=== PATIENT | female | born 1965 | race Caucasian/White ===

== ENCOUNTER 2022-05-18 13:21 | Emergency (ER) | payer OTHER ==
[2022-05-18] MEDS ORDERED: MORPHINE 4 MG/ML SYR ONE (14:30)
[2022-05-18] MEDS ORDERED: PROMETHAZINE INJ 25 MG/ML AMP ONE (14:30)
[2022-05-18] MEDS ORDERED: NA CHLORIDE 0.9% 1,000 ML ONE (14:31)
[2022-05-18 14:50] LABS: Absolute Lymphocytes (CBC) 2.7 K/uL (0.7-4.9); Hematocrit 38.4 % (36.0-45.0); Lymphocytes % 26.1 % (15.3-44.8); MPV 9.7 fL (7.6-11.3); RBC Red Blood Cell Count 4.14 M/uL (3.86-4.86)
[2022-05-18 15:03] LABS: Protime INR 0.96
[2022-05-18 15:11] LABS: Albumin 4.1 g/dL (3.4-5.0); Bilirubin Total 0.3 mg/dL (0.2-1.0); Protein, Total 7.5 g/dL (6.4-8.2)
[2022-05-18 15:13] LABS: Potassium 4.2 mmol/L (3.5-5.1)
--- NOTE | 2022-05-18 15:17 | RAD REPORT ---
EXAM DESCRIPTION: RAD - Chest Single View - 05/18/2022 3:08 pm CLINICAL HISTORY: FEVER COMPARISON: CHEST SINGLE VIEW dated 06/02/2010 FINDINGS: Lines: None. Lungs: No evidence of edema or pneumonia. Pleural: No significant pleural effusions or pneumothorax. Cardiac: The heart size is within normal limits. Bones: No acute fractures. Other: IMPRESSION: No acute cardiopulmonary disease.
[2022-05-18 15:50] LABS: Urine Blood Trace-intact (Negative); Urine Glucose Negative (Negative); Urine Protein Negative (Negative); Urine Specific Gravity 1.015 (1.005-1.030)
[2022-05-18 16:01] LABS: Urine Bacteria <20 /HPF (<20); Urine RBC NONE SEEN /HPF (NONE SEEN)
--- NOTE | 2022-05-18 16:07 | RAD REPORT ---
EXAM DESCRIPTION: CT - Head Brain Wo Cont - 05/18/2022 4:01 pm CLINICAL HISTORY: Dizziness, non-specific COMPARISON: Facial Bones W/ Mpr dated 05/18/2022; HEAD BRAIN W O CONTRAST dated 06/02/2010 TECHNIQUE: All CT scans are performed using dose optimization technique as appropriate and may inclu de automated exposure control or mA/KV adjustment according to patient size. FINDINGS: No intracranial hemorrhage, hydrocephalus or extra-axial fluid collection.No areas of brai n edema or evidence of midline shift. The paranasal sinuses and mastoids are clear. The calvarium is intact. IMPRESSION: No acute intracranial abnormality.
--- NOTE | 2022-05-18 16:08 | RAD REPORT ---
EXAM DESCRIPTION: CT - CTFB CLINICAL HISTORY: Maxillofacial pain COMPARISON: No comparisons TECHNIQUE: Axial 2 mm thick images of the face were obtained with sagittal and coronal reconstructio n images. All CT scans are performed using dose optimization technique as appropriate and may include automated exposure control or mA/KV adjustment according to patient size. FINDINGS: No acute facial bone fracture is seen.The mandible is intact. The globes and orbital contents are grossly unremarkable.The paranasal sinuses and mastoids are clear . IMPRESSION: Negative for facial bone fracture.
--- NOTE | 2022-05-18 16:12 | RAD REPORT ---
EXAM DESCRIPTION: CTAbdomen Pelvis W Contrast - 05/18/2022 4:00 pm CLINICAL HISTORY: Right flank pain, dysuria COMPARISON: No comparisons TECHNIQUE: CT of the abdomen and pelvis was performed with contrast. All CT scans are performed using dose optimization technique as appropriate and may include automated exposure control or mA/KV adjustment according to patient size. FINDINGS: Lower chest: No acute abnormality. Liver: No acute abnormality or suspicious lesions. Biliary: No biliary ductal dilatation. Stomach: No significant focal abnormality. Duodenum: No significant focal abnormality. Pancreas: No significant abnormality. Spleen: Surgical changes along the ventral aspect of the spleen. Adrenal: No suspicious lesions. Kidney/ureter: No hydronephrosis. No renal calculi. Too small to characterize and/or benign appearing renal lesions are noted. Retroperitoneum: No retroperitoneal adenopathy. Vascular: No aneurysm. Bowel: Nonspecific fluid within several of the small bowel loops. No bowel obstruction identified. No appendicitis.. Peritoneum: No ascites or free air. Bladder: Grossly unremarkable. Reproductive: Hysterectomy Bones: No acute fracture. Moderate disc height loss L4-5. Multilevel degenerative changes are present in the spine. Other: n/a IMPRESSION: No acute intra-abdominal or pelvic finding. Incidental findings as noted above.
--- NOTE | 2022-05-18 16:46 | ER ---
Nurse's Notes [facility] Name: Terra Christianson Age: 56 yrs Sex: Female : 1965 Arrival Date: 05/18/2022 Time: 13:24 Bed 7 Private MD: Jamie Wilson Diagnosis: Low back pain;Dysuria Presentation: 05/18 13:41 Chief complaint: Patient states: right low back pain and burning with urination that aa5 began 5 days ago. Coronavirus screen: At this time, the client does not indicate any symptoms associated with coronavirus-19. Ebola Screen: No symptoms or risks identified at this time. Initial Sepsis Screen: Does the patient meet any 2 criteria? No. Patient's initial sepsis screen is negative. Does the patient have a suspected source of infection? No. Patient's initial sepsis screen is negative. Risk Assessment: Do you want to hurt yourself or someone else? Patient reports no desire to harm self or others. Onset of symptoms was April 2022. 13:41 Acuity: YOSELYN 3 aa5 13:41 Method Of Arrival: Wheelchair aa5 Triage Assessment: 15:00 General: Appears uncomfortable, Behavior is calm, cooperative. Musculoskeletal: jh6 15:00 Pain: Complains of pain in right lower back Pain currently is 7 out of 10 on a pain jh6 scale. Quality of pain is described as aching, crampy, stabbing, Pain began 2-3 days ago. Is continuous, Aggravated by increased activity, repositioning. Cardiovascular: No deficits noted. Respiratory: No deficits noted. GI: Abdomen is round obese, Bowel sounds present X 4 quads. Abd is soft and non tender. : Reports urinary frequency, since 3 days. Historical: - Allergies: 13:42 z-pack; aa5 13:42 Adhesives; aa5 13:42 Fentanyl; aa5 13:50 Azithromycin; aa5 13:50 Albuterol; aa5 13:50 Flu vaccine; aa5 13:50 Pneumonia Vaccine; aa5 13:50 NSAIDS; aa5 13:50 zoster vaccine live (PF); aa5 13:50 HYDRALAZINE (Headache and does not work to lower BP); aa5 13:50 Prednisolone; aa5 13:50 Prednisone; aa5 13:50 Wellbutrin; aa5 13:50 Trazodone; aa5 - PMHx: 13:42 Renal reflux; aa5 13:50 Renal Failure; Anxiety; Depressive disorder; Diabetes mellitus; Gout; Hypertensive aa5 disorder; Insomnia; Uterine Cancer; - PSHx: 13:50 Hysterectomy; aa5 - Immunization history:: Adult Immunizations unknown. - Social history:: Smoking status: Patient denies any tobacco usage or history of. Screenin:00 Abuse screen: Denies threats or abuse. Nutritional screening: No deficits noted. 6 15:00 Tuberculosis screening: No symptoms or risk factors identified. Fall Risk IV access (20 6 points). Assessment: 15:00 General: Appears in no apparent distress. uncomfortable, Behavior is calm, cooperative. 6 15:00 Neuro: No deficits noted. 6 Vital Signs: 13:41 BP 128 / 75; Pulse 65; Resp 16 S; Temp 98.5(O); Pulse Ox 100% on R/A; Weight 79.83 kg aa5 (R); Height 5 ft. 3 in. (160.02 cm) (R); 15:00 BP 127 / 79; Pulse 77; Resp 16; Pulse Ox 100% ; jh6 16:00 BP 110 / 65; Pulse 70; Resp 16; Pulse Ox 100% ; Pain 4/10; jh6 13:41 Body Mass Index 31.18 (79.83 kg, 160.02 cm) 5 ED Course: 13:24 Patient arrived in ED. mr 13:24 Jamie Wilson MD is Private Physician. mr 13:40 Kt Garber NP is PHCP. pm1 13:40 Ed Cedeño MD is Attending Physician. pm1 13:41 Arm band placed on. aa5 13:42 Triage completed. aa5 14:03 Nanda Mistry RN is Primary Nurse. jh6 14:55 EKG done, by ED staff, reviewed by Kt Garber NP. 3 15:00 Placed in gown. Call light in reach. Side rails up X 1. Adult w/ patient. jh6 15:02 Inserted saline lock: 22 gauge in left forearm, using aseptic technique. dh3 15:10 Chest Single View XRAY In Process Unspecified. EDMS 16:02 CT Abd/Pelvis - IV Contrast Only In Process Unspecified. EDMS 16:02 CT Head Brain wo Cont In Process Unspecified. EDMS 16:03 CT Facial Bones W/O Con In Process Unspecified. EDMS 16:45 Harvey Chawla DO is Referral Physician. pm1 16:45 Jamie Wilson MD is Referral Physician. pm1 17:22 No provider procedures requiring assistance completed. jh6 17:30 IV discontinued, intact, bleeding controlled, No redness/swelling at site. Pressure jh6 dressing applied. Administered Medications: 15:13 Drug: Phenergan (promethazine) 12.5 mg Route: IVP; Site: left forearm; jh6 15:14 Drug: NS 0.9% 1000 ml Route: IV; Rate: 1000 ml; Site: left forearm; jh6 15:14 Drug: morphine 4 mg Route: IVP; Infused Over: 4 mins; Site: left forearm; jh6 Outcome: 16:45 Discharge ordered by MD. pm1 17:47 Patient left the ED. 6 Signatures: Dispatcher [employer] EDCA RodriguezFangderMarti jones, RN RN aa5 Kt Garber, DENTAL OFFICE COORDINATOR DENTAL OFFICE COORDINATOR pm1 Danielle Elmore 3 Nanda Mistry RN RN jh6 Corrections: (The following items were deleted from the chart) 13:53 13:42 Allergies: Medrol (John); aa5 aa5 13:53 13:42 Allergies: Bentyl; aa5 aa5 13:53 13:42 Allergies: Inhalers; aa5 aa5 13:53 13:42 Allergies: "most vaccines"; aa5 aa5
--- NOTE | 2022-05-18 16:46 | EDPHYS ---
Physician Documentation [facility] Name: Terra Christianson Age: 56 yrs Sex: Female : 1965 Arrival Date: 05/18/2022 Time: 13:24 Bed 7 Private MD: Jamie Wilson ED Physician Ed Cedeño HPI: 05/18 13:44 This 56 yrs old Female presents to ER via Wheelchair with complaints of Urinary pm1 Problem, Back Pain. 13:44 The patient presents with flank pain, on the right, urinary symptoms, dysuria. Onset: pm1 The symptoms/episode began/occurred 5 day(s) ago. Modifying factors:. Associated signs and symptoms: Pertinent positives: Chills, Pertinent negatives: diarrhea, nausea, vomiting, abdominal pain. Severity of symptoms: in the emergency department the symptoms are actually worse. The patient has experienced similar episodes in the past, a few times, Patient is concerned that she has a UTI with sepsis because she reports similar symptoms for the past 5 days. The patient has not recently seen a physician, has an appointment scheduled, Dr. Chawla next week. Historical: - Allergies: 13:42 z-pack; aa5 13:42 Adhesives; aa5 13:42 Fentanyl; aa5 13:50 Azithromycin; aa5 13:50 Albuterol; aa5 13:50 Flu vaccine; aa5 13:50 Pneumonia Vaccine; aa5 13:50 NSAIDS; aa5 13:50 zoster vaccine live (PF); aa5 13:50 HYDRALAZINE (Headache and does not work to lower BP); aa5 13:50 Prednisolone; aa5 13:50 Prednisone; aa5 13:50 Wellbutrin; aa5 13:50 Trazodone; aa5 - PMHx: 13:42 Renal reflux; aa5 13:50 Renal Failure; Anxiety; Depressive disorder; Diabetes mellitus; Gout; Hypertensive aa5 disorder; Insomnia; Uterine Cancer; - PSHx: 13:50 Hysterectomy; aa5 - Immunization history:: Adult Immunizations unknown. - Social history:: Smoking status: Patient denies any tobacco usage or history of. ROS: 13:44 Positive for burning with urination, right sided flank pain. pm1 13:44 Cardiovascular: Negative for chest pain, palpitations, and edema, Respiratory: Negative for shortness of breath, cough, wheezing, and pleuritic chest pain, Abdomen/GI: Negative for abdominal pain, nausea, vomiting, diarrhea, and constipation. 13:44 MS/Extremity: Negative for injury and deformity, Skin: Negative for injury, rash, and discoloration, Neuro: Negative for headache, weakness, numbness, tingling, and seizure. 13:44 Constitutional: Positive for chills, Negative for poor PO intake. 13:44 Back: Positive for flank pain, on the right. 13:44 All other systems are negative. Exam: 13:44 Constitutional: This is a well developed, well nourished patient who is awake, alert, pm1 and in no acute distress. Head/Face: Normocephalic, atraumatic. 13:44 Skin: Warm, dry with normal turgor. Normal color with no rashes, no lesions, and no evidence of cellulitis. MS/ Extremity: Pulses equal, no cyanosis. Neurovascular intact. Full, normal range of motion. 13:44 Eyes: Exam is negative for acute changes, Pupils: no acute changes, Extraocular movements: no acute changes. 13:44 ENT: Exam is negative for acute changes, Mouth: no acute changes, Lips: normal, moist, Oral mucosa: normal, pink and intact, moist. 13:44 Cardiovascular: Exam negative for acute changes, Rate: normal, Rhythm: regular, Pulses: no pulse deficits are appreciated, Heart sounds: normal, normal S1and S2. 13:44 Respiratory: Exam negative for acute changes, respiratory distress, shortness of breath, Breath sounds: are clear throughout. 13:44 Abdomen/GI: Exam negative for acute changes, Inspection: abdomen appears normal, Palpation: abdomen is soft and non-tender, in all quadrants. 13:44 Back: pain, that is mild, of the right low back. 13:44 Neuro: Exam negative for acute changes, Orientation: is normal, Mentation: is normal, Motor: is normal, moves all fours. Vital Signs: 13:41 BP 128 / 75; Pulse 65; Resp 16 S; Temp 98.5(O); Pulse Ox 100% on R/A; Weight 79.83 kg aa5 (R); Height 5 ft. 3 in. (160.02 cm) (R); 15:00 BP 127 / 79; Pulse 77; Resp 16; Pulse Ox 100% ; jh6 16:00 BP 110 / 65; Pulse 70; Resp 16; Pulse Ox 100% ; Pain 4/10; jh6 13:41 Body Mass Index 31.18 (79.83 kg, 160.02 cm) aa5 MDM: 13:42 Patient medically screened. pm1 16:42 Data reviewed: vital signs. Data interpreted: Pulse oximetry: on room air is 100 %. pm1 Interpretation: normal. Counseling: I had a detailed discussion with the patient and/or guardian regarding: the historical points, exam findings, and any diagnostic results supporting the discharge/admit diagnosis, lab results, radiology results, the need for outpatient follow up, to return to the emergency department if symptoms worsen or persist or if there are any questions or concerns that arise at home. 05/18 13:43 Order name: Urine Microscopic Only; Complete Time: 16:02 pm05/18 14:07 Order name: Blood Culture Adult (2) pm1 05/18 14:07 Order name: CBC with Diff; Complete Time: 15:02 pm05/18 14:07 Order name: CMP; Complete Time: 15:20 pm05/18 14:07 Order name: Lactate; Complete Time: 15:20 pm05/18 14:07 Order name: Protime (+inr); Complete Time: 15:20 pm05/18 14:07 Order name: Ptt, Activated; Complete Time: 15:20 pm05/18 14:07 Order name: Urine Culture pm05/18 14:07 Order name: CT Abd/Pelvis - IV Contrast Only; Complete Time: 16:18 pm05/18 14:07 Order name: CT Head Brain wo Cont; Complete Time: 16:08 pm05/18 14:07 Order name: CT Facial Bones W/O Con; Complete Time: 16:11 pm1 05/18 14:07 Order name: Chest Single View XRAY; Complete Time: 15:20 pm05/18 15:50 Order name: Urine Dipstick-Ancillary; Complete Time: 16:02 EDMS 05/18 13:43 Order name: Urine Dipstick-Ancillary (obtain specimen); Complete Time: 16:27 pm1 05/18 14:07 Order name: Accucheck; Complete Time: 16:27 pm05/18 14:07 Order name: Cardiac monitoring; Complete Time: 14:48 pm1 05/18 14:07 Order name: EKG - Nurse/Tech; Complete Time: 14:48 pm1 05/18 14:07 Order name: IV Saline Lock - Large Bore; Complete Time: 15:14 pm1 05/18 14:07 Order name: Labs collected and sent; Complete Time: 14:48 pm1 05/18 14:07 Order name: O2 Per Protocol; Complete Time: 14:39 pm1 05/18 14:07 Order name: O2 Sat Monitoring; Complete Time: 14:39 pm1 Administered Medications: 15:13 Drug: Phenergan (promethazine) 12.5 mg Route: IVP; Site: left forearm; [facility] 15:14 Drug: NS 0.9% 1000 ml Route: IV; Rate: 1000 ml; Site: left forearm; 6 15:14 Drug: morphine 4 mg Route: IVP; Infused Over: 4 mins; Site: left forearm; 6 Disposition Summary: 05/18/22 16:45 Discharge Ordered Location: Home pm1 Problem: new pm1 Symptoms: have improved pm1 Condition: Stable pm1 Diagnosis - Low back pain pm1 - Dysuria pm1 Followup: pm1 - With: Emergency Department - When: As needed - Reason: Worsening of condition Followup: pm1 - With: Harvey Chawla DO - When: 2 - 3 days - Reason: Recheck today's complaints, Continuance of care, Re-evaluation by your physician Followup: pm1 - With: Jamie Wilson MD - When: 2 - 3 days - Reason: Recheck today's complaints, Continuance of care, Re-evaluation by your physician Discharge Instructions: - Discharge Summary Sheet pm1 - Acute Back Pain, Adult pm1 - Dysuria pm1 Forms: - Medication Reconciliation Form pm1 - Thank You Letter pm1 - Antibiotic Education pm1 - Prescription Opioid Use pm1 Signatures: Dispatcher [employer] EDMS Marti Morse RN RN aa5 Kt Garber NP FIELD CASHIER pm1 Nanda Mistry RN RN jh6 Corrections: (The following items were deleted from the chart) 13:53 13:42 Allergies: Medrol (John); aa5 aa5 13:53 13:42 Allergies: Bentyl; aa5 aa5 13:53 13:42 Allergies: Inhalers; aa5 aa5 1353 13:42 Allergies: "most vaccines"; aa5 aa5
[2022-05-18 18:03] VITALS: TEMP 98.5; O2SAT 100
[2022-05-18 18:07] VITALS: BP 110/65
--- NOTE | 2022-05-20 17:33 | EKG ---
Test Date: 2022-05-18 Test Time: 14:48:25 Type Caster: SATHYA MEASUREMENT RESULTS: Intervals: Rate: 60 TX: 190 QRSD: 84 QT: 458 QTc: 458 [place]: P: 38 TX: 190 QRS: 35 T: 58 INTERPRETIVE STATEMENTS: Normal sinus rhythm Nonspecific T wave abnormality Abnormal ECG Compared to ECG 02/28/2001 01:47:00 T-wave abnormality now present Ventricular premature complex(es) no longer present Electronically Signed On 05-20-22 17:29:45 CDT by Juan Diego Case
== END 2022-05-18 17:47 | disposition home or self-care (01) ==
LOC: ER 13:21
DX: M54.50 Low back pain, unspecified (principal); R30.0 Dysuria; E11.22 Type 2 diabetes mellitus with diabetic chronic kidney disease; N18.9 Chronic kidney disease, unspecified; Z88.1 Allergy status to other antibiotic agents; Z88.3 Allergy status to other anti-infective agents; Z88.5 Allergy status to narcotic agent; Z88.6 Allergy status to analgesic agent; Z88.7 Allergy status to serum and vaccine; Z88.8 Allergy status to other drugs, medicaments and biological substances; Z91.048 Other nonmedicinal substance allergy status
CPT/HCPCS: 93005; 87040 ×2; 87088; 85025; 87086; 36415; 85610; 83605; 85730; 80053; 70450; 70486; 76377; 74177; 71045; 96375; 96374; 99284; Q9967; J2550; J7030; 81003; 81015

== ENCOUNTER 2022-12-12 06:29 | Inpatient (IN) | payer OTHER ==
[2022-12-12 07:31] LABS: SARS-CoV-2 Antigen Rapid Res Negative (Negative)
--- NOTE | 2022-12-12 07:35 | EKG ---
Test Date: 2022-12-12 Test Time: 06:48:08 Material Handling Equipment [employer]: SIGRID MEASUREMENT RESULTS: Intervals: Rate: 54 NV: 200 QRSD: 80 QT: 446 QTc: 422 [place]: P: 50 NV: 200 QRS: 60 T: 62 INTERPRETIVE STATEMENTS: Sinus bradycardia Otherwise normal ECG Compared to ECG 05/18/2022 14:48:25 Sinus rhythm no longer present T-wave abnormality no longer present Electronically Signed On 12-12-22 07:34:44 SONOSCOPE OPERATOR by Eran Blas
[2022-12-12] MEDS ORDERED: ONDANSETRON 4 MG/2 ML VIAL ONE (07:57)
[2022-12-12] MEDS ORDERED: MORPHINE 4 MG/ML SYR ONE (07:57)
[2022-12-12] MEDS ORDERED: FUROSEMIDE 40 MG/4 ML VIAL ONE (07:57)
--- NOTE | 2022-12-12 08:13 | RAD REPORT ---
EXAM DESCRIPTION: Richard Single View12/12/2022 8:09 am CLINICAL HISTORY: Shortness of breath COMPARISON: April 2022 FINDINGS: The lungs appear clear of acute infiltrate. The heart is normal size IMPRESSION: No acute abnormalities displayed
[2022-12-12 08:16] LABS: Absolute Lymphocytes (CBC) 2.9 K/uL (0.7-4.9); Hematocrit 30.5 % (36.0-45.0); Lymphocytes % 34.6 % (15.3-44.8); MCV 92.2 fL (80-100); MPV 8.8 fL (7.6-11.3); RBC Red Blood Cell Count 3.31 M/uL (3.86-4.86)
[2022-12-12 08:21] LABS: Protime INR 0.95
[2022-12-12] MEDS ORDERED: METOCLOPRAMIDE 10 MG/2mL INJ ONE (08:34)
[2022-12-12 08:36] LABS: ALT/SGPT 91 U/L (13-56); AST/SGOT 64 U/L (15-37); Albumin 3.3 g/dL (3.4-5.0); Alkaline Phosphatase 98 U/L (45-117); BUN Blood Urea Nitrogen 21 mg/dL (7-18); Bicarbonate 26 mmol/L (21-32); Bilirubin Total 0.3 mg/dL (0.2-1.0); Glomerular Filtration Rate 54 ml/min (=/>90); Glucose Level 94 mg/dL (74-106); Magnesium 1.7 mg/dL (1.6-2.4); NT PRO-BNP 2732 pg/mL (<125); Protein, Total 6.2 g/dL (6.4-8.2); Sodium Level 141 mmol/L (136-145); Troponin High Sensitivity 7.5 pg/mL (<58.9)
[2022-12-12 08:37] LABS: Bilirubin Direct < 0.1 mg/dL (0-0.2)
[2022-12-12 08:38] LABS: Potassium 5.6 mmol/L (3.5-5.1)
[2022-12-12 09:55] LABS: Urine Blood Negative (Negative); Urine Glucose Negative (Negative); Urine Protein Negative (Negative); Urine Specific Gravity 1.015 (1.005-1.030)
[2022-12-12 10:18] LABS: Urine Bacteria None Seen /HPF (<20); Urine Mucus Slight /HPF (None Seen); Urine RBC <5 /HPF (None Seen)
--- NOTE | 2022-12-12 10:41 | EDPHYS ---
Physician Documentation [facility] Name: Terra Christianson Age: 57 yrs Sex: Female : 1965 Arrival Date: 12/12/2022 Time: 06:35 Bed 6 Private MD: ED Physician Tree Delgado HPI: 12/12 07:17 This 57 yrs old Female presents to ER via Ambulatory with complaints of Shortness Of rt Breath. 07:17 The patient has shortness of breath with light activity. Onset: The symptoms/episode rt began/occurred 1 week(s) ago. The patient's shortness of breath is aggravated by light activity. Associated signs and symptoms: Pertinent positives: Edema, right flank pain. Severity of symptoms: At their worst the symptoms were moderate. Patient presents to the ED with 1 week of reported weight gain, edema stating that her fingers, legs have been swollen. She was reports of right flank pain and burning with urination. She states that she was this is septic due to a UTI, she reports having multiple episodes of pyelonephritis in the right kidney previously. The patient denies chest pain. She does report some shortness of breath. She is on Lasix 20 mg daily. The patient denies other acute complaints at this time. Symptoms are moderate in severity, no other aggravating alleviating factors.. Historical: - Allergies: 06:45 Azithromycin; kd3 06:45 Fentanyl; kd3 06:45 HYDRALAZINE (Headache and does not work to lower BP); kd3 06:45 FLU VACCINE; kd3 06:45 NSAIDS; kd3 06:45 Prednisone; kd3 06:45 Trazodone; kd3 06:45 prednisolone; kd3 06:45 Wellbutrin; kd3 06:45 zoster vaccine live (PF); kd3 06:45 z-pack; kd3 06:45 pneumonia vaccine; kd3 06:45 Albuterol; kd3 06:45 Adhesives; kd3 - Home Meds: 06:45 Lasix 20 mg Oral tab once daily [Active]; allopurinol 100 mg Oral tab 1 tab once daily kd3 [Active]; Metoprolol Tartrate Oral [Active]; amlodipine oral [Active]; Lunesta oral [Active]; - PMHx: 06:45 Anxiety; depressive disorder; diabetes mellitus; Gout; Hypertensive disorder; insomnia; kd3 RENAL FAILURE; Renal reflux; uterine cancer; - PSHx: 06:45 hysterectomy; kd3 - Immunization history:: Adult Immunizations up to date, Client reports having NOT received the Covid vaccine. - Social history:: Smoking status: unknown. - Family history:: not pertinent. ROS: 07:17 Constitutional: Negative for fever, chills, and weight loss, Eyes: Negative for injury, rt pain, redness, and discharge, ENT: Negative for injury, pain, and discharge, Neck: Negative for injury, pain, and swelling, MS/Extremity: Negative for injury and deformity, Skin: Negative for injury, rash, and discoloration, Neuro: Negative for headache, weakness, numbness, tingling, and seizure, Psych: Negative for depression, anxiety, suicide ideation, homicidal ideation, and hallucinations. 07:17 Cardiovascular: Positive for edema, Negative for chest pain. 07:17 Respiratory: Positive for shortness of breath, Negative for cough. 07:17 Back: Positive for flank pain, Negative for radiated pain. 07:17 : Positive for flank pain, burning with urination. Exam: 07:17 Constitutional: This is a well developed, well nourished patient who is awake, alert, rt and in no acute distress. Head/Face: Normocephalic, atraumatic. ENT: Nares patent. No nasal discharge, no septal abnormalities noted. Tympanic membranes are normal and external auditory canals are clear. Oropharynx with no redness, swelling, or masses, exudates, or evidence of obstruction, uvula midline. Mucous membranes moist. Neck: Trachea midline, no thyromegaly or masses palpated, and no cervical lymphadenopathy. Supple, full range of motion without nuchal rigidity, or vertebral point tenderness. No Meningismus. Chest/axilla: Normal chest wall appearance and motion. Nontender with no deformity. No lesions are appreciated. Cardiovascular: Regular rate and rhythm with a normal S1 and S2. No gallops, murmurs, or rubs. Normal PMI, no JVD. No pulse deficits. Respiratory: Lungs have equal breath sounds bilaterally, clear to auscultation and percussion. No rales, rhonchi or wheezes noted. No increased work of breathing, no retractions or nasal flaring. Abdomen/GI: Soft, non-tender, with normal bowel sounds. No distension or tympany. No guarding or rebound. No evidence of tenderness throughout. Skin: Warm, dry with normal turgor. Normal color with no rashes, no lesions, and no evidence of cellulitis. Neuro: Awake and alert, GCS 15, oriented to person, place, time, and situation. Cranial nerves II-XII grossly intact. Motor strength 5/5 in all extremities. Sensory grossly intact. Cerebellar exam normal. Normal gait. Psych: Awake, alert, with orientation to person, place and time. Behavior, mood, and affect are within normal limits. 07:17 Back: Tenderness to the right mid lumbar region, no midline tenderness. 07:17 Musculoskeletal/extremity: 3+ edema to all 4 extremities, no deformities noted, no skin changes.. 10:34 ECG was reviewed by the Attending Physician. rt Vital Signs: 06:54 BP 146 / 84; Pulse 56; Resp 19; Temp 98.5(O); Pulse Ox 96% on R/A; kd3 06:54 Weight 83.91 kg; kd3 08:15 BP 143 / 76; Pulse 61; Resp 18; Pulse Ox 95% on R/A; ld1 08:16 Pain 8/10; ld1 14:06 BP 122 / 61; Pulse 56; Resp 18; Pulse Ox 96% on R/A; kr3 MDM: 06:49 Patient medically screened. rn 10:40 Differential diagnosis: Renal failure, sepsis, pyelonephritis, UTI, CHF, peripheral rt edema. Data reviewed: vital signs, nurses notes, lab test result(s), EKG, radiologic studies. Consideration of Admission/Observation Patient was admitted/placed on observation. Management of patient was discussed with the following: Hospitalist: Will admit. I considered the following discharge prescriptions or medication management in the emergency department Medications were administered in the Emergency Department. See MAR. Test considered but Not performed: Other Details Clear urinalysis, CT scan not indicated to rule out pyelonephritis, stone, hydronephrosis.. Care significantly affected by the following chronic conditions: Diabetes, Hypertension, Chronic Kidney Disease, No prior history of CHF. 12/12 06:49 Order name: BMP; Complete Time: 08:50 rn 12/12 06:49 Order name: Blood Culture Adult (2) rn 12/12 06:49 Order name: CBC with Diff; Complete Time: 08:50 rn 12/12 06:49 Order name: Hepatic Function; Complete Time: 08:50 rn 12/12 06:49 Order name: Magnesium; Complete Time: 08:50 rn 12/12 06:49 Order name: NT PRO-BNP; Complete Time: 08:50 rn 12/12 06:49 Order name: PT-INR; Complete Time: 08:50 rn 12/12 06:49 Order name: Ptt, Activated; Complete Time: 08:50 rn 12/12 06:49 Order name: Troponin HS; Complete Time: 08:50 rn 12/12 06:49 Order name: SARS RAPID; Complete Time: 08:15 rn 12/12 07:11 Order name: UA MICROSCOPIC; Complete Time: 10:24 rt 12/12 09:56 Order name: Urine Dipstick-Ancillary; Complete Time: 10:24 EDMS 12/12 12:42 Order name: Hemoglobin A1c EDMS 12/12 12:42 Order name: Lipid Profile EDMS 12/12 06:49 Order name: XRAY CXR (1 view); Complete Time: 08:15 rn 12/12 12:38 Order name: Echo with Doppler EDMS 12/12 12:42 Order name: Magnesium EDMS 12/12 12:42 Order name: Phosphorus EDMS 12/12 12:42 Order name: T4 Free EDMS 12/12 12:42 Order name: Thyroid Stimulating Hormone EDMS 12/12 12:42 Order name: Urinalysis EDMS 12/12 12:42 Order name: Basic Metabolic Panel EDMS 12/12 12:42 Order name: Basic Metabolic Panel EDMS 12/12 12:42 Order name: CBC with Automated Diff EDMS 12/12 12:42 Order name: CBC with Automated Diff EDMS 12/12 12:42 Order name: NT PRO-BNP EDMS 12/12 12:42 Order name: NT PRO-BNP EDMS 12/12 14:48 Order name: Potassium EDMS 12/12 06:49 Order name: EKG; Complete Time: 06:50 rn 12/12 06:49 Order name: Cardiac monitoring; Complete Time: 07:04 rn 12/12 06:49 Order name: EKG - Nurse/Tech; Complete Time: 06:50 rn 12/12 06:49 Order name: IV Saline Lock; Complete Time: 08:53 rn 12/12 06:49 Order name: Labs collected and sent; Complete Time: 08:53 rn 12/12 06:49 Order name: O2 Per Protocol; Complete Time: 07:04 rn 12/12 06:49 Order name: O2 Sat Monitoring; Complete Time: 07:04 rn 12/12 07:11 Order name: Urine Dipstick-Ancillary (obtain specimen); Complete Time: 09:55 rt 12/12 07:49 Order name: Labs - recollect needed: recollect c7, cbc; Complete Time: 08:07 bd 12/12 12:34 Order name: CONS Physician Consult EDMS 12/12 12:42 Order name: 60g Consistent Carbohydrate (ADA 1800/2000) EDMS EC:34 Rate is 54 beats/min. Rhythm is regular, Sinus bradycardia with No ectopy. QRS [place] is rt Normal. OR interval is normal. QRS interval is normal. QT interval is normal. No Q waves. T waves are Normal. No ST changes noted. Interpreted by me. Administered Medications: 07:59 Not Given (on back orderr): Phenergan (promethazine) 12.5 mg IVP once ld1 08:15 Drug: Lasix (furosemide) 40 mg Route: IVP; Site: left antecubital; ld1 08:36 Follow up: Response: No adverse reaction aa5 10:25 Follow up: Response: No adverse reaction kr3 08:15 Drug: morphine 4 mg Route: IVP; Infused Over: 4 mins; Site: left antecubital; ld1 08:36 Follow up: Response: No adverse reaction aa5 10:25 Follow up: Response: No adverse reaction; RASS: Alert and Calm (0) kr3 08:15 Drug: Zofran (Ondansetron) 4 mg Route: IVP; Site: left antecubital; ld1 08:36 Follow up: Response: No adverse reaction aa5 10:25 Follow up: Response: No adverse reaction; RASS: Alert and Calm (0) kr3 08:36 Drug: Reglan (metoCLOPramide) 5 mg Route: IVP; Site: left antecubital; aa5 10:25 Follow up: Response: No adverse reaction kr3 Disposition Summary: 12/12/22 10:40 Hospitalization Ordered Hospitalization Status: Observation rt Provider: Junaid Latham rt Location: Telemetry/MedSurg (observation) rt Condition: Stable rt Problem: new rt Symptoms: have improved rt Bed/Room Type: Standard rt Room Assignment: 219(12/12/22 13:06) dw Diagnosis - Edema, unspecified rt - Hyperkalemia rt Forms: - Medication Reconciliation Form rt - SBAR form rt Signatures: Dispatcher [employer] EDChana Robles Diana, RN RN dw Barrera Borja MD MD rn Calderon, Audri RN RN aa5 Emmy Yao RN RN ld1 Jamee Abarca RN RN kd3 Tree Delgado MD MD rt Cherelle Castrejon RN kr3 Corrections: (The following items were deleted from the chart) 13:06 10:40 rt dw
--- NOTE | 2022-12-12 10:41 | ER ---
Nurse's Notes [facility] Name: Terra Christianson Age: 57 yrs Sex: Female : 1965 Arrival Date: 12/12/2022 Time: 06:35 Bed 6 Private MD: Diagnosis: Edema, unspecified;Hyperkalemia Presentation: 12/12 06:43 Chief complaint: Patient states: I think I have gained 15 pounds in the past 12 hours. kd3 yesterday I weighed 185 and this morning I weigh 200. My right kidney hurts and i have not had much urine output like i usually do. I feel very short of breath and i am nauseous. Coronavirus screen: Vaccine status: Patient reports being unvaccinated. Ebola Screen: No symptoms or risks identified at this time. Risk Assessment: Do you want to hurt yourself or someone else? Patient reports no desire to harm self or others. Onset of symptoms was December 12, 2022. 06:43 Method Of Arrival: Ambulatory kd3 06:43 Acuity: YOSELYN 3 kd3 06:49 Initial Sepsis Screen: Does the patient meet any 2 criteria?. kd3 14:30 Initial Sepsis Screen: Does the patient have a suspected source of infection?. kr3 Triage Assessment: 06:45 General: Appears uncomfortable, Behavior is calm, cooperative. Pain: Complains of pain kd3 in right mid back. Neuro: Level of Consciousness is awake, alert, obeys commands, Oriented to person, place, time, situation. Cardiovascular: Patient's skin is warm and dry. Respiratory: Reports shortness of breath on exertion Onset: The symptoms/episode began/occurred this morning, the patient has moderate shortness of breath. GI: Reports nausea. : Reports less urine output than usual. Historical: - Allergies: 06:45 Azithromycin; kd3 06:45 Fentanyl; kd3 06:45 HYDRALAZINE (Headache and does not work to lower BP); kd3 06:45 FLU VACCINE; kd3 06:45 NSAIDS; kd3 06:45 Prednisone; kd3 06:45 Trazodone; kd3 06:45 prednisolone; kd3 06:45 Wellbutrin; kd3 06:45 zoster vaccine live (PF); kd3 06:45 z-pack; kd3 06:45 pneumonia vaccine; kd3 06:45 Albuterol; kd3 06:45 Adhesives; kd3 - Home Meds: 06:45 Lasix 20 mg Oral tab once daily [Active]; allopurinol 100 mg Oral tab 1 tab once daily kd3 [Active]; Metoprolol Tartrate Oral [Active]; amlodipine oral [Active]; Lunesta oral [Active]; - PMHx: 06:45 Anxiety; depressive disorder; diabetes mellitus; Gout; Hypertensive disorder; insomnia; kd3 RENAL FAILURE; Renal reflux; uterine cancer; - PSHx: 06:45 hysterectomy; kd3 - Immunization history:: Adult Immunizations up to date, Client reports having NOT received the Covid vaccine. - Social history:: Smoking status: unknown. - Family history:: not pertinent. Screenin:49 [facility] ED Fall Risk Assessment (Adult) History of falling in the last 3 months, kd3 including since admission No falls in past 3 months (0 pts) Confusion or Disorientation No (0 pts) Intoxicated or Sedated No (0 pts) Impaired Gait No (0 pts) Mobility Assist Device Used No (0 pt) Altered Elimination No (0 pt) Score/Fall Risk Level 0 - 2 = Low Risk Oriented to surroundings. Abuse screen: Denies threats or abuse. Denies injuries from another. Nutritional screening: No deficits noted. Tuberculosis screening: No symptoms or risk factors identified. Assessment: 06:48 Cardiovascular: Rhythm is regular. Respiratory: Airway is patent Respiratory effort is kd3 even, unlabored. 08:36 Reassessment: Patient is alert, oriented x 3, equal unlabored respirations, skin aa5 warm/dry/pink. Patient states feeling better. Pain: Pain currently is 4 out of 10 on a pain scale. 09:30 Reassessment: Patient appears in no apparent distress at this time. Patient and/or kr3 family updated on plan of care and expected duration. Pain level reassessed. Patient is alert, oriented x 3, equal unlabored respirations, skin warm/dry/pink. 10:30 Reassessment: Patient appears in no apparent distress at this time. Patient and/or kr3 family updated on plan of care and expected duration. Pain level reassessed. Patient is alert, oriented x 3, equal unlabored respirations, skin warm/dry/pink. 11:27 Reassessment: Patient appears in no apparent distress at this time. Patient and/or kr3 family updated on plan of care and expected duration. Pain level reassessed. Patient is alert, oriented x 3, equal unlabored respirations, skin warm/dry/pink. 14:26 Reassessment:. kr3 14:29 Respiratory: kr3 Vital Signs: 06:54 BP 146 / 84; Pulse 56; Resp 19; Temp 98.5(O); Pulse Ox 96% on R/A; kd3 06:54 Weight 83.91 kg; kd3 08:15 BP 143 / 76; Pulse 61; Resp 18; Pulse Ox 95% on R/A; ld1 08:16 Pain 8/10; ld1 14:06 BP 122 / 61; Pulse 56; Resp 18; Pulse Ox 96% on R/A; kr3 ED Course: 06:35 Patient arrived in ED. ag3 06:43 Jamee Abarca, RN is Primary Nurse. kd3 06:45 Triage completed. kd3 06:45 Arm band placed on right wrist. kd3 06:49 Barrera Borja MD is Attending Physician. rn 06:49 Placed in gown. Bed in low position. Call light in reach. kd3 07:01 Attending Physician role handed off by Barrera Borja MD rt 07:01 Tree Delgado MD is Attending Physician. rt 07:12 SARS RAPID Sent. ld1 07:25 Missed attempt(s): 22 gauge in right wrist. Bleeding controlled, band aid applied, aa5 catheter tip intact. 07:30 Missed attempt(s): 22 gauge in left forearm. Bleeding controlled, band aid applied, aa5 catheter tip intact. 07:30 Initial lab(s) drawn, by me, sent to lab. aa5 07:50 Missed attempt(s): 22 gauge in right forearm. Bleeding controlled, band aid applied, jl7 catheter tip intact. 07:55 Missed attempt(s): 24 gauge in left hand. Bleeding controlled, band aid applied, jl7 catheter tip intact. 08:02 Lab(s) recollected, by me, sent to lab. Inserted saline lock: 22 gauge in left jl7 antecubital area, using aseptic technique. Blood collected. 08:11 XRAY CXR (1 view) In Process Unspecified. EDMS 10:39 Junaid Latham MD is Hospitalizing Provider. rt 14:27 Report given to MESSI Sweeney after 3 attempts at patient report first attempt at 1340, kr3 finally giving report at 1427. 14:29 No provider procedures requiring assistance completed. Patient admitted, IV remains in kr3 place. Administered Medications: 07:59 Not Given (on back orderr): Phenergan (promethazine) 12.5 mg IVP once ld1 08:15 Drug: Lasix (furosemide) 40 mg Route: IVP; Site: left antecubital; ld1 08:36 Follow up: Response: No adverse reaction aa5 10:25 Follow up: Response: No adverse reaction kr3 08:15 Drug: morphine 4 mg Route: IVP; Infused Over: 4 mins; Site: left antecubital; ld1 08:36 Follow up: Response: No adverse reaction aa5 10:25 Follow up: Response: No adverse reaction; RASS: Alert and Calm (0) kr3 08:15 Drug: Zofran (Ondansetron) 4 mg Route: IVP; Site: left antecubital; ld1 08:36 Follow up: Response: No adverse reaction aa5 10:25 Follow up: Response: No adverse reaction; RASS: Alert and Calm (0) kr3 08:36 Drug: Reglan (metoCLOPramide) 5 mg Route: IVP; Site: left antecubital; aa5 10:25 Follow up: Response: No adverse reaction kr3 Medication: 06:49 VIS not applicable for this client. kd3 Outcome: 10:40 Decision to Hospitalize by Provider. rt 14:29 Admitted to Med/surg kr3 14:29 Condition: stable 14:29 Instructed on the need for admit. 14:55 Patient left the ED. ld1 Signatures: Dispatcher [employer] EDMS Barrera Borja MD MD rn Calderon, Audri, RN RN aa5 Juana Pratt RN RN jl7 Lizett Carpio 3 Emmy Yao RN RN ld1 Jamee Abarca RN RN kd3 Cherelle Castrejon RN RN kr3 Tree Delgado MD MD rt Corrections: (The following items were deleted from the chart) 08:09 08:02 Inserted saline lock: 22 gauge in left antecubital area, using aseptic technique. jl7 Blood collected. ld1 08:09 08:02 Lab(s) recollected, by me, sent to lab. ld1 jl7 : 07:50 Missed attempt(s): 22 gauge in right forearm. Bleeding controlled, band aid jl7 applied, catheter tip intact. ld1 08: 07:55 Missed attempt(s): 24 gauge in left hand. Bleeding controlled, band aid applied, jl7 catheter tip intact. ld1
[2022-12-12] MEDS ORDERED: ACETAMINOPHEN 325 MG TABLET PO PRN (12:33)
[2022-12-12] MEDS ORDERED: SOD POLYSTYREN SUL 15 GM/60 ML UCUP PO ONE (12:35)
[2022-12-12] MEDS ORDERED: ONDANSETRON 4 MG/2 ML VIAL IV PRN (12:39)
[2022-12-12] MEDS ORDERED: HYDRALAZINE HCL 20 MG/ML VIAL IV PRN (12:48)
--- NOTE | 2022-12-12 12:49 | P.HP ---
Certification for Inpatient Patient admitted to: Observation With expected LOS: <2 Midnights Patient will require the following post-hospital care: None Practitioner: I am a practitioner with admitting privileges, knowledge of patient current condition, hospital course, and medical plan of care. Services: Services provided to patient in accordance with Admission requirements found in Title 42 Section 412.3 of the Code of Federal Regulations <Silvano Shelton - Last Filed: 12/12/22 18:03> Patient History Date of Service: 12/12/22 Reason for admission: Generalized edema. History of Present Illness: Patient is a 57-year-old female with a past medical history significant for gout, depression, iron deficiency anemia, hypertension, obesity, DM 2 who presents with complaint of generalized swelling has been ongoing for the past 3 days. Patient reported that she initially started having generalized weakness, fatigue, generalized malaise and right flank pain. Patient rated pain as 9/10 in severity and described pain as sharp/burning in quality. Patient reported associated signs and symptoms of fever, chills, headache, dizziness and shortness of breath. Patient denies any other signs or symptoms. Symptoms are aggravated or relieved by nothing. Patient decided to present to the hospital due to worsening symptoms. Of note, patient reported that she has gained 15 pounds in weight in the last 3 days. - Past Medical/Surgical History -: Gout -: HTN -: Depression -: Obesity -: DM 2 -: Hysterectomy - Family History Family History: Reviewed- Non-Contributory - Social History Smoking Status: Never smoker Alcohol use: Yes CD- Drugs: No Caffeine use: Yes Place of Residence: Home <Jose EliasgeoSilvano childers Tony - Last Filed: 12/12/22 18:03> Date of Service: 12/12/22 <Junaid Latham - Last Filed: 12/12/22 19:27> Allergies adhesive Allergy (Verified 12/12/22 13:01) UNK albuterol Allergy (Verified 12/12/22 13:01) UNK azithromycin [From Zithromax] Allergy (Verified 12/12/22 13:01) UNK bupropion [From Wellbutrin] Allergy (Verified 12/12/22 13:01) UNK fentanyl Allergy (Verified 12/12/22 13:01) UNK hydralazine Allergy (Verified 12/12/22 13:01) UNK Influenza Virus Vaccines Allergy (Verified 12/12/22 13:01) UNK NSAIDS (Non-Steroidal Anti-Inflamma Allergy (Verified 12/12/22 13:01) UNK pneumococcal vaccine Allergy (Verified 12/12/22 13:01) UNK prednisolone Allergy (Verified 12/12/22 13:01) UNK prednisone Allergy (Verified 12/12/22 13:01) UNK trazodone Allergy (Verified 12/12/22 13:01) UNK zoster vaccine live Allergy (Verified 12/12/22 13:01) UNK Home Medications: Allopurinol 1 tab PO DAILY 12/12/22 Citalopram [Celexa] 40 mg PO BEDTIME 12/12/22 Eszopiclone [Lunesta] 1 tab PO BEDTIME 12/12/22 Ferrous Sulfate [Feosol] 1 tab PO DAILY 12/12/22 Furosemide [Lasix] 1 tab PO DAILY 12/12/22 Losartan Potassium 1 tab PO DAILY 12/12/22 Mecobalamin [B12 Active] 1,000 mcg IM CONT 12/12/22 Metoprolol Tartrate 1 tab PO BID 12/12/22 Review of Systems General: Fever, Weakness, Malaise Eyes: Unremarkable ENT: Unremarkable Respiratory: Shortness of Breath Cardiovascular: Unremarkable Gastrointestinal: Unremarkable Genitourinary: Unremarkable Musculoskeletal: Pedal edema, Other (Generalized edema.) Integumentary: Unremarkable Neurological: Other (headache, dizziness) Lymphatics: Unremarkable <Silvano Shelton - Last Filed: 12/12/22 18:03> Physical Examination - Physical Exam General: Alert, In no apparent distress, Oriented x3, Cooperative HEENT: Atraumatic, PERRLA, Mucous membr. moist/pink, EOMI, Sclerae nonicteric Neck: Supple, 2+ carotid pulse no bruit, No LAD, Without JVD or thyroid abnormality Respiratory: Diminished Cardiovascular: Regular rate/rhythm, Normal S1 S2, Edema Capillary refill: <2 Seconds Gastrointestinal: Normal bowel sounds, Soft and benign, No tenderness Musculoskeletal: No clubbing, No contractures, Tenderness ( ) Integumentary: No rashes, No breakdown, No significant lesion, No erythema, No warmth Neurological: Normal gait, Normal speech, Normal strength at 5/5 x4 extr, Normal tone, Normal affect Lymphatics: No axilla or inguinal lymphadenopathy - Studies Laboratory Data (last 24 hrs) 12/12/22 08:02: PT 10.5, INR 0.95, APTT 31.1 12/12/22 08:02: WBC 8.50, Hgb 10.4 L, Hct 30.5 L, Plt Count 220 12/12/22 08:02: Sodium 141, Potassium 5.6 H*, BUN 21 H, Creatinine 1.16 H, Glucose 94, Magnesium 1.7, Total Bilirubin 0.3, AST 64 H, ALT 91 H, Alkaline Phosphatase 98 <Silvano Shelton - Last Filed: 12/12/22 18:03> - Studies Laboratory Data (last 24 hrs) 12/12/22 08:02: PT 10.5, INR 0.95, APTT 31.1 12/12/22 08:02: WBC 8.50, Hgb 10.4 L, Hct 30.5 L, Plt Count 220 12/12/22 08:02: Sodium 141, Potassium 5.6 H*, BUN 21 H, Creatinine 1.16 H, Glucose 94, Magnesium 1.7, Total Bilirubin 0.3, AST 64 H, ALT 91 H, Alkaline Phosphatase 98 <Junaid Latham - Last Filed: 12/12/22 19:27> Assessment and Plan - Plan --Suspected acute systolic or diastolic CHF. Echocardiogram pending to assess cardiac structures and function. Patient placed on diuresis with Lasix. Daily weight and strict I/O. Cardiology consulted. We will await further recommendations. --Gout. Continue home medication. --DM2. Patient reported that her diabetes has been controlled and she has not been taking any diabetic medication. A1c is 5.0. Continue supportive care. --Depression. Continue home medication. --Iron deficiency anemia. Continue ferrous sulfate. --Hypertension. Stable. Continue home medications and labetalol as needed. --Hyperkalemia. Patient given Kayexalate x1 dose. Will reassess levels. -- CKD 3A. Stable. We will hold off on ARB. Avoid NSAIDs and nephrotoxins. We will continue to monitor renal functions. --Obesity. Likely secondary to excess calories intake. Patient counseled on weight reduction, diet and excise therapy. --DVT prophylaxis with heparin subQ. Discharge Plan: Home Plan to discharge in: 48 Hours - Advance Directives Does patient have a Living Will: No Does patient have a Durable POA for Healthcare: No - Code Status/Comfort Care Code Status Assessed: Yes Physician Review: Patient Assessed, Agree with Above Assessment and Plan Critical Care: No <Silvano Shelton - Last Filed: 12/12/22 18:03> Physician Review: Patient Assessed, Agree with Above Assessment and Plan <Junaid Latham - Last Filed: 12/12/22 19:27>
[2022-12-12] MEDS ORDERED: LABETALOL 20 MG/4ML SYRINGE IV PRN (13:15)
[2022-12-12 14:53] LABS: Magnesium 1.5 mg/dL (1.6-2.4); Phosphorus 4.3 mg/dL (2.5-4.9)
[2022-12-12] MEDS: HYDROCODONE/APAP 5/325 MG TAB PO PRN (15:49)
[2022-12-12 16:53] VITALS: BMI 36.7
[2022-12-12] MEDS ORDERED: FUROSEMIDE 40 MG/4 ML VIAL IV SCH (17:00)
[2022-12-12] MEDS ORDERED: HOME MED 1 EA UNK (Mecobalamin [B12 Active] 1,000 MCG Tab.Chew) IM SCH (18:00)
[2022-12-12] MEDS ORDERED: MAGNESIUM SULFATE 1 gm IVPB 1 GM/100 ML BAG IV ONE (18:05)
[2022-12-12] MEDS ORDERED: MORPHINE 2 MG/ML SYR IV ONE (18:06)
--- NOTE | 2022-12-12 19:17 | CON ---
Date of Consultation: 12/12/2022 Reason For Consultation: Shortness of breath and heart failure symptoms. History Of Present Illness: This is a 57-year-old female with only past medical history of hypertens ion, diabetes, and anxiety disorder who presented with shortness of breath that is progressive over t he past week with lower extremity edema and orthopnea to the point that she became short of breath at rest. She gained about 20 pounds with the fluids over the past week and denies having any chest maicol n. No history of cardiac disease. No nausea, vomiting, diarrhea, or diaphoresis. Past Medical History: Diabetes and hypertension. Medications: Refer to reconciliation sheet for detailed list. Allergies: SHE IS ALLERGIC TO AZITHROMYCIN, BUPROPION, AND FENTANYL. Family History: No premature coronary artery disease or cancer. Social History: She does not smoke or drink. Does not use any drugs. Review of Systems: All systems reviewed and they were negative except for mentioned in HPI. Physical Examination: Vital Signs: Temperature is 98.5, pulse 56, breathing at 19, blood pressure 146/84, and saturating 9 6%. General: A pleasant middle-aged female, in no apparent distress. Head And Neck: Pupils are equal and reactive to light. Intact eye movements. Positive JVD. No cer vical lymphadenopathy. Neck is supple. Thyroid is not enlarged. Lungs: Crackles in both lung [place] from the bases all the way up. No accessory muscle use or muscl e retraction. Heart: Regular rate and rhythm with S3 gallop. Abdomen: Soft, nontender. Bowel sounds positive. No organomegaly. No masses or hernia. No rigidi ty or rebound. Extremities: 2 to 3+ nonpitting edema. Neurologic: Alert, awake, and oriented x3. No acute focal deficits appreciated. Investigations: NT-proBNP is 2732. Troponin is negative. BUN is 21, creatinine 1.1, potassium 5.6 and hemoglobin is 10 and on the chest x-ray, she has no acute abnormalities. Assessment And Recommendation: 1.Acute congestive heart failure exacerbation, this is new onset. I agree with diuretics, Lasix 40 mg q.12 hours. Monitor BUN, creatinine, and electrolytes. 2.Hyperkalemia, should improve with diuresis. Reassess tomorrow and obtain an echocardiogram and se rial cardiac enzymes. Further recommendations to follow accordingly. 3.Hypertension. Blood pressure is elevated and should improve with diuresis. Obtain an echocardiog faye and further recommendations accordingly. SR/MODL Voice ID: [id number] Report ID: [id number]
[2022-12-12] MEDS: HEPARIN 5000 UNIT/ML 1 ML VIAL SQ SCH (20:36)
[2022-12-12] MEDS: CITALOPRAM 10 MG TABLET PO SCH (20:36)
[2022-12-12] MEDS: ESZOPICLONE 1 MG TAB PO SCH (20:38)
[2022-12-12] MEDS ORDERED: HOME MED 1 EA UNK (Eszopiclone [Lunesta] 3 MG Tablet) PO SCH (21:00)
[2022-12-13] MEDS: HYDROCODONE/APAP 5/325 MG TAB PO PRN ×3 (05:24→20:15)
[2022-12-13 06:26] LABS: Magnesium 1.7 mg/dL (1.6-2.4); Potassium 4.4 mmol/L (3.5-5.1); Troponin High Sensitivity 5.3 pg/mL (<58.9)
[2022-12-13] MEDS ORDERED: MAGNESIUM SULFATE 1 gm IVPB 1 GM/100 ML BAG IV ONE (07:00)
[2022-12-13 07:02] LABS: Absolute Lymphocytes (CBC) 3.5 K/uL (0.7-4.9); Hematocrit 38.8 % (36.0-45.0); MPV 9.5 fL (7.6-11.3); RBC Red Blood Cell Count 4.22 M/uL (3.86-4.86)
[2022-12-13] MEDS: HEPARIN 5000 UNIT/ML 1 ML VIAL SQ SCH ×2 (08:51→20:15)
[2022-12-13] MEDS: FUROSEMIDE 20 MG/ 2ML VIAL IV SCH ×2 (08:51→16:22)
[2022-12-13] MEDS: FERROUS SULFATE 325 MG TAB PO SCH (08:52)
[2022-12-13] MEDS: METOPROLOL TAR 50 MG TAB PO SCH ×2 (08:52→19:48)
[2022-12-13] MEDS: ASPIRIN 81 MG CHEWABLE TABLET PO SCH (08:52)
[2022-12-13] MEDS ORDERED: METOPROLOL TAR 50 MG TAB PO SCH (09:00)
[2022-12-13] MEDS ORDERED: HOME MED 1 EA UNK (Metoprolol Tartrate [Metoprolol Tartrate] 100 MG Tablet) PO SCH (09:00)
[2022-12-13] MEDS: allopurinoL 100 MG TAB PO SCH (09:01)
--- NOTE | 2022-12-13 09:02 | RAD REPORT ---
EXAM DESCRIPTION: US - Abdomen Exam Complete - 12/13/2022 6:21 am CLINICAL HISTORY: Abdominal pain. elevated LFTs, right flank pain COMPARISON: Abdomen Pelvis W Contrast dated 05/18/2022 FINDINGS: Mild diffuse fatty liver. No focal liver lesions or intrahepatic biliary dilatation is see n. Small hepatic cyst possible right lobe measuring about 10 mm. Cholecystectomy. Common bile duct is normal in caliber measuring 5-7 mm. Both kidneys are normal in size, shape and echotexture. No hydronephrosis, focal lesion of concern or perinephric fluid. The spleen is normal in size measuring 10 cm. The pancreas and aorta are obscured by bowel gas. The visualized aspects of the IVC are grossly normal. IMPRESSION: Mild fatty liver. Cholecystectomy.
[2022-12-13] MEDS ORDERED: methocarbamoL 500 MG TAB PO ONE (15:48)
--- NOTE | 2022-12-13 17:24 | P.PN ---
Subjective Date of Service: 12/13/22 Chief Complaint: Generalized edema. No acute events overnight. She reports that her breathing is improved compared to yesterday. She states that she continues to have right flank pain. She states that the pain is improved with methocarbamol. Review of Systems 10-point ROS is otherwise unremarkable Respiratory: SOB with Excertion Musculoskeletal: Back Pain (right flank) Physical Examination - Vital Signs Temperature: 97.1 F Blood Pressure: 147/70 Pulse: 52 Respirations: 16 Pulse Ox (%): 94 - Physical Exam General: Alert, In no apparent distress HEENT: Atraumatic, Mucous membr. moist/pink, EOMI, Sclerae nonicteric Neck: JVD not distended Respiratory: Clear to auscultation bilaterally, Normal air movement Cardiovascular: Regular rate/rhythm, Normal S1 S2, No gallops, No rubs, No murmurs, Edema (1+ BLE) Gastrointestinal: Normal bowel sounds, Soft and benign, Non-distended, No tenderness, No rebound, No guarding Musculoskeletal: No clubbing Integumentary: No rashes Neurological: Normal speech, Normal affect Assessment And Plan - Plan # Acute Decompensated Diastolic Congestive Heart Failure with Preserved Ejection Fraction # Hypertension # Obesity - BMI 35.2 kg/m2 - Consulted Cardiology and spoke with Dr. Case - recommendations appreciated - Ordered transthoracic echocardiogram - Preliminary read per Dr. Case = normal LVEF (60-65%), normal wall motion, diastolic dysfunction, mild (MR, AI, TR, PI) - Chest x-ray = "No acute abnormalities displayed" - NT-Pro BNP = 2732 (may be falsely low/normal in obesity) - Troponin trend: 7.5 -> 5.5 -> 5.3 - Diuresis with IV furosemide for today, plan to transition to PO tomorrow - Continue metoprolol - Daily weights - Strict I/O - Cardiac diet, 1.5 L fluid restriction, 2 g Na restriction # Hyperkalemia in Chronic Kidney Disease Stage III - Creatinine near baseline - Urinalysis = unremarkable - IV diuretics as mentioned above - Monitor creatinine and urine output - If worsening, obtain renal ultrasound - Renally dose medications # Non-Alcoholic Steatohepatitis - AST 64, ALT 91 - Acteminophen level < 2.5 - Alcohol level <10 - Abdominal ultrasound = "mild fatty liver. Cholecystectomy." # Depression - Continue home citalopram # Diet-Controlled Type II Diabetes Mellitus - Correction scale insulin # Gout - Continue home allopurinol # Iron Deficiency Anemia - Continue home ferrous sulfate Junaid Latham M.D.
--- NOTE | 2022-12-13 19:15 | PN ---
Date of Progress Note: 12/13/2022 Subjective: Seen by bedside. She is doing much better. She lost about 12 pounds since yesterday wi th IV diuresis. No shortness of breath this morning. No orthopnea. Review of Systems: No chest pain, shortness of breath, orthopnea, cough. No nausea, vomiting, diarrhea. No abdominal p ain. All other systems reviewed, they were negative. Physical Examination: Vital Signs: Temperature is 97.6, pulse 53, breathing at 16, blood pressure 113/68, saturating 94% o n room air. General: Pleasant, middle-aged female, in no apparent distress. Head and Neck: Pupils are equal, reactive to light. Intact eye movements. No JVD. No cervical lym phadenopathy. Neck is supple. Thyroid not enlarged. Lungs: Clear to auscultation bilaterally. No rhonchi, wheezing, or crackles. No accessory muscle u se. Heart: Regular rate and rhythm. No extra sounds. Abdomen: Soft, nontender. Bowel sounds positive. No organomegaly. No masses or hernia. No rigidi ty or rebound. Extremities: Trace edema bilaterally. No clubbing, cyanosis. Intact pulses. Skin: No rashes. NEUROLOGIC: Alert, awake, oriented x3. No acute focal deficits appreciated. Investigations: BUN 21, creatinine 1.25. Troponin has been negative 3 sets. Echocardiogram showed normal ejection fraction with diastolic dysfunction. Assessment And Recommendations: 1.Acute on chronic congestive heart failure exacerbation. She is doing much better. Creatinine and BUN started to go up gradually. The Lasix dose was appropriately decreased to 20 mg IV q.12 hours. I recommend later this afternoon to start her on oral Lasix in preparation for discharge tomorrow mo rning. 2.Hypertension. Blood pressure is well controlled. 3.Hyperkalemia. This has resolved. SR/MODL Voice ID: [id number] Report ID: [id number]
[2022-12-13] MEDS: CITALOPRAM 10 MG TABLET PO SCH (20:13)
[2022-12-13] MEDS: ESZOPICLONE 1 MG TAB PO SCH (20:15)
[2022-12-14] MEDS: methocarbamoL 500 MG TAB PO PRN ×3 (00:49→19:29)
[2022-12-14 03:32] LABS: Magnesium 1.8 mg/dL (1.6-2.4); Potassium 3.9 mmol/L (3.5-5.1)
[2022-12-14] MEDS ORDERED: MAGNESIUM SULFATE 1 gm IVPB 1 GM/100 ML BAG IV ONE (06:48)
[2022-12-14] MEDS ORDERED: Ringers Lactate 500 ML IV ONE (06:56)
--- NOTE | 2022-12-14 07:11 | ECHO ---
HEIGHT: 5 ft 2 in WEIGHT: 192 lb 9.6 oz DATE OF STUDY: 12/13/[address]: Silvano Shelton 2-DIMENSIONAL: YES M.MODE: YES DOPPLER: YES COLOR FLOW: YES TDS: NO PORTABLE: YES DEFINITY: NO BUBBLE STUDY: NO DIAGNOSIS: RULE OUT CONGESTIVE HEART FAILURE CARDIAC HISTORY: CATHERIZATION: SURGERY: PROSTHETIC VALVE: PACEMAKER: MEASUREMENTS (cm) DIASTOLIC (NORMALS) SYSTOLIC (NORMALS) IVSd 0.9 (0.6-1.2) LA Diam 3.6 (1.9-4.0) LVEF 71% LVIDd 4.8 (3.5-5.7) LVIDs 2.9 (2.0-3.5) %FS 40% LVPWd 1.1 (0.6-1.2) Ao Diam 2.8 (2.0-3.7) 2 DIMENSIONAL ASSESSMENT: RIGHT ATRIUM: NORMAL LEFT ATRIUM: NORMAL RIGHT VENTRICLE: NORMAL LEFT VENTRICLE: NORMAL TRICUSPID VALVE: MILD TRICUSPID REGURGITATION MITRAL VALVE: MILD MITRAL REGURGITATION PULMONIC VALVE: MILD PULMONIC INSUFFICIENCY AORTIC VALVE: MILD AORTIC INSUFFICIENCY PERICARDIAL EFFUSION: NONE AORTIC ROOT: NORMAL LEFT VENTRICULAR WALL MOTION: NORMAL. DOPPLER/COLOR FLOW: SEE BELOW. COMMENTS: 1. NORMAL LEFT VENTRICULAR EJECTION FRACTION 60-65% 2. NORMAL WALL MOTION 3. DIASTOLIC DYSFUNCTION 4. MILD (MITRAL REGURGITATION, AORTIC INSUFFIENCY, TRICUSPID REGURGITATION, PULMONIC INSUFFICIENCY TECHNOLOGIST: DAVID KHAN RCS
[2022-12-14] MEDS: FERROUS SULFATE 325 MG TAB PO SCH (08:24)
[2022-12-14] MEDS: allopurinoL 100 MG TAB PO SCH (08:25)
[2022-12-14] MEDS: HEPARIN 5000 UNIT/ML 1 ML VIAL SQ SCH ×2 (08:25→19:28)
[2022-12-14] MEDS: ASPIRIN 81 MG CHEWABLE TABLET PO SCH (08:25)
[2022-12-14] MEDS: METOPROLOL TAR 50 MG TAB PO SCH (08:25)
[2022-12-14 09:09] VITALS: O2SAT 98
--- NOTE | 2022-12-14 09:32 | P.CNS ---
Date of Consult: 12/14/22 Reason for Consult: REZA/ CKD III Requesting Physician: Junaid Latham Chief Complaint: Generalized edema History of Present Illness: Patient is a 57-year-old female with a past medical history significant for gout, depression, iron deficiency anemia, hypertension, obesity, DM 2 who presents with complaint of generalized swelling has been ongoing for the past 3 days. Patient reported that she initially started having generalized weakness, fatigue, generalized malaise and right flank pain. Patient rated pain as 9/10 in severity and described pain as sharp/burning in quality. Patient reported associated signs and symptoms of fever, chills, headache, dizziness and shortness of breath. Patient denies any other signs or symptoms. Symptoms are aggravated or relieved by nothing. Patient decided to present to the hospital due to worsening symptoms. Of note, patient reported that she has gained 15 pounds in weight in the last 3 days. 12/12 07:17 This 57 yrs old Female presents to ER via Ambulatory with complaints of Shortness Of rt Breath. 07:17 The patient has shortness of breath with light activity. Onset: The symptoms/episode rt began/occurred 1 week(s) ago. The patient's shortness of breath is aggravated by light activity. Associated signs and symptoms: Pertinent positives: Edema, right flank pain. Severity of symptoms: At their worst the symptoms were moderate. Patient presents to the ED with 1 week of reported weight gain, edema stating that her fingers, legs have been swollen. She was reports of right flank pain and burning with urination. She states that she was this is septic due to a UTI, she reports having multiple episodes of pyelonephritis in the right kidney previously. The patient denies chest pain. She does report some shortness of breath. She is on Lasix 20 mg daily. The patient denies other acute complaints at this time. Symptoms are moderate in severity, no other aggravating alleviating factors.. She reports a UTI every other month that she treats at home with prn abx. She reports feeling swollen all over including her feet and hands. She states that her rings feel tight. Allergies adhesive Allergy (Verified 12/12/22 13:01) UNK albuterol Allergy (Verified 12/12/22 13:01) UNK azithromycin [From Zithromax] Allergy (Verified 12/12/22 13:01) UNK bupropion [From Wellbutrin] Allergy (Verified 12/12/22 13:01) UNK fentanyl Allergy (Verified 12/12/22 13:01) UNK hydralazine Allergy (Verified 12/12/22 13:01) UNK Influenza Virus Vaccines Allergy (Verified 12/12/22 13:01) UNK NSAIDS (Non-Steroidal Anti-Inflamma Allergy (Verified 12/12/22 13:01) UNK pneumococcal vaccine Allergy (Verified 12/12/22 13:01) UNK prednisolone Allergy (Verified 12/12/22 13:01) UNK prednisone Allergy (Verified 12/12/22 13:01) UNK trazodone Allergy (Verified 12/12/22 13:01) UNK zoster vaccine live Allergy (Verified 12/12/22 13:01) UNK Home medications list reviewed: Yes Home Medications: Allopurinol 1 tab PO DAILY 12/12/22 Citalopram [Celexa*] 40 mg PO BEDTIME 12/12/22 Eszopiclone [Lunesta] 1 tab PO BEDTIME 12/12/22 Ferrous Sulfate [Feosol] 1 tab PO DAILY 12/12/22 Mecobalamin [B12 Active] 1,000 mcg IM CONT 12/12/22 Furosemide [Lasix] 1 tab PO DAILY PRN #30 12/14/22 methocarbamoL [Robaxin*] 500 mg PO Q8H PRN 7 Days #20 tab 12/14/22 - Past Medical/Surgical History Diabetic: No -: Gout -: HTN -: Depression -: Obesity -: DM 2 -: CKD III (Dr. Chawla) -: Right ureter stenosis -: Recurrent UTI -: Hysterectomy -: I&D Left leg(spider bite) - Social History Smoking Status: Unknown if ever smoked Alcohol use: Yes CD- Drugs: No Caffeine use: Yes Place of Residence: Home Review of Systems 10-point ROS is otherwise unremarkable General: Weakness, Malaise Cardiovascular: Edema Physical Examination Temp Pulse Resp BP Pulse Ox 97.0 F 51 16 119/61 95 12/14/22 08:00 12/14/22 08:00 12/14/22 08:38 12/14/22 08:00 12/14/22 08:38 General: In no apparent distress, Oriented x3, Cooperative HEENT: Atraumatic Neck: Supple Respiratory: Clear to auscultation bilaterally Cardiovascular: No edema, Regular rate/rhythm Gastrointestinal: Soft and benign, Non-distended Musculoskeletal: No clubbing, No contractures Integumentary: No rashes, No cyanosis Neurological: Normal speech Blood work reviewed in the chart. Imagings Data: EXAM DESCRIPTION: US - Abdomen Exam Complete - 12/13/2022 6:21 am CLINICAL HISTORY: Abdominal pain. elevated LFTs, right flank pain COMPARISON: Abdomen Pelvis W Contrast dated 05/18/2022 FINDINGS: Mild diffuse fatty liver. No focal liver lesions or intrahepatic biliary dilatation is seen. Small hepatic cyst possible right lobe measuring about 10 mm. Cholecystectomy. Common bile duct is normal in caliber measuring 5-7 mm. Both kidneys are normal in size, shape and echotexture. No hydronephrosis, focal lesion of concern or perinephric fluid. The spleen is normal in size measuring 10 cm. The pancreas and aorta are obscured by bowel gas. The visualized aspects of the IVC are grossly normal. IMPRESSION: Mild fatty liver. Cholecystectomy. EXAM DESCRIPTION: [facility] Single View12/12/2022 8:09 am CLINICAL HISTORY: Shortness of breath COMPARISON: April 2022 FINDINGS: The lungs appear clear of acute infiltrate. The heart is normal size IMPRESSION: No acute abnormalities displayed LEFT VENTRICULAR WALL MOTION: NORMAL. DOPPLER/COLOR FLOW: SEE BELOW. COMMENTS: 1. NORMAL LEFT VENTRICULAR EJECTION FRACTION 60-65% 2. NORMAL WALL MOTION 3. DIASTOLIC DYSFUNCTION 4. MILD (MITRAL REGURGITATION, AORTIC INSUFFIENCY, TRICUSPID REGURGITATION, PULMONIC INSUFFICIENCY [facility] EXAM DESCRIPTION: CT - Abdomen Pelvis Wo Contrast - 12/14/2022 11:14 am CLINICAL HISTORY: right flank pain COMPARISON: Abdomen Pelvis W Contrast dated 05/18/2022 TECHNIQUE: Axial [address] imaging of the abdomen and pelvis was performed without IV contrast. No IV contrast was given because of allergy, abnormal renal function, patient refusal or physician request. Oral contrast was not given. All CT scans are performed using dose optimization technique as appropriate and may include automated exposure control or mA/KV adjustment according to patient size. FINDINGS: No suspicious findings in the lung bases. The liver, spleen and pancreas show no suspicious findings on non-contrast imaging. Gallbladder is absent. No abnormal biliary tree dilatation. Surgical clips are present in the left upper quadrant in proximity to the spleen. No hydronephrosis or suspicious renal mass. 18 millimeter exophytic anterior upper pole right kidney cyst is present. There is nodularity to the renal capsules. These are all stable from prior imaging. No perinephric stranding. No significant adrenal finding. Isodense renal masses and pyelonephritis cannot be excluded in the absence of IV contrast. The urinary bladder is without significant finding. Very minimal hiatal hernia is present. No gastric wall thickening or mass. No small bowel acute finding seen. Appendix is not well defined. No appendicitis findings. No measurable diverticulosis. Right-side colon volume is moderate. No acute GI process identifiable. No free air, free fluid or inflammatory stranding. No hernia, mass or bulky lymphadenopathy. No suspicious bony findings. Air in stranding in the subcutaneous fat of the abdomen present related to injection sites from medication. Disc and bone degenerative changes are present. No acute or pathologic bone process identifiable. IMPRESSION: Non-contrast enhanced CT abdomen and pelvis imaging show no significant or suspicious finding. Conclusions/Impression: Stage I REZA may be due to over diuresis CKD III Hx right ureter stenosis -No NSAIDs -Hold diuretic therapy at this time -Follow up CT Abd/ Pelvis Hyponatremia -Encourage nutrition Hyperkalemia, resolved Hypomagnesemia -Replete as ordered HTN with CKD/ CHF -Continue Metoprolol Diastolic CHF, chronic -Monitor daily weight DM II A1C 5 -No sugar diet Fatty Liver Transaminitis -No sugar diet Anemia resolved Hx iron deficiency -Continue oral iron -Start Colace BID Gout -Continue Allopurinol Case reviewed with Dr. Latham Thank you kindly for the consultation
[2022-12-14] MEDS: HYDROCODONE/APAP 5/325 MG TAB PO PRN ×2 (11:02→18:33)
--- NOTE | 2022-12-14 11:32 | RAD REPORT ---
EXAM DESCRIPTION: CT - Abdomen Pelvis Wo Contrast - 12/14/2022 11:14 am CLINICAL HISTORY: right flank pain COMPARISON: Abdomen Pelvis W Contrast dated 05/18/2022 TECHNIQUE: Axial [address] imaging of the abdomen and pelvis was performed without IV contrast. No IV contrast was given because of allergy, abnormal renal function, patient refusal or physician re quest. Oral contrast was not given. All CT scans are performed using dose optimization technique as appropriate and may include automated exposure control or mA/KV adjustment according to patient size. FINDINGS: No suspicious findings in the lung bases. The liver, spleen and pancreas show no suspicious findings on non-contrast imaging. Gallbladder is ab sent. No abnormal biliary tree dilatation. Surgical clips are present in the left upper quadrant in p roximity to the spleen. No hydronephrosis or suspicious renal mass. 18 millimeter exophytic anterior upper pole right kidney cyst is present. There is nodularity to the renal capsules. These are all stable from prior imaging. No perinephric stranding. No significant adrenal finding. Isodense renal masses and pyelonephritis ca nnot be excluded in the absence of IV contrast. The urinary bladder is without significant finding. Very minimal hiatal hernia is present. No gastric wall thickening or mass. No small bowel acute findi ng seen. Appendix is not well defined. No appendicitis findings. No measurable diverticulosis. Right- side colon volume is moderate. No acute GI process identifiable. No free air, free fluid or inflammatory stranding. No hernia, mass or bulky lymphadenopathy. No suspicious bony findings. Air in stranding in the subcutaneous fat of the abdomen present related to injection sites from medication. Disc and bone degenerative changes are present. No acute or pathologic bone process identifiable. IMPRESSION: Non-contrast enhanced CT abdomen and pelvis imaging show no significant or suspicious fi nding. Full assessment is limited is the absence of IV contrast. Nonacute findings detailed in the body of t he report.
[2022-12-14 15:21] LABS: Potassium 4.2 mmol/L (3.5-5.1)
--- NOTE | 2022-12-14 16:34 | P.DS ---
Admission Date: 12/14/22 Discharge Date: 12/14/22 Disposition: ROUTINE DISCHARGE Discharge Condition: GOOD Reason for Admission: Generalized edema. Consultations: 1. Cardiology 2. Nephrology Hospital Course: DIAGNOSES: # Acute Decompensated Diastolic Congestive Heart Failure with Preserved Ejection Fraction # KDIGO Stage I Acute Kidney Injury on Chronic Kidney Disease Stage III due to Overdiuresis # Right Flank Pain (suspect Musculoskeletal) # Right Renal Cyst (1.8 cm) # Hyperkalemia # Hypertension # Obesity - BMI 35.2 kg/m2 # Non-Alcoholic Steatohepatitis # Depression # Diet-Controlled Type II Diabetes Mellitus # Gout # Iron Deficiency Anemia HOSPITAL COURSE: Ms. Terra Christianson is a pleasant 57 year old female with a past medical history significant for chronic diastolic congestive heart failure, chronic kidney disease stage III, non alcoholic hepatic steatosis, type 2 diabetes mellitus, hypertension, depression, gout, and iron deficiency anemia who was admitted to the [facility] on 12/12/2022 for generalized edema. She was admitted to the Medicine service. Upon further evaluation, her NT-Pro BNP was 2732. Her troponin trend was 7.5 -> 5.5 -> 5.3. Her chest x-ray revealed, "no acute abnormalities displayed." Her transthoracic echocardiogram revealed, "1. normal left ventricular ejection fraction 60-65% 2. normal wall motion 3. diastolic dysfunction 4. mild (mitral regurgitation, aortic insuffiency, tricuspid regurgitation, pulmonic insufficiency." Cardiology was consulted and she was evaluated by Dr. Case. She was treated with IV furosemide, with improvement of her symptoms. Her hospital course was complicated by a KDIGO stage I acute kidney injury, for which Nephrology was consulted. She was evaluated by Dr. Chawla and it was thought that her acute kidney injury was secondary to overdiuresis. She was given a 500 mL bolus of Lactated Ringer's, with improvement in her creatinine back to her baseline. She has been cleared for discharge with furosemide 20 mg to be taken whenever she gains more than 1.5-2 pounds within a 24-hour period. Given her hyperkalemia and borderline bradycardia during her hospitalization, she was advised to hold her metoprolol and losartan on discharge. She will monitor her blood pressure 23 times a day and follow-up with Dr. Chawla for any further recommendations regarding her antihypertensive regimen. Additionally, she reported persistent right flank pain. Her urinalysis was unremarkable. Her abdominal ultrasound revealed, "mild fatty liver. Cholecystectomy." Her CT abdomen/pelvis revealed, "non-contrast enhanced CT abdomen and pelvis imaging show no significant or suspicious finding." There was a finding of a 1.8 mm right renal cyst. This was discussed with her and she was advised to follow this up with her PCP for any further evaluation of malignancy. She verbalized understanding and agreed to make this appointment. On 12/14/2022, she was seen on rounds and deemed medically stable for discharge. She was discharged with instructions to schedule follow-up appointments with her PCP (Dr. Wilson), with Cardiology (Dr. Blas), and with Nephrology (Dr. Chawla). She was provided a prescription for methocarbamol. She was given the opportunity to ask questions and reported no further questions. Furthermore, all questions were answered to the best of my ability. A copy of this discharge summary will be sent to the above providers to facilitate continuity of care. Today, I personally spent 35 minutes on her case, of which greater than 50% of the time was spent in patient education, counseling, and coordination of care as described above. - Physical Exam General: Alert, In no apparent distress HEENT: Atraumatic, Mucous membr. moist/pink, EOMI, Sclerae nonicteric Neck: JVD not distended Respiratory: Clear to auscultation bilaterally, Normal air movement Cardiovascular: Regular rate/rhythm, Normal S1 S2, No gallops, No rubs, No murmurs, Edema (trace BLE) Gastrointestinal: Normal bowel sounds, Soft and benign, Non-distended, No tenderness, No rebound, No guarding Musculoskeletal: No clubbing Integumentary: No rashes Neurological: Normal speech, Normal affect Vital Signs/Physical Exam: Temp Pulse Resp BP Pulse Ox 97.4 F 69 16 119/55 L 98 12/14/22 12:00 12/14/22 12:00 12/14/22 12:02 12/14/22 12:00 12/14/22 12:02 Laboratory Data at Discharge: WBC 8.50 K/uL (4.3-10.9) 12/13/22 05:35 Hgb 12.7 g/dL (12.0-15.0) D 12/13/22 05:35 Hct 38.8 % (36.0-45.0) 12/13/22 05:35 Plt Count 161 K/uL (152-406) D 12/13/22 05:35 PT 10.5 SECONDS (9.5-12.5) 12/12/22 08:02 INR 0.95 12/12/22 08:02 APTT 31.1 SECONDS (24.3-36.9) 12/12/22 08:02 Sodium 137 mmol/L (136-145) 12/14/22 14:51 Potassium 4.2 mmol/L (3.5-5.1) 12/14/22 14:51 BUN 19 mg/dL (7-18) H 12/14/22 14:51 Creatinine 1.28 mg/dL (0.55-1.02) H 12/14/22 14:51 Glucose 103 mg/dL (74-106) 12/14/22 14:51 Phosphorus 4.3 mg/dL (2.5-4.9) 12/12/22 14:06 Magnesium 1.8 mg/dL (1.6-2.4) 12/14/22 02:35 Total Bilirubin 0.3 mg/dL (0.2-1.0) 12/12/22 08:02 AST 64 U/L (15-37) H 12/12/22 08:02 ALT 91 U/L (13-56) H 12/12/22 08:02 Alkaline Phosphatase 98 U/L (45-117) 12/12/22 08:02 Triglycerides 309 mg/dL (<150) H 12/12/22 14:06 Cholesterol 201 mg/dL (<200) H 12/12/22 14:06 HDL Cholesterol 55 mg/dL (40-60) 12/12/22 14:06 Cholesterol/HDL Ratio 3.65 12/12/22 14:06 Home Medications: RX: Allopurinol 1 tab PO DAILY 12/12/22 RX: Citalopram [Celexa*] 40 mg PO BEDTIME 12/12/22 RX: Eszopiclone [Lunesta] 1 tab PO BEDTIME 12/12/22 RX: Ferrous Sulfate [Feosol] 1 tab PO DAILY 12/12/22 RX: Mecobalamin [B12 Active] 1,000 mcg IM CONT 12/12/22 RX: Furosemide [Lasix] 1 tab PO DAILY PRN #30 12/14/22 RX: methocarbamoL [Robaxin*] 500 mg PO Q8H PRN 7 Days #20 tab 12/14/22 New Medications: RX: Furosemide [Lasix] 1 tab PO DAILY PRN #30 PRN Reason: Titrate To Sbp (Must Define) RX: methocarbamoL [Robaxin*] 500 mg PO Q8H PRN 7 Days #20 tab PRN Reason: Muscle Spasms Physician Discharge Instructions: 1. Please call and schedule a follow-up appointment with your PCP (Dr. Wilson) in 3-5 days 2. Please call and schedule a follow-up appointment with Nephrology (Dr. Chawla) and 3-5 days 3. Please call and schedule a follow-up appointment with Cardiology (Dr. Blas) in 5-7 days Diet: AHA Activity: Ad dov Followup: Harvey Chawla DO [ACTIVE - CAN ADMIT] - Eran Blas MD [ACTIVE - CAN ADMIT] - Jamie Wilson MD [ACTIVE - CAN ADMIT] - Time spent managing pt's care (in minutes): 35
[2022-12-14 16:40] VITALS: BP 145/64; TEMP 97.5
--- NOTE | 2022-12-14 17:33 | PN ---
Date of Progress Note: 12/14/2022 Subjective: Seen by bedside. She is doing better. Still has some swelling and shortness of breath on exertion. Review of Systems: Mild shortness of breath on exertion and lower extremity edema. No nausea, vomiting, diarrhea. No o rthopnea. No dysuria, polyuria, or urinary urgency. All the systems reviewed and they were negative . Physical Examination: Vital Signs: Temperature is 97.4, pulse 69, breathing at 16, blood pressure is 119/55, saturating 98 % on room air. General: Pleasant, middle-aged female, in no apparent distress. Head and Neck: Pupils are equal, reactive to light. Intact eye movements. No JVD. No cervical lym phadenopathy. Neck is supple. Thyroid is not enlarged. Lungs: Clear to auscultation bilaterally. No rhonchi, wheezing, or crackles. No accessory muscle u se. Heart: Regular rate and rhythm. No extra sounds. Abdomen: Soft, nontender. Bowel sounds positive. No organomegaly. No masses or hernia. No rigidi ty or rebound. Extremities: No clubbing or cyanosis. Intact pulses. Skin: No rash. Neurologic: Alert, awake, oriented x3. No acute focal deficits appreciated. Investigations: BUN 25, creatinine 1.5, and hemoglobin is 12.7. Assessment And Recommendations: 1.Acute diastolic congestive heart failure exacerbation. She responded very well to diuresis, but n ow her BUN and creatinine are slightly high. Hold Lasix and re-evaluate tomorrow. If creatinine goe s back to baseline, to start her on 40 mg of Lasix by mouth daily and low-salt diet and reassess labs in the morning. 2.Acute on chronic renal failure, likely due to over diuresis. Hold Lasix. Reassess labs in the morning and Nephrology is on board. 3.Hypertension. Blood pressure is controlled. SR/MODL Voice ID: [id number] Report ID: [id number]
[2022-12-14] MEDS: CITALOPRAM 10 MG TABLET PO SCH (19:29)
[2022-12-14] MEDS: ESZOPICLONE 1 MG TAB PO SCH (19:30)
[2022-12-14] MEDS ORDERED: DOCUSATE NA 100 MG CAP PO SCH (21:00)
== END 2022-12-14 19:37 | disposition home or self-care (01) | DRG 291 ==
LOC: ER 06:29 → ERHOLD 12:31 → 2ND 14:36 → OBSVTOIN 12-14 14:00
PROVIDERS: ADMIT Internal Medicine; ATTEND Internal Medicine
DX: I13.0 Hypertensive heart and chronic kidney disease with heart failure and stage 1 through stage 4 chronic kidney disease, or unspecified chronic kidney disease (principal); I50.31 Acute diastolic (congestive) heart failure; N17.9 Acute kidney failure, unspecified; E87.1 Hypo-osmolality and hyponatremia; N18.31 Chronic kidney disease, stage 3a; E11.22 Type 2 diabetes mellitus with diabetic chronic kidney disease; E87.5 Hyperkalemia; K75.81 Nonalcoholic steatohepatitis (NASH); D50.9 Iron deficiency anemia, unspecified; N28.1 Cyst of kidney, acquired; R10.9 Unspecified abdominal pain; R00.1 Bradycardia, unspecified; I34.0 Nonrheumatic mitral (valve) insufficiency; I07.1 Rheumatic tricuspid insufficiency; I35.1 Nonrheumatic aortic (valve) insufficiency; I37.1 Nonrheumatic pulmonary valve insufficiency; M10.9 Gout, unspecified; E83.42 Hypomagnesemia; F32.A Depression, unspecified; F41.9 Anxiety disorder, unspecified; G47.00 Insomnia, unspecified; E66.9 Obesity, unspecified; Z68.35 Body mass index [BMI] 35.0-35.9, adult; Z71.3 Dietary counseling and surveillance; Z71.82 Exercise counseling; Z28.310 Unvaccinated for COVID-19; Z20.822 Contact with and (suspected) exposure to COVID-19; Z79.899 Other long term (current) drug therapy; Z88.3 Allergy status to other anti-infective agents; Z88.5 Allergy status to narcotic agent; Z88.8 Allergy status to other drugs, medicaments and biological substances; Z88.7 Allergy status to serum and vaccine; Z91.09 Other allergy status, other than to drugs and biological substances; Z87.440 Personal history of urinary (tract) infections; Z90.49 Acquired absence of other specified parts of digestive tract; Z90.710 Acquired absence of both cervix and uterus
CPT/HCPCS: 36415; 71045; 74176; 76700; 80048; 80061; 80076; 81003; 81015; 83036; 83735; 83880; 84100; 84132; 84484; 85025; 85610; 85730; 87040; 87811; 93005; 93306; 96374; 96375; 99285; G0378; G0480; J1644; J1940; J2270; J2405; J2765; J2800; J3475; J7120

== ENCOUNTER 2023-07-25 02:10 | Observation (INO) | payer OTHER ==
--- OUTSIDE RECORDS SUMMARY | 2023-07-25 02:17 | XMS REPORT | Continuity of Care Document ---
:1965 Author Organization [facility] t Address [address] [place] [address] [address] [place] [address] Care Team Providers Name Role Phone Theresa Wong Primary Care Physician Arnel Toure MD Attending Clinician Leonardo Sears MD Attending Clinician Theresa Wong Attending Clinician THERESA SOTOMAYOR Attending Clinician Unavailable Yoon Drake MA L Attending Clinician Unavailable Doctor Unassigned, [place] Attending Clinician Unavailable Kole Monique DO Attending Clinician WILLIAM SIERRA Attending Clinician Unavailable Pob, [facility] Attending Clinician Unavailable Xiao Burt RN Attending Clinician DAVID HOFFMAN Attending Clinician Unavailable EMMANUELLE LAKE Attending Clinician Unavailable V[facility] Attending Clinician Unavailable AMY GOMEZ Attending Clinician Unavailable Isabella Wynne RN Attending Clinician Unavailable KEISHA FISH Attending Clinician Unavailable Tobi ANTOINE, Christine Vizcaino Attending Clinician Keisha Fish MD Attending Clinician Pili Rush Attending Clinician [facility] Attending Clinician Unavailable KAROLYN MERLOS Attending Clinician Unavailable DAVID HOFFMAN Admitting Clinician Unavailable KEISHA FISH Admitting Clinician Unavailable Edionwe MD, [facility] Admitting Clinician KAROLYN MERLOS Admitting Clinician Unavailable Payers Payer Name Policy Type Policy Number Effective Date Expiration Date Linda REYES POS [id number] 2017 00:00:00 II Problems Condition Condition Condition Status Onset Resolution Last Treating Co mments Source Name Details Category Date Date Treatment Clinician Date Type 2 Type 2 Disease Active Univers diabetes diabetes 05-27 ity of mellitus mellitus 00:00: [place] without without 00 Medical complicati complicati Br anch on on Stage 3a Stage 3a Disease Active Unive rs chronic chronic 05-27 ity of kidney kidney 00:00: [place] disease disease 00 Medical Branch Localized Localized Disease Active Uni vers edema due edema due 05-27 ity of to fluid to fluid 00:00: [place] overload overload 00 Medica l Branch Chronic Chronic Disease Active Univers idiopathic idiopathic 05-27 it y of gout gout 00:00: [place] without without 00 Medical [facility] Branch Benign Benign Disease Active Univers hypertensi hypertensi 05-27 it y of on with on with 00:00: [place] chronic chronic 00 Medical kidney kidney Branch disease disease Kidney Kidney Disease Active 2019-11 Univers failure failure 2-28 ity of 00:00: [place] 00 Medical Branch Morbid Morbid Disease Active Univers obesity obesity 5-23 it[facility] of with body with body 00:[place] mass index mass index 00 Me dical of of Branch 40.0-49.9 40.0-49.9 Sepsis Sepsis Disease Active 2019- Univers 5-20 ity of 00:00: [place] 00 Medical Branch Urinary Urinary Disease Active 2018-11 Univers tract tract 2-25 ity of infection, [place], 00:[place] site not site not 00 Medica l specified specified Bran ch Obesity Obesity Disease Active 2018-11 Univers with body with body 2-25 ity of mass index [place] 00:[place] 30 or 30 or 00 Medical [facility] Branch Allergies, Adverse Reactions, Alerts Allergy Allergy Status Severity Reaction(s) Onset Inactive Treating Comm ents Source Name Type Date Date Clinician HYDRALAZ DRUG Active Other-Cmnt Univ ers INE INGREDI 1-27 ity of 00:00: [place] 00 Medical Branch Hydralaz Propensi Active Other - See 0 Headache Univers ine ty to comments 1-27 and ity of adverse 00:00: doesn't [place] reaction 00 work on Medical s blood Branch pressure BUPROPIO DRUG Active Swelling 2019- Univer s N HCL INGREDI 2- ity of 00:00: [place] 00 Medical Branch BUPROPIO DRUG Active Swelling 2019- Univer s N INGREDI 2- ity of 00:00: [place] 00 Medical Branch Bupropio Propensi Active Swelling 2019- Univ ers n ty to 2-07 ity of adverse 00:00: [place] reaction 00 Medical s Branch Bupropio Propensi Active Swelling 2019- Univ ers n Hcl ty to 2- ity of adverse 00:00: [place] reaction 00 Medical s Branch AZITHROM DRUG Active Low Rash 2019-0 Univers YCIN INGREDI 1-14 ity of 00:00: [place] 00 Medical Branch PREDNISO DRUG Active Other-Cmnt 0 Univ ers LONE INGREDI 1-14 ity of 00:00: [place] 00 Medical Branch Azithrom Propensi Active Rash 2019-0 Univer s ycin ty to 1-14 ity of adverse 00:00: [place] reaction 00 Medical s Branch Predniso Propensi Active Other - See tachycar d Univers lone ty to comments 1-14 ia ity of adverse 00:00: [place] reaction 00 Medical s Branch INFLUENZ DRUG Active High Swelling 2018-11 Univer s A A INGREDI 2-04 ity of (H5N1) 00:00: [place] VIRUS 00 Medical VACCINE Branch MONOVAL (18 YR +) ZOSTER DRUG Active High Swelling 2018-11 Univers VACCINE INGREDI 2-04 ity of LIVE 00:00: [place] 00 Medical Branch Influenz Propensi Active Swelling 2018-11 Univ ers a A ty to 2-04 ity of (H5n1) adverse 00:00: [place] Virus reaction 00 Medical Vaccine s Branch Monoval (18 Yr +) Zoster Propensi Active Swelling 2018-11 Univer s Vaccine ty to 2-04 ity of Live adverse 00:00: [place] reaction 00 Medical s Branch Nsaids Propensi Active Other - See 2017-11 Uni vers (Non-Nigel ty to comments 2-03 ity of roidal adverse 00:00: [place] Anti-Inf reaction 00 Medica l lammator s Branch y Drug) ALBUTERO DRUG Active High Other-Cmnt 2017-11 Univ ers L INGREDI 2-03 ity of 00:00: [place] 00 Medical Branch FENTANYL DRUG Active High Other-Cmnt 2017-11 Univ ers INGREDI 2-03 ity of 00:00: [place] 00 Medical Branch NSAIDS Drug Active High Other-Cmnt 2017-11 Univer s (NON-NIGEL Class 2-03 ity of ROIDAL 00:00: [place] ANTI-INF 00 Medical LAMMATOR Branch Y DRUG) Albutero Propensi Active Other - See 2017-11 U nivers l ty to comments 2- ity of adverse 00:00: [place] reaction 00 Medical s Branch Nsaids Propensi Active Other - See 2017-11 Uni vers (Non-Nigel ty to comments 2- ity of roidal adverse 00:00: [place] Anti-Inf reaction 00 Medica l lammator s Branch y Drug) Fentanyl Propensi Active Other - See 2017-11 U nivers ty to comments 2- ity of adverse 00:00: [place] reaction 00 Medical s Branch Nsaids Propensi Active Other - See 2017-11 Uni vers (Non-Nigel ty to comments 2-03 ity of roidal adverse 00:00: [place] Anti-Inf reaction 00 Medica l lammator s Branch y Drug) Social History Social Habit Start Date Stop Date Quantity Comments Source Exposure to Not sure [facility] SARS-CoV-2 (event) [facility] Gender identity [facility] Alcohol intake 2022-07-19 2022-07-19 Current University of 00:00:00 00:00:00 non-drinker of [facility] alcohol [place] (finding) History of Social 2021-03-14 2021-03-14 Univers ity of function 00:00:00 00:00:[address] [facility] Tobacco use and 2018-10-28 2018-10-28 Smokeless Universit y of exposure 00:00:00 00:00:00 tobacco non-user [facility] Sex [birth year] At [birth year] [employer] 00:00:00 00:00:00 Hospital Smoking Status Start Date Stop Date Source Tobacco smoking consumption Meth [facility] unknown Never smoked tobacco [facility] Medications Ordered Filled Start Stop Current Ordering Indication Dosage Frequency Signature Comments Components Source Medication Medication Date Date Medication? Clinician (SIG) Name Name FERROUS Yes [id number] TAKE 1 Uni vers SULFATE 325 8-09 TABLET BY ity of mg (65 mg 00:00: MOUTH [place] iron) 00 TWICE A Medical tablet DAY Branch citalopram Yes [id number] TAKE 1 Univers 40 mg 4-27 TABLET BY ity of tablet 00:00: MOUTH [place] 00 EVERY DAY Medical Branch citalopram Yes [id number] TAKE 1 Univers 40 mg 4-27 TABLET BY ity of tablet 00:00: MOUTH [place] 00 EVERY DAY Medical Branch citalopram Yes [id number] TAKE 1 Univers 40 mg 4-27 TABLET BY ity of tablet 00:00: MOUTH [place] 00 EVERY DAY Medical Branch citalopram Yes [id number] TAKE 1 Univers 40 mg 4-27 TABLET BY ity of tablet 00:00: MOUTH [place] 00 EVERY DAY Medical Branch citalopram Yes [id number] TAKE 1 Univers 40 mg 4-27 TABLET BY ity of tablet 00:00: MOUTH [place] 00 EVERY DAY Medical Branch FERROUS Yes [id number] TAKE 1 Uni vers SULFATE 325 2-03 TABLET BY ity of mg (65 mg 00:00: MOUTH [place] iron) 00 TWICE A Medical tablet DAY Branch FERROUS Yes [id number] TAKE 1 Uni vers SULFATE 325 2-03 TABLET BY ity of mg (65 mg 00:00: MOUTH [place] iron) 00 TWICE A Medical tablet DAY Branch FERROUS Yes [id number] TAKE 1 Uni vers SULFATE 325 2-03 TABLET BY ity of mg (65 mg 00:00: MOUTH [place] iron) 00 TWICE A Medical tablet DAY Branch FERROUS Yes [id number] TAKE 1 Uni vers SULFATE 325 2-03 TABLET BY ity of mg (65 mg 00:00: MOUTH [place] iron) 00 TWICE A Medical tablet DAY Branch FERROUS Yes [id number] TAKE 1 Uni vers SULFATE 325 2-03 TABLET BY ity of mg (65 mg 00:00: MOUTH [place] iron) 00 TWICE A Medical tablet DAY Branch FERROUS Yes [id number] TAKE 1 Uni vers SULFATE 325 2-03 TABLET BY ity of mg (65 mg 00:00: MOUTH [place] iron) 00 TWICE A Medical tablet DAY Branch FERROUS 2022-0 Yes [id number] TAKE 1 Uni vers SULFATE 325 2-03 TABLET BY ity of mg (65 mg 00:00: [facility] iron) 00 TWICE A Medical tablet DAY Branch FERROUS 2022-0 3- No [id number] TAKE 1 Un jose juan SULFATE 325 2-03 08-09 TABLET BY it y of mg (65 mg 00:00: 00:00 MOUTH [place] iron) 00 :00 TWICE A Medical tablet DAY Branch LOSARTAN 2022-0 Yes [id number] TAKE 1 Uni vers 100 mg 1-04 TABLET BY ity of tablet 00:00: MOUTH [place] 00 EVERY DAY Medical Branch LOSARTAN 2022-0 Yes [id number] TAKE 1 Uni vers 100 mg 1-04 TABLET BY ity of tablet 00:00: MOUTH [place] 00 EVERY DAY Medical Branch LOSARTAN 2022-0 Yes [id number] TAKE 1 Uni vers 100 mg 1-04 TABLET BY ity of tablet 00:00: MOUTH [place] 00 EVERY DAY Medical Branch LOSARTAN 3-0 Yes [id number] TAKE 1 Uni vers 100 mg 1-04 TABLET BY ity of tablet 00:00: MOUTH [place] 00 EVERY DAY Medical Branch LOSARTAN 3-0 Yes [id number] TAKE 1 Uni vers 100 mg 1-04 TABLET BY ity of tablet 00:00: MOUTH [place] 00 EVERY DAY Medical Branch LOSARTAN 3-0 Yes [id number] TAKE 1 Uni vers 100 mg 1-04 TABLET BY ity of tablet 00:00: MOUTH [place] 00 EVERY DAY Medical Branch LOSARTAN 3-0 Yes [id number] TAKE 1 Uni vers 100 mg 1-04 TABLET BY ity of tablet 00:00: MOUTH [place] 00 EVERY DAY Medical Branch LOSARTAN 3-0 Yes [id number] TAKE 1 Uni vers 100 mg 1-04 TABLET BY ity of tablet 00:00: MOUTH [place] 00 EVERY DAY Medical Branch LOSARTAN 3-0 Yes [id number] TAKE 1 Uni vers 100 mg 1-04 TABLET BY ity of tablet 00:00: MOUTH [place] 00 EVERY DAY Medical Branch LOSARTAN 3-0 Yes [id number] TAKE 1 Uni vers 100 mg 1-04 TABLET BY ity of tablet 00:00: MOUTH [place] 00 EVERY DAY Medical Branch LOSARTAN 3-0 Yes [id number] TAKE 1 Uni vers 100 mg 1-04 TABLET BY ity of tablet 00:00: MOUTH [place] 00 EVERY DAY Medical Branch LOSARTAN 3-0 Yes [id number] TAKE 1 Uni vers 100 mg 1-04 TABLET BY ity of tablet 00:00: MOUTH [place] 00 EVERY DAY Medical Branch LOSARTAN 2021-11 Yes [id number] TAKE 1 Uni vers 100 mg 2-13 TABLET BY ity of tablet 00:00: MOUTH [place] 00 EVERY DAY Medical Branch LOSARTAN 2021-11- No [id number] TAKE 1 Un jose juan 100 mg 2-13 01-04 TABLET BY ity of tablet 00:00: 00:00 MOUTH [place] 00 :00 EVERY DAY Medical Branch CITALOPRAM 2021-11 Yes [id number] TAKE 1 Univers 40 mg 1-15 TABLET BY ity of tablet 00:00: MOUTH [place] 00 EVERY DAY Medical Branch CITALOPRAM 2021-11 Yes [id number] TAKE 1 Univers 40 mg 1-15 TABLET BY ity of tablet 00:00: MOUTH [place] 00 EVERY DAY Medical Branch CITALOPRAM 2021-11 Yes [id number] TAKE 1 Univers 40 mg 1-15 TABLET BY ity of tablet 00:00: MOUTH [place] 00 EVERY DAY Medical Branch CITALOPRAM 2021-11 Yes [id number] TAKE 1 Univers 40 mg 1-15 TABLET BY ity of tablet 00:00: MOUTH [place] 00 EVERY DAY Medical Branch CITALOPRAM 2021-11 Yes [id number] TAKE 1 Univers 40 mg 1-15 TABLET BY ity of tablet 00:00: MOUTH [place] 00 EVERY DAY Medical Branch CITALOPRAM 2021-11 Yes [id number] TAKE 1 Univers 40 mg 1-15 TABLET BY ity of tablet 00:00: MOUTH [place] 00 EVERY DAY Medical Branch CITALOPRAM 2021-11 Yes [id number] TAKE 1 Univers 40 mg 1-15 TABLET BY ity of tablet 00:00: MOUTH [place] 00 EVERY DAY Medical Branch CITALOPRAM 2021-11 Yes [id number] TAKE 1 Univers 40 mg 1-15 TABLET BY ity of tablet 00:00: MOUTH [place] 00 EVERY DAY Medical Branch CITALOPRAM 2021-11 Yes [id number] TAKE 1 Univers 40 mg 1-15 TABLET BY ity of tablet 00:00: MOUTH [place] 00 EVERY DAY Medical Branch CITALOPRAM 2021-11 Yes [id number] TAKE 1 Univers 40 mg 1-15 TABLET BY ity of tablet 00:00: MOUTH [place] 00 EVERY DAY Medical Branch CITALOPRAM 2021-11- No [id number] TAKE 1 Univers 40 mg 1-15 03-22 TABLET BY ity of tablet 00:00: 00:00 MOUTH [place] 00 :00 EVERY DAY Medical Branch CYANOCOBALA 2021-1 Yes [id number] 1000ug INJECT 1 Univers MIN 1,000 1-11 ML UNDER ity of mcg/mL 00:00: THE SKIN [place] injection 00 EVERY 2 Medical (TWO) Branch WEEKS. CYANOCOBALA 2021-11 Yes [id number] 1000ug INJECT 1 Univers MIN 1,000 1-11 ML UNDER ity of mcg/mL 00:00: THE SKIN [place] injection 00 EVERY 2 Medical (TWO) Branch WEEKS. CYANOCOBALA 2021-11 Yes [id number] 1000ug INJECT 1 Univers MIN 1,000 1-11 ML UNDER ity of mcg/mL 00:00: THE SKIN [place] injection 00 EVERY 2 Medical (TWO) Branch WEEKS. CYANOCOBALA 2021-11 Yes [id number] 1000ug INJECT 1 Univers MIN 1,000 1-11 ML UNDER ity of mcg/mL 00:00: THE SKIN [place] injection 00 EVERY 2 Medical (TWO) Branch WEEKS. CYANOCOBALA 2021-11 Yes [id number] 1000ug INJECT 1 Univers MIN 1,000 1-11 ML UNDER ity of mcg/mL 00:00: THE SKIN [place] injection 00 EVERY 2 Medical (TWO) Branch WEEKS. CYANOCOBALA 1 Yes [id number] 1000ug INJECT 1 Univers MIN 1,000 1-11 ML UNDER ity of mcg/mL 00:00: THE SKIN [place] injection 00 EVERY 2 Medical (TWO) Branch WEEKS. CYANOCOBALA 1 Yes [id number] 1000ug INJECT 1 Univers MIN 1,000 1-11 ML UNDER ity of mcg/mL 00:00: THE SKIN [place] injection 00 EVERY 2 Medical (TWO) Branch WEEKS. CYANOCOBALA 2021-1 Yes [id number] 1000ug INJECT 1 Univers MIN 1,000 1-11 ML UNDER ity of mcg/mL 00:00: THE SKIN [place] injection 00 EVERY 2 Medical (TWO) Branch WEEKS. CYANOCOBALA 2021-1 Yes [id number] 1000ug INJECT 1 Univers MIN 1,000 1-11 ML UNDER ity of mcg/mL 00:00: THE SKIN [place] injection 00 EVERY 2 Medical (TWO) Branch WEEKS. CYANOCOBALA 2022-1 Yes [id number] 1000ug INJECT 1 Univers MIN 1,000 1-11 ML UNDER ity of mcg/mL 00:00: THE SKIN [place] injection 00 EVERY 2 Medical (TWO) Branch WEEKS. CYANOCOBALA 2021-11 Yes [id number] 1000ug INJECT 1 Univers MIN 1,000 1-11 ML UNDER ity of mcg/mL 00:00: THE SKIN [place] injection 00 EVERY 2 Medical (TWO) Branch WEEKS. CYANOCOBALA 2021-11 Yes [id number] 1000ug INJECT 1 Univers MIN 1,000 1-11 ML UNDER ity of mcg/mL 00:00: THE SKIN [place] injection 00 EVERY 2 Medical (TWO) Branch WEEKS. CYANOCOBALA 2021-11 Yes [id number] 1000ug INJECT 1 Univers MIN 1,000 1-11 ML UNDER ity of mcg/mL 00:00: THE SKIN [place] injection 00 EVERY 2 Medical (TWO) Branch WEEKS. CYANOCOBALA 2021-11 Yes [id number] 1000ug INJECT 1 Univers MIN 1,000 1-11 ML UNDER ity of mcg/mL 00:00: THE SKIN [place] injection 00 EVERY 2 Medical (TWO) Branch WEEKS. CYANOCOBALA 2021-11 Yes [id number] 1000ug INJECT 1 Univers MIN 1,000 1-11 ML UNDER ity of mcg/mL 00:00: THE SKIN [place] injection 00 EVERY 2 Medical (TWO) Branch WEEKS. CYANOCOBALA 2021-11 Yes [id number] 1000ug INJECT 1 Univers MIN 1,000 1-11 ML UNDER ity of mcg/mL 00:00: THE SKIN [place] injection 00 EVERY 2 Medical (TWO) Branch WEEKS. ESZOPICLONE 2021-11 Yes [id number] TAKE 1 Univers 3 mg tablet 0-18 TABLET BY ity of 00:00: MOUTH [place] 00 EVERYDAY Medical AT BEDTIME Branch ESZOPICLONE 2021-11 Yes TAKE 1 Univers 3 mg tablet 0-18 TABLET BY ity of 00:00: MOUTH [place] 00 EVERYDAY Medical AT BEDTIME Branch ESZOPICLONE 2021-11 Yes TAKE 1 Univers 3 mg tablet 0-18 TABLET BY ity of 00:00: MOUTH [place] 00 EVERYDAY Medical AT BEDTIME Branch ESZOPICLONE 2021-11 Yes [id number] TAKE 1 Univers 3 mg tablet 0-18 TABLET BY ity of 00:00: MOUTH [place] EVERYDAY Medical AT BEDTIME [place] [facility]11 Yes [id number] TAKE 1 Univers 3 mg tablet 0-18 TABLET BY ity of 00:00: MOUTH [place] EVERYDAY Medical AT BEDTIME [place] ESZOPICLONE 2021-11 Yes [id number] TAKE 1 Univers 3 mg tablet 0-18 TABLET BY ity of 00:00: MOUTH [place] EVERYDAY Medical AT BEDTIME [place] [facility] 2021-11 Yes [id number] TAKE 1 Univers 3 mg tablet 0-18 TABLET BY ity of 00:00: MOUTH EVERYDAY Medical AT BEDTIME [place] [facility] 2021-11 Yes [id number] TAKE 1 Univers 3 mg tablet 0-18 TABLET BY ity of 00:00: MOUTH [place] EVERYDAY Medical AT BEDTIME [place] ESZOPICLOWA 2021-11 Yes [id number] TAKE 1 Univers 3 mg tablet 0-18 TABLET BY ity of 00:00: [facility] EVERYDAY Medical AT BEDTIME [place] [facility] 2021-11 Yes [id number] TAKE 1 Univers 3 mg tablet 0-18 TABLET BY ity of 00:00: MOUTH EVERYDAY Medical AT BEDTIME [place] [facility] 2021-11 Yes [id number] TAKE 1 Univers 3 mg tablet 0-18 TABLET BY ity of 00:00: MOUTH [place] EVERYDAY Medical AT BEDTIME [place] ESZOPICLONE 2021- Yes [id number] TAKE 1 Univers 3 mg tablet 0-18 TABLET BY ity of 00:00: [facility] EVERYDAY Medical AT BEDTIME [place] ESZOPICLOWA 2021-11 Yes [id number] TAKE 1 Univers 3 mg tablet 0-18 TABLET BY ity of 00:00: MOUTH EVERYDAY Medical AT BEDTIME [place] ESZOPICLONE 2021- Yes [id number] TAKE 1 Univers 3 mg tablet 0-18 TABLET BY ity of 00:00: MOUTH EVERYDAY Medical AT BEDTIME [place] ESZOPICLONE 2021- Yes [id number] TAKE 1 Univers 3 mg tablet 0-18 TABLET BY ity of 00:00: MOUTH [place] EVERYDAY Medical AT BEDTIME [place] ESZOPICLONE 2021- Yes [id number] TAKE 1 Univers 3 mg tablet 0-18 TABLET BY ity of 00:00: MOUTH [place] 00 EVERYDAY Medical AT BEDTIME Branch ESZOPICLONE 1 Yes [id number] TAKE 1 Univers 3 mg tablet 0-18 TABLET BY ity of 00:00: MOUTH [place] 00 EVERYDAY Medical AT BEDTIME Branch METOPROLOL 0 Yes [id number] TAKE 1 U nivers TARTRATE 9-06 TABLET BY ity of 100 mg 00:00: MOUTH [place] tablet 00 TWICE A Medical DAY Branch METOPROLOL 0 Yes [id number] TAKE 1 U nivers TARTRATE 9-06 TABLET BY ity of 100 mg 00:00: MOUTH [place] tablet 00 TWICE A Medical DAY Branch METOPROLOL 0 Yes [id number] TAKE 1 U nivers TARTRATE 9-06 TABLET BY ity of 100 mg 00:00: MOUTH [place] tablet 00 TWICE A Medical DAY Branch METOPROLOL 0 Yes [id number] TAKE 1 U nivers TARTRATE 9-06 TABLET BY ity of 100 mg 00:00: MOUTH [place] tablet 00 TWICE A Medical DAY Branch METOPROLOL 0 Yes [id number] TAKE 1 U nivers TARTRATE 9-06 TABLET BY ity of 100 mg 00:00: MOUTH [place] tablet 00 TWICE A Medical DAY Branch METOPROLOL 0 Yes [id number] TAKE 1 U nivers TARTRATE 9-06 TABLET BY ity of 100 mg 00:00: MOUTH [place] tablet 00 TWICE A Medical DAY Branch METOPROLOL 0 Yes [id number] TAKE 1 U nivers TARTRATE 9-06 TABLET BY ity of 100 mg 00:00: MOUTH [place] tablet 00 TWICE A Medical DAY Branch METOPROLOL 2021-0 Yes [id number] TAKE 1 U nivers TARTRATE 9-06 TABLET BY ity of 100 mg 00:00: MOUTH [place] tablet 00 TWICE A Medical DAY Branch METOPROLOL 2021-0 Yes [id number] TAKE 1 U nivers TARTRATE 9-06 TABLET BY ity of 100 mg 00:00: MOUTH [place] tablet 00 TWICE A Medical DAY Branch METOPROLOL 2021-0 Yes [id number] TAKE 1 U nivers TARTRATE 9-06 TABLET BY ity of 100 mg 00:00: MOUTH [place] tablet 00 TWICE A Medical DAY Branch METOPROLOL 2021-0 Yes [id number] TAKE 1 U nivers TARTRATE 9-06 TABLET BY ity of 100 mg 00:00: MOUTH [place] tablet 00 TWICE A Medical DAY Branch METOPROLOL Yes [id number] TAKE 1 U nivers TARTRATE 9-06 TABLET BY ity of 100 mg 00:00: MOUTH [place] tablet 00 TWICE A Medical DAY Branch METOPROLOL Yes [id number] TAKE 1 U nivers TARTRATE 9-06 TABLET BY ity of 100 mg 00:00: MOUTH [place] tablet 00 TWICE A Medical DAY Branch METOPROLOL Yes [id number] TAKE 1 U nivers TARTRATE 9-06 TABLET BY ity of 100 mg 00:00: MOUTH [place] tablet 00 TWICE A Medical DAY Branch METOPROLOL Yes [id number] TAKE 1 U nivers TARTRATE 9-06 TABLET BY ity of 100 mg 00:00: MOUTH [place] tablet 00 TWICE A Medical DAY Branch METOPROLOL Yes [id number] TAKE 1 U nivers TARTRATE 9-06 TABLET BY ity of 100 mg 00:00: MOUTH [place] tablet 00 TWICE A Medical DAY Branch METOPROLOL Yes [id number] TAKE 1 U nivers TARTRATE 9-06 TABLET BY ity of 100 mg 00:00: MOUTH [place] tablet 00 TWICE A Medical DAY Branch METOPROLOL Yes [id number] TAKE 1 U nivers TARTRATE 9-06 TABLET BY ity of 100 mg 00:00: MOUTH [place] tablet 00 TWICE A Medical DAY Branch FUROSEMIDE Yes [id number] 40mg TAKE 2 U nivers 20 mg 8-10 TABLETS BY ity of tablet 00:00: MOUTH [place] 00 DAILY Medical Branch FERROUS 0 Yes [id number] TAKE 1 Uni vers SULFATE 325 8-10 TABLET BY ity of mg (65 mg 00:00: MOUTH [place] iron) 00 TWICE A Medical tablet DAY Branch CYANOCOBALA Yes [id number] 1000ug INJECT 1 Univers MIN 1,000 8-10 ML UNDER ity of mcg/mL 00:00: THE SKIN [place] injection 00 EVERY 2 Medical (TWO) Branch WEEKS. FUROSEMIDE Yes [id number] 40mg TAKE 2 U nivers 20 mg 8-10 TABLETS BY ity of tablet 00:00: MOUTH [place] 00 DAILY Medical Branch FERROUS 0 Yes [id number] TAKE 1 Uni vers SULFATE 325 8-10 TABLET BY ity of mg (65 mg 00:00: MOUTH [place] iron) 00 TWICE A Medical tablet DAY Branch CYANOCOBALA Yes [id number] 1000ug INJECT 1 Univers MIN 1,000 8-10 ML UNDER ity of mcg/mL 00:00: THE SKIN [place] injection 00 EVERY 2 Medical (TWO) Branch WEEKS. FUROSEMIDE 2021- Yes [id number] 40mg TAKE 2 U nivers 20 mg 8-10 TABLETS BY ity of tablet 00:00: MOUTH [place] 00 DAILY Medical Branch FERROUS 2021-0 Yes [id number] TAKE 1 Uni vers SULFATE 325 8-10 TABLET BY ity of mg (65 mg 00:00: MOUTH [place] iron) 00 TWICE A Medical tablet DAY Branch CYANOCOBALA Yes [id number] 1000ug INJECT 1 Univers MIN 1,000 8-10 ML UNDER ity of mcg/mL 00:00: THE SKIN [place] injection 00 EVERY 2 Medical (TWO) Branch WEEKS. FUROSEMIDE Yes [id number] 40mg TAKE 2 U nivers 20 mg 8-10 TABLETS BY ity of tablet 00:00: MOUTH [place] 00 DAILY Medical Branch FERROUS 2021-0 Yes [id number] TAKE 1 Uni vers SULFATE 325 8-10 TABLET BY ity of mg (65 mg 00:00: MOUTH [place] iron) 00 TWICE A Medical tablet DAY Branch CYANOCOBALA Yes [id number] 1000ug INJECT 1 Univers MIN 1,000 8-10 ML UNDER ity of mcg/mL 00:00: THE SKIN [place] injection 00 EVERY 2 Medical (TWO) Branch WEEKS. FUROSEMIDE 0 Yes [id number] 40mg TAKE 2 U nivers 20 mg 8-10 TABLETS BY ity of tablet 00:00: MOUTH [place] 00 DAILY Medical Branch FERROUS 2021-0 Yes [id number] TAKE 1 Uni vers SULFATE 325 8-10 TABLET BY ity of mg (65 mg 00:00: MOUTH [place] iron) 00 TWICE A Medical tablet DAY Branch CYANOCOBALA Yes [id number] 1000ug INJECT 1 Univers MIN 1,000 8-10 ML UNDER ity of mcg/mL 00:00: THE SKIN [place] injection 00 EVERY 2 Medical (TWO) Branch WEEKS. FUROSEMIDE 2021-0 Yes [id number] 40mg TAKE 2 U nivers 20 mg 8-10 TABLETS BY ity of tablet 00:00: MOUTH [place] 00 DAILY Medical Branch FERROUS 2021-0 Yes [id number] TAKE 1 Uni vers SULFATE 325 8-10 TABLET BY ity of mg (65 mg 00:00: MOUTH [place] iron) 00 TWICE A Medical tablet DAY Branch FUROSEMIDE 2021-0 Yes [id number] 40mg TAKE 2 U nivers 20 mg 8-10 TABLETS BY ity of tablet 00:00: MOUTH [place] 00 DAILY Medical Branch FERROUS 2022-0 Yes [id number] TAKE 1 Uni vers SULFATE 325 8-10 TABLET BY ity of mg (65 mg 00:00: MOUTH [place] iron) 00 TWICE A Medical tablet DAY Branch FUROSEMIDE 2021-0 Yes [id number] 40mg TAKE 2 U nivers 20 mg 8-10 TABLETS BY ity of tablet 00:00: MOUTH [place] 00 DAILY Medical Branch FERROUS 2-0 Yes [id number] TAKE 1 Uni vers SULFATE 325 8-10 TABLET BY ity of mg (65 mg 00:00: MOUTH [place] iron) 00 TWICE A Medical tablet DAY Branch FUROSEMIDE 2021-0 Yes [id number] 40mg TAKE 2 U nivers 20 mg 8-10 TABLETS BY ity of tablet 00:00: MOUTH [place] 00 DAILY Medical Branch FERROUS 2-0 Yes [id number] TAKE 1 Uni vers SULFATE 325 8-10 TABLET BY ity of mg (65 mg 00:00: MOUTH [place] iron) 00 TWICE A Medical tablet DAY Branch FUROSEMIDE 2021-0 Yes [id number] 40mg TAKE 2 U nivers 20 mg 8-10 TABLETS BY ity of tablet 00:00: MOUTH [place] 00 DAILY Medical Branch FERROUS 2-0 Yes [id number] TAKE 1 Uni vers SULFATE 325 8-10 TABLET BY ity of mg (65 mg 00:00: MOUTH [place] iron) 00 TWICE A Medical tablet DAY Branch FUROSEMIDE 2021-0 Yes [id number] 40mg TAKE 2 U nivers 20 mg 8-10 TABLETS BY ity of tablet 00:00: MOUTH [place] 00 DAILY Medical Branch FERROUS 2022-0 Yes [id number] TAKE 1 Uni vers SULFATE 325 8-10 TABLET BY ity of mg (65 mg 00:00: MOUTH [place] iron) 00 TWICE A Medical tablet DAY Branch FUROSEMIDE 2021-0 Yes [id number] 40mg TAKE 2 U nivers 20 mg 8-10 TABLETS BY ity of tablet 00:00: MOUTH [place] 00 DAILY Medical Branch FERROUS 2022-0 Yes [id number] TAKE 1 [facility] SULFATE 325 8-10 TABLET BY ity of mg (65 mg 00:00: MOUTH [place] iron) 00 TWICE A Medical tablet DAY Branch FUROSEMIDE 2021-0 Yes [id number] 40mg TAKE 2 U nivers 20 mg 8-10 TABLETS BY [facility]y of tablet 00:00: [facility] 00 DAILY Medical Branch FERROUS 2022-0 Yes [id number] TAKE 1 [facility] vers SULFATE 325 8-10 TABLET BY ity of mg (65 mg 00:00: [facility] iron) 00 TWICE A Medical tablet DAY Branch FUROSEMIDE 2022-0 Yes [id number] 40mg TAKE 2 U nivers 20 mg 8-10 TABLETS BY ity of tablet 00:00: MOUTH [place] 00 DAILY Medical Branch FERROUS 2022-0 Yes [id number] TAKE 1 [facility] vers SULFATE 325 8-10 TABLET BY ity of mg (65 mg 00:00: [facility] iron) 00 TWICE A Medical tablet DAY Branch FUROSEMIDE 2022-0 Yes [id number] 40mg TAKE 2 U nivers 20 mg 8-10 TABLETS BY ity of tablet 00:00: [facility] DAILY Medical Branch FUROSEMIDE 2022-0 Yes [id number] 40mg TAKE 2 U nivers 20 mg 8-10 TABLETS BY ity of tablet 00:00: [facility] DAILY Medical Branch FUROSEMIDE 2022-0 Yes [id number] 40mg TAKE 2 U nivers 20 mg 8-10 TABLETS BY ity of tablet 00:00: [facility] 00 DAILY Medical Branch FUROSEMIDE 2022-0 Yes [id number] 40mg TAKE 2 U nivers 20 mg 8-10 TABLETS BY ity of tablet 00:00: [facility] DAILY Medical Branch FUROSEMIDE 2022-0 Yes [id number] 40mg TAKE 2 U nivers 20 mg 8-10 TABLETS BY ity of tablet 00:00: [facility] DAILY Medical Branch FUROSEMIDE 2022-0 Yes [id number] 40mg TAKE 2 U nivers 20 mg 8-10 TABLETS BY ity of tablet 00:00: [facility] DAILY Medical Branch FUROSEMIDE 2022-0 Yes [id number] 40mg TAKE 2 U nivers 20 mg 8-10 TABLETS BY ity of tablet 00:00: [facility] DAILY Medical Branch FUROSEMIDE 2022-0 Yes [id number] 40mg TAKE 2 U nivers 20 mg 8-10 TABLETS BY ity of tablet 00:00: [facility] DAILY Medical Branch FERROUS 2022-0 2023- No [id number] TAKE 1 [facility] SULFATE 325 8-10 - TABLET BY it y of mg (65 mg 00:00: 00:00 MOUTH [place] iron) 00 :00 TWICE A Medical tablet DAY Branch CYANOCOBALA 2021- No [id number] 1000ug INJECT 1 [facility] MIN 1,000 8-10 11-11 ML UNDER ity o f mcg/mL 00:00: 00:00 THE SKIN [place] injection 00 :00 EVERY 2 Medical (TWO) Branch WEEKS. FUROSEMIDE Yes [id number] 40mg TAKE 2 U nivers 20 mg 7-30 TABLETS BY ity of tablet 00:00: MOUTH [place] 00 DAILY Medical Branch FUROSEMIDE 2021-0 2021- No [id number] 40mg TAKE 2 [facility] 20 mg 7-30 08-10 TABLETS BY ity of tablet 00:00: 00:00 MOUTH [place] 00 :00 DAILY Medical Branch PROMETHAZIN 2021-0 Yes [id number] TAKE 1 [facility] E 25 mg 7-25 TABLET BY ity of tablet 00:00: MOUTH [place] 00 EVERY 8 Medical HOURS Branch NEEDED FOR NAUSEA AND VOMITING ACETAMINOPH 2021-0 Yes [id number] TAKE 1 [facility] EN-CODEINE 7-25 TABLET BY ity of 300-30 mg 00:00: MOUTH [place] tablet 00 EVERY 4 Medical HOURS Branch NEEDED FOR PAIN (SCALE 4-6). INDICATION S: CHRONIC PAIN PROMETHAZIN 2021-0 Yes [id number] TAKE 1 [facility] E 25 mg 7-25 TABLET BY ity of tablet 00:00: MOUTH [place] 00 EVERY 8 Medical HOURS Branch NEEDED FOR NAUSEA AND VOMITING ACETAMINOPH 2021-0 Yes [id number] TAKE 1 [facility] EN-CODEINE 7-25 TABLET BY ity of 300-30 mg 00:00: MOUTH [place] tablet 00 EVERY 4 Medical HOURS Branch NEEDED FOR PAIN (SCALE 4-6). INDICATION S: CHRONIC PAIN PROMETHAZIN 2021-0 Yes [id number] TAKE 1 [facility] E 25 mg 7-25 TABLET BY ity of tablet 00:00: MOUTH [place] 00 EVERY 8 Medical HOURS Branch NEEDED FOR NAUSEA AND VOMITING ACETAMINOPH 2021-0 Yes [id number] TAKE 1 [facility] EN-CODEINE 7-25 TABLET BY ity of 300-30 mg 00:00: MOUTH [place] tablet 00 EVERY 4 Medical HOURS Branch NEEDED FOR PAIN (SCALE 4-6). INDICATION S: CHRONIC PAIN PROMETHAZIN 2021-0 Yes [id number] TAKE 1 [facility] E 25 mg 7-25 TABLET BY ity of tablet 00:00: MOUTH [place] 00 EVERY 8 Medical HOURS Branch NEEDED FOR NAUSEA AND VOMITING ACETAMINOPH 2022-0 Yes [id number] TAKE 1 [facility] EN-CODEINE 7-25 TABLET BY ity of 300-30 mg 00:00: MOUTH [place] tablet 00 EVERY 4 Medical HOURS Branch NEEDED FOR PAIN (SCALE 4-6). INDICATION S: CHRONIC PAIN PROMETHAZIN 2022-0 Yes [id number] TAKE 1 [facility] E 25 mg 7-25 TABLET BY ity of tablet 00:00: MOUTH [place] 00 EVERY 8 Medical HOURS Branch NEEDED FOR NAUSEA AND VOMITING ACETAMINOPH 2022-0 Yes [id number] TAKE 1 [facility] EN-CODEINE 7-25 TABLET BY ity of 300-30 mg 00:00: MOUTH [place] tablet 00 EVERY 4 Medical HOURS Branch NEEDED FOR PAIN (SCALE 4-6). INDICATION S: CHRONIC PAIN PROMETHAZIN 2022-0 Yes [id number] TAKE 1 [facility] E 25 mg 7-25 TABLET BY ity of tablet 00:00: MOUTH [place] 00 EVERY 8 Medical HOURS Branch NEEDED FOR NAUSEA AND VOMITING ACETAMINOPH 2022-0 Yes [id number] TAKE 1 [facility] EN-CODEINE 7-25 TABLET BY ity of 300-30 mg 00:00: MOUTH [place] tablet 00 EVERY 4 Medical HOURS Branch NEEDED FOR PAIN (SCALE 4-6). INDICATION S: CHRONIC PAIN PROMETHAZIN 2022-0 Yes [id number] TAKE 1 [facility] E 25 mg 7-25 TABLET BY ity of tablet 00:00: MOUTH [place] 00 EVERY 8 Medical HOURS Branch NEEDED FOR NAUSEA AND VOMITING ACETAMINOPH 2022-0 Yes [id number] TAKE 1 [facility] EN-CODEINE 7-25 TABLET BY ity of 300-30 mg 00:00: MOUTH [place] tablet 00 EVERY 4 Medical HOURS Branch NEEDED FOR PAIN (SCALE 4-6). INDICATION S: CHRONIC PAIN PROMETHAZIN 2022-0 Yes [id number] TAKE 1 [facility] E 25 mg 7-25 TABLET BY ity of tablet 00:00: MOUTH [place] 00 EVERY 8 Medical HOURS Branch NEEDED FOR NAUSEA AND VOMITING ACETAMINOPH 2022-0 Yes [id number] TAKE 1 [facility] EN-CODEINE 7-25 TABLET BY ity of 300-30 mg 00:00: MOUTH [place] tablet 00 EVERY 4 Medical HOURS Branch NEEDED FOR PAIN (SCALE 4-6). INDICATION S: CHRONIC PAIN PROMETHAZIN 2022-0 Yes [id number] TAKE 1 [facility] E 25 mg 7-25 TABLET BY ity of tablet 00:00: MOUTH [place] 00 EVERY 8 Medical HOURS Branch NEEDED FOR NAUSEA AND VOMITING ACETAMINOPH 2022-0 Yes [id number] TAKE 1 [facility] EN-CODEINE 7-25 TABLET BY ity of 300-30 mg 00:00: MOUTH [place] tablet 00 EVERY 4 Medical HOURS Branch NEEDED FOR PAIN (SCALE 4-6). INDICATION S: CHRONIC PAIN PROMETHAZIN 2022-0 Yes [id number] TAKE 1 [facility] E 25 mg 7-25 TABLET BY ity of tablet 00:00: MOUTH [place] 00 EVERY 8 Medical HOURS Branch NEEDED FOR NAUSEA AND VOMITING ACETAMINOPH 2022-0 Yes [id number] TAKE 1 [facility] EN-CODEINE 7-25 TABLET BY ity of 300-30 mg 00:00: MOUTH [place] tablet 00 EVERY 4 Medical HOURS Branch NEEDED FOR PAIN (SCALE 4-6). INDICATION S: CHRONIC PAIN PROMETHAZIN 2022-0 Yes [id number] TAKE 1 [facility] E 25 mg 7-25 TABLET BY ity of tablet 00:00: MOUTH [place] 00 EVERY 8 Medical HOURS Branch NEEDED FOR NAUSEA AND VOMITING ACETAMINOPH 2022-0 Yes [id number] TAKE 1 [facility] EN-CODEINE 7-25 TABLET BY ity of 300-30 mg 00:00: MOUTH [place] tablet 00 EVERY 4 Medical HOURS Branch NEEDED FOR PAIN (SCALE 4-6). INDICATION S: CHRONIC PAIN PROMETHAZIN 2022-0 Yes [id number] TAKE 1 [facility] E 25 mg 7-25 TABLET BY ity of tablet 00:00: MOUTH [place] 00 EVERY 8 Medical HOURS Branch NEEDED FOR NAUSEA AND VOMITING ACETAMINOPH 2022-0 Yes [id number] TAKE 1 [facility] EN-CODEINE 7-25 TABLET BY ity of 300-30 mg 00:00: MOUTH [place] tablet 00 EVERY 4 Medical HOURS Branch NEEDED FOR PAIN (SCALE 4-6). INDICATION S: CHRONIC PAIN PROMETHAZIN 2022-0 Yes [id number] TAKE 1 [facility] E 25 mg 7-25 TABLET BY ity of tablet 00:00: MOUTH [place] 00 EVERY 8 Medical HOURS Branch NEEDED FOR NAUSEA AND VOMITING ACETAMINOPH 2022-0 Yes [id number] TAKE 1 [facility] EN-CODEINE 7-25 TABLET BY ity of 300-30 mg 00:00: MOUTH [place] tablet 00 EVERY 4 Medical HOURS Branch NEEDED FOR PAIN (SCALE 4-6). INDICATION S: CHRONIC PAIN PROMETHAZIN 2022-0 Yes [id number] TAKE 1 [facility] E 25 mg 7-25 TABLET BY ity of tablet 00:00: MOUTH [place] 00 EVERY 8 Medical HOURS Branch NEEDED FOR NAUSEA AND VOMITING ACETAMINOPH 2022-0 Yes [id number] TAKE 1 [facility] EN-CODEINE 7-25 TABLET BY ity of 300-30 mg 00:00: MOUTH [place] tablet 00 EVERY 4 Medical HOURS Branch NEEDED FOR PAIN (SCALE 4-6). INDICATION S: CHRONIC PAIN PROMETHAZIN 2022-0 Yes [id number] TAKE 1 [facility] E 25 mg 7-25 TABLET BY ity of tablet 00:00: MOUTH [place] 00 EVERY 8 Medical HOURS Branch NEEDED FOR NAUSEA AND VOMITING ACETAMINOPH 2022-0 Yes [id number] TAKE 1 [facility] EN-CODEINE 7-25 TABLET BY ity of 300-30 mg 00:00: MOUTH [place] tablet 00 EVERY 4 Medical HOURS Branch NEEDED FOR PAIN (SCALE 4-6). INDICATION S: CHRONIC PAIN PROMETHAZIN 2022-0 Yes [id number] TAKE 1 [facility] E 25 mg 7-25 TABLET BY ity of tablet 00:00: MOUTH [place] 00 EVERY 8 Medical HOURS Branch NEEDED FOR NAUSEA AND VOMITING ACETAMINOPH 2022-0 Yes [id number] TAKE 1 [facility] EN-CODEINE 7-25 TABLET BY ity of 300-30 mg 00:00: MOUTH [place] tablet 00 EVERY 4 Medical HOURS Branch NEEDED FOR PAIN (SCALE 4-6). INDICATION S: CHRONIC PAIN PROMETHAZIN 2022-0 Yes [id number] TAKE 1 [facility] E 25 mg 7-25 TABLET BY ity of tablet 00:00: MOUTH [place] 00 EVERY 8 Medical HOURS Branch NEEDED FOR NAUSEA AND VOMITING ACETAMINOPH 2022-0 Yes [id number] TAKE 1 [facility] EN-CODEINE 7-25 TABLET BY ity of 300-30 mg 00:00: MOUTH [place] tablet 00 EVERY 4 Medical HOURS Branch NEEDED FOR PAIN (SCALE 4-6). INDICATION S: CHRONIC PAIN PROMETHAZIN 2022-0 Yes [id number] TAKE 1 [facility] E 25 mg 7-25 TABLET BY ity of tablet 00:00: MOUTH [place] 00 EVERY 8 Medical HOURS Branch NEEDED FOR NAUSEA AND VOMITING ACETAMINOPH 2022-0 Yes [id number] TAKE 1 [facility] EN-CODEINE 7-25 TABLET BY ity of 300-30 mg 00:00: MOUTH [place] tablet 00 EVERY 4 Medical HOURS Branch NEEDED FOR PAIN (SCALE 4-6). INDICATION S: CHRONIC PAIN PROMETHAZIN 2022-0 Yes [id number] TAKE 1 [facility] E 25 mg 7-25 TABLET BY ity of tablet 00:00: MOUTH [place] 00 EVERY 8 Medical HOURS Branch NEEDED FOR NAUSEA AND VOMITING ACETAMINOPH 2022-0 Yes [id number] TAKE 1 [facility] EN-CODEINE 7-25 TABLET BY ity of 300-30 mg 00:00: MOUTH [place] tablet 00 EVERY 4 Medical HOURS Branch NEEDED FOR PAIN (SCALE 4-6). INDICATION S: CHRONIC PAIN PROMETHAZIN 2022-0 Yes [id number] TAKE 1 [facility] E 25 mg 7-25 TABLET BY ity of tablet 00:00: MOUTH [place] 00 EVERY 8 Medical HOURS Branch NEEDED FOR NAUSEA AND VOMITING ACETAMINOPH 2022-0 Yes [id number] TAKE 1 [facility] EN-CODEINE 7-25 TABLET BY ity of 300-30 mg 00:00: MOUTH [place] tablet 00 EVERY 4 Medical HOURS Branch NEEDED FOR PAIN (SCALE 4-6). INDICATION S: CHRONIC PAIN PROMETHAZIN 2022-0 Yes [id number] TAKE 1 [facility] E 25 mg 7-25 TABLET BY ity of tablet 00:00: MOUTH [place] 00 EVERY 8 Medical HOURS Branch NEEDED FOR NAUSEA AND VOMITING ACETAMINOPH 2022-0 Yes [id number] TAKE 1 [facility] EN-CODEINE 7-25 TABLET BY ity of 300-30 mg 00:00: MOUTH [place] tablet 00 EVERY 4 Medical HOURS Branch NEEDED FOR PAIN (SCALE 4-6). INDICATION S: CHRONIC PAIN PROMETHAZIN 2022-0 Yes [id number] TAKE 1 [facility] E 25 mg 7-25 TABLET BY ity of tablet 00:00: MOUTH [place] 00 EVERY 8 Medical HOURS Branch NEEDED FOR NAUSEA AND VOMITING ACETAMINOPH 2022-0 Yes [id number] TAKE 1 [facility] EN-CODEINE 7-25 TABLET BY ity of 300-30 mg 00:00: MOUTH [place] tablet 00 EVERY 4 Medical HOURS Branch NEEDED FOR PAIN (SCALE 4-6). INDICATION S: CHRONIC PAIN PROMETHAZIN 2022-0 Yes [id number] TAKE 1 [facility] E 25 mg 7-25 TABLET BY ity of tablet 00:00: MOUTH [place] 00 EVERY 8 Medical HOURS Branch NEEDED FOR NAUSEA AND VOMITING ACETAMINOPH 2022-0 Yes [id number] TAKE 1 [facility] EN-CODEINE 7-25 TABLET BY ity of 300-30 mg 00:00: MOUTH [place] tablet 00 EVERY 4 Medical HOURS Branch NEEDED FOR PAIN (SCALE 4-6). INDICATION S: CHRONIC PAIN PROMETHAZIN 2021-0 Yes [id number] TAKE 1 [facility] E 25 mg 7-25 TABLET BY ity of tablet 00:00: MOUTH [place] 00 EVERY 8 Medical HOURS Branch NEEDED FOR NAUSEA AND VOMITING ACETAMINOPH 2021-0 Yes [id number] TAKE 1 [facility] EN-CODEINE 7-25 TABLET BY ity of 300-30 mg 00:00: MOUTH [place] tablet 00 EVERY 4 Medical HOURS Branch NEEDED FOR PAIN (SCALE 4-6). INDICATION S: CHRONIC PAIN PROMETHAZIN 2021-0 Yes [id number] TAKE 1 [facility] E 25 mg 7-25 TABLET BY ity of tablet 00:00: MOUTH [place] 00 EVERY 8 Medical HOURS Branch NEEDED FOR NAUSEA AND VOMITING ESZOPICLONE 0 Yes [id number] TAKE 1 [facility] 3 mg tablet 7-14 TABLET BY ity of 00:00: MOUTH [place] 00 EVERYDAY Medical AT BEDTIME Branch ESZOPICLONE 0 Yes [id number] TAKE 1 [facility] 3 mg tablet 7-14 TABLET BY ity of 00:00: MOUTH [place] 00 EVERYDAY Medical AT BEDTIME Branch ESZOPICLONE 2021-0 Yes [id number] TAKE 1 [facility] 3 mg tablet 7-14 TABLET BY ity of 00:00: MOUTH [place] 00 EVERYDAY Medical AT BEDTIME Branch ESZOPICLONE 2021-0 Yes [id number] TAKE 1 [facility] 3 mg tablet 7-14 TABLET BY ity of 00:00: MOUTH [place] 00 EVERYDAY Medical AT BEDTIME Branch ESZOPICLONE 2021-0 Yes [id number] TAKE 1 [facility] 3 mg tablet 7-14 TABLET BY ity of 00:00: MOUTH [place] 00 EVERYDAY Medical AT BEDTIME Branch ESZOPICLONE 2021-0 Yes [id number] TAKE 1 [facility] 3 mg tablet 7-14 TABLET BY ity of 00:00: MOUTH [place] 00 EVERYDAY Medical AT BEDTIME Branch ESZOPICLONE 2021-0 Yes [id number] TAKE 1 [facility] 3 mg tablet 7-14 TABLET BY ity of 00:00: MOUTH [place] 00 EVERYDAY Medical AT BEDTIME Branch ESZOPICLONE 2021-0 Yes [id number] TAKE 1 [facility] 3 mg tablet 7-14 TABLET BY ity of 00:00: MOUTH 00 EVERYDAY Medical AT BEDTIME Branch ESZOPICLONE 2-0 Yes [id number] TAKE 1 [facility] 3 mg tablet 7-14 TABLET BY ity of 00:00: MOUTH 00 EVERYDAY Medical AT BEDTIME Branch ESZOPICLONE 2022-0 2022- No [id number] TAKE 1 [facility] 3 mg tablet 7-14 10-18 TABLET BY it y of 00:00: 00:00 MOUTH [place] 00 :00 EVERYDAY Medical AT BEDTIME Branch FUROSEMIDE 2022-0 Yes [id number] 40mg TAKE 2 U nivers 20 mg 7-06 TABLETS BY ity of tablet 00:00: MOUTH 00 DAILY Medical Branch METFORMIN 2022-0 Yes [id number] TAKE 1 [facility] nivers 500 mg 7-06 TABLET BY ity of tablet 00:00: MOUTH TWICE A Medical DAY WITH Branch MEALS FUROSEMIDE 2022-0 Yes [id number] 40mg TAKE 2 [facility] nivers 20 mg 7-06 TABLETS BY ity of tablet 00:00: MOUTH 00 DAILY Medical Branch METFORMIN 2022-0 Yes [id number] TAKE 1 [facility] nivers 500 mg 7-06 TABLET BY ity of tablet 00:00: MOUTH 00 TWICE A Medical DAY WITH Branch MEALS FUROSEMIDE 2022-0 Yes [id number] 40mg TAKE 2 [facility] nivers 20 mg 7-06 TABLETS BY ity of tablet 00:00: MOUTH 00 DAILY Medical Branch METFORMIN 2022-0 Yes [id number] TAKE 1 [facility] nivers 500 mg 7-06 TABLET BY ity of tablet 00:00: MOUTH TWICE A Medical DAY WITH Branch MEALS FUROSEMIDE 2022-0 Yes [id number] 40mg TAKE 2 [facility] nivers 20 mg 7-06 TABLETS BY ity of tablet 00:00: MOUTH 00 DAILY Medical Branch METFORMIN 2022-0 Yes [id number] TAKE 1 [facility] nivers 500 mg 7-06 TABLET BY ity of tablet 00:00: MOUTH 00 TWICE A Medical DAY WITH Branch MEALS METFORMIN 2022-0 Yes [id number] TAKE 1 [facility] nivers 500 mg 7-06 TABLET BY ity of tablet 00:00: MOUTH 00 TWICE A Medical DAY WITH Branch MEALS METFORMIN 2022-0 Yes [id number] TAKE 1 [facility] nivers 500 mg 7-06 TABLET BY ity of tablet 00:00: MOUTH 00 TWICE A Medical DAY WITH Branch MEALS METFORMIN 2022-0 Yes [id number] TAKE 1 [facility] nivers 500 mg 7-06 TABLET BY ity of tablet 00:00: MOUTH TWICE A Medical DAY WITH Branch MEALS METFORMIN 2022-0 Yes [id number] TAKE 1 [facility] nivers 500 mg 7-06 TABLET BY ity of tablet 00:00: MOUTH 00 TWICE A Medical DAY WITH Branch MEALS METFORMIN 2022-0 Yes [id number] TAKE 1 [facility] nivers 500 mg 7-06 TABLET BY ity of tablet 00:00: MOUTH TWICE A Medical DAY WITH Branch MEALS METFORMIN 2022-0 Yes [id number] TAKE 1 [facility] nivers 500 mg 7-06 TABLET BY ity of tablet 00:00: MOUTH TWICE A Medical DAY WITH Branch MEALS METFORMIN 2022-0 Yes [id number] TAKE 1 [facility] nivers 500 mg 7-06 TABLET BY ity of tablet 00:00: MOUTH TWICE A Medical DAY WITH Branch MEALS METFORMIN 2022-0 Yes [id number] TAKE 1 [facility] nivers 500 mg 7-06 TABLET BY ity of tablet 00:00: MOUTH TWICE A Medical DAY WITH Branch MEALS METFORMIN 2022-0 Yes [id number] TAKE 1 [facility] nivers 500 mg 7-06 TABLET BY ity of tablet 00:00: MOUTH TWICE A Medical DAY WITH Branch MEALS METFORMIN 2022-0 Yes [id number] TAKE 1 [facility] nivers 500 mg 7-06 TABLET BY ity of tablet 00:00: MOUTH TWICE A Medical DAY WITH Branch MEALS METFORMIN 2022-0 Yes [id number] TAKE 1 [facility] nivers 500 mg 7-06 TABLET BY ity of tablet 00:00: MOUTH TWICE A Medical DAY WITH Branch MEALS METFORMIN 2022-0 Yes [id number] TAKE 1 [facility] nivers 500 mg 7-06 TABLET BY ity of tablet 00:00: MOUTH 00 TWICE A Medical DAY WITH Branch MEALS METFORMIN 2022-0 Yes [id number] TAKE 1 [facility] 500 mg 7-06 TABLET BY ity of tablet 00:00: MOUTH 00 TWICE A Medical DAY WITH Branch MEALS METFORMIN 2022-0 Yes [id number] TAKE 1 [facility] 500 mg 7-06 TABLET BY ity of tablet 00:00: MOUTH TWICE A Medical DAY WITH Branch MEALS METFORMIN 2022-0 Yes [id number] TAKE 1 [facility] 500 mg 7-06 TABLET BY ity of tablet 00:00: MOUTH [place] 00 TWICE A Medical DAY WITH Branch MEALS METFORMIN 2022-0 Yes [id number] TAKE 1 [facility]ivers 500 mg 7-06 TABLET BY ity of tablet 00:00: MOUTH [place] 00 TWICE A Medical DAY WITH Branch MEALS METFORMIN 2022-0 Yes [id number] TAKE 1 [facility]ivers 500 mg 7-06 TABLET BY ity of tablet 00:00: MOUTH [place] 00 TWICE A Medical DAY WITH Branch MEALS METFORMIN 2022-0 Yes [id number] TAKE 1 [facility] 500 mg 7-06 TABLET BY ity of tablet 00:00: MOUTH [place] 00 TWICE A Medical DAY WITH Branch MEALS METFORMIN 2022-0 Yes [id number] TAKE 1 [facility] 500 mg 7-06 TABLET BY ity of tablet 00:00: MOUTH [place] 00 TWICE A Medical DAY WITH Branch MEALS METFORMIN 2022-0 Yes [id number] TAKE 1 [facility] 500 mg 7-06 TABLET BY ity of tablet 00:00: MOUTH [place] 00 TWICE A Medical DAY WITH Branch MEALS METFORMIN 2022-0 Yes [id number] TAKE 1 [facility] 500 mg 7-06 TABLET BY ity of tablet 00:00: MOUTH [place] 00 TWICE A Medical DAY WITH Branch MEALS METFORMIN 2022-0 Yes [id number] TAKE 1 [facility] 500 mg 7-06 TABLET BY ity of tablet 00:00: MOUTH [place] 00 TWICE A Medical DAY WITH Branch MEALS METFORMIN 2022-0 Yes [id number] TAKE 1 [facility] 500 mg 7-06 TABLET BY ity of tablet 00:00: MOUTH [place] 00 TWICE A Medical DAY WITH Branch MEALS FUROSEMIDE 2022-0 2022- No [id number] 40mg TAKE 2 [facility] 20 mg 7-06 07-30 TABLETS BY ity of tablet 00:00: 00:00 MOUTH [place] 00 :00 DAILY Medical Branch LOSARTAN 2022-0 Yes [id number] TAKE 1 [facility] vers 100 mg 6-27 TABLET BY it[facility] of tablet 00:00: MOUTH [place] 00 EVERY DAY Medical Branch LOSARTAN 2022-0 Yes [id number] TAKE 1 [facility] 100 mg 6-27 TABLET BY it[facility] of tablet 00:00: MOUTH [place] 00 EVERY DAY Medical Branch LOSARTAN 2022-0 Yes [id number] TAKE 1 [facility] 100 mg 6-27 TABLET BY ity of tablet 00:00: MOUTH [place] 00 EVERY DAY Medical Branch LOSARTAN 2022-0 Yes [id number] TAKE 1 [facility] 100 mg 6-27 TABLET BY it[facility] of tablet 00:00: MOUTH [place] 00 EVERY DAY Medical Branch LOSARTAN 2022-0 Yes [id number] TAKE 1 [facility] 100 mg 6-27 TABLET BY it[facility] of tablet 00:00: MOUTH [place] 00 EVERY DAY Medical Branch LOSARTAN 2022-0 Yes [id number] TAKE 1 [facility] 100 mg 6-27 TABLET BY ity of tablet 00:00: MOUTH [place] 00 EVERY DAY Medical Branch LOSARTAN 2022-0 Yes [id number] TAKE 1 [facility] vers 100 mg 6-27 TABLET BY ity of tablet 00:00: MOUTH [place] 00 EVERY DAY Medical Branch LOSARTAN 2-0 Yes [id number] TAKE 1 [facility] 100 mg 6-27 TABLET BY ity of tablet 00:00: MOUTH [place] 00 EVERY DAY Medical Branch LOSARTAN 2-0 Yes [id number] TAKE 1 [facility] 100 mg 6-27 TABLET BY ity of tablet 00:00: MOUTH [place] 00 EVERY DAY Medical Branch LOSARTAN 2022-0 Yes [id number] TAKE 1 [facility] 100 mg 6-27 TABLET BY ity of tablet 00:00: MOUTH [place] 00 EVERY DAY Medical Branch LOSARTAN 2-0 Yes [id number] TAKE 1 [facility] 100 mg 6-27 TABLET BY ity of tablet 00:00: MOUTH [place] 00 EVERY DAY Medical Branch LOSARTAN 2-0 Yes [id number] TAKE 1 [facility] 100 mg 6-27 TABLET BY ity of tablet 00:00: MOUTH [place] 00 EVERY DAY Medical Branch LOSARTAN 2022-0 Yes [id number] TAKE 1 [facility] 100 mg 6-27 TABLET BY ity of tablet 00:00: MOUTH [place] 00 EVERY DAY Medical Branch LOSARTAN 2022-0 Yes [id number] TAKE 1 [facility] 100 mg 6-27 TABLET BY ity of tablet 00:00: MOUTH [place] 00 EVERY DAY Medical Branch LOSARTAN 2-0 Yes [id number] TAKE 1 [facility] 100 mg 6-27 TABLET BY ity of tablet 00:00: MOUTH [place] 00 EVERY DAY Medical Branch LOSARTAN 2022-0 2- No [id number] TAKE 1 [facility] 100 mg 6-27 12-13 TABLET BY ity of tablet 00:00: 00:00 MOUTH [place] 00 :00 EVERY DAY Medical Branch PROMETHAZIN 2022-0 Yes [id number] TAKE 1 [facility] E 25 mg 6-22 TABLET BY ity of tablet 00:00: MOUTH [place] 00 EVERY 8 Medical HOURS Branch NEEDED FOR NAUSEA AND VOMITING ACETAMINOPH 2022-0 Yes [id number] TAKE 1 [facility] EN-CODEINE 6-22 TABLET BY ity of 300-30 mg 00:00: MOUTH [place] tablet 00 EVERY 4 Medical HOURS Branch NEEDED FOR PAIN (SCALE 4-6). INDICATION S: CHRONIC PAIN PROMETHAZIN 2022-0 Yes [id number] TAKE 1 [facility] E 25 mg 6-22 TABLET BY ity of tablet 00:00: MOUTH [place] 00 EVERY 8 Medical HOURS Branch NEEDED FOR NAUSEA AND VOMITING ACETAMINOPH 2022-0 Yes [id number] TAKE 1 [facility] EN-CODEINE 6-22 TABLET BY ity of 300-30 mg 00:00: MOUTH [place] tablet 00 EVERY 4 Medical HOURS Branch NEEDED FOR PAIN (SCALE 4-6). INDICATION S: CHRONIC PAIN PROMETHAZIN 2-0 Yes [id number] TAKE 1 [facility] E 25 mg 6-22 TABLET BY ity of tablet 00:00: MOUTH [place] 00 EVERY 8 Medical HOURS Branch NEEDED FOR NAUSEA AND VOMITING ACETAMINOPH 2022-0 Yes [id number] TAKE 1 [facility] EN-CODEINE 6-22 TABLET BY ity of 300-30 mg 00:00: MOUTH [place] tablet 00 EVERY 4 Medical HOURS Branch NEEDED FOR PAIN (SCALE 4-6). INDICATION S: CHRONIC PAIN PROMETHAZIN 2-0 Yes [id number] TAKE 1 [facility] E 25 mg 6-22 TABLET BY ity of tablet 00:00: MOUTH [place] 00 EVERY 8 Medical HOURS Branch NEEDED FOR NAUSEA AND VOMITING ACETAMINOPH 2022-0 Yes [id number] TAKE 1 [facility] EN-CODEINE 6-22 TABLET BY ity of 300-30 mg 00:00: MOUTH [place] tablet 00 EVERY 4 Medical HOURS Branch NEEDED FOR PAIN (SCALE 4-6). INDICATION S: CHRONIC PAIN PROMETHAZIN 2022-0 Yes [id number] TAKE 1 [facility] E 25 mg 6-22 TABLET BY ity of tablet 00:00: MOUTH [place] 00 EVERY 8 Medical HOURS Branch NEEDED FOR NAUSEA AND VOMITING ACETAMINOPH 2022-0 Yes [id number] TAKE 1 [facility] EN-CODEINE 6-22 TABLET BY ity of 300-30 mg 00:00: MOUTH [place] tablet 00 EVERY 4 Medical HOURS Branch NEEDED FOR PAIN (SCALE 4-6). INDICATION S: CHRONIC PAIN PROMETHAZIN 2022-0 2022- No [id number] TAKE 1 [facility] E 25 mg 6-16 06-25 TABLET BY ity of tablet 00:00: 00:00 MOUTH [place] 00 :00 EVERY 8 Medical HOURS Branch NEEDED FOR NAUSEA AND VOMITING ACETAMINOPH 0 2021- No [id number] TAKE 1 [facility] EN-CODEINE 6-16 06-25 TABLET BY ity of 300-30 mg 00:00: 00:00 MOUTH [place] tablet 00 :00 EVERY 4 Medical HOURS Branch NEEDED FOR PAIN (SCALE 4-6). INDICATION S: CHRONIC PAIN ALLOPURINOL 0 Yes [id number] TAKE 1 [facility] 300 mg 6-15 TABLET BY ity of tablet 00:00: MOUTH [place] 00 EVERY DAY Medical Branch ALLOPURINOL 2021-0 Yes [id number] TAKE 1 [facility] 300 mg 6-15 TABLET BY ity of tablet 00:00: MOUTH [place] EVERY DAY Medical Branch ALLOPURINOL 2021-0 Yes [id number] TAKE 1 [facility] 300 mg 6-15 TABLET BY ity of tablet 00:00: MOUTH [place] EVERY DAY Medical Branch ALLOPURINOL 2021-0 Yes [id number] TAKE 1 [facility] 300 mg 6-15 TABLET BY ity of tablet 00:00: MOUTH [place] 00 EVERY DAY Medical Branch ALLOPURINOL 2021-0 Yes [id number] TAKE 1 [facility] 300 mg 6-15 TABLET BY ity of tablet 00:00: MOUTH [place] 00 EVERY DAY Medical Branch ALLOPURINOL 2021-0 Yes [id number] TAKE 1 [facility] 300 mg 6-15 TABLET BY ity of tablet 00:00: MOUTH [place] 00 EVERY DAY Medical Branch ALLOPURINOL 2021-0 Yes [id number] TAKE 1 [facility] 300 mg 6-15 TABLET BY ity of tablet 00:00: MOUTH [place] EVERY DAY Medical Branch ALLOPURINOL 2021-0 Yes [id number] TAKE 1 [facility] 300 mg 6-15 TABLET BY ity of tablet 00:00: MOUTH [place] 00 EVERY DAY Medical Branch ALLOPURINOL 2021-0 Yes [id number] TAKE 1 [facility] 300 mg 6-15 TABLET BY ity of tablet 00:00: MOUTH [place] EVERY DAY Medical Branch ALLOPURINOL 2021-0 Yes [id number] TAKE 1 [facility] 300 mg 6-15 TABLET BY ity of tablet 00:00: MOUTH [place] EVERY DAY Medical Branch ALLOPURINOL 2021-0 Yes [id number] TAKE 1 [facility] 300 mg 6-15 TABLET BY ity of tablet 00:00: MOUTH [place] 00 EVERY DAY Medical Branch ALLOPURINOL 2022-0 Yes [id number] TAKE 1 [facility] 300 mg 6-15 TABLET BY ity of tablet 00:00: MOUTH EVERY DAY Medical Branch ALLOPURINOL 2022-0 Yes [id number] TAKE 1 [facility] 300 mg 6-15 TABLET BY ity of tablet 00:00: [facility] EVERY DAY Medical Branch ALLOPURINOL 2022-0 Yes [id number] TAKE 1 [facility] 300 mg 6-15 TABLET BY ity of tablet 00:00: MOUTH [place] EVERY DAY Medical Branch ALLOPURINOL 2022-0 Yes [id number] TAKE 1 [facility] 300 mg 6-15 TABLET BY ity of tablet 00:00: MOUTH EVERY DAY [facility] ALLOPURINOL 2022-0 Yes [id number] TAKE 1 [facility] 300 mg 6-15 TABLET BY [facility]y of tablet 00:00: [facility] EVERY DAY [facility] ALLOPURINOL 2022-0 Yes [id number] TAKE 1 [facility] 300 mg 6-15 TABLET BY [facility]y of tablet 00:00: [facility] EVERY DAY [facility] ALLOPURINOL 2022-0 Yes [id number] TAKE 1 [facility] 300 mg 6-15 TABLET BY ity of tablet 00:00: MOUTH EVERY DAY [facility] ALLOPURINOL 2022-0 Yes [id number] TAKE 1 [facility] 300 mg 6-15 TABLET BY ity of tablet 00:00: [facility] EVERY DAY Medical Branch ALLOPURINOL 2022-0 Yes [id number] TAKE 1 [facility] 300 mg 6-15 TABLET BY ity of tablet 00:00: [facility] EVERY DAY Medical Branch ALLOPURINOL 2022-0 Yes [id number] TAKE 1 [facility] 300 mg 6-15 TABLET BY ity of tablet 00:00: [facility] EVERY DAY Medical Branch ALLOPURINOL 2022-0 Yes [id number] TAKE 1 [facility] 300 mg 6-15 TABLET BY ity of tablet 00:00: [facility] EVERY DAY Medical Branch ALLOPURINOL 2022-0 Yes [id number] TAKE 1 [facility] 300 mg 6-15 TABLET BY ity of tablet 00:00: [facility] EVERY DAY Medical Branch ALLOPURINOL 2022-0 Yes [id number] TAKE 1 [facility] 300 mg 6-15 TABLET BY ity of tablet 00:00: [facility] EVERY DAY Medical Branch ALLOPURINOL 2022-0 Yes [id number] TAKE 1 [facility] 300 mg 6-15 TABLET BY ity of tablet 00:00: MOUTH EVERY DAY Medical Branch ALLOPURINOL 2022-0 Yes [id number] TAKE 1 [facility] 300 mg 6-15 TABLET BY ity of tablet 00:00: MOUTH EVERY DAY Medical Branch ALLOPURINOL 2022-0 Yes [id number] TAKE 1 [facility] 300 mg 6-15 TABLET BY ity of tablet 00:00: MOUTH EVERY DAY Medical Branch ALLOPURINOL 2022-0 Yes [id number] TAKE 1 [facility] 300 mg 6-15 TABLET BY ity of tablet 00:00: MOUTH EVERY DAY Medical Branch ALLOPURINOL 2022-0 Yes [id number] TAKE 1 [facility] 300 mg 6-15 TABLET BY ity of tablet 00:00: MOUTH EVERY DAY Medical Branch ALLOPURINOL 2022-0 Yes [id number] TAKE 1 [facility] 300 mg 6-15 TABLET BY ity of tablet 00:00: MOUTH EVERY DAY Medical Branch ALLOPURINOL 2022-0 Yes [id number] TAKE 1 [facility] 300 mg 6-15 TABLET BY ity of tablet 00:00: MOUTH EVERY DAY Medical Branch CYANOCOBALA 2021-0 Yes [id number] 1000ug INJECT 1 [facility] MIN 1,000 6-09 ML UNDER ity of mcg/mL 00:00: THE SKIN [place] injection 00 EVERY 2 Medical (TWO) Branch WEEKS. CYANOCOBALA 2021-0 Yes [id number] 1000ug INJECT 1 [facility] MIN 1,000 6-09 ML UNDER ity of mcg/mL 00:00: THE SKIN [place] injection 00 EVERY 2 Medical (TWO) Branch WEEKS. CYANOCOBALA 2021-0 Yes [id number] 1000ug INJECT 1 [facility] MIN 1,000 6-09 ML UNDER ity of mcg/mL 00:00: THE SKIN [place] injection 00 EVERY 2 Medical (TWO) Branch WEEKS. CYANOCOBALA 2021-0 Yes [id number] 1000ug INJECT 1 [facility] MIN 1,000 6-09 ML UNDER ity of mcg/mL 00:00: THE SKIN [place] injection 00 EVERY 2 Medical (TWO) Branch WEEKS. CYANOCOBALA 2-0 Yes [id number] 1000ug INJECT 1 [facility] MIN 1,000 6-09 ML UNDER ity of mcg/mL 00:00: THE SKIN [place] injection 00 EVERY 2 Medical (TWO) Branch WEEKS. CYANOCOBALA 2-0 Yes [id number] 1000ug INJECT 1 [facility] MIN 1,000 6-09 ML UNDER ity of mcg/mL 00:00: THE SKIN [place] injection 00 EVERY 2 Medical (TWO) Branch WEEKS. CYANOCOBALA 2-0 Yes [id number] 1000ug INJECT 1 [facility] MIN 1,000 6-09 ML UNDER ity of mcg/mL 00:00: THE SKIN [place] injection 00 EVERY 2 Medical (TWO) Branch WEEKS. CYANOCOBALA 2-0 Yes [id number] 1000ug INJECT 1 [facility] MIN 1,000 6-09 ML UNDER ity of mcg/mL 00:00: THE SKIN [place] injection 00 EVERY 2 Medical (TWO) Branch WEEKS. CYANOCOBALA 2-0 Yes [id number] 1000ug INJECT 1 [facility] MIN 1,000 6-09 ML UNDER ity of mcg/mL 00:00: THE SKIN [place] injection 00 EVERY 2 Medical (TWO) Branch WEEKS. CYANOCOBALA 2-0 Yes [id number] 1000ug INJECT 1 [facility] MIN 1,000 6-09 ML UNDER ity of mcg/mL 00:00: THE SKIN [place] injection 00 EVERY 2 Medical (TWO) Branch WEEKS. CYANOCOBALA 2-0 Yes [id number] 1000ug INJECT 1 [facility] MIN 1,000 6-09 ML UNDER ity of mcg/mL 00:00: THE SKIN [place] injection 00 EVERY 2 Medical (TWO) Branch WEEKS. CYANOCOBALA 2021-0 2- No [id number] 1000ug INJECT 1 [facility] MIN 1,000 6-09 08-10 ML UNDER ity o f mcg/mL 00:00: 00:00 THE SKIN [place] injection 00 :00 EVERY 2 Medical (TWO) Branch WEEKS. PROMETHAZIN 2021-0 Yes [id number] TAKE 1 [facility] E 25 mg 5-31 TABLET BY ity of tablet 00:00: MOUTH [place] 00 EVERY 8 Medical HOURS Branch NEEDED FOR NAUSEA AND VOMITING . PROMETHAZIN 2021-0 Yes [id number] TAKE 1 [facility] E 25 mg 5-31 TABLET BY ity of tablet 00:00: MOUTH [place] 00 EVERY 8 Medical HOURS Branch NEEDED FOR NAUSEA AND VOMITING . PROMETHAZIN 2021-0 Yes [id number] TAKE 1 [facility] E 25 mg 5-31 TABLET BY ity of tablet 00:00: MOUTH [place] 00 EVERY 8 Medical HOURS Branch NEEDED FOR NAUSEA AND VOMITING . PROMETHAZIN 2021-0 2- No [id number] TAKE 1 [facility] E 25 mg 5-31 06-22 TABLET BY ity of tablet 00:00: 00:00 MOUTH [place] 00 :00 EVERY 8 Medical HOURS Branch NEEDED FOR NAUSEA AND VOMITING . ACETAMINOPH 2021-0 Yes [id number] TAKE 1 [facility] EN-CODEINE 5-17 TABLET BY ity of 300-30 mg 00:00: MOUTH [place] tablet 00 EVERY 4 Medical HOURS Branch NEEDED FOR PAIN (SCALE 4-6). INDICATION S: CHRONIC PAIN ACETAMINOPH 2021-0 Yes [id number] TAKE 1 [facility] EN-CODEINE 5-17 TABLET BY ity of 300-30 mg 00:00: MOUTH [place] tablet 00 EVERY 4 Medical HOURS Branch NEEDED FOR PAIN (SCALE 4-6). INDICATION S: CHRONIC PAIN ACETAMINOPH 2021-0 Yes [id number] TAKE 1 [facility] EN-CODEINE 5-17 TABLET BY ity of 300-30 mg 00:00: MOUTH [place] tablet 00 EVERY 4 Medical HOURS Branch NEEDED FOR PAIN (SCALE 4-6). INDICATION S: CHRONIC PAIN ACETAMINOPH 0 Yes [id number] TAKE 1 [facility] EN-CODEINE 5-17 TABLET BY ity of 300-30 mg 00:00: MOUTH [place] tablet 00 EVERY 4 Medical HOURS Branch NEEDED FOR PAIN (SCALE 4-6). INDICATION S: CHRONIC PAIN ACETAMINOPH 2021-0 Yes [id number] TAKE 1 [facility] EN-CODEINE 5-17 TABLET BY ity of 300-30 mg 00:00: MOUTH [place] tablet 00 EVERY 4 Medical HOURS Branch NEEDED FOR PAIN (SCALE 4-6). INDICATION S: CHRONIC PAIN ACETAMINOPH 0 2021- No [id number] TAKE 1 [facility] EN-CODEINE 5-17 -22 TABLET BY ity of 300-30 mg 00:00: 00:00 MOUTH [place] tablet 00 :00 EVERY 4 Medical HOURS Branch NEEDED FOR PAIN (SCALE 4-6). INDICATION S: CHRONIC PAIN CITALOPRAM 2021-0 Yes [id number] TAKE 1 [facility] 40 mg 3-25 TABLET BY ity of tablet 00:00: MOUTH [place] 00 EVERY DAY Medical Branch CITALOPRAM 2021-0 Yes [id number] TAKE 1 [facility] 40 mg 3-25 TABLET BY ity of tablet 00:00: MOUTH [place] 00 EVERY DAY Medical Branch CITALOPRAM 2021-0 Yes [id number] TAKE 1 [facility] 40 mg 3-25 TABLET BY ity of tablet 00:00: MOUTH [place] 00 EVERY DAY Medical Branch CITALOPRAM 2021-0 Yes [id number] TAKE 1 [facility] 40 mg 3-25 TABLET BY ity of tablet 00:00: MOUTH [place] EVERY DAY Medical Branch CITALOPRAM 2021-0 Yes [id number] TAKE 1 [facility] 40 mg 3-25 TABLET BY ity of tablet 00:00: MOUTH [place] EVERY DAY Medical Branch CITALOPRAM 2021-0 Yes [id number] TAKE 1 [facility] 40 mg 3-25 TABLET BY ity of tablet 00:00: MOUTH [place] EVERY DAY Medical Branch CITALOPRAM 2021-0 Yes [id number] TAKE 1 [facility] 40 mg 3-25 TABLET BY ity of tablet 00:00: [facility] EVERY DAY Medical Branch CITALOPRAM 2021-0 Yes [id number] TAKE 1 [facility] 40 mg 3-25 TABLET BY ity of tablet 00:00: [facility] EVERY DAY Medical Branch CITALOPRAM 2021-0 Yes [id number] TAKE 1 [facility] 40 mg 3-25 TABLET BY ity of tablet 00:00: MOUTH [place] EVERY DAY Medical Branch CITALOPRAM 2021-0 Yes [id number] TAKE 1 [facility] 40 mg 3-25 TABLET BY ity of tablet 00:00: [facility] EVERY DAY Medical Branch CITALOPRAM 2021-0 Yes [id number] TAKE 1 [facility] 40 mg 3-25 TABLET BY ity of tablet 00:00: [facility] EVERY DAY Medical Branch CITALOPRAM 2021-0 Yes [id number] TAKE 1 [facility] 40 mg 3-25 TABLET BY ity of tablet 00:00: MOUTH [place] EVERY DAY Medical Branch CITALOPRAM 2021-0 Yes [id number] TAKE 1 [facility] 40 mg 3-25 TABLET BY ity of tablet 00:00: MOUTH [place] EVERY DAY Medical Branch CITALOPRAM 2021-0 Yes [id number] TAKE 1 [facility] 40 mg 3-25 TABLET BY ity of tablet 00:00: [facility] EVERY DAY Medical Branch CITALOPRAM 2021-0 Yes [id number] TAKE 1 [facility] 40 mg 3-25 TABLET BY ity of tablet 00:00: [facility] EVERY DAY Medical Branch CITALOPRAM 2021-0 Yes [id number] TAKE 1 [facility] 40 mg 3-25 TABLET BY ity of tablet 00:00: MOUTH [place] 00 EVERY DAY Medical Branch CITALOPRAM 0 Yes [id number] TAKE 1 [facility] 40 mg 3-25 TABLET BY ity of tablet 00:00: MOUTH [place] 00 EVERY DAY Medical Branch CITALOPRAM 0 Yes [id number] TAKE 1 [facility] 40 mg 3-25 TABLET BY ity of tablet 00:00: MOUTH [place] 00 EVERY DAY Medical Branch CITALOPRAM 0 Yes [id number] TAKE 1 [facility] 40 mg 3-25 TABLET BY ity of tablet 00:00: MOUTH [place] 00 EVERY DAY Medical Branch CITALOPRAM 0 Yes [id number] TAKE 1 [facility] 40 mg 3-25 TABLET BY ity of tablet 00:00: MOUTH [place] 00 EVERY DAY Medical Branch CITALOPRAM Yes [id number] TAKE 1 [facility] 40 mg 3-25 TABLET BY ity of tablet 00:00: MOUTH [place] 00 EVERY DAY Medical Branch CITALOPRAM 2021- No [id number] TAKE 1 [facility] 40 mg 3-25 11-15 TABLET BY ity of tablet 00:00: 00:00 MOUTH [place] 00 :00 EVERY DAY Medical Branch FERROUS Yes [id number] TAKE 1 [facility] vers SULFATE 325 3-23 TABLET BY ity of mg (65 mg 00:00: MOUTH [place] iron) 00 TWICE A Medical tablet DAY Branch FERROUS Yes [id number] TAKE 1 [facility] vers SULFATE 325 3-23 TABLET BY ity of mg (65 mg 00:00: MOUTH [place] iron) 00 TWICE A Medical tablet DAY Branch FERROUS 2021- Yes [id number] TAKE 1 [facility] vers SULFATE 325 3-23 TABLET BY ity of mg (65 mg 00:00: MOUTH [place] iron) 00 TWICE A Medical tablet DAY Branch FERROUS 2021-0 Yes [id number] TAKE 1 [facility] vers SULFATE 325 3-23 TABLET BY ity of mg (65 mg 00:00: MOUTH [place] iron) 00 TWICE A Medical tablet DAY Branch FERROUS 2021-0 Yes [id number] TAKE 1 [facility] SULFATE 325 3-23 TABLET BY ity of mg (65 mg 00:00: MOUTH [place] iron) 00 TWICE A Medical tablet DAY Branch FERROUS 2021- Yes [id number] TAKE 1 [facility] vers SULFATE 325 3-23 TABLET BY ity of mg (65 mg 00:00: MOUTH [place] iron) 00 TWICE A Medical tablet DAY Branch FERROUS 2021-0 Yes [id number] TAKE 1 [facility] SULFATE 325 3-23 TABLET BY ity of mg (65 mg 00:00: MOUTH [place] iron) 00 TWICE A Medical tablet DAY Branch FERROUS 2021-0 Yes [id number] TAKE 1 [facility] SULFATE 325 3-23 TABLET BY ity of mg (65 mg 00:00: MOUTH [place] iron) 00 TWICE A Medical tablet DAY Branch FERROUS 2021-0 Yes [id number] TAKE 1 [facility] SULFATE 325 3-23 TABLET BY ity of mg (65 mg 00:00: MOUTH [place] iron) 00 TWICE A Medical tablet DAY Branch FERROUS Yes [id number] TAKE 1 [facility] SULFATE 325 3-23 TABLET BY ity of mg (65 mg 00:00: MOUTH [place] iron) 00 TWICE A Medical tablet DAY Branch FERROUS 2021-0 Yes [id number] TAKE 1 [facility] SULFATE 325 3-23 TABLET BY ity of mg (65 mg 00:00: MOUTH [place] iron) 00 TWICE A Medical tablet DAY Branch FERROUS 2021-0 Yes [id number] TAKE 1 [facility] vers SULFATE 325 3-23 TABLET BY ity of mg (65 mg 00:00: MOUTH [place] iron) 00 TWICE A Medical tablet DAY Branch FERROUS Yes [id number] TAKE 1 [facility] vers SULFATE 325 3-23 TABLET BY ity of mg (65 mg 00:00: MOUTH [place] iron) 00 TWICE A Medical tablet DAY Branch FERROUS 2021-0 Yes [id number] TAKE 1 [facility] vers SULFATE 325 3-23 TABLET BY ity of mg (65 mg 00:00: MOUTH [place] iron) 00 TWICE A Medical tablet DAY Branch FERROUS 2021-0 Yes [id number] TAKE 1 [facility] vers SULFATE 325 3-23 TABLET BY ity of mg (65 mg 00:00: MOUTH [place] iron) 00 TWICE A Medical tablet DAY Branch FERROUS 2021-0 2021- No [id number] TAKE 1 [facility] SULFATE 325 3-23 08-10 TABLET BY it y of mg (65 mg 00:00: 00:00 MOUTH [place] iron) 00 :00 TWICE A Medical tablet DAY Branch ACETAMINOPH 2021-0 Yes [id number] TAKE 1 [facility] EN-CODEINE 3-21 TABLET BY ity of 300-30 mg 00:00: MOUTH [place] tablet 00 EVERY 4 Medical HOURS Branch NEEDED FOR PAIN (SCALE 4-6). INDICATION S: CHRONIC PAIN ACETAMINOPH 2022-0 Yes [id number] TAKE 1 [facility] EN-CODEINE 3-21 TABLET BY ity of 300-30 mg 00:00: MOUTH [place] tablet 00 EVERY 4 Medical HOURS Branch NEEDED FOR PAIN (SCALE 4-6). INDICATION S: CHRONIC PAIN ACETAMINOPH 2-0 Yes [id number] TAKE 1 [facility] EN-CODEINE 3-21 TABLET BY ity of 300-30 mg 00:00: MOUTH [place] tablet 00 EVERY 4 Medical HOURS Branch NEEDED FOR PAIN (SCALE 4-6). INDICATION S: CHRONIC PAIN ACETAMINOPH 2-0 Yes [id number] TAKE 1 [facility] EN-CODEINE 3-21 TABLET BY ity of 300-30 mg 00:00: MOUTH [place] tablet 00 EVERY 4 Medical HOURS Branch NEEDED FOR PAIN (SCALE 4-6). INDICATION S: CHRONIC PAIN ACETAMINOPH 2021-0 Yes [id number] TAKE 1 [facility] EN-CODEINE 3-21 TABLET BY ity of 300-30 mg 00:00: MOUTH [place] tablet 00 EVERY 4 Medical HOURS Branch NEEDED FOR PAIN (SCALE 4-6). INDICATION S: CHRONIC PAIN ACETAMINOPH 2021-0 2022- No [id number] TAKE 1 [facility] EN-CODEINE 3-21 05-17 TABLET BY ity of 300-30 mg 00:00: 00:00 MOUTH [place] tablet 00 :00 EVERY 4 Medical HOURS Branch NEEDED FOR PAIN (SCALE 4-6). INDICATION S: CHRONIC PAIN PROMETHAZIN 2021-0 Yes [id number] TAKE 1 [facility] E 25 mg 3-11 TABLET BY ity of tablet 00:00: MOUTH [place] 00 EVERY 8 Medical HOURS Branch NEEDED FOR NAUSEA AND VOMITING . PROMETHAZIN 2021-0 Yes [id number] TAKE 1 [facility] E 25 mg 3-11 TABLET BY ity of tablet 00:00: MOUTH [place] 00 EVERY 8 Medical HOURS Branch NEEDED FOR NAUSEA AND VOMITING . PROMETHAZIN 2021-0 Yes [id number] TAKE 1 [facility] E 25 mg 3-11 TABLET BY ity of tablet 00:00: MOUTH [place] 00 EVERY 8 Medical HOURS Branch NEEDED FOR NAUSEA AND VOMITING . PROMETHAZIN 2021-0 Yes [id number] TAKE 1 [facility] E 25 mg 3-11 TABLET BY ity of tablet 00:00: MOUTH [place] 00 EVERY 8 Medical HOURS Branch NEEDED FOR NAUSEA AND VOMITING . PROMETHAZIN 2021-0 Yes [id number] TAKE 1 [facility] E 25 mg 3-11 TABLET BY ity of tablet 00:00: MOUTH [place] 00 EVERY 8 Medical HOURS Branch NEEDED FOR NAUSEA AND VOMITING . PROMETHAZIN 2021-0 Yes [id number] TAKE 1 [facility] E 25 mg 3-11 TABLET BY ity of tablet 00:00: MOUTH [place] 00 EVERY 8 Medical HOURS Branch NEEDED FOR NAUSEA AND VOMITING . PROMETHAZIN 2021-0 Yes [id number] TAKE 1 [facility] E 25 mg 3-11 TABLET BY ity of tablet 00:00: MOUTH [place] 00 EVERY 8 Medical HOURS Branch NEEDED FOR NAUSEA AND VOMITING . PROMETHAZIN 2021-0 2- No [id number] TAKE 1 [facility] E 25 mg 3-11 05-31 TABLET BY ity of tablet 00:00: 00:00 MOUTH [place] 00 :00 EVERY 8 Medical HOURS Branch NEEDED FOR NAUSEA AND VOMITING . CYANOCOBALA 2021-0 Yes [id number] 1000ug INJECT 1 [facility] MIN 1,000 3-08 ML UNDER ity of mcg/mL 00:00: THE SKIN [place] injection 00 EVERY 2 Medical (TWO) Branch WEEKS. CYANOCOBALA 2021-0 Yes [id number] 1000ug INJECT 1 [facility] MIN 1,000 3-08 ML UNDER ity of mcg/mL 00:00: THE SKIN [place] injection 00 EVERY 2 Medical (TWO) Branch WEEKS. CYANOCOBALA 2021-0 Yes [id number] 1000ug INJECT 1 [facility] MIN 1,000 3-08 ML UNDER ity of mcg/mL 00:00: THE SKIN [place] injection 00 EVERY 2 Medical (TWO) Branch WEEKS. CYANOCOBALA 2-0 Yes [id number] 1000ug INJECT 1 [facility] MIN 1,000 3-08 ML UNDER ity of mcg/mL 00:00: THE SKIN [place] injection 00 EVERY 2 Medical (TWO) Branch WEEKS. CYANOCOBALA 2-0 Yes [id number] 1000ug INJECT 1 [facility] MIN 1,000 3-08 ML UNDER ity of mcg/mL 00:00: THE SKIN [place] injection 00 EVERY 2 Medical (TWO) Branch WEEKS. CYANOCOBALA 2-0 Yes [id number] 1000ug INJECT 1 [facility] MIN 1,000 3-08 ML UNDER ity of mcg/mL 00:00: THE SKIN [place] injection 00 EVERY 2 Medical (TWO) Branch WEEKS. CYANOCOBALA 2-0 Yes [id number] 1000ug INJECT 1 [facility] MIN 1,000 3-08 ML UNDER ity of mcg/mL 00:00: THE SKIN [place] injection 00 EVERY 2 Medical (TWO) Branch WEEKS. CYANOCOBALA 2021-0 Yes [id number] 1000ug INJECT 1 [facility] MIN 1,000 3-08 ML UNDER ity of mcg/mL 00:00: THE SKIN [place] injection 00 EVERY 2 Medical (TWO) Branch WEEKS. CYANOCOBALA 2-0 Yes [id number] 1000ug INJECT 1 [facility] MIN 1,000 3-08 ML UNDER ity of mcg/mL 00:00: THE SKIN [place] injection 00 EVERY 2 Medical (TWO) Branch WEEKS. CYANOCOBALA 2021-0 2021- No [id number] 1000ug INJECT 1 [facility] MIN 1,000 3-08 06-09 ML UNDER ity o f mcg/mL 00:00: 00:00 THE SKIN [place] injection 00 :00 EVERY 2 Medical (TWO) Branch WEEKS. ACETAMINOPH 2021-0 Yes [id number] TAKE 1 [facility] EN-CODEINE 2-22 TABLET BY ity of 300-30 mg 00:00: MOUTH [place] tablet 00 EVERY 4 Medical HOURS Branch NEEDED FOR PAIN (SCALE 4-6). INDICATION S: CHRONIC PAIN PROMETHAZIN 2021-0 Yes [id number] TAKE 1 [facility] E 25 mg 2-22 TABLET BY ity of tablet 00:00: MOUTH [place] 00 EVERY 8 Medical HOURS Branch NEEDED FOR NAUSEA AND VOMITING . PROMETHAZIN 2-0 Yes [id number] TAKE 1 [facility] E 25 mg 2-22 TABLET BY ity of tablet 00:00: MOUTH [place] 00 EVERY 8 Medical HOURS Branch NEEDED FOR NAUSEA AND VOMITING . ACETAMINOPH 2022-0 Yes [id number] TAKE 1 [facility] EN-CODEINE 2-22 TABLET BY ity of 300-30 mg 00:00: MOUTH [place] tablet 00 EVERY 4 Medical HOURS Branch NEEDED FOR PAIN (SCALE 4-6). INDICATION S: CHRONIC PAIN ACETAMINOPH 2022-0 Yes [id number] TAKE 1 [facility] EN-CODEINE 2-22 TABLET BY ity of 300-30 mg 00:00: MOUTH [place] tablet 00 EVERY 4 Medical HOURS Branch NEEDED FOR PAIN (SCALE 4-6). INDICATION S: CHRONIC PAIN ACETAMINOPH 2022-0 2022- No [id number] TAKE 1 [facility] EN-CODEINE 01-17 TABLET BY ity of 300-30 mg 00:00: 00:00 MOUTH [place] tablet 00 :00 EVERY 4 Medical HOURS Branch NEEDED FOR PAIN (SCALE 4-6). INDICATION S: CHRONIC PAIN ACETAMINOPH 2021- No [id number] TAKE 1 [facility] EN-CODEINE 01-17 TABLET BY ity of 300-30 mg 00:00: 00:00 MOUTH [place] tablet 00 :00 EVERY 4 Medical HOURS Branch NEEDED FOR PAIN (SCALE 4-6). INDICATION S: CHRONIC PAIN PROMETHAZIN 2021- No [id number] TAKE 1 [facility] E 25 mg 01-17 TABLET BY ity of tablet 00:00: 00:00 MOUTH [place] 00 :00 EVERY 8 Medical HOURS Branch NEEDED FOR NAUSEA AND VOMITING . CITALOPRAM Yes [id number] TAKE 1 [facility] 40 mg 1-31 TABLET BY ity of tablet 00:00: MOUTH [place] 00 EVERY DAY Medical Branch CITALOPRAM 0 Yes [id number] TAKE 1 [facility] 40 mg 1-31 TABLET BY ity of tablet 00:00: MOUTH [place] 00 EVERY DAY Medical Branch CITALOPRAM 0 Yes [id number] TAKE 1 [facility] 40 mg 1-31 TABLET BY ity of tablet 00:00: MOUTH [place] 00 EVERY DAY Medical Branch CITALOPRAM 0 Yes [id number] TAKE 1 [facility] 40 mg 1-31 TABLET BY ity of tablet 00:00: MOUTH [place] 00 EVERY DAY Medical Branch CITALOPRAM 2021-0 Yes [id number] TAKE 1 [facility] 40 mg 1-31 TABLET BY ity of tablet 00:00: MOUTH [place] 00 EVERY DAY Medical Branch CITALOPRAM 0 Yes [id number] TAKE 1 [facility] 40 mg 1-31 TABLET BY ity of tablet 00:00: MOUTH [place] 00 EVERY DAY Medical Branch CITALOPRAM 2021-0 Yes [id number] TAKE 1 [facility] 40 mg 1-31 TABLET BY ity of tablet 00:00: MOUTH [place] 00 EVERY DAY Medical Branch CITALOPRAM 0 Yes [id number] TAKE 1 [facility] 40 mg 1-31 TABLET BY ity of tablet 00:00: MOUTH [place] 00 EVERY DAY Medical Branch CITALOPRAM Yes [id number] TAKE 1 [facility] 40 mg 1-31 TABLET BY ity of tablet 00:00: MOUTH [place] 00 EVERY DAY Medical Branch CITALOPRAM 2021-2021- No [id number] TAKE 1 [facility] 40 mg 1-31 03-25 TABLET BY ity of tablet 00:00: 00:00 MOUTH [place] 00 :00 EVERY DAY Medical Branch sulfamethox 2021- No 1{tbl} Take 1 U nivers azole-trime 106 01-06 tablet by it y of thoprim 13:44: 00:00 mouth 2 [place] (BACTRIM 59 :00 (two) Medical DS) 800-160 times Branch mg per daily. tablet Nitrofurant 2021-0 Yes 100mg Take 100 U nivers oin&Nit. 1-06 mg by ity of Macrocryst 13:39: mouth once [place] (MACROBID) 53 now. Medical 100 mg Branch capsule Nitrofurant 2021-0 Yes 100mg Take 100 U nivers oin&Nit. 1-06 mg by ity of Macrocryst 13:39: mouth once [place] (MACROBID) 53 now. Medical 100 mg Branch capsule Nitrofurant 2021-0 Yes 100mg Take 100 U nivers oin&Nit. 1-06 mg by ity of Macrocryst 13:39: mouth once [place] (MACROBID) 53 now. Medical 100 mg Branch capsule Nitrofurant 2021-0 Yes 100mg Take 100 U nivers oin&Nit. 1-06 mg by ity of Macrocryst 13:39: mouth once [place] (MACROBID) 53 now. Medical 100 mg Branch capsule Nitrofurant 2021-0 Yes 100mg Take 100 U nivers oin&Nit. 1-06 mg by ity of Macrocryst 13:39: mouth once [place] (MACROBID) 53 now. Medical 100 mg Branch capsule Nitrofurant 2021-0 Yes 100mg Take 100 U nivers oin&Nit. 1-06 mg by ity of Macrocryst 13:39: mouth once [place] (MACROBID) 53 now. Medical 100 mg Branch capsule Nitrofurant 2021-0 Yes 100mg Take 100 U nivers oin&Nit. 1-06 mg by ity of Macrocryst 13:39: mouth once [place] (MACROBID) 53 now. Medical 100 mg Branch capsule Nitrofurant 2-0 Yes 100mg Take 100 U nivers oin&Nit. 1-06 mg by ity of Macrocryst 13:39: mouth once [place] (MACROBID) 53 now. Medical 100 mg Branch capsule Nitrofurant 2021-0 Yes 100mg Take 100 U nivers oin&Nit. 1-06 mg by ity of Macrocryst 13:39: mouth once [place] (MACROBID) 53 now. Medical 100 mg Branch capsule Nitrofurant 2021-0 Yes 100mg Take 100 U nivers oin&Nit. 1-06 mg by ity of Macrocryst 13:39: mouth once [place] (MACROBID) 53 now. Medical 100 mg Branch capsule Nitrofurant 2021-0 Yes 100mg Take 100 U nivers oin&Nit. 1-06 mg by ity of Macrocryst 13:39: mouth once [place] (MACROBID) 53 now. Medical 100 mg Branch capsule Nitrofurant 2021-0 Yes 100mg Take 100 U nivers oin&Nit. 1-06 mg by ity of Macrocryst 13:39: mouth once [place] (MACROBID) 53 now. Medical 100 mg Branch capsule Nitrofurant 2021-0 Yes 100mg Take 100 U nivers oin&Nit. 1-06 mg by ity of Macrocryst 13:39: mouth once [place] (MACROBID) 53 now. Medical 100 mg Branch capsule Nitrofurant 2-0 Yes 100mg Take 100 U nivers oin&Nit. 1-06 mg by ity of Macrocryst 13:39: mouth once [place] (MACROBID) 53 now. Medical 100 mg Branch capsule Nitrofurant 2-0 Yes 100mg Take 100 U nivers oin&Nit. 1-06 mg by ity of Macrocryst 13:39: mouth once [place] (MACROBID) 53 now. Medical 100 mg Branch capsule Nitrofurant 2-0 Yes 100mg Take 100 U nivers oin&Nit. 1-06 mg by ity of Macrocryst 13:39: mouth once [place] (MACROBID) 53 now. Medical 100 mg Branch capsule Nitrofurant 2021-0 Yes 100mg Take 100 U nivers oin&Nit. 1-06 mg by ity of Macrocryst 13:39: mouth once [place] (MACROBID) 53 now. Medical 100 mg Branch capsule Nitrofurant 2021-0 Yes 100mg Take 100 U nivers oin&Nit. 1-06 mg by ity of Macrocryst 13:39: mouth once [place] (MACROBID) 53 now. Medical 100 mg Branch capsule Nitrofurant 2021-0 Yes 100mg Take 100 U nivers oin&Nit. 1-06 mg by ity of Macrocryst 13:39: mouth once [place] (MACROBID) 53 now. Medical 100 mg Branch capsule Nitrofurant 2021-0 Yes 100mg Take 100 U nivers oin&Nit. 1-06 mg by ity of Macrocryst 13:39: mouth once [place] (MACROBID) 53 now. Medical 100 mg Branch capsule Nitrofurant 2021-0 Yes 100mg Take 100 U nivers oin&Nit. 1-06 mg by ity of Macrocryst 13:39: mouth once [place] (MACROBID) 53 now. Medical 100 mg Branch capsule Nitrofurant 2021-0 Yes 100mg Take 100 U nivers oin&Nit. 1-06 mg by ity of Macrocryst 13:39: mouth once [place] (MACROBID) 53 now. Medical 100 mg Branch capsule Nitrofurant 2021-0 Yes 100mg Take 100 U nivers oin&Nit. 1-06 mg by ity of Macrocryst 13:39: mouth once [place] (MACROBID) 53 now. Medical 100 mg Branch capsule Nitrofurant 2021-0 Yes 100mg Take 100 U nivers oin&Nit. 1-06 mg by ity of Macrocryst 13:39: mouth once [place] (MACROBID) 53 now. Medical 100 mg Branch capsule Nitrofurant 2-0 Yes 100mg Take 100 U nivers oin&Nit. 1-06 mg by ity of Macrocryst 13:39: mouth once [place] (MACROBID) 53 now. Medical 100 mg Branch capsule Nitrofurant 2-0 Yes 100mg Take 100 U nivers oin&Nit. 1-06 mg by ity of Macrocryst 13:39: mouth once [place] (MACROBID) 53 now. Medical 100 mg Branch capsule Nitrofurant 2-0 Yes 100mg Take 100 U nivers oin&Nit. 1-06 mg by ity of Macrocryst 13:39: mouth once [place] (MACROBID) 53 now. Medical 100 mg Branch capsule Nitrofurant 2-0 Yes 100mg Take 100 U nivers oin&Nit. 1-06 mg by ity of Macrocryst 13:39: mouth once [place] (MACROBID) 53 now. Medical 100 mg Branch capsule Nitrofurant 2-0 Yes 100mg Take 100 U nivers oin&Nit. 1-06 mg by ity of Macrocryst 13:39: mouth once [place] (MACROBID) 53 now. Medical 100 mg Branch capsule Nitrofurant 2-0 Yes 100mg Take 100 U nivers oin&Nit. 1-06 mg by ity of Macrocryst 13:39: mouth once [place] (MACROBID) 53 now. Medical 100 mg Branch capsule Nitrofurant 2-0 Yes 100mg Take 100 U nivers oin&Nit. 1-06 mg by ity of Macrocryst 13:39: mouth once [place] (MACROBID) 53 now. Medical 100 mg Branch capsule Nitrofurant 2-0 Yes 100mg Take 100 U nivers oin&Nit. 1-06 mg by ity of Macrocryst 13:39: mouth once [place] (MACROBID) 53 now. Medical 100 mg Branch capsule Nitrofurant 2-0 Yes 100mg Take 100 U nivers oin&Nit. 1-06 mg by ity of Macrocryst 13:39: mouth once [place] (MACROBID) 53 now. Medical 100 mg Branch capsule Nitrofurant 2-0 Yes 100mg Take 100 U nivers oin&Nit. 1-06 mg by ity of Macrocryst 13:39: mouth once [place] (MACROBID) 53 now. Medical 100 mg Branch capsule Nitrofurant 2022-0 Yes 100mg Take 100 U nivers oin&Nit. 1-06 mg by ity of Macrocryst 13:39: mouth once [place] (MACROBID) 53 now. Medical 100 mg Branch capsule Nitrofurant 2-0 Yes 100mg Take 100 U nivers oin&Nit. 1-06 mg by ity of [place] 13:39: mouth once [place] (MACROBID) 53 now. Medical 100 mg Branch capsule Nitrofurant 2-0 Yes 100mg Take 100 U nivers oin&Nit. 1-06 mg by ity of [place] 13:39: mouth once [place] (MACROBID) 53 now. Medical 100 mg Branch capsule Nitrofurant 2-0 Yes 100mg Take 100 U nivers oin&Nit. 1-06 mg by ity of [place] 13:39: mouth once [place] (MACROBID) 53 now. Medical 100 mg Branch capsule Nitrofurant 2-0 Yes 100mg Take 100 [facility] oin&Nit. 1-06 mg by [facility] [place] 13:39: mouth once [place] (MACROBID) 53 now. Medical 100 mg Branch capsule Nitrofurant 2-0 Yes 100mg Take 100 [facility] oin&Nit. 1-06 mg by [facility] of [place] 13:39: mouth once [place] (MACROBID) 53 now. Medical 100 mg Branch capsule Nitrofurant 2-0 Yes 100mg Take 100 [facility] oin&Nit. 1-06 mg by [facility] of [place] 13:39: mouth once [place] (MACROBID) 53 now. Medical 100 mg Branch capsule Nitrofurant 2-0 Yes 100mg Take 100 [facility] oin&Nit. 1-06 mg by [facility] of [place] 13:39: mouth once [place] (MACROBID) 53 now. Medical 100 mg Branch capsule Nitrofurant 2-0 Yes 100mg Take 100 [facility] oin&Nit. 1-06 mg by [facility] of [place] 13:39: mouth once [place] (MACROBID) 53 now. Medical 100 mg Branch capsule Nitrofurant 2022-0 Yes 100mg Take 100 [facility] oin&Nit. 1-06 mg by [facility] of [place] 13:39: mouth once [place] (MACROBID) 53 now. Medical 100 mg Branch capsule Nitrofurant 2022-0 Yes 100mg Take 100 [facility] oin&Nit. 1-06 mg by [facility] of [place] 13:39: mouth once [place] (MACROBID) 53 now. Medical 100 mg Branch capsule Nitrofurant Yes 100mg Take 100 [facility] oin&Nit. 1-06 mg by [facility] of [place] 13:39: mouth once [place] (MACROBID) 53 now. Medical 100 mg Branch capsule Nitrofurant Yes 100mg Take 100 [facility] oin&Nit. 1-06 mg by [facility] of [place] 13:39: mouth once [place] (MACROBID) 53 now. Medical 100 mg Branch capsule Nitrofurant Yes 100mg Take 100 [facility] oin&Nit. 1-06 mg by [facility] of [place] 13:39: mouth once [place] (MACROBID) 53 now. Medical 100 mg Branch capsule acetaminoph Yes 2745 1{tbl} Take 1 [facility] en-codeine 1-06 tablet by [facility] of 300-30 mg 00:00: mouth [place] tablet 00 every 4 Medical (four) Branch hours as needed for Pain (scale 4-6). Indication s: chronic pain allopurinoL Yes [id number] 300mg Take 1 [facility] 300 mg 1-06 tablet by [facility] of tablet 00:00: mouth [place] 00 daily. Medical Branch citalopram Yes [id number] 40mg Take 1 [facility] 40 mg 1-06 tablet by [facility] of tablet 00:00: mouth [place] 00 daily. Medical Branch cyanocobala Yes [id number] 1000ug inject 1 [facility] min 1,000 1-06 mL under [facility] of mcg/mL 00:00: the skin [place] injection 00 every 2 Medical (two) Branch weeks. eszopiclone Yes [id number] 3mg Take 1 [facility] 3 mg tablet 1-06 tablet by [facility] of 00:00: mouth at [place] 00 bedtime. Medical Branch furosemide Yes [id number] 40mg Take 2 [facility] (LASIX) 20 1-06 tablets by [facility] of mg tablet 00:00: mouth [place] 00 daily. Medical Branch losartan Yes [id number] 100mg Take 1 [facility] 100 mg 1-06 tablet by [facility] of tablet 00:00: mouth [place] 00 daily. Medical Branch metFORMIN Yes [id number] 500mg Take 1 [facility] 500 mg 1-06 tablet by [facility] of tablet 00:00: mouth 2 [place] 00 (two) Medical times Branch daily with meals. metoprolol Yes [id number] 100mg Take 1 [facility] tartrate 1-06 tablet by [facility] of 100 mg 00:00: mouth 2 [place] tablet 00 (two) Medical times Branch daily. proMETHazin Yes [id number] 25mg Take 1 [facility] e 25 mg 1-06 tablet by [facility] of tablet 00:00: mouth [place] 00 every 8 Medical (eight) Branch hours as needed for Nausea and Vomiting (N/V). acetaminoph Yes [id number] 1{tbl} Take 1 [facility] en-codeine 1-06 tablet by [facility] of 300-30 mg 00:00: mouth [place] tablet 00 every 4 Medical (four) Branch hours as needed for Pain (scale 4-6). Indication s: chronic pain allopurinoL Yes [id number] 300mg Take 1 [facility] 300 mg 1-06 tablet by [facility] of tablet 00:00: mouth [place] 00 daily. Medical Branch citalopram Yes [id number] 40mg Take 1 [facility] 40 mg 1-06 tablet by [facility] of tablet 00:00: mouth [place] 00 daily. Medical Branch cyanocobala Yes [id number] 1000ug inject 1 [facility] min 1,000 1-06 mL under [facility] of mcg/mL 00:00: the skin [place] injection 00 every 2 Medical (two) Branch weeks. eszopiclone Yes [id number] 3mg Take 1 [facility] 3 mg tablet 1-06 tablet by [facility] of 00:00: mouth at [place] 00 bedtime. Medical Branch furosemide 0 Yes [id number] 40mg Take 2 [facility] (LASIX) 20 1-06 tablets by [facility] of mg tablet 00:00: mouth [place] 00 daily. Medical Branch losartan 0 Yes [id number] 100mg Take 1 [facility] 100 mg 1-06 tablet by [facility] of tablet 00:00: mouth [place] 00 daily. Medical Branch metFORMIN Yes [id number] 500mg Take 1 [facility] 500 mg 1-06 tablet by [facility] of tablet 00:00: mouth 2 [place] 00 (two) Medical times Branch daily with meals. metoprolol Yes [id number] 100mg Take 1 [facility] tartrate 1-06 tablet by [facility] of 100 mg 00:00: mouth 2 [place] tablet 00 (two) Medical times Branch daily. proMETHazin 0 Yes [id number] 25mg Take 1 [facility] e 25 mg 1-06 tablet by [facility] of tablet 00:00: mouth [place] 00 every 8 Medical (eight) Branch hours as needed for Nausea and Vomiting (N/V). acetaminoph Yes [id number] 1{tbl} Take 1 [facility] en-codeine 1-06 tablet by [facility] of 300-30 mg 00:00: mouth [place] tablet 00 every 4 Medical (four) Branch hours as needed for Pain (scale 4-6). Indication s: chronic pain allopurinoL 0 Yes [id number] 300mg Take 1 [facility] 300 mg 1-06 tablet by [facility] of tablet 00:00: mouth [place] 00 daily. Medical Branch citalopram Yes [id number] 40mg Take 1 [facility] 40 mg 1-06 tablet by [facility] of tablet 00:00: mouth [place] 00 daily. Medical Branch cyanocobala Yes [id number] 1000ug inject 1 [facility] min 1,000 1-06 mL under [facility] of mcg/mL 00:00: the skin [place] injection 00 every 2 Medical (two) Branch weeks. eszopiclone 0 Yes [id number] 3mg Take 1 [facility] 3 mg tablet 1-06 tablet by [facility] of 00:00: mouth at [place] 00 bedtime. Medical Branch furosemide 0 Yes [id number] 40mg Take 2 [facility] (LASIX) 20 1-06 tablets by [facility] of mg tablet 00:00: mouth [place] 00 daily. Medical Branch losartan 0 Yes [id number] 100mg Take 1 [facility] 100 mg 1-06 tablet by [facility] of tablet 00:00: mouth [place] 00 daily. Medical Branch metFORMIN 0 Yes [id number] 500mg Take 1 [facility] 500 mg 1-06 tablet by [facility] of tablet 00:00: mouth 2 [place] 00 (two) Medical times Branch daily with meals. metoprolol 2022-0 Yes [id number] 100mg Take 1 [facility] tartrate 1-06 tablet by [facility] of 100 mg 00:00: mouth 2 [place] tablet 00 (two) Medical times Branch daily. proMETHazin 0 Yes [id number] 25mg Take 1 [facility] e 25 mg 1-06 tablet by [facility] of tablet 00:00: mouth [place] 00 every 8 Medical (eight) Branch hours as needed for Nausea and Vomiting (N/V). acetaminoph 0 Yes [id number] 1{tbl} Take 1 [facility] [place] en-codeine 1-06 tablet by [facility] of 300-30 mg 00:00: mouth [place] tablet 00 every 4 Medical (four) Branch hours as needed for Pain (scale 4-6). Indication s: chronic pain allopurinoL 0 Yes [id number] 300mg Take 1 [facility] 300 mg 1-06 tablet by [facility] of tablet 00:00: mouth [place] 00 daily. Medical Branch cyanocobala Yes [id number] 1000ug inject 1 [facility] min 1,000 1-06 mL under [facility] of mcg/mL 00:00: the skin [place] injection 00 every 2 Medical (two) Branch weeks. eszopiclone 0 Yes [id number] 3mg Take 1 [facility] 3 mg tablet 1-06 tablet by [facility] of 00:00: mouth at [place] 00 bedtime. Medical Branch furosemide Yes [id number] 40mg Take 2 [facility] (LASIX) 20 1-06 tablets by [facility] of mg tablet 00:00: mouth [place] 00 daily. Medical Branch losartan 0 Yes [id number] 100mg Take 1 [facility] 100 mg 1-06 tablet by [facility] of tablet 00:00: mouth [place] 00 daily. Medical Branch metFORMIN 0 Yes [id number] 500mg Take 1 [facility] 500 mg 1-06 tablet by [facility] of tablet 00:00: mouth 2 [place] 00 (two) Medical times Branch daily with meals. metoprolol 0 Yes [id number] 100mg Take 1 [facility] tartrate 1-06 tablet by [facility] of 100 mg 00:00: mouth 2 [place] tablet 00 (two) Medical times Branch daily. proMETHazin 0 Yes [id number] 25mg Take 1 [facility] e 25 mg 1-06 tablet by [facility] of tablet 00:00: mouth [place] 00 every 8 Medical (eight) Branch hours as needed for Nausea and Vomiting (N/V). acetaminoph 0 Yes [id number] 1{tbl} Take 1 [facility] [place] en-codeine 1-06 tablet by [facility] of 300-30 mg 00:00: mouth [place] tablet 00 every 4 Medical (four) Branch hours as needed for Pain (scale 4-6). Indication s: chronic pain allopurinoL 0 Yes [id number] 300mg Take 1 [facility] 300 mg 1-06 tablet by [facility] of tablet 00:00: mouth [place] 00 daily. Medical Branch cyanocobala Yes [id number] 1000ug inject 1 [facility] min 1,000 1-06 mL under [facility] of mcg/mL 00:00: the skin [place] injection 00 every 2 Medical (two) Branch weeks. eszopiclone 0 Yes [id number] 3mg Take 1 [facility] 3 mg tablet 1-06 tablet by [facility] of 00:00: mouth at [place] 00 bedtime. Medical Branch furosemide 0 Yes [id number] 40mg Take 2 [facility] (LASIX) 20 1-06 tablets by [facility] of mg tablet 00:00: mouth [place] 00 daily. Medical Branch losartan 0 Yes [id number] 100mg Take 1 [facility] 100 mg 1-06 tablet by [facility] of tablet 00:00: mouth [place] 00 daily. Medical Branch metFORMIN 0 Yes [id number] 500mg Take 1 [facility] 500 mg 1-06 tablet by [facility] of tablet 00:00: mouth 2 [place] 00 (two) Medical times Branch daily with meals. metoprolol 0 Yes [id number] 100mg Take 1 [facility] tartrate 1-06 tablet by [facility] of 100 mg 00:00: mouth 2 [place] tablet 00 (two) Medical times Branch daily. proMETHazin 2021-0 Yes [id number] 25mg Take 1 [facility] e 25 mg 1-06 tablet by [facility] of tablet 00:00: mouth [place] 00 every 8 Medical (eight) Branch hours as needed for Nausea and Vomiting (N/V). allopurinoL 0 Yes [id number] 300mg Take 1 [facility] 300 mg 1-06 tablet by [facility] of tablet 00:00: mouth [place] 00 daily. Medical Branch cyanocobala 0 Yes [id number] 1000ug inject 1 [facility] min 1,000 1-06 mL under [facility] of mcg/mL 00:00: the skin [place] injection 00 every 2 Medical (two) Branch weeks. eszopiclone 0 Yes [id number] 3mg Take 1 [facility] 3 mg tablet 1-06 tablet by [facility] of 00:00: mouth at [place] 00 bedtime. Medical Branch furosemide 0 Yes [id number] 40mg Take 2 [facility] (LASIX) 20 1-06 tablets by [facility] of mg tablet 00:00: mouth [place] 00 daily. Medical Branch losartan 0 Yes [id number] 100mg Take 1 [facility] 100 mg 1-06 tablet by [facility] of tablet 00:00: mouth [place] 00 daily. Medical Branch metFORMIN 0 Yes [id number] 500mg Take 1 [facility] 500 mg 1-06 tablet by [facility] of tablet 00:00: mouth 2 [place] 00 (two) Medical times Branch daily with meals. metoprolol 0 Yes [id number] 100mg Take 1 [facility] tartrate 1-06 tablet by [facility] of 100 mg 00:00: mouth 2 [place] tablet 00 (two) Medical times Branch daily. proMETHazin 0 Yes [id number] 25mg Take 1 [facility] e 25 mg 1-06 tablet by [facility] of tablet 00:00: mouth [place] 00 every 8 Medical (eight) Branch hours as needed for Nausea and Vomiting (N/V). allopurinoL 0 Yes [id number] 300mg Take 1 [facility] 300 mg 1-06 tablet by [facility] of tablet 00:00: mouth [place] 00 daily. Medical Branch cyanocobala 0 Yes [id number] 1000ug inject 1 [facility] min 1,000 1-06 mL under [facility] of mcg/mL 00:00: the skin [place] injection 00 every 2 Medical (two) Branch weeks. eszopiclone 0 Yes [id number] 3mg Take 1 [facility] 3 mg tablet 1-06 tablet by [facility] of 00:00: mouth at [place] 00 bedtime. Medical Branch furosemide 0 Yes [id number] 40mg Take 2 [facility] (LASIX) 20 1-06 tablets by [facility] of mg tablet 00:00: mouth [place] 00 daily. Medical Branch losartan 2021-0 Yes [id number] 100mg Take 1 [facility] 100 mg 1-06 tablet by [facility] of tablet 00:00: mouth [place] 00 daily. Medical Branch metFORMIN 2021-0 Yes [id number] 500mg Take 1 [facility] 500 mg 1-06 tablet by [facility] of tablet 00:00: mouth 2 [place] 00 (two) Medical times Branch daily with meals. metoprolol 2021-0 Yes [id number] 100mg Take 1 [facility] tartrate 1-06 tablet by [facility] of 100 mg 00:00: mouth 2 [place] tablet 00 (two) Medical times Branch daily. allopurinoL 2021-0 Yes [id number] 300mg Take 1 [facility] 300 mg 1-06 tablet by [facility] of tablet 00:00: mouth [place] 00 daily. Medical Branch eszopiclone 2021-0 Yes [id number] 3mg Take 1 [facility] 3 mg tablet 1-06 tablet by [facility] of 00:00: mouth at [place] 00 bedtime. Medical Branch furosemide 2021-0 Yes [id number] 40mg Take 2 [facility] (LASIX) 20 1-06 tablets by [facility] of mg tablet 00:00: mouth [place] 00 daily. Medical Branch losartan 2021-0 Yes [id number] 100mg Take 1 [facility] 100 mg 1-06 tablet by [facility] of tablet 00:00: mouth [place] 00 daily. Medical Branch metFORMIN 2021-0 Yes [id number] 500mg Take 1 [facility] 500 mg 1-06 tablet by [facility] of tablet 00:00: mouth 2 [place] 00 (two) Medical times Branch daily with meals. metoprolol 2021-0 Yes [id number] 100mg Take 1 [facility] tartrate 1-06 tablet by [facility] of 100 mg 00:00: mouth 2 [place] tablet 00 (two) Medical times Branch daily. allopurinoL 2021-0 Yes [id number] 300mg Take 1 [facility] 300 mg 1-06 tablet by [facility] of tablet 00:00: mouth [place] 00 daily. Medical Branch eszopiclone 2021-0 Yes [id number] 3mg Take 1 [facility] 3 mg tablet 1-06 tablet by [facility] of 00:00: mouth at [place] 00 bedtime. Medical Branch furosemide 2021-0 Yes [id number] 40mg Take 2 [facility] (LASIX) 20 1-06 tablets by [facility] of mg tablet 00:00: mouth [place] 00 daily. Medical Branch losartan 2021-0 Yes [id number] 100mg Take 1 [facility] 100 mg 1-06 tablet by [facility] of tablet 00:00: mouth [place] 00 daily. Medical Branch metFORMIN 2021-0 Yes [id number] 500mg Take 1 [facility] 500 mg 1-06 tablet by [facility] of tablet 00:00: mouth 2 [place] 00 (two) Medical times Branch daily with meals. metoprolol 2021-0 Yes [id number] 100mg Take 1 [facility] tartrate 1-06 tablet by [facility] of 100 mg 00:00: mouth 2 [place] tablet 00 (two) Medical times Branch daily. allopurinoL 2021-0 Yes [id number] 300mg Take 1 [facility] 300 mg 1-06 tablet by [facility] of tablet 00:00: mouth [place] 00 daily. Medical Branch eszopiclone 2021-0 Yes [id number] 3mg Take 1 [facility] 3 mg tablet 1-06 tablet by [facility] of 00:00: mouth at [place] 00 bedtime. Medical Branch furosemide 2021-0 Yes [id number] 40mg Take 2 [facility] (LASIX) 20 1-06 tablets by [facility] of mg tablet 00:00: mouth [place] 00 daily. Medical Branch losartan 2021-0 Yes [id number] 100mg Take 1 [facility] 100 mg 1-06 tablet by [facility] of tablet 00:00: mouth [place] 00 daily. Medical Branch metFORMIN 2021-0 Yes [id number] 500mg Take 1 [facility] 500 mg 1-06 tablet by [facility] of tablet 00:00: mouth 2 [place] 00 (two) Medical times Branch daily with meals. metoprolol 2021-0 Yes [id number] 100mg Take 1 [facility] tartrate 1-06 tablet by [facility] of 100 mg 00:00: mouth 2 [place] tablet 00 (two) Medical times Branch daily. allopurinoL 2021-0 Yes [id number] 300mg Take 1 [facility] 300 mg 1-06 tablet by [facility] of tablet 00:00: mouth [place] 00 daily. Medical Branch eszopiclone 2021-0 Yes [id number] 3mg Take 1 [facility] 3 mg tablet 1-06 tablet by [facility] of 00:00: mouth at [place] 00 bedtime. Medical Branch furosemide 2021-0 Yes [id number] 40mg Take 2 [facility] (LASIX) 20 1-06 tablets by [facility] of mg tablet 00:00: mouth [place] 00 daily. Medical Branch losartan 2021-0 Yes [id number] 100mg Take 1 [facility] 100 mg 1-06 tablet by [facility] of tablet 00:00: mouth [place] 00 daily. Medical Branch metFORMIN 2021-0 Yes [id number] 500mg Take 1 [facility] 500 mg 1-06 tablet by [facility] of tablet 00:00: mouth 2 [place] 00 (two) Medical times Branch daily with meals. metoprolol 2021-0 Yes [id number] 100mg Take 1 [facility] tartrate 1-06 tablet by [facility] of 100 mg 00:00: mouth 2 [place] tablet 00 (two) Medical times Branch daily. allopurinoL 2021-0 Yes [id number] 300mg Take 1 [facility] 300 mg 1-06 tablet by [facility] of tablet 00:00: mouth [place] 00 daily. Medical Branch eszopiclone 2021-0 Yes [id number] 3mg Take 1 [facility] 3 mg tablet 1-06 tablet by [facility] of 00:00: mouth at [place] 00 bedtime. Medical Branch furosemide 2021-0 Yes [id number] 40mg Take 2 [facility] (LASIX) 20 1-06 tablets by [facility] of mg tablet 00:00: mouth [place] 00 daily. Medical Branch losartan 2021-0 Yes [id number] 100mg Take 1 [facility] 100 mg 1-06 tablet by [facility] of tablet 00:00: mouth [place] 00 daily. Medical Branch metFORMIN 2021-0 Yes [id number] 500mg Take 1 [facility] 500 mg 1-06 tablet by [facility] of tablet 00:00: mouth 2 [place] 00 (two) Medical times Branch daily with meals. metoprolol 2021-0 Yes [id number] 100mg Take 1 [facility] tartrate 1-06 tablet by [facility] of 100 mg 00:00: mouth 2 [place] tablet 00 (two) Medical times Branch daily. allopurinoL 2021-0 Yes [id number] 300mg Take 1 [facility] 300 mg 1-06 tablet by [facility] of tablet 00:00: mouth [place] 00 daily. Medical Branch eszopiclone 2021-0 Yes [id number] 3mg Take 1 [facility] 3 mg tablet 1-06 tablet by [facility] of 00:00: mouth at [place] 00 bedtime. Medical Branch furosemide 2021-0 Yes [id number] 40mg Take 2 [facility] (LASIX) 20 1-06 tablets by [facility] of mg tablet 00:00: mouth [place] 00 daily. Medical Branch losartan 2021-0 Yes [id number] 100mg Take 1 [facility] 100 mg 1-06 tablet by [facility] of tablet 00:00: mouth [place] 00 daily. Medical Branch metFORMIN 2021-0 Yes [id number] 500mg Take 1 [facility] 500 mg 1-06 tablet by [facility] of tablet 00:00: mouth 2 [place] 00 (two) Medical times Branch daily with meals. metoprolol 2021-0 Yes [id number] 100mg Take 1 [facility] tartrate 1-06 tablet by [facility] of 100 mg 00:00: mouth 2 [place] tablet 00 (two) Medical times Branch daily. allopurinoL 2021-0 Yes [id number] 300mg Take 1 [facility] 300 mg 1-06 tablet by [facility] of tablet 00:00: mouth [place] 00 daily. Medical Branch eszopiclone 2021-0 Yes [id number] 3mg Take 1 [facility] 3 mg tablet 1-06 tablet by [facility] of 00:00: mouth at [place] 00 bedtime. Medical Branch furosemide 2021-0 Yes [id number] 40mg Take 2 [facility] (LASIX) 20 1-06 tablets by [facility] of mg tablet 00:00: mouth [place] 00 daily. Medical Branch losartan 2021-0 Yes [id number] 100mg Take 1 [facility] 100 mg 1-06 tablet by [facility] of tablet 00:00: mouth [place] 00 daily. Medical Branch metFORMIN 2021-0 Yes [id number] 500mg Take 1 [facility] 500 mg 1-06 tablet by [facility] of tablet 00:00: mouth 2 [place] 00 (two) Medical times Branch daily with meals. metoprolol 2021-0 Yes [id number] 100mg Take 1 [facility] tartrate 1-06 tablet by [facility] of 100 mg 00:00: mouth 2 [place] tablet 00 (two) Medical times Branch daily. allopurinoL 2021-0 Yes [id number] 300mg Take 1 [facility] 300 mg 1-06 tablet by [facility] of tablet 00:00: mouth [place] 00 daily. Medical Branch eszopiclone 2021-0 Yes [id number] 3mg Take 1 [facility] 3 mg tablet 1-06 tablet by [facility] of 00:00: mouth at [place] 00 bedtime. Medical Branch furosemide 2021-0 Yes [id number] 40mg Take 2 [facility] (LASIX) 20 1-06 tablets by [facility] of mg tablet 00:00: mouth [place] 00 daily. Medical Branch losartan 2021-0 Yes [id number] 100mg Take 1 [facility] 100 mg 1-06 tablet by [facility] of tablet 00:00: mouth [place] 00 daily. Medical Branch metFORMIN 2021-0 Yes [id number] 500mg Take 1 [facility] 500 mg 1-06 tablet by [facility] of tablet 00:00: mouth 2 [place] 00 (two) Medical times Branch daily with meals. metoprolol 2021-0 Yes [id number] 100mg Take 1 [facility] tartrate 1-06 tablet by [facility] of 100 mg 00:00: mouth 2 [place] tablet 00 (two) Medical times Branch daily. allopurinoL 2021-0 Yes [id number] 300mg Take 1 [facility] 300 mg 1-06 tablet by [facility] of tablet 00:00: mouth [place] 00 daily. Medical Branch eszopiclone 2021-0 Yes [id number] 3mg Take 1 [facility] 3 mg tablet 1-06 tablet by [facility] of 00:00: mouth at [place] 00 bedtime. Medical Branch furosemide 2021-0 Yes [id number] 40mg Take 2 [facility] (LASIX) 20 1-06 tablets by [facility] of mg tablet 00:00: mouth [place] 00 daily. Medical Branch losartan 2021-0 Yes [id number] 100mg Take 1 [facility] 100 mg 1-06 tablet by [facility] of tablet 00:00: mouth [place] 00 daily. Medical Branch metFORMIN 2021-0 Yes [id number] 500mg Take 1 [facility] 500 mg 1-06 tablet by [facility] of tablet 00:00: mouth 2 [place] 00 (two) Medical times Branch daily with meals. metoprolol 2021-0 Yes [id number] 100mg Take 1 [facility] tartrate 1-06 tablet by [facility] of 100 mg 00:00: mouth 2 [place] tablet 00 (two) Medical times Branch daily. allopurinoL 2021-0 Yes [id number] 300mg Take 1 [facility] 300 mg 1-06 tablet by [facility] of tablet 00:00: mouth [place] 00 daily. Medical Branch eszopiclone 2021-0 Yes [id number] 3mg Take 1 [facility] 3 mg tablet 1-06 tablet by [facility] of 00:00: mouth at [place] 00 bedtime. Medical Branch furosemide 2021-0 Yes [id number] 40mg Take 2 [facility] (LASIX) 20 1-06 tablets by [facility] of mg tablet 00:00: mouth [place] 00 daily. Medical [facility] losartan 2021-0 Yes [id number] 100mg Take 1 [facility] 100 mg 1-06 tablet by [facility] of tablet 00:00: mouth [place] 00 daily. Medical [facility] metFORMIN 2021-0 Yes [id number] 500mg Take 1 [facility] 500 mg 1-06 tablet by [facility] of tablet 00:00: mouth 2 [place] 00 (two) Medical times Branch daily with meals. metoprolol 2021-0 Yes [id number] 100mg Take 1 [facility] tartrate 1-06 tablet by [facility] of 100 mg 00:00: mouth 2 [place] tablet 00 (two) Medical times Branch daily. eszopiclone 2021-0 Yes [id number] 3mg Take 1 [facility] 3 mg tablet 1-06 tablet by [facility] of 00:00: mouth at [place] 00 bedtime. Medical Branch furosemide 2021-0 Yes [id number] 40mg Take 2 [facility] (LASIX) 20 1-06 tablets by [facility] of mg tablet 00:00: mouth [place] 00 daily. [facility] losartan 2021-0 Yes [id number] 100mg Take 1 [facility] 100 mg 1-06 tablet by [facility] of tablet 00:00: mouth [place] 00 daily. Medical [facility] metFORMIN 2021-0 Yes [id number] 500mg Take 1 [facility] 500 mg 1-06 tablet by [facility] of tablet 00:00: mouth 2 [place] 00 (two) Medical times Branch daily with meals. metoprolol 2021-0 Yes [id number] 100mg Take 1 [facility] tartrate 1-06 tablet by [facility] of 100 mg 00:00: mouth 2 [place] tablet 00 (two) Medical times Branch daily. eszopiclone 2021-0 Yes [id number] 3mg Take 1 [facility] 3 mg tablet 1-06 tablet by [facility] of 00:00: mouth at [place] 00 bedtime. Medical [facility] furosemide 2021-0 Yes [id number] 40mg Take 2 [facility] (LASIX) 20 1-06 tablets by [facility] of mg tablet 00:00: mouth [place] 00 daily. [facility] losartan 2021-0 Yes [id number] 100mg Take 1 [facility] 100 mg 1-06 tablet by [facility] of tablet 00:00: mouth [place] 00 daily. [facility] metFORMIN 2021-0 Yes [id number] 500mg Take 1 [facility] 500 mg 1-06 tablet by [facility] of tablet 00:00: mouth 2 [place] 00 (two) Medical times Branch daily with meals. metoprolol 2021-0 Yes [id number] 100mg Take 1 [facility] tartrate 1-06 tablet by [facility] of 100 mg 00:00: mouth 2 [place] tablet 00 (two) Medical times Branch daily. eszopiclone 2021-0 Yes [id number] 3mg Take 1 [facility] 3 mg tablet 1-06 tablet by [facility] of 00:00: mouth at [place] 00 bedtime. Medical [facility] furosemide 2021-0 Yes [id number] 40mg Take 2 [facility] (LASIX) 20 1-06 tablets by [facility] of mg tablet 00:00: mouth [place] 00 daily. [facility] losartan 2021-0 Yes [id number] 100mg Take 1 [facility] 100 mg 1-06 tablet by [facility] of tablet 00:00: mouth [place] 00 daily. [facility] metFORMIN 2021-0 Yes [id number] 500mg Take 1 [facility] 500 mg 1-06 tablet by [facility] of tablet 00:00: mouth 2 [place] 00 (two) Medical times Branch daily with meals. metoprolol 2021-0 Yes [id number] 100mg Take 1 [facility] tartrate 1-06 tablet by [facility] of 100 mg 00:00: mouth 2 [place] tablet 00 (two) Medical times Branch daily. eszopiclone 2021-0 Yes [id number] 3mg Take 1 [facility] 3 mg tablet 1-06 tablet by [facility] of 00:00: mouth at [place] 00 bedtime. Medical [facility] furosemide 2021-0 Yes [id number] 40mg Take 2 [facility] (LASIX) 20 1-06 tablets by [facility] of mg tablet 00:00: mouth [place] 00 daily. [facility] metFORMIN 2021-0 Yes [id number] 500mg Take 1 [facility] 500 mg 1-06 tablet by [facility] of tablet 00:00: mouth 2 [place] 00 (two) Medical times Branch daily with meals. metoprolol 2021-0 Yes [id number] 100mg Take 1 [facility] tartrate 1-06 tablet by [facility] of 100 mg 00:00: mouth 2 [place] tablet 00 (two) Medical times Branch daily. eszopiclone 2021-0 Yes [id number] 3mg Take 1 [facility] 3 mg tablet 1-06 tablet by [facility] of 00:00: mouth at [place] 00 bedtime. Medical Branch metoprolol 2021-0 Yes [id number] 100mg Take 1 [facility] tartrate 1-06 tablet by [facility] of 100 mg 00:00: mouth 2 [place] tablet 00 (two) Medical times Branch daily. metoprolol 2021-0 Yes [id number] 100mg Take 1 [facility] tartrate 1-06 tablet by [facility] of 100 mg 00:00: mouth 2 [place] tablet 00 (two) Medical times Branch daily. metoprolol 2021-0 Yes [id number] 100mg Take 1 [facility] tartrate 1-06 tablet by [facility] of 100 mg 00:00: mouth 2 [place] tablet 00 (two) Medical times Branch daily. metoprolol 2021-0 Yes [id number] 100mg Take 1 [facility] tartrate 1-06 tablet by [facility] of 100 mg 00:00: mouth 2 [place] tablet 00 (two) Medical times Branch daily. metoprolol 2021-0 Yes [id number] 100mg Take 1 [facility] tartrate 1-06 tablet by [facility] of 100 mg 00:00: mouth 2 [place] tablet 00 (two) Medical times Branch daily. metoprolol 2021-0 Yes [id number] 100mg Take 1 [facility] tartrate 1-06 tablet by [facility] of 100 mg 00:00: mouth 2 [place] tablet 00 (two) Medical times Branch daily. metoprolol 2021-0 Yes [id number] 100mg Take 1 [facility] tartrate 1-06 tablet by [facility] of 100 mg 00:00: mouth 2 [place] tablet 00 (two) Medical times Branch daily. metoprolol 2021-0 Yes [id number] 100mg Take 1 [facility] tartrate 1-06 tablet by [facility] of 100 mg 00:00: mouth 2 [place] tablet 00 (two) Medical times Branch daily. metoprolol 2021-0 Yes [id number] 100mg Take 1 [facility] tartrate 1-06 tablet by [facility] of 100 mg 00:00: mouth 2 [place] tablet 00 (two) Medical times Branch daily. metoprolol 2021- No [id number] 100mg Take 1 [facility] tartrate -05 04-06 tablet by [facility] o f 100 mg 00:00: 00:00 mouth 2 [place] tablet 00 :00 (two) Medical times Branch daily. eszopiclone 2021- No [id number] 3mg Take 1 [facility] 3 mg tablet 12-01-14 tablet by it y of 00:00: 00:00 mouth at [place] 00 :00 bedtime. Medical Branch furosemide 2021-2021- No [id number] 40mg Take 2 [facility] (LASIX) 20 12-01-06 tablets by it y of mg tablet 00:00: 00:00 mouth [place] 00 :00 daily. Medical Branch metFORMIN 2021- No [id number] 500mg Take 1 [facility] 500 mg 12-01 tablet by ity of tablet 00:00: 00:00 mouth 2 [place] 00 :00 (two) Medical times Branch daily with meals. losartan 2021- No [id number] 100mg Take 1 [facility] n[facility] 100 mg 12-01 tablet by ity of tablet 00:00: 00:00 mouth [place] 00 :00 daily. Medical Branch allopurinoL 2021- No [id number] 300mg Take 1 [facility] 300 mg 12-01 tablet by ity of tablet 00:00: 00:00 mouth [place] 00 :00 daily. Medical Branch cyanocobala 2021- No [id number] 1000ug inject 1 [facility] min 1,000 12-0108 mL under ity o f mcg/mL 00:00: 00:00 the skin [place] injection 00 :00 every 2 Medical (two) Branch weeks. acetaminoph 2021- No [id number] 1{tbl} Take 1 U nivers en-codeine 12-01 tablet by ity of 300-30 mg 00:00: 00:00 mouth [place] tablet 00 :00 every 4 Medical (four) Branch hours as needed for Pain (scale 4-6). Indication s: chronic pain proMETHazin 2021- No [id number] 25mg Take 1 [facility] e 25 mg 12-01 tablet by ity of tablet 00:00: 00:00 mouth [place] 00 :00 every 8 Medical (eight) Branch hours as needed for Nausea and Vomiting (N/V). citalopram 2021- No [id number] 40mg Take 1 [facility] 40 mg 12-01 tablet by ity of tablet 00:00: 00:00 mouth [place] 00 :00 daily. Medical Branch FERROUS 2020-11 Yes [id number] TAKE 1 [facility] vers SULFATE 325 2-29 TABLET BY ity of mg (65 mg 00:00: MOUTH [place] iron) 00 TWICE A Medical tablet DAY Branch FERROUS 2020-11 Yes [id number] TAKE 1 [facility] vers SULFATE 325 2-29 TABLET BY ity of mg (65 mg 00:00: MOUTH [place] iron) 00 TWICE A Medical tablet DAY Branch FERROUS 2020-11 Yes [id number] TAKE 1 [facility] vers SULFATE 325 2-29 TABLET BY ity of mg (65 mg 00:00: MOUTH [place] iron) 00 TWICE A Medical tablet DAY Branch FERROUS 2020-11 Yes [id number] TAKE 1 [facility] vers SULFATE 325 2-29 TABLET BY ity of mg (65 mg 00:00: MOUTH [place] iron) 00 TWICE A Medical tablet DAY Branch FERROUS 2020-11 Yes [id number] TAKE 1 [facility] vers SULFATE 325 2-29 TABLET BY ity of mg (65 mg 00:00: MOUTH [place] iron) 00 TWICE A Medical tablet DAY Branch FERROUS 2020-11 Yes [id number] TAKE 1 [facility] vers SULFATE 325 2-29 TABLET BY ity of mg (65 mg 00:00: MOUTH [place] iron) 00 TWICE A Medical tablet DAY Branch FERROUS 2020-11 Yes [id number] TAKE 1 [facility] vers SULFATE 325 2-29 TABLET BY ity of mg (65 mg 00:00: MOUTH [place] iron) 00 TWICE A Medical tablet DAY Branch FERROUS 2020-11 Yes [id number] TAKE 1 [facility] vers SULFATE 325 2-29 TABLET BY ity of mg (65 mg 00:00: MOUTH [place] iron) 00 TWICE A Medical tablet DAY Branch FERROUS 2020-11 Yes [id number] TAKE 1 [facility] vers SULFATE 325 2-29 TABLET BY ity of mg (65 mg 00:00: MOUTH [place] iron) 00 TWICE A Medical tablet DAY Branch FERROUS 2020-11 Yes [id number] TAKE 1 [facility] vers SULFATE 325 2-29 TABLET BY ity of mg (65 mg 00:00: MOUTH [place] iron) 00 TWICE A Medical tablet DAY Branch FERROUS 2020-11 Yes [id number] TAKE 1 [facility] vers SULFATE 325 2-29 TABLET BY ity of mg (65 mg 00:00: MOUTH [place] iron) 00 TWICE A Medical tablet DAY Branch FERROUS 2020-11- No [id number] TAKE 1 [facility] SULFATE 325 2-29 - TABLET BY it y of mg (65 mg 00:00: 00:00 MOUTH [place] iron) 00 :00 TWICE A Medical tablet DAY Branch CITALOPRAM 2020-11- No [id number] TAKE 1 [facility] 40 mg 2-27 - TABLET BY ity of tablet 00:00: 00:00 MOUTH [place] 00 :00 EVERY DAY Medical Branch METFORMIN 2020-11- No [id number] TAKE 1 [facility] 500 mg 01-08 TABLET BY ity of tablet 00:00: 00:00 MOUTH [place] 00 :00 TWICE A Medical DAY WITH Branch MEALS ESZOPICLONE 2020-11- No [id number] TAKE 1 [facility] 3 mg tablet 11-29 TABLET BY it y of 00:00: 00:00 MOUTH [place] 00 :00 EVERYDAY Medical AT BEDTIME Branch CYANOCOBALA 2020-11- No [id number] INJECTS Univers MIN 1,000 012-01 ONE ity of mcg/mL 00:00: 00:00 [place] injection 00 :00 INTRAMUSCU Medi genesis LARLY Branch EVERY MONTH proMETHazin 2021- No [id number] 25mg Take 1 [facility] e 25 mg 08-01 tablet by ity of tablet 00:00: 00:00 mouth [place] 00 :00 every 8 Medical (eight) Branch hours as needed for Nausea and Vomiting (N/V). losartan 2021- No [id number] 100mg Take 1 [facility] nivers 100 mg 06-06 tablet by ity of tablet 00:00: 00:00 mouth [place] 00 :00 daily. Medical Branch ALLOPURINOL 2021- No [id number] TAKE 1 [facility] 300 mg 06-02 TABLET BY ity of tablet 00:00: 00:00 MOUTH [place] 00 :00 EVERY DAY Medical Branch ACETAMINOPH 2021- No [id number] TAKE 1 [facility] EN-CODEINE 05-23 TABLET BY ity of 300-30 mg 00:00: 00:00 MOUTH [place] tablet 00 :00 EVERY 4 Medical HOURS Branch NEEDED FOR PAIN (SCALE 4-6) METOPROLOL 2021- No [id number] TAKE 1 [facility] TARTRATE 5-12-01 TABLET BY ity o f 100 mg 00:00: 00:00 MOUTH [place] tablet 00 :00 TWICE A Medical DAY Branch furosemide 2021- No [id number] 20mg Take 1 [facility] (LASIX) 20 4-19 12-01 tablet by ity of mg tablet 00:00: 00:00 mouth [place] 00 :00 daily. Medical Branch diphenhydrA 0 Yes 25mg Take 25 mg [facility] MINE 1-02 by mouth ity of (BENADRYL) 18:07: every 6 [place] 25 mg 58 (six) Medical capsule hours as Branch needed for Allergies. aspirin 81 0 Yes 81mg Take 81 mg U nivers mg EC 1-02 by mouth ity of tablet 18:07: daily. [address] Branch diphenhydrA 0 Yes 25mg Take 25 mg [facility] MINE 1-02 by mouth ity of (BENADRYL) 18:07: every 6 [place] 25 mg 58 (six) Medical capsule hours as Branch needed for Allergies. aspirin 81 0 Yes 81mg Take 81 mg U nivers mg EC 1-02 by mouth ity of tablet 18:07: daily. [address] Branch diphenhydrA Yes 25mg Take 25 mg [facility] MINE 1-02 by mouth ity of (BENADRYL) 18:07: every 6 [place] 25 mg 58 (six) Medical capsule hours as Branch needed for Allergies. aspirin 81 0 Yes 81mg Take 81 mg U nivers mg EC 1-02 by mouth ity of tablet 18:07: daily. [address] Branch diphenhydrA 0 Yes 25mg Take 25 mg [facility] MINE 1-02 by mouth ity of (BENADRYL) 18:07: every 6 [place] 25 mg 58 (six) Medical capsule hours as Branch needed for Allergies. aspirin 81 0 Yes 81mg Take 81 mg U nivers mg EC 1-02 by mouth ity of tablet 18:07: daily. [address] Branch diphenhydrA 0 Yes 25mg Take 25 mg [facility] MINE 1-02 by mouth ity of (BENADRYL) 18:07: every 6 [place] 25 mg 58 (six) Medical capsule hours as Branch needed for Allergies. aspirin 81 2020-0 Yes 81mg Take 81 mg U nivers mg EC 1-02 by mouth ity of tablet 18:07: daily. [address] Branch diphenhydrA 0 Yes 25mg Take 25 mg [facility] MINE 1-02 by mouth ity of (BENADRYL) 18:07: every 6 [place] 25 mg 58 (six) Medical capsule hours as Branch needed for Allergies. aspirin 81 0 Yes 81mg Take 81 mg U nivers mg EC 1-02 by mouth ity of tablet 18:07: daily. [address] diphenhydrA Yes 25mg Take 25 mg [facility] MINE 1-02 by mouth ity of (BENADRYL) 18:07: every 6 [place] 25 mg 58 (six) Medical capsule hours as Branch needed for Allergies. aspirin 81 0 Yes 81mg Take 81 mg U nivers mg EC 1-02 by mouth ity of tablet 18:07: daily. [address] Branch diphenhydrA Yes 25mg Take 25 mg [facility] MINE 1-02 by mouth ity of (BENADRYL) 18:07: every 6 [place] 25 mg 58 (six) Medical capsule hours as Branch needed for Allergies. aspirin 81 Yes 81mg Take 81 mg U nivers mg EC 1-02 by mouth ity of tablet 18:07: daily. [address] diphenhydrA Yes 25mg Take 25 mg [facility] MINE 1-02 by mouth ity of (BENADRYL) 18:07: every 6 [place] 25 mg 58 (six) Medical capsule hours as Branch needed for Allergies. aspirin 81 Yes 81mg Take 81 mg U nivers mg EC 1-02 by mouth ity of tablet 18:07: daily. [address] diphenhydrA Yes 25mg Take 25 mg [facility] MINE 1-02 by mouth ity of (BENADRYL) 18:07: every 6 [place] 25 mg 58 (six) Medical capsule hours as Branch needed for Allergies. aspirin 81 0 Yes 81mg Take 81 mg U nivers mg EC 1-02 by mouth ity of tablet 18:07: daily. [address] diphenhydrA Yes 25mg Take 25 mg [facility] MINE 1-02 by mouth ity of (BENADRYL) 18:07: every 6 [place] 25 mg 58 (six) Medical capsule hours as Branch needed for Allergies. aspirin 81 0 Yes 81mg Take 81 mg U nivers mg EC 1-02 by mouth ity of tablet 18:07: daily. [address] diphenhydrA 2021-0 Yes 25mg Take 25 mg [facility] MINE 1-02 by mouth ity of (BENADRYL) 18:07: every 6 [place] 25 mg 58 (six) Medical capsule hours as Branch needed for Allergies. aspirin 81 2020-0 Yes 81mg Take 81 mg U nivers mg EC 1-02 by mouth ity of tablet 18:07: daily. [address] Branch diphenhydrA 0 Yes 25mg Take 25 mg [facility] MINE 1-02 by mouth ity of (BENADRYL) 18:07: every 6 [place] 25 mg 58 (six) Medical capsule hours as Branch needed for Allergies. aspirin 81 2020-0 Yes 81mg Take 81 mg U nivers mg EC 1-02 by mouth ity of tablet 18:07: daily. [address] diphenhydrA 0 Yes 25mg Take 25 mg [facility] MINE 1-02 by mouth ity of (BENADRYL) 18:07: every 6 [place] 25 mg 58 (six) Medical capsule hours as Branch needed for Allergies. aspirin 81 0 Yes 81mg Take 81 mg U nivers mg EC 1-02 by mouth ity of tablet 18:07: daily. [address] diphenhydrA 0 Yes 25mg Take 25 mg [facility] MINE 1-02 by mouth ity of (BENADRYL) 18:07: every 6 [place] 25 mg 58 (six) Medical capsule hours as Branch needed for Allergies. aspirin 81 0 Yes 81mg Take 81 mg U nivers mg EC 1-02 by mouth ity of tablet 18:07: daily. [address] diphenhydrA 0 Yes 25mg Take 25 mg [facility] MINE 1-02 by mouth ity of (BENADRYL) 18:07: every 6 [place] 25 mg 58 (six) Medical capsule hours as Branch needed for Allergies. aspirin 81 2020-0 Yes 81mg Take 81 mg U nivers mg EC 1-02 by mouth ity of tablet 18:07: daily. [address] Branch diphenhydrA 0 Yes 25mg Take 25 mg [facility] MINE 1-02 by mouth ity of (BENADRYL) 18:07: every 6 [place] 25 mg 58 (six) Medical capsule hours as Branch needed for Allergies. aspirin 81 2020-0 Yes 81mg Take 81 mg U nivers mg EC 1-02 by mouth ity of tablet 18:07: daily. [address] Branch diphenhydrA Yes 25mg Take 25 mg [facility] MINE 1-02 by mouth ity of (BENADRYL) 18:07: every 6 [place] 25 mg 58 (six) Medical capsule hours as Branch needed for Allergies. aspirin 81 0 Yes 81mg Take 81 mg U nivers mg EC 1-02 by mouth ity of tablet 18:07: daily. [address] Branch diphenhydrA 0 Yes 25mg Take 25 mg [facility] MINE 1-02 by mouth ity of (BENADRYL) 18:07: every 6 [place] 25 mg 58 (six) Medical capsule hours as Branch needed for Allergies. aspirin 81 0 Yes 81mg Take 81 mg U nivers mg EC 1-02 by mouth ity of tablet 18:07: daily. [address] diphenhydrA Yes 25mg Take 25 mg [facility] MINE 1-02 by mouth ity of (BENADRYL) 18:07: every 6 [place] 25 mg 58 (six) Medical capsule hours as Branch needed for Allergies. aspirin 81 Yes 81mg Take 81 mg U nivers mg EC 1-02 by mouth ity of tablet 18:07: daily. [address] diphenhydrA Yes 25mg Take 25 mg [facility] MINE 1-02 by mouth ity of (BENADRYL) 18:07: every 6 [place] 25 mg 58 (six) Medical capsule hours as Branch needed for Allergies. aspirin 81 0 Yes 81mg Take 81 mg U nivers mg EC 1-02 by mouth ity of tablet 18:07: daily. [address] Branch diphenhydrA 0 Yes 25mg Take 25 mg [facility] MINE 1-02 by mouth ity of (BENADRYL) 18:07: every 6 [place] 25 mg 58 (six) Medical capsule hours as Branch needed for Allergies. aspirin 81 0 Yes 81mg Take 81 mg U nivers mg EC 1-02 by mouth ity of tablet 18:07: daily. [address] diphenhydrA 0 Yes 25mg Take 25 mg [facility] MINE 1-02 by mouth ity of (BENADRYL) 18:07: every 6 [place] 25 mg 58 (six) Medical capsule hours as Branch needed for Allergies. aspirin 81 0 Yes 81mg Take 81 mg U nivers mg EC 1-02 by mouth ity of tablet 18:07: daily. [address] diphenhydrA Yes 25mg Take 25 mg [facility] MINE 1-02 by mouth ity of (BENADRYL) 18:07: every 6 [place] 25 mg 58 (six) Medical capsule hours as Branch needed for Allergies. aspirin 81 0 Yes 81mg Take 81 mg U nivers mg EC 1-02 by mouth ity of tablet 18:07: daily. [address] diphenhydrA Yes 25mg Take 25 mg [facility] MINE 1-02 by mouth ity of (BENADRYL) 18:07: every 6 [place] 25 mg 58 (six) Medical capsule hours as Branch needed for Allergies. aspirin 81 Yes 81mg Take 81 mg U nivers mg EC 1-02 by mouth ity of tablet 18:07: daily. [address] diphenhydrA Yes 25mg Take 25 mg [facility] MINE 1-02 by mouth ity of (BENADRYL) 18:07: every 6 [place] 25 mg 58 (six) Medical capsule hours as Branch needed for Allergies. aspirin 81 0 Yes 81mg Take 81 mg U nivers mg EC 1-02 by mouth ity of tablet 18:07: daily. [address] diphenhydrA Yes 25mg Take 25 mg [facility] MINE 1-02 by mouth ity of (BENADRYL) 18:07: every 6 [place] 25 mg 58 (six) Medical capsule hours as Branch needed for Allergies. aspirin 81 0 Yes 81mg Take 81 mg U nivers mg EC 1-02 by mouth ity of tablet 18:07: daily. [address] diphenhydrA 0 Yes 25mg Take 25 mg [facility] MINE 1-02 by mouth ity of (BENADRYL) 18:07: every 6 [place] 25 mg 58 (six) Medical capsule hours as Branch needed for Allergies. aspirin 81 0 Yes 81mg Take 81 mg U nivers mg EC 1-02 by mouth ity of tablet 18:07: daily. [address] Branch diphenhydrA 0 Yes 25mg Take 25 mg [facility] MINE 1-02 by mouth ity of (BENADRYL) 18:07: every 6 [place] 25 mg 58 (six) Medical capsule hours as Branch needed for Allergies. aspirin 81 2020-0 Yes 81mg Take 81 mg U nivers mg EC 1-02 by mouth ity of tablet 18:07: daily. [address] Branch diphenhydrA 0 Yes 25mg Take 25 mg [facility] MINE 1-02 by mouth ity of (BENADRYL) 18:07: every 6 [place] 25 mg 58 (six) Medical capsule hours as Branch needed for Allergies. aspirin 81 0 Yes 81mg Take 81 mg U nivers mg EC 1-02 by mouth ity of tablet 18:07: daily. [address] diphenhydrA Yes 25mg Take 25 mg [facility] MINE 1-02 by mouth ity of (BENADRYL) 18:07: every 6 [place] 25 mg 58 (six) Medical capsule hours as Branch needed for Allergies. aspirin 81 0 Yes 81mg Take 81 mg U nivers mg EC 1-02 by mouth ity of tablet 18:07: daily. [address] diphenhydrA 0 Yes 25mg Take 25 mg [facility] MINE 1-02 by mouth ity of (BENADRYL) 18:07: every 6 [place] 25 mg 58 (six) Medical capsule hours as Branch needed for Allergies. aspirin 81 0 Yes 81mg Take 81 mg U nivers mg EC 1-02 by mouth ity of tablet 18:07: daily. [address] Branch diphenhydrA 0 Yes 25mg Take 25 mg [facility] MINE 1-02 by mouth ity of (BENADRYL) 18:07: every 6 [place] 25 mg 58 (six) Medical capsule hours as Branch needed for Allergies. aspirin 81 2020-0 Yes 81mg Take 81 mg U nivers mg EC 1-02 by mouth ity of tablet 18:07: daily. [address] diphenhydrA 0 Yes 25mg Take 25 mg [facility] MINE 1-02 by mouth ity of (BENADRYL) 18:07: every 6 [place] 25 mg 58 (six) Medical capsule hours as Branch needed for Allergies. aspirin 81 2020-0 Yes 81mg Take 81 mg U nivers mg EC 1-02 by mouth ity of tablet 18:07: daily. [address] Branch diphenhydrA 0 Yes 25mg Take 25 mg [facility] MINE 1-02 by mouth ity of (BENADRYL) 18:07: every 6 [place] 25 mg 58 (six) Medical capsule hours as Branch needed for Allergies. aspirin 81 2020-0 Yes 81mg Take 81 mg U nivers mg EC 1-02 by mouth ity of tablet 18:07: daily. [address] diphenhydrA 0 Yes 25mg Take 25 mg [facility] MINE 1-02 by mouth ity of (BENADRYL) 18:07: every 6 [place] 25 mg 58 (six) Medical capsule hours as Branch needed for Allergies. aspirin 81 0 Yes 81mg Take 81 mg U nivers mg EC 1-02 by mouth ity of tablet 18:07: daily. [address] diphenhydrA 0 Yes 25mg Take 25 mg [facility] MINE 1-02 by mouth ity of (BENADRYL) 18:07: every 6 [place] 25 mg 58 (six) Medical capsule hours as Branch needed for Allergies. aspirin 81 2020-0 Yes 81mg Take 81 mg U nivers mg EC 1-02 by mouth ity of tablet 18:07: daily. [address] diphenhydrA 0 Yes 25mg Take 25 mg [facility] MINE 1-02 by mouth ity of (BENADRYL) 18:07: every 6 [place] 25 mg 58 (six) Medical capsule hours as Branch needed for Allergies. aspirin 81 2020-0 Yes 81mg Take 81 mg U nivers mg EC 1-02 by mouth ity of tablet 18:07: daily. [address] diphenhydrA 0 Yes 25mg Take 25 mg [facility] MINE 1-02 by mouth ity of (BENADRYL) 18:07: every 6 [place] 25 mg 58 (six) Medical capsule hours as Branch needed for Allergies. aspirin 81 2020-0 Yes 81mg Take 81 mg U nivers mg EC 1-02 by mouth ity of tablet 18:07: daily. [address] Branch diphenhydrA 0 Yes 25mg Take 25 mg [facility] MINE 1-02 by mouth ity of (BENADRYL) 18:07: every 6 [place] 25 mg 58 (six) Medical capsule hours as Branch needed for Allergies. aspirin 81 2020-0 Yes 81mg Take 81 mg U nivers mg EC 1-02 by mouth ity of tablet 18:07: daily. [address] diphenhydrA 0 Yes 25mg Take 25 mg [facility] MINE 1-02 by mouth ity of (BENADRYL) 18:07: every 6 [place] 25 mg 58 (six) Medical capsule hours as Branch needed for Allergies. aspirin 81 0 Yes 81mg Take 81 mg U nivers mg EC 1-02 by mouth ity of tablet 18:07: daily. [address] diphenhydrA 0 Yes 25mg Take 25 mg [facility] MINE 1-02 by mouth ity of (BENADRYL) 18:07: every 6 [place] 25 mg 58 (six) Medical capsule hours as Branch needed for Allergies. aspirin 81 0 Yes 81mg Take 81 mg U nivers mg EC 1-02 by mouth ity of tablet 18:07: daily. [address] diphenhydrA 0 Yes 25mg Take 25 mg [facility] MINE 1-02 by mouth ity of (BENADRYL) 18:07: every 6 [place] 25 mg 58 (six) Medical capsule hours as Branch needed for Allergies. aspirin 81 0 Yes 81mg Take 81 mg U nivers mg EC 1-02 by mouth ity of tablet 18:07: daily. [address] Branch diphenhydrA 0 Yes 25mg Take 25 mg [facility] MINE 1-02 by mouth ity of (BENADRYL) 18:07: every 6 [place] 25 mg 58 (six) Medical capsule hours as Branch needed for Allergies. aspirin 81 2020-0 Yes 81mg Take 81 mg U nivers mg EC 1-02 by mouth ity of tablet 18:07: daily. [address] diphenhydrA 0 Yes 25mg Take 25 mg [facility] MINE 1-02 by mouth ity of (BENADRYL) 18:07: every 6 [place] 25 mg 58 (six) Medical capsule hours as Branch needed for Allergies. aspirin 81 Yes 81mg Take 81 mg U nivers mg EC 1-02 by mouth ity of tablet 18:07: daily. [address] diphenhydrA Yes 25mg Take 25 mg [facility] MINE 1-02 by mouth ity of (BENADRYL) 18:07: every 6 [place] 25 mg 58 (six) Medical capsule hours as Branch needed for Allergies. aspirin 81 Yes 81mg Take 81 mg U nivers mg EC 1-02 by mouth ity of tablet 18:07: daily. [address] diphenhydrA Yes 25mg Take 25 mg [facility] MINE 1-02 by mouth ity of (BENADRYL) 18:07: every 6 [place] 25 mg 58 (six) Medical capsule hours as Branch needed for Allergies. aspirin 81 Yes 81mg Take 81 mg U nivers mg EC 1-02 by mouth ity of tablet 18:07: daily. [address] diphenhydrA Yes 25mg Take 25 mg [facility] MINE 1-02 by mouth ity of (BENADRYL) 18:07: every 6 [place] 25 mg 58 (six) Medical capsule hours as Branch needed for Allergies. aspirin 81 Yes 81mg Take 81 mg U nivers mg EC 1-02 by mouth ity of tablet 18:07: daily. [address] Immunizations Ordered Filled Immunization Date Status Comments [facility] e Immunization Name Name TD 2016-05-27 Completed University of 00[facility]00:[address] [facility] TDAP 2016-05-27 Completed University of 00:00:[address] [facility] TDAP 2016-05-27 Completed University of 00:00:[address] [facility] TDAP 2016-05-27 Completed University of 00[facility]00:[address] [facility] TDAP 2016-05-27 Completed University of 00:00:[address] [facility] TDAP 2016-05-27 Completed University of 00[facility]00:[address] [facility] TDAP 2016-05-27 Completed University of 00:00:[address] [facility] TDAP 2016-05-27 Completed University of 00[facility]00:[address] [facility] TDAP 2016-05-27 Completed University of 00:00:[address] [facility] TDAP 2016-05-27 Completed [facility] of 00:00:00 [facility] TDAP 2016-05-27 Completed [facility] of 00:00:00 [place] [facility] TDAP 2016-05-27 Completed [facility] of 00:00:00 [place] [facility] TDAP 2016-05-27 Completed [facility] of 00:00:00 [place] [facility] TDAP 2016-05-27 Completed [facility] of 00:00:00 [place] [facility] TDAP 2016-05-27 Completed [facility] of 00:00:00 [place] [facility] TDAP 2016-05-27 Completed [facility] of 00:00:00 [place] [facility] TDAP 2016-05-27 Completed [facility] of 00:00:00 [place] [facility] TDAP 2016-05-27 Completed [facility] of 00:00:00 [place] [facility] TDAP 2016-05-27 Completed [facility] of 00:00:00 [place] [facility] TDAP 2016-05-27 Completed University of 00:00:00 [facility] TDAP 2016-05-27 Completed University of 00:00:00 [facility] TDAP 2016-05-27 Completed University of 00:00:00 [facility] TDAP 2016-05-27 Completed University of 00:00:00 [facility] TDAP 2016-05-27 Completed University of 00:00:00 [place] [facility] TDAP 2016-05-27 Completed University of 00:00:00 [place] [facility] TDAP 2016-05-27 Completed University of 00:00:00 [place] [facility] TDAP 2016-05-27 Completed University of 00:00:00 [facility] TDAP 2016-05-27 Completed University of 00:00:00 [facility] TDAP 2016-05-27 Completed University of 00:00:00 [facility] TDAP 2016-05-27 Completed University of 00:00:00 [place] [facility] TDAP 2016-05-27 Completed University of 00:00:00 [place] [facility] TDAP 2016-05-27 Completed University of 00:00:00 [place] [facility] TDAP 2016-05-27 Completed University of 00:00:00 [place] [facility] TDAP 2016-05-27 Completed University of 00:00:00 [place] [facility] TDAP 2016-05-27 Completed University of 00:00:00 [facility] TDAP 2016-05-27 Completed University of 00:00:00 [facility] TDAP 2016-05-27 Completed University of 00:00:[address] [facility] TDAP 2016-05-27 Completed University of 00:00:[address] [facility] TDAP 2016-05-27 Completed University of 00:00:[address] [facility] TDAP 2016-05-27 Completed University of 00:00:[address] [facility] TDAP 2016-05-27 Completed University of 00:00:[address] [facility] TDAP 2016-05-27 Completed University of 00:00:[address] [facility] TDAP 2016-05-27 Completed University of 00:00:[address] [facility] TDAP 2016-05-27 Completed University of 00:00:[address] [facility] TDAP 2016-05-27 Completed University of 00:00:[address] [facility] TDAP 2016-05-27 Completed University of 00:00:[address] [facility] TDAP 2016-05-27 Completed University of 00:00:[address] [facility] TDAP 2016-05-27 Completed University of 00:00:[address] [facility] Pneumococcal 2010-02-09 Completed University o f Polysaccharide, 00:00:00 [place] [facility] PPSV23 (PNEUMOVAX) Branch Pneumococcal 2010-02-09 Completed University o f Polysaccharide, 00:00:00 [place] [facility] ical PPSV23 (PNEUMOVAX) Branch Pneumococcal 2010-02-09 Completed University o f Polysaccharide, 00:00:00 [place] [facility] ical PPSV23 (PNEUMOVAX) Branch Pneumococcal 2010-02-09 Completed University o f Polysaccharide, 00:00:00 [place] [facility] ical PPSV23 (PNEUMOVAX) Branch Pneumococcal 2010-02-09 Completed University o f Polysaccharide, 00:00:00 [place] [facility] ical PPSV23 (PNEUMOVAX) Branch Pneumococcal 2010-02-09 Completed University o f Polysaccharide, 00:00:00 [place] [facility] ical PPSV23 (PNEUMOVAX) Branch Pneumococcal 2010-02-09 Completed University o f Polysaccharide, 00:00:00 [place] [facility] ical PPSV23 (PNEUMOVAX) Branch Pneumococcal 2010-02-09 Completed University o f Polysaccharide, 00:00:00 [place] [facility] ical PPSV23 (PNEUMOVAX) Branch Pneumococcal 2010-02-09 Completed University o f Polysaccharide, 00:00:00 [place] [facility] ical PPSV23 (PNEUMOVAX) Branch Pneumococcal 2010-02-09 Completed University o f Polysaccharide, 00:00:00 [place] [facility] ical PPSV23 (PNEUMOVAX) Branch Pneumococcal 2010-02-09 Completed University o f Polysaccharide, 00:00:00 [place] [facility] ical PPSV23 (PNEUMOVAX) Branch Pneumococcal 2010-02-09 Completed [facility] Pol[facility], [facility]00 [place] [facility] PPSV23 (PNEUMOVAX) Branch Pneumococcal 2010-02-09 Completed [facility] Pol[facility], 00:[facility]:00 [place] [facility] PPSV23 (PNEUMOVAX) Branch Pneumococcal 2010-02-09 Completed [facility] Polys[facility], 00:00:00 [place] [facility] PPSV23 (PNEUMOVAX) Branch Pneumococcal 2010-02-09 Completed [facility] Polysaccharide, 00:00:00 [place] [facility] PPSV23 (PNEUMOVAX) Branch Pneumococcal 2010-02-09 Completed [facility] Polys[facility], 00:00:00 [place] [facility] PPSV23 (PNEUMOVAX) Branch Pneumococcal 2010-02-09 Completed [facility] Polys[facility], 00:00:00 [place] [facility] PPSV23 (PNEUMOVAX) Branch Pneumococcal 2010-02-09 Completed [facility] Pol[facility], 00:00:00 [place] [facility] PPSV23 (PNEUMOVAX) Branch Pneumococcal 2010-02-09 Completed [facility] Polys[facility], 00:00:00 [place] [facility] PPSV23 (PNEUMOVAX) Branch Pneumococcal 2010-02-09 Completed [facility] Polysaccharide, 00:00:00 [place] [facility] PPSV23 (PNEUMOVAX) Branch Pneumococcal 2010-02-09 Completed [facility] Polysaccharide, 00:00:00 [place] [facility] PPSV23 (PNEUMOVAX) Branch Pneumococcal 2010-02-09 Completed [facility] Polysaccharide, 00:00:00 [place] [facility] PPSV23 (PNEUMOVAX) Branch Pneumococcal 2010-02-09 Completed [facility] Polysaccharide, 00:00:00 [place] [facility] PPSV23 (PNEUMOVAX) Branch Pneumococcal 2010-02-09 Completed [facility] Polysaccharide, 00:00:00 [place] [facility] PPSV23 (PNEUMOVAX) Branch Pneumococcal 2010-02-09 Completed [facility] Polysaccharide, 00:00:00 [place] [facility] PPSV23 (PNEUMOVAX) Branch Pneumococcal 2010-02-09 Completed [facility] Polysaccharide, 00:00:00 [place] [facility] PPSV23 (PNEUMOVAX) Branch Pneumococcal 2010-02-09 Completed [facility] Polysaccharide, 00:00:00 [place] [facility] PPSV23 (PNEUMOVAX) Branch Pneumococcal 2010-02-09 Completed [facility] Polysaccharide, 00:00:00 [place] [facility] PPSV23 (PNEUMOVAX) Branch Pneumococcal 2010-02-09 Completed [facility] Polysaccharide, 00:00:00 [place] [facility] PPSV23 (PNEUMOVAX) Branch Pneumococcal 2010-02-09 Completed [facility] Polysaccharide, 00:00:00 [place] [facility] PPSV23 (PNEUMOVAX) Branch Pneumococcal 2010-02-09 Completed [facility] Pol[facility]accharide, 00:00:00 [place] [facility] PPSV23 (PNEUMOVAX) Branch Pneumococcal 2010-02-09 Completed [facility] Pol[facility]accharide, 00:00:00 [place] [facility] PPSV23 (PNEUMOVAX) Branch Pneumococcal 2010-02-09 Completed [facility] Polysaccharide, 00:00:00 [place] [facility] PPSV23 (PNEUMOVAX) Branch Pneumococcal 2010-02-09 Completed [facility] Polysaccharide, 00:00:00 [place] [facility] PPSV23 (PNEUMOVAX) Branch Pneumococcal 2010-02-09 Completed [facility] Polysaccharide, 00:00:00 [place] [facility] PPSV23 (PNEUMOVAX) Branch Pneumococcal 2010-02-09 Completed [facility] Polysaccharide, 00:00:00 [place] [facility] PPSV23 (PNEUMOVAX) Branch Pneumococcal 2010-02-09 Completed [facility] Pol[facility]accharide, 00:00:00 [place] [facility] PPSV23 (PNEUMOVAX) Branch Pneumococcal 2010-02-09 Completed [facility] Polysaccharide, 00:00:00 [place] [facility] PPSV23 (PNEUMOVAX) Branch Pneumococcal 2010-02-09 Completed [facility] Polysaccharide, 00:00:00 [place] [facility] PPSV23 (PNEUMOVAX) Branch Pneumococcal 2010-02-09 Completed [facility] Polysaccharide, 00:00:00 [place] [facility] PPSV23 (PNEUMOVAX) Branch Pneumococcal 2010-02-09 Completed [facility] Polysaccharide, 00:00:00 [place] [facility] PPSV23 (PNEUMOVAX) Branch Pneumococcal 2010-02-09 Completed [facility] Polysaccharide, 00:00:00 [place] [facility] PPSV23 (PNEUMOVAX) Branch Pneumococcal 2010-02-09 Completed [facility] Polysaccharide, 00:00:00 [place] [facility] PPSV23 (PNEUMOVAX) Branch Pneumococcal 2010-02-09 Completed [facility] Polysaccharide, 00:00:00 [place] [facility] PPSV23 (PNEUMOVAX) Branch Pneumococcal 2010-02-09 Completed [place] [facility] Polysaccharide, 00:00:00 [place] [facility] PPSV23 (PNEUMOVAX) Branch Pneumococcal 2010-02-09 Completed [place] [facility] Polysaccharide, 00:00:00 [place] [facility] PPSV23 (PNEUMOVAX) Branch Pneumococcal 2010-02-09 Completed [place] [facility] Polysaccharide, 00:00:00 [place] [facility] PPSV23 (PNEUMOVAX) Branch Pneumococcal 2010-02-09 Completed [place] [facility] Polysaccharide, 00:00:00 [place] [facility] PPSV23 (PNEUMOVAX) [facility] Vital Signs Vital Name Observation Time Observation Value Comments Source Systolic blood 2021-12-01 19:40:00 130 mm[Hg] [facility] Diastolic blood 2021-12-01 19:40:00 86 [facility]Hg[facility] 2021-12-01 19:40:00 60 /min [facility] Body temperature 2021-12-01 19:40:00 [facility].44 [facility] height 2021-12-01 19:40:00 160 cm [facility] Body weight 2021-12-01 19:40:00 91.944 kg [facility] BMI 2021-12-01 19:40:00 35.91 kg/m2 [facility] Oxygen saturation in 2021-12-01 19:40:00 96 /min [facility] Arterial blood by [facility] Pulse oximetry Branch Procedures Procedure Date / Time Performing Clinician Source Performed URIC ACID-Q 2021-12-05 17:51:00 Sotomayor Theresa [facility] LIPID PANEL-Q 2021-12-05 17:51:00 Sotomayor [facility] COMPREHENSIVE 2021-12-05 17:51:00 [facility] METABOLIC$PANEL W/EGFR-Q [facility] Plan of Care Planned Activity Planned Date Details Comments Source Future Scheduled 2023-07-23 Screening for [facility] Test 23:52:34 malignant neoplasm of cervix (procedure) [code = 433545090] Future Scheduled 2023-07-23 BREAST CANCER [facility] Test 23:52:34 SCREENING [code = BREAST CANCER SCREENING] Future Scheduled 2023-07-23 Screening for [facility] Test 23:52:34 malignant neoplasm of colon (procedure) [code = 131487859] Future Scheduled 2023-07-23 Screening for [facility] Test 23:52:34 malignant neoplasm of colon (procedure) [code = 242419475] Future Scheduled 2023-07-23 [facility] 23:52:34 (1 of 2) [code = SHINGLES VACCINES (1 of 2)] Future Scheduled 2023-07-23 INFLUENZA VACCINE [facility] 23:52:34 (#1) [code = INFLUENZA VACCINE (#1)] Future Scheduled 2023-07-23 Screening for [facility] Test 23:52:34 malignant neoplasm of colon (procedure) [code = 267815269] Future Scheduled 2023-07-23 Screening for [facility] Test 23:52:34 malignant neoplasm of colon (procedure) [code = 684946588] Future Scheduled 2023-07-23 Screening for [facility] Test 23:52:34 malignant neoplasm of colon (procedure) [code = 557186176] Future Scheduled 2023-07-23 COVID-[facility]INE [facility] 23:52:34 (#1) [code = COVID-19 VACCINE (#1)] Encounters Start End Encounter Admission Attending Care Care Encounter Source Date/Time Date/Time Type Type Clinicians Facility Department ID 2021-09-24 Emergency [facility] [id number] Univers 13:14:[address] [facility] 2023-07-04 2023-07-04 Arnel Rebollar [facility] 1.2.840.114 [id number] Univers 00:00:00 00:00:00 Cody JEFF 350.1.13.10 ity of IALTY 4.2.7.2.686 [facility] [id number] [address] [facility] 2023-04-08 2023-04-08 [facility] 1.2.840.114 [id number] [facility] 00:00:00 00:00:00 Cdoy JEFF 350.1.13.10 [place] [id number] [address] [facility] 2023-03-26 2023-03-26 Yelena Sears [facility] 1.2.840.114 [id number] Univers 00:00:00 00:00:00 Leonardo JOHNSON 350.1.13.10 i [place] [id number] [address] 2023-03-23 2023-03-23 RefArnel Alexis [facility] 1.2.840.114 [id number] Univers 00:00:00 00:00:00 Cody MULTISPEC 350.1.13.10 [place] [id number] [address] [facility] 2023-03-22 2023-03-22 Yelena Sotomayor [facility] 1.2.840.114 [id number] Univers 00:00:00 00:00:00 Theresa GUZMANPEC 350.1.13.10 [place] [id number] [address] [facility] 2023-03-20 2023-03-20 Arnel Rebollar [facility] 1.2.840.114 [id number] Univers 00:00:00 00:00:00 Vincnoemi MULTISPEC 350.1.13.10 [place] [id number] [address] [facility] 2023-02-14 2023-02-14 Arnel Rebollar [facility] 1.2.840.114 [id number] Univers 00:00:00 00:00:00 Cody MULTISPEC 350.1.13.10 [place] [id number] [facility] [address] [facility] 2022-12-29 2022-12-29 Arnel Rebollar [facility] 1.2.840.114 10 [id number] Univers 00:00:00 00:00:00 Vincent MULTISPEC 350.1.13.10 [place] [id number] [address] [facility] 2022-12-28 2022-12-28 Refzabrina ToureArnel [facility] 1.2.840.114 10 [id number] Univers 00:00:00 00:00:00 Vincent MULTISPEC 350.1.13.10 [place] [id number] [address] [facility] 2022-12-03 2022-12-03 Yelena Sotomayor [facility] 1.2.840.114 [id number] Univers 00:00:00 00:00:00 Theresa MULTISPEC 350.1.13.10 [place] [id number] [address] [facility] 2022-11-29 2022-11-29 [facility] 1.2.840.114 [id number] Univers 00:00:00 00:00:00 Vincent MULTISPEC 350.1.13.10 [place] [id number] [address] [facility] 2022-11-29 2022-11-29 Yelena Sotomayor [facility] 1.2.840.114 [id number] Univers 00:00:00 00:00:00 Theresa MULTISPEC 350.1.13.10 [place] [id number] [facility] [address] [facility] 2022-11-07 2022-11-07 Yelena Toure [facility] 1.2.840.114 [id number] Univers 00:00:00 00:00:00 Vincent MULTISPEC 350.1.13.10 [place] [id number] [facility] [address] [facility] 2022-11-02 2022-11-02 Yelena Sotomayor [facility] 1.2.840.114 [id number] Univers 00:00:00 00:00:00 Theresa JEFF 350.1.13.10 [place] [id number] [address] [facility] 2022-10-08 2022-10-08 [facility] 1.2.840.114 [id number] Univers 00:00:00 00:00:00 Cody MULTISPEC 350.1.13.10 [place] [id number] [address] [facility] 2022-10-06 2022-10-06 [facility] 1.2.840.114 [id number] Univers 00:00:00 00:00:00 Cody MULTISPEC 350.1.13.10 [place] [id number] [address] [facility] 2022-09-12 2022-09-12 Yelena Toure [facility] 1.2.840.114 [id number] Univers 00:00:00 00:00:00 Cody MULTISPEC 350.1.13.10 [place] [id number] [address] [facility] 2022-08-08 2022-08-08 Outpatient Iram SOTOMAYOR [facility] [id number] Univers 14:30:00 14:30:00 THERESA ity of [facility] 2022-07-31 2022-07-31 Yelena Sotomayor [facility] 1.2.840.114 [id number] Univers 00:00:00 00:00:00 Theresa JEFF 350.1.13.10 [place] [id number] [address] [facility] 2022-07-19 2022-07-19 Pre Visit DEMARCUS Drake 1.2.356.256 [id number] Univers 00:00:00 00:00:00 Outreach Yoon Rivera LACKEY 350.1.13.10 i [place] [id number] [address] 2022-07-11 2022-07-11 [facility] 1.2.840.114 [id number] Univers 00:00:00 00:00:00 Theresa JEFF 350.1.13.10 ity of [place] 4.2.7.2.686 [facility] [place] [place] [id number] [address] [facility] 2022-07-05 2022-07-05 [facility] 1.2.840.114 [id number] Univers 00:00:00 00:00:00 Theresa JEFF 350.1.13.10 ity of [place] 4.2.7.2.686 [facility] [place] [place] [id number] [address] [facility] 2022-07-05 2022-07-05 Arnel Rebollar [facility] 1.2.840.114 [id number] Univers 00:00:00 00:00:00 Cody GUZMANPEC 350.1.13.10 ity of [place] 4.2.7.2.686 [facility] [place] [id number] [address] [facility] 2022-06-23 2022-06-23 [facility] 1.2.840.114 [id number] Univers 00:00:00 00:00:00 Theresa GUZMANPEC 350.1.13.10 [place] [id number] [address] [facility] 2022-06-20 2022-06-20 Paul SOTOMAYOR [facility] [id number] Univers 16:00:00 16:00:00 THERESA ity of [facility] 2022-06-17 2022-06-17 Arnel Rebollar [facility] 1.2.840.114 [id number] Univers 00:00:00 00:00:00 Cody MULTISPEC 350.1.13.10 [place] [id number] [address] [facility] 2022-06-17 2022-06-17 Yelena Sotomayor [facility] 1.2.840.114 [id number] Univers 00:00:00 00:00:00 Theresa MULTISPEC 350.1.13.10 [place] [id number] [address] [facility] 2022-06-07 2022-06-07 [facility] 1.2.840.114 [id number] Univers 00:00:00 00:00:00 Theresa MULTISPEC 350.1.13.10 ity of [place] 4.2.7.2.686 [facility] [id number] [address] [facility] 2022-05-31 2022-05-31 Yelena Sotomayor [facility] 1.2.840.114 [id number] Univers 00:00:00 00:00:00 Theresa MULTISPEC 350.1.13.10 [place] [id number] [address] [facility] 2022-05-22 2022-05-22 Yelena Sotomayor [facility] 1.2.840.114 [id number] Univers 00:00:00 00:00:00 Theresa MULTISPEC 350.1.13.10 [place] [id number] [address] [facility] 2022-05-17 2022-05-17 Arnel Rebollar [facility] 1.2.840.114 [id number] Univers 00:00:00 00:00:00 Cody MULTISPEC 350.1.13.10 [place] [id number] [address] [facility] 2022-05-17 2022-05-17 Yelena Sotomayor [facility] 1.2.840.114 [id number] Univers 00:00:00 00:00:00 Theresa MULTISPEC 350.1.13.10 [place] [id number] [address] [facility] 2022-05-10 2022-05-10 [facility] 1.2.840.114 [id number] Univers 00:00:00 00:00:00 Theresa MULTISPEC 350.1.13.10 [place] [id number] [address] [facility] 2022-05-04 2022-05-04 Arnel Rebollar [facility] 1.2.840.114 [id number] Univers 00:00:00 00:00:00 Leilanoemi MEGANPEC 350.1.13.10 [place] [id number] [address] [facility] 2022-04-25 2022-04-25 [facility] 1.2.840.114 [id number] Univers 00:00:00 00:00:00 Theresa MULTISPEC 350.1.13.10 [place] [id number] [address] [facility] 2022-04-11 2022-04-11 [facility] 1.2.840.114 [id number] Univers 00:00:00 00:00:00 Theresa MULTISPEC 350.1.13.10 [place] [id number] [address] [facility] 2022-02-22 2022-02-22 [facility] 1.2.840.114 [id number] Univers 00:00:00 00:00:00 Theresa MULTISPEC 350.1.13.10 [place] [id number] [address] [facility] 2022-02-17 2022-02-17 Arnel Rebollar [facility] 1.2.840.114 [id number] Univers 00:00:00 00:00:00 Vincent MULTISPEC 350.1.13.10 [place] [id number] [address] [facility] 2022-02-15 2022-02-15 Yelena MilesArnel roberts [facility] 1.2.840.114 [id number] Univers 00:00:00 00:00:00 Vincent MULTISPEC 350.1.13.10 [place] [id number] [address] [facility] 2022-02-12 2022-02-12 Yelena Sotomayor [facility] 1.2.840.114 [id number] Univers 00:00:00 00:00:00 Theresa MULTISPEC 350.1.13.10 [place] [id number] [address] [facility] 2022-02-03 2022-02-03 [facility] 1.2.840.114 [id number] Univers 00:00:00 00:00:00 Theresa MULTISPEC 350.1.13.10 [place] [id number] [address] [facility] 2022-01-31 2022-01-31 [facility] 1.2.840.114 [id number] Univers 00:00:00 00:00:00 Theresa MULTISPEC 350.1.13.10 [place] [id number] [address] [facility] 2022-01-17 2022-01-17 Yelena Sotomayor [facility] 1.2.840.114 [id number] Univers 00:00:00 00:00:00 Theresa MULTISPEC 350.1.13.10 [place] [id number] [address] [facility] 2022-01-16 2022-01-16 Refill [facility] 1.2.840.114 [id number] Univers 00:00:00 00:00:00 Theresa MULTISPEC 350.1.13.10 [place] [id number] [address] [facility] 2022-01-10 2022-01-10 Patient [facility] 1.2.840.114 [id number] Univers 00:00:00 00:00:00 Secure Msg Theresa MULTISPEC 350.1.13.10 ity of I[place] 4.2.7.2.686 [facility] [id number] [address] [facility] 2021-12-24 2021-12-24 Refill [facility] 1.2.840.114 [id number] Univers 00:00:00 00:00:00 Theresa MULTISPEC 350.1.13.10 [place] [id number] [address] [facility] 2021-12-07 2021-12-07 Telephone [facility] 1.2.116.768 [id number] Univers 00:00:00 00:00:00 Theresa MULTISPEC 350.1.13.10 [place] [id number] [address] [facility] 2021-12-05 2021-12-05 Orders EMMANUELLE Sotomayor 1.2.840.114 [id number] Univers 00:00:00 00:00:00 Only Theresa COLE 350.1.13.10 it y of HOSPITAL 4.2.7.2.686 Dave as [id number] [place] [address] [place] 2021-12-01 2021-12-01 Office [facility] 1.2.840.114 [id number] Univers 13:30:00 14:00:00 Visit Theresa MULTISPEC 350.1.13.10 [place] [id number] [address] [facility] 2021-12-01 2021-12-01 Outpatient Iram SOTOMAYOR W[facility] [id number] Univers 13:30:00 13:30:00 THERESA ity of [facility] 2021-11-23 2021-11-23 Yelena ToureArnel [facility] 1.2.840.114 [id number] Univers 00:00:00 00:00:00 Vincent MULTISPEC 350.1.13.10 [place] [id number] [address] [facility] 2021-11-21 2021-11-21 [facility] 1.2.840.114 [id number] Univers 00:00:00 00:00:00 Cody MULTISPEC 350.1.13.10 [place] [id number] [address] [facility] 2021-11-06 2021-11-06 [facility] 1.2.840.114 [id number] Univers 00:00:00 00:00:00 Cody MULTISPEC 350.1.13.10 ity of I[place] 4.2.7.2.686 [facility] [id number] [address] [facility] 2021-09-29 2021-09-29 Yelena Sotomayor [facility] 1.2.840.114 [id number] Univers 00:00:00 00:00:00 Theresa GUZMANPEC 350.1.13.10 [place] [id number] [address] [facility] 2021-09-02 2021-09-02 Yelena Sotomayor [facility] 1.2.840.114 [id number] Univers 00:00:00 00:00:00 Theresa MULTISPEC 350.1.13.10 [place] [id number] [address] [facility] 2021-08-01 2021-08-01 Patient Bran [facility] 1.2.840.114 [id number] Univers 00:00:00 00:00:00 Secure Msraegan MayesTheresaheidi KEARNEY 350.1.13.10 [place] [facility] [id number] [address] 2021-07-26 2021-07-26 Refill Arnel Toure [facility] 1.2.840.114 [id number] Univers 00:00:00 00:00:00 Cody MULTISPEC 350.1.13.10 ity of IALTY 4.2.7.2.686 [facility] [place] [id number] [address] [facility] 2021-06-16 2021-06-16 Refill Arnel Toure [facility] 1.2.840.114 [id number] Univers 00:00:00 00:00:00 Cody JEFF 350.1.13.10 ity of IAL[place] 4.2.7.2.686 [facility] [place] [id number] [address] [facility] 2021-06-13 2021-06-13 Outpatient R BRAN [facility] [id number] Univers 14:30:00 14:30:00 THERESA itmitra of [facility] 2021-06-12 2021-06-12 Refill Bran [facility] 1.2.840.114 [id number] Univers 00:00:00 00:00:00 Theresa JEFF 350.1.13.10 ity of I[place] 4.2.7.2.686 [facility] [place] [id number] [address] [facility] 2021-06-03 2021-06-03 Refill [facility] 1.2.840.114 [id number] Univers 00:00:00 00:00:00 Unassigned, MULTISPEC 350.1.13.10 ity of [place] IALTY 4.2.7.2.686 [facility] [place] [id number] [address] [facility] 2021-06-02 2021-06-02 Refill Bran [facility] 1.2.840.114 [id number] Univers 00:00:00 00:00:00 Theresa MULTISPEC 350.1.13.10 [place] [id number] [address] [facility] 2021-05-23 2021-05-23 [facility] 1.2.840.114 [id number] Univers 00:00:00 00:00:00 Theresa MULTISPEC 350.1.13.10 [place] [id number] [address] [facility] 2021-05-21 2021-05-21 [facility] 1.2.840.114 [id number] Univers 00:00:00 00:00:00 Theresa MULTISPEC 350.1.13.10 ity of I[place] 4.2.7.2.686 [facility] [id number] [address] [facility] 2021-05-16 2021-05-16 [facility] 1.2.840.114 [id number] [facility] 00:00:00 00:00:00 Theresa MULTISPEC 350.1.13.10 [place]y of [place] 4.2.7.2.686 [facility] [place] [id number] [address] [facility] 2021-04-20 2021-04-20 [facility] 1.2.840.114 [id number] [facility] 00:00:00 00:00:00 Theresa MULTISPEC 350.1.13.10 [place] [id number] [address] [facility] 2021-04-20 2021-04-20 [facility] 1.2.840.114 [id number] [facility] 00:00:00 00:00:00 Theresa MULTISPEC 350.1.13.10 [place] [id number] [address] [facility] 2021-03-28 2021-03-28 Mariealena Sotomayor, [facility] 1.2.840.114 [id number] [facility] 00:00:00 00:00:00 Secure Msg Theresa GUZMANPEC 350.1.13.10 [place] [id number] [address] [facility] 2021-03-24 2021-03-24 Refill Bran [facility] 1.2.840.114 [id number] [facility] 00:00:00 00:00:00 Theresa GUZMANPEC 350.1.13.10 [place] [id number] [address] [facility] 2021-03-23 2021-03-23 Refill Bran [facility] 1.2.840.114 [id number] [facility] 00:00:00 00:00:00 Theresa GUZMANPEC 350.1.13.10 [place] of [place] 4.2.7.2.686 [facility] [place] [id number] [address] [facility] 2021-03-22 2021-03-22 Patient Bran [facility] 1.2.840.114 [id number] [facility] 00:00:00 00:00:00 Secure Msg Theresa GUZMANPEC 350.1.13.10 [place] [id number] [address] [facility] 2021-03-14 2021-03-14 Office Bran [facility] 1.2.840.114 [id number] [facility] 14:24:38 14:48:26 Visit Theresa GUZMANPEC 350.1.13.10 [place] [phone] [address] [facility] 2021-03-14 2021-03-14 Outpatient R [facility] [id number] [facility] 14:30:00 14:30:00 THERESA ity of [facility] 2021-02-25 2021-02-25 Refill Doctor [facility] 1.2.840.114 [id number] [facility] 00:00:00 00:00:00 Unassigned, MULTISPEC 350.1.13.10 it[place] [id number] [address] [facility] 2021-02-25 2021-02-25 Patient Bran [facility] 1.2.840.114 [id number] [facility] 00:00:00 00:00:00 Secure Msg Theresa MULTISPEC 350.1.13.10 [place] [id number] [address] [facility] 2021-02-24 2021-02-24 Refill Doctor [facility] 1.2.840.114 [id number] [facility] 00:00:00 00:00:00 Unassigned, MULTISPEC 350.1.13.10 ity of [place] IALTY 4.2.7.2.686 [facility] [place] [id number] [address] [facility] 2021-02-24 2021-02-24 Refill [facility] 1.2.840.114 [id number] [facility] 00:00:00 00:00:00 Theresa MULTISPEC 350.1.13.10 ity of [place] 4.2.7.2.686 [facility] [place] [id number] [address] [facility] 2021-02-05 2021-02-05 Patient aKyden [facility] 1.2.840.114 [id number] Univers 00:00:00 00:00:00 Outreach Kole PRIMARY 350.1.13.10 i ty of [place] [facility] 4.2.7.2.[place] [phone] [place] dical [address] 2021-02-03 2021-02-03 Telephone [facility] 1.2.074.590 [id number] Univers 00:00:00 00:00:00 Theresa MULTISPEC 350.1.13.10 ity of [place] 4.2.7.2.686 [facility] [id number] [address] [facility] 2021-02-01 2021-02-01 Office Bran [facility] 1.2.840.114 [id number] Univers 14:13:44 14:43:44 Visit Theresa JEFF 350.1.13.10 ity of [place].2.686 [place] [id number] [facility] [address] [place] [facility] 2021-02-01 2021-02-01 [facility] [id number] Univers 14:30:00 14:30:00 THERESA ity [facility] 2021-01-31 2021-01-31 [facility] [id number] Univers 14:00:00 14:00:00 WILLIAM mary ann [facility] 2021-01-31 2021-01-31 [facility] 1.2.840.114 [id number] Univers 00:00:00 00:00:00 Secure Msg Theresa JEFF 350.1.13.10 [place].2.686 [place] [id number] [facility] [address] [place] [facility] 2021-01-24 2021-01-24 Telephone [facility] 1.2.157.975 [id number] Univers 00:00:00 00:00:00 Theresa JEFF 350.1.13.10 it[place] [id number] [facility] [address] [place] [facility] 2021-01-18 2021-01-18 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 [id number] Univers 15:15:00 15:15:00 THERESA ity [facility] 2021-01-14 2021-01-14 [facility] 1.2.840.114 [id number] Univers 00:00:00 00:00:00 Secure Msg Theresa MULTISPEC 350.1.13.10 ity of [place] 4.2.7.2.686 [facility] [place] [id number] [address] [facility]ES CLINIC 2020-12-28 2020-12-[address] [facility] 1.2.956.046 [id number] Univers 00:00:00 00:00:00 Secure Msg William MULTISPEC 350.1.13.10 ity of [place] 4.2.7.2.686 [facility] [id number] [address] [facility]ETES [facility]INIC 2020-12-27 2020-12-27 Telephone [facility] 1.2.840.114 [id number] Univers 00:00:00 00:00:00 William MULTISPEC 350.1.13.10 ity of [place] 4.2.7.2.686 [facility] [place] [id number] [address] [facility]ES [facility]IC 2020-12-22 2020-12-[address] [facility] 1.2.860.068 [id number] Univers 07:52:22 08:12:22 Visit William MULTISPEC 350.1.13.10 ity of [place] 4.2.7.2.686 [facility] [place] [id number] [address] [facility]ETES [facility]IC 2020-12-22 2020-12-22 [facility] [id number] Univers 08:00:00 08:00:00 WILLIAM ity of [facility] 2020-12-20 2020-12-20 Telephone [facility] 1.2.708.885 [id number] Univers 00:00:00 00:00:00 Theresa MULTISPEC 350.1.13.10 ity of [place] 4.2.7.2.686 [facility] [place] [id number] [address] [facility]ES [facility]IC 2020-12-17 2020-12-17 Orders Doctor HANDLEY 1.2.840.114 [id number] Univers 00:00:00 00:00:00 Only Unassigned, COLE 350.1.13.10 ity of [place] [facility] 4.2.7.2.686 Dave as [id number] [facility] [address] 2020-12-06 2020-12-06 Office Bran [facility] 1.2.840.114 [id number] Univers 11:01:30 11:31:30 Visit Theresa GUZMANRAVI 350.1.13.10 it[place]2.[place].2.686 [place] [phone] [address] [facility]ETES [facility]INIC 2020-12-06 2020-12-06 Outpatient [facility] [id number] Univers 11:00:00 11:00:00 THERESA mary ann [facility] 2020-11-30 2020-11-30 Transition Demarcus Burt 1.2.840.114 [id number] Univers 00:00:00 00:00:00 of Care Xiao Lackey 350.1.13.10 i ty of [place]2.7.2.[place] [id number] [facility] [address] 2020-11-22 2020-11-27 Inpatient X YASMIN [facility] KAR[place] [id number] Univers 17:47:00 17:45:00 [facility] 2020-11-24 2020-11-24 [facility] [id number] Univers 16:20:00 16:20:00 WILLIAM mary ann [facility] 2020-11-22 2020-11-22 Office [facility] 1.2.852.155 [id number] Univers 16:34:55 16:54:55 Visit William RANDEE 350.1.13.10 it[place]2.[place].2.[place] [id number] [address] [facility] 2020-11-22 2020-11-22 [facility] [id number] Univers 16:40:00 16:40:00 WILLIAM mary ann [facility] 2020-11-21 2020-11-21 Emergency [facility] 1.2.189.972 [id number] Univers 17:53:00 18:00:00 [place] 350.1.13.10 i ty of [place] 4.2.7.2.686 [facility] [phone] [facility] [address] 2020-11-21 2020-11-21 Orders Doctor EMMANUELLE 1.2.840.114 [id number] Univers 00:00:00 00:00:00 Only Unassigned, COLE 350.1.13.10 ity of [place] [facility] 4.2.7.2.686 [facility] [id number] [facility] [address] 2020-11-17 2020-11-17 Patient [facility] 1.2.840.114 [id number] Univers 00:00:00 00:00:00 Secure Msg Theresa MULTISPEC 350.1.13.10 ity of [place] 4.2.7.2.686 [facility] [id number] [address] [facility]ETES [facility]INIC 2020-11-16 2020-11-16 Patient [facility] 1.2.840.114 [id number] Univers 00:00:00 00:00:00 Secure Msg Theresa MULTISPEC 350.1.13.10 ity of [place] 4.2.7.2.686 [facility] [id number] [address] [facility]ETES [facility]IC 2020-11-01 2020-11-01 Office [facility] 1.2.840.114 [id number] Univers 13:35:54 14:05:54 Visit Theresa GUZMANPEC 350.1.13.10 ity of [place] 4.2.7.2.686 [facility] [place] [id number] [address] [facility]ETES CLINIC 2020-11-01 2020-11-01 Outpatient [facility] [id number] Univers 13:30:00 13:30:00 THERESA ity of [facility] 2020-10-25 2020-10-25 Patient [facility] 1.2.840.114 [id number] Univers 00:00:00 00:00:00 Secure Msg Theresa MULTISPEC 350.1.13.10 ity of [place] 4.2.7.2.686 [facility] [place] [id number] [address] [facility] 2020-08-23 2020-08-23 Refill Doctor [facility] 1.2.840.114 [id number] Univers 00:00:00 00:00:00 Unassigned, MULTISPEC 350.1.13.10 ity of [place]2.7.2.686 [place] [id number] [address] [facility] 2020-08-23 2020-08-23 Refill Doctor [facility] 1.2.840.114 [id number] Univers 00:00:00 00:00:00 Unassigned, MULTISPEC 350.1.13.10 ity of [place]2.[place].2.[place] [id number] [address] [facility]ES [facility]IN[facility] 2020-08-23 2020-08-23 Refill Bran [facility] 1.2.840.114 [id number] Univers 00:00:00 00:00:00 Theresa MULTISPEC 350.1.13.10 it[place]2.[place].2.[place] [id number] [address] [facility]ES [facility]INIC 2020-07-27 2020-07-27 Refill Doctor [facility] 1.2.840.114 [id number] Univers 00:00:00 00:00:00 Unassigned, MULTISPEC 350.1.13.10 ity of [place] 4[place]2.[place].2.[place] [id number] [address] [facility]ETES [facility]INIC 2020-07-18 2020-07-18 Refill Doctor [facility] 1.2.840.114 [id number] Univers 00:00:00 00:00:00 Unassigned, MULTISPEC 350.1.13.10 ity of [place]2.[place].2.686 [place] [id number] [address] DI[facility]ETES CLINIC 2020-05-21 2020-05-21 Outpatient [facility] [id number] [place] 00:00:00 00:00:00 EMMANUELLE [facility] 2020-05-20 2020-05-20 Outpatient Iram SOTOMAYOR WIDESIRAE [facility] [id number] [facility] 14:30:00 14:30:00 THERESA ity of [facility] 2020-05-14 2020-05-14 Telephone [facility] 1.2.916.231 [id number] Univers 00:00:00 00:00:00 Theresa GUZMANPEC 350.1.13.10 ity of [place] 4.2.7.2.686 [facility] [place] [id number] [address] [facility] 2020-05-14 2020-05-14 Patient Doctor [facility] 1.2.840.114 [id number] Univers 00:00:00 00:00:00 Secure Msg Unassigned, MULTISPEC 350.1.13.10 ity of [place] IALTY 4.2.7.2.686 [facility] [place] [id number] [address] [facility] 2020-05-03 2020-05-10 Office [facility] 1.2.840.114 [id number] Univers 13:13:15 14:03:18 Visit Theresa JEFF 350.1.13.10 ity of [place] 4.2.7.2.686 [facility] [place] [id number] [address] [facility] 2020-05-06 2020-05-06 Telephone [facility] 1.2.772.512 [id number] Univers 00:00:00 00:00:00 Theresa GUZMANPEC 350.1.13.10 ity of [place] 4.2.7.2.686 [facility] [place] [id number] [address] [facility] 2020-05-04 2020-05-04 Out[facility] [id number] Univers 16:45:00 16:45:00 THERESA ity of [facility] 2020-05-04 2020-05-04 Telephone [facility] 1.2.325.723 [id number] Univers 00:00:00 00:00:00 Theresa GUZMANPEC 350.1.13.10 ity of [place] 4.2.7.2.686 [facility] [place] [id number] [address] [facility] 2020-05-03 2020-05-03 Asphalt Heater Tender Vtc-Lab [facility] 1.2.840.114 [id number] Univers 13:41:45 13:51:45 Visit Arnel Toure MULTISPEC 350.1.13 .10 it[place] of [place].2.7.2.686 [place] [id number] [facility] [address] [facility]ES [facility]IN[facility] 2020-05-03 2020-05-03 [facility] [id number] Univers 13:00:00 13:00:00 THERESA ity [facility] 2020-05-03 2020-05-03 Telephone [facility] 1.2.077.855 [id number] Univers 00:00:00 00:00:00 Theresa MULTISPEC 350.1.13.10 it[place] 4[place]2.7.2.686 [place] [id number] [facility] [address] DI[facility]ES [facility] 2020-05-03 2020-05-03 Orders Doctor EMMANUELLE 1.2.840.114 [id number] Univers 00:00:00 00:00:00 Only Unassigned, COLE 350.1.13.[address] [facility] 4.2.7.2.686 Dave as [id number] [facility] [address] 2020-04-23 2020-04-23 Outpatient R JASON [facility] [id number] Univers 10:20:00 10:20:00 AMY ity [facility] 2020-04-20 2020-04-20 Transition Santos Wynnejose angel 1.2.840.114 [id number] Univers 00:00:00 00:00:00 of Care Isabella Lackey 350.1.13.10 i ty [place].2.[place] [id number] [facility] [address] 2020-04-14 2020-04-17 Inpatient X POLINA [facility] [id number] Univers 14:42:03 12:05:00 KEISHA reese [facility] 2020-04-14 2020-04-17 [facility] Christine Britton [facility] 1.2.840. 114 [id number] Univers 14:42:03 12:05:00 Encounter Keisha Fish 350.1.13.10 ity of [place].2.686 [place] [id number] [facility] [address] 2020-04-16 2020-04-16 Telephone Monik [facility] 1.2.551.249 [id number] Univers 00:00:00 00:00:00 Pili [facility] 350.1.13.10 i ty of [place] 4.2.7.2.686 Dave as Professio [id number] [address] Office Building [facility] 2020-04-14 2020-04-14 Urgent Pob1, Acute Care Clinic [facility] 1. 2.840.114 [id number] Univers 13:52:28 14:54:37 Care Pili [facility] 350.1.13.10 ity of [place] 4.2.7.2.686 Dave as Professio [id number] [address] Office Building [facility] 2020-04-14 2020-04-14 Outpatient R [facility] [id number] Univers 13:40:00 13:40:[address] [facility] 2020-04-14 2020-04-14 Patient Bran [facility] 1.2.840.114 [id number] Univers 00:00:00 00:00:00 Secure Msg Theresa MULTISPEC 350.1.13.10 ity of [place] 4.2.7.2.686 [place] [id number] [address] DIABETES CLINIC 2020-04-14 2020-04-14 Telephone Bran [facility] 1.2.560.969 [id number] Univers 00:00:00 00:00:00 Theresa MULTISPEC 350.1.13.10 it[place] of [place]2.7.2.[place] [id number] [address] DIABETES CLINIC 2020-04-08 2020-04-08 Refill Doctor [facility] 1.2.840.114 [id number] Univers 00:00:00 00:00:00 Unassigned, MULTISPEC 350.1.13.10 ity of [place] 4.2.7.2.686 [place] [id number] [address] DIABETES CLINIC 2020-02-07 2020-02-07 [facility]abrina [facility] 1.2.840.114 [id number] Univers 00:00:00 00:00:00 Theresa MULTISPEC 350.1.13.10 ity of [place] 4.2.7.2.[place] [id number] [address] DIABETES CLINIC 2019-12-25 2019-12-25 Patient Bran [facility] 1.2.840.114 [id number] Univers 00:00:00 00:00:00 Secure Msg Theresa MULTISPEC 350.1.13.10 ity of [place] 4[place]2.7.2.686 [place] [id number] [address] DIABETES CLINIC 2019-12-23 2019-12-23 [facility]zabrina [facility] 1.2.840.114 [id number] Univers 00:00:00 00:00:00 Theresa MULTISPEC 350.1.13.10 ity of [place] 4[place]2.7.2.686 [place] [id number] [address] DIABETES CLINIC 2019-12-19 2019-12-19 Patient [facility] 1.2.840.114 [id number] Univers 00:00:00 00:00:00 Secure Msg Theresa MULTISPEC 350.1.13.10 ity of [place] 4[place]2.7.2.686 [place] [id number] [address] DIABETES CLINIC 2019-12-11 2019-12-11 Patient Doctor [facility] 1.2.840.114 [id number] Univers 00:00:00 00:00:00 Secure Msg Unassigned, MULTISPEC 350.1.13.10 ity of [place] 4.2.7.2.686 [place] [id number] [address] DIABETES CLINIC 2019-12-11 2019-12-11 Telephone Sotomayor [facility] 1.2.845.504 [id number] Univers 00:00:00 00:00:00 Theresa MULTISPEC 350.1.13.10 ity of [place] 4.2.7.2.686 [place] [id number] [address] DIABETES CLINIC 2019-12-09 2019-12-09 Asphalt Heater Tender Vtc-Lab [facility] 1.2.840.114 [id number] Univers 14:41:12 14:51:12 Visit Theresa SotomayorPEC 350.1.13.10 ity of [place] 4.2.7.2.686 [facility] [id number] [facility] [address] [place] DI[facility]IC 2019-12-09 2019-12-09 Office Bran [facility] 1.2.840.114 [id number] Univers 14:10:09 14:30:09 Visit Theresa JEFF 350.1.13.10 ity of [place] 4.2.7.2.686 [facility] [id number] [address] DIABETES CLINIC 2019-11-19 2019-11-22 Inpatient X KAROLYN MERLOS [facility] [id number] Univers 15:28:29 12:50:00 ity [facility] Results Test Description Test Time Test Comments Results Result Comments Source LIPID PANEL-Q 2021-12-06 07:00:00 Test Item Value Reference Range Interpretation Comme nts CHOLESTEROL, TOTAL-Q 227 mg/dL <200 H (test code = 2093-3) HDL CHOLESTEROL-Q (test 53 mg/dL See_Comment [Au tomated message] The code = 2085-9) system which generated this result tra nsmitted reference range : > OR = 50. The referen ce range was not used to interpret this result as normal/abnormal . TRIGLYCERIDES-Q (test 255 mg/dL <150 H If a non-fasting code = 2571-8) specimen was collected, considerrepeat triglyceride te sting on a fasting speci menif clinically sugey cated. Maria Elena et al. J. of Clin. Lipidol. 2015;9:129-169. WRU-KTOVBFGIZES-A (test mg/dL (calc) H Refe rence range: <100 code = 61982-6) Desirable ra nge <100 mg/dL for prima ry prevention; ?<7 0 mg/dL for patients wi th CHD or diabetic patien ts with > or = 2 CHD risk factors. LDL-C is now ca lculated using the Susana Boateng calculation, wh ich is a validated novel method providing narcisa r accuracy than t he Miguel equa tion in the estimation of LDL-C. Frankie SS et al . HI. 2013;310(30): 9 295-7469 (http://educati on.[employer]/ faq/FAQ16 4) CHOL/HDLC RATIO-Q (test See_Comment [Au tomated message] The code = 9830-1) system which generated this result tra nsmitted reference range : <5.0 (calc). The ref erence range was not u sed to interpret this result as normal/abnormal . NON-HDL CHOLESTEROL-Q See_Comment H For anuel langstonmony with (test code = 84219-9) diabet es plus 1 major ASCVD risk fact or, treating to a n on-HDL-C goal of <100 mg /dL (LDL-C of <70 m g/dL) is considered a th erapeutic option. [Automa rhina message] The sy stem which generated this result transmit rhina reference range : <130 mg/dL (calc). T he reference range was not used to interpr et this result as normal/abnormal . LINDA (test code = LINDA) PERFORMED BY [employer] [facility]; [address] [place] [address]; HANSA REYES MD Lab Interpretation (test Abnormal code = 31141-7) [id number] 07:00:00 Test Item Value Reference Range Interpretation Comments URIC ACID-Q 6.2 mg/dL 2.5-7.0 Therapeutic tar get (test code = for gout patien ts: 3084-1) <6.0 mg/dL ? LINDA (test code PERFORMED BY [employer] = LINDA) [employer] [facility]; [address] [place] [address]; HANSA REYES MD [facility]ervilleCOMPREHENSIVE METABOLIC$PANEL W/EGFR-Q 2021-12-06 07:00:00 Test Item Value Reference Range Interpretation Comments GLUCOSE-Q (test 138 mg/dL 65-139 ? ? ? Non-f asting code = 2345-7) reference int erval UREA NITROGEN 23 mg/dL 7-25 (BUN)-Q (test code = 3094-0) CREATININE-Q 0.96 mg/dL 0.50-1.05 For patients >4 9 years (test code = of age, the ref erence 2160-0) limitfor Creati nine is approximately 1 3% higher for peopleidentifie d as -Beth n. eGFR NON-AFR. See_Comment [Automated Nephera ssage] GIBRALTARIAN-Q The system FAD ? IO (test code = generated this result 58283-1) transmitted ref erence range: > OR = 6 0 mL/min/1.73m2. The reference range was not used to int erpret this result as normal/abnormal . eGFR See_Comment [Automated mes isma] GIBRALTARIAN-Q The system [employer] (test code = generated this result 75614-8) transmitted ref erence range: > OR = 6 0 mL/min/1.73m2. The reference range was not used to int erpret this result as normal/abnormal . BUN/CREATININE NOT APPLICABLE See_Comment [Automated message] RATIO-Q (test The system [facility] ch code = 3097-3) generated thi s result transmitted ref erence range: 6 - 22 ( calc). The reference r maricruz was not used to interpret this result as normal/abnor mal. SODIUM-Q (test 139 mmol/L 135-146 code = 2951-2) POTASSIUM-Q 5.2 mmol/L 3.5-5.3 (test code = 2823-3) CHLORIDE-Q 102 mmol/L 98-110 (test code = 2075-0) CARBON 28 mmol/L 20-32 DIOXIDE-Q (test code = 2027-9) CALCIUM-Q (test 9.9 mg/dL 8.6-10.4 code = 34875-5) PROTEIN, 6.8 g/dL 6.1-8.1 TOTAL-Q (test code = 2885-2) ALBUMIN-Q (test 4.1 g/dL 3.6-5.1 code = 1751-7) GLOBULIN-Q See_Comment [Automated mes isma] (test code = The system [facility] 05214-0) generated this result transmitted ref erence range: 1.9 - 3. 7 g/dL (calc). The ref erence range was not u sed to interpret this result as normal/abnor mal. ALBUMIN/GLOBULI See_Comment [Automated message] N RATIO-Q (test The system w [facility] code = 1759-0) generated thi s result transmitted ref erence range: 1.0 - 2. 5 (calc). The ref erence range was not u sed to interpret this result as normal/abnor mal. BILIRUBIN, 0.5 mg/dL 0.2-1.2 TOTAL-Q (test code = 1975-2) ALKALINE 68 U/L 37-153 PHOSPHATASE-Q (test code = 6768-6) AST-Q (test 20 U/L 10-35 code = 1920-8) ALT-Q (test 17 U/L 6-29 code = 1742-6) LINDA (test code PERFORMED BY [employer] = LINDA) [facility]; [address] [place] [address]; HANSA REYES MD [facility] Notes Date/Time Note Provider Source 2023-07-04 10:29:33-00:00 Formatting of this note migh t be different from the original. PN-PSYCHIATRY [facility] 12/01/21 Bran NOV none LRD 12/29/22 Routing to provider for approval per lab protocol, and PSS to schedule an appt
[2023-07-25] MEDS ORDERED: NA CHLORIDE 0.9% 1,000 ML ONE (02:51)
[2023-07-25 03:37] LABS: Absolute Lymphocytes (CBC) 4.1 K/uL (0.7-4.9); Hematocrit 34.3 % (36.0-45.0); Lymphocytes % 41.9 % (15.3-44.8); MCV 92.4 fL (80-100); MPV 9.5 fL (7.6-11.3); Platelets 218 thou/uL (152-406); RBC Red Blood Cell Count 3.72 M/uL (3.86-4.86)
[2023-07-25 03:50] LABS: ALT/SGPT 18 U/L (13-56); AST/SGOT 12 U/L (15-37); Albumin 3.4 g/dL (3.4-5.0); Alkaline Phosphatase 81 U/L (45-117); BUN Blood Urea Nitrogen 21 mg/dL (7-18); Bicarbonate 25 mEq/L (21-32); Bilirubin Total 0.3 mg/dL (0.2-1.0); Glomerular Filtration Rate 61 ml/min (=/>90); Glucose Level 95 mg/dL (74-106); Magnesium 1.6 mg/dL (1.6-2.4); NT PRO-BNP 1204 pg/mL (<125); Potassium 4.3 mEq/L (3.5-5.1); Protein, Total 6.7 g/dL (6.4-8.2); Sodium Level 135 mEq/L (136-145); Troponin High Sensitivity 6.6 pg/mL (<58.9)
[2023-07-25 03:55] LABS: Bilirubin Direct < 0.1 mg/dL (0-0.2); Bilirubin Indirect, Calculated ND mg/dL (0.2-0.8)
[2023-07-25] MEDS ORDERED: ONDANSETRON 4 MG (ODT) TAB ONE (04:13)
[2023-07-25] MEDS ORDERED: CODEINE 30MG/APAP 300MG TAB ONE (04:13)
--- NOTE | 2023-07-25 04:18 | EDPHYS ---
Physician Documentation [facility] Name: Terra Christianson Age: 57 yrs Sex: Female : 1965 Arrival Date: 07/25/2023 Time: 02:10 Bed 20 Private MD: Jamie Wilson ED Physician Silvano Beck HPI: 07/25 02:13 This 57 yrs old Female presents to ER via Unassigned with complaints of sp4 Shortness Of Breath, Dizziness. 02:26 57-year-old female with past medical history of anxiety, depressive disorder, insomnia, sp4 diabetes, gout, with multiple allergies as well, presents with acute onset of shortness of breath starting 2 weeks ago. Patient states that 2 weeks ago she developed flulike symptoms associated with fevers, cough, vomiting as well. Since then patient developed worsening shortness of breath with dyspnea on minimal exertion. Associated with epigastric pain with radiation into the back. Patient reported dry cough as well and low-grade temperatures 100.1. Patient is here because she is alarmed by shortness of breath and epigastric pain with radiation into the back.. 04:17 Echocardiogram 12/13/2022 - 1. NORMAL LEFT VENTRICULAR EJECTION FRACTION 60-65% 2. sp4 NORMAL WALL MOTION 3. DIASTOLIC DYSFUNCTION 4. MILD (MITRAL REGURGITATION, AORTIC INSUFFIENCY, TRICUSPID REGURGITATION, PULMONIC INSUFFICIENCY . Historical: - Allergies: 02:17 Adhesives; bp 02:17 Albuterol; bp 02:17 Azithromycin; bp 02:17 Fentanyl; bp 02:17 FLU VACCINE; bp 02:17 HYDRALAZINE (Headache and does not work to lower BP); bp 02:17 NSAIDS; bp 02:17 pneumonia vaccine; bp 02:17 prednisolone; bp 02:17 Prednisone; bp 02:17 Trazodone; bp 02:17 Wellbutrin; bp 02:17 zoster vaccine live (PF); bp 02:17 z-pack; bp - Home Meds: 02:17 metoprolol tartrate 50 mg oral tablet [Active]; Lunesta 2 mg oral tablet every day at bp bedtime [Active]; amlodipine 10 mg oral tablet 2 times per day [Active]; Lasix 20 mg Oral tab once daily [Active]; allopurinol 100 mg Oral tab 1 tab once daily [Active]; - PMHx: 02:17 Anxiety; depressive disorder; insomnia; diabetes mellitus; Gout; Renal reflux; uterine bp cancer; RENAL FAILURE; Hypertensive disorder; - PSHx: 02:17 hysterectomy; bp - Immunization history:: Adult Immunizations up to date. - Social history:: Smoking status: Patient denies any tobacco usage or history of. - Family history:: not pertinent. ROS: 02:28 Constitutional: Negative for fever, chills, and weight loss, positive for low-grade sp4 temperature, cough, generalized weakness, dyspnea on minimal exertion, shortness of breath, epigastric pain 02:28 Respiratory: Positive for Dry cough. Dyspnea on exertion. Feeling unwell.. 02:28 All other systems are negative. Exam: 02:28 Constitutional: This is a well developed, well nourished patient who is awake, alert, sp4 and in no acute distress. Head/Face: Normocephalic, atraumatic. Eyes: Pupils equal round and reactive to light, extra-ocular motions intact. Lids and lashes normal. Conjunctiva and sclera are not injected. Cornea within normal limits. Periorbital areas with no swelling, redness, or edema. ENT: Nares patent. No nasal discharge, no septal abnormalities noted. Tympanic membranes are normal and external auditory canals are clear. Oropharynx with no redness, swelling, or masses, exudates, or evidence of obstruction, uvula midline. Mucous membranes moist. Neck: Trachea midline, no thyromegaly or masses palpated, and no cervical lymphadenopathy. Supple, full range of motion without nuchal rigidity, or vertebral point tenderness. Chest/axilla: Normal chest wall appearance and motion. Nontender with no deformity. No lesions are appreciated. Cardiovascular: Regular rate and rhythm with a normal S1 and S2. No gallops, murmurs, or rubs. Normal PMI, no JVD. No pulse deficits. Respiratory: Lungs have equal breath sounds bilaterally, clear to auscultation and percussion. No rales, rhonchi or wheezes noted. No increased work of breathing, no retractions or nasal flaring. Abdomen/GI: Soft, non-tender, with normal bowel sounds. No distension or tympany. No guarding or rebound. No evidence of tenderness throughout. Back: No spinal tenderness. No costovertebral tenderness. Skin: Warm, dry with normal turgor. Normal color with no rashes, no lesions, and no evidence of cellulitis. MS/ Extremity: Pulses equal, no cyanosis. Neurovascular intact. Full, normal range of motion. Neuro: Awake and alert, GCS 15, oriented to person, place, time, and situation. Cranial nerves II-XII grossly intact. Motor strength 5/5 in all extremities. Sensory grossly intact. Psych: Awake, alert, with orientation to person, place and time. Behavior, mood, and affect are within normal limits 02:28 ECG was reviewed by the Attending Physician. Vital Signs: 02:15 BP 163 / 86; Pulse 68; Resp 14; Temp 98.5; Pulse Ox 98% ; bp 03:47 BP 131 / 80; Pulse 62; Resp 12; Pulse Ox 99% ; Weight 83.9 kg; kl 04:55 BP 147 / 78; Pulse 65; Resp 16; Pulse Ox 96% ; bp MDM: 02:25 Patient medically screened. sp4 03:30 ED course: CT chest - COMPARISON: No prior exams provided for comparison. FINDINGS: sp4 Lungs: No focal consolidation. Airways are patent. Pleura: No effusion. No pneumothorax. Heart and pericardium: The heart is normal in size. No pericardial effusion. Mediastinum and janneth: No pathologically enlarged lymph nodes. Lower neck and chest wall: Unremarkable Vessels: Unremarkable Upper abdomen: Status post cholecystectomy. Perisplenic surgical changes. Bones: Degenerative changes of the thoracic spine with large anterior osteophytes. IMPRESSION: No acute thoracic pathology. . 04:17 Differential diagnosis: Anemia Anxiety Reaction asthma, Bronchitis CHF exacerbation, sp4 Chronic Obstructive Pulmonary Disease pneumonia, Pneumothorax Psychogenic. Antibiotic administration: Not indicated. Data reviewed: vital signs, nurses notes, diagnostic data from outside facility, old medical records, lab test result(s), EKG, radiologic studies, CT scan. ED course: Patient has elevated BNP as she reports persistent dyspnea on exertion dyspnea on minimal exertion, and persistent chest pains. We will request internal medicine to admit patient for repeat echocardiogram and Cardiologic assessment CT chest is clear. . 07/25 02:15 Order name: Basic Metabolic Panel; Complete Time: 03:58 sp4 07/25 02:15 Order name: CBC with Diff; Complete Time: 03:58 sp4 07/25 02:15 Order name: LFT's; Complete Time: 03:58 sp4 07/25 02:15 Order name: Magnesium; Complete Time: 03:58 sp4 07/25 02:15 Order name: NT PRO-BNP; Complete Time: 03:58 sp4 07/25 02:15 Order name: Troponin HS; Complete Time: 03:58 sp4 07/25 02:24 Order name: Blood Culture Adult (2) sp4 07/25 04:09 Order name: Urinalysis W/Microscopic sp4 07/25 04:15 Order name: DD; Complete Time: 05:45 la1 07/25 04:15 Order name: COVID-19/FLU A+B la1 07/25 05:15 Order name: COVID-19 SARS RT PCR rv1 07/25 05:15 Order name: Flu rv1 07/25 02:23 Order name: CT Chest Wo Con sp4 07/25 02:15 Order name: EKG; Complete Time: 02:15 sp4 07/25 02:15 Order name: Cardiac monitoring; Complete Time: 02:23 sp4 07/25 02:15 Order name: EKG - Nurse/Tech; Complete Time: 02:23 sp4 07/25 02:15 Order name: IV Saline Lock; Complete Time: 02:46 sp4 07/25 02:15 Order name: Labs collected and sent; Complete Time: 02:46 sp4 07/25 02:15 Order name: O2 Per Protocol; Complete Time: 02:22 sp4 07/25 02:15 Order name: O2 Sat Monitoring; Complete Time: 02:22 sp4 EC:28 Rate is 65 beats/min. Rhythm is regular, Normal Sinus Rhythm with Occasional PVCs. QRS sp4 Earth is Normal. NV interval is normal. QRS interval is normal. QT interval is normal. No Q waves. T waves are Normal. Clinical impression: No evidence of ischemia. Interpreted by me. Administered Medications: 02:46 Drug: NS 0.9% IV 1000 ml Route: IV; Rate: 125 ml/hr; Site: left forearm; bp 04:57 Follow up: IV Status: Infusion continued upon admission bp 04:05 Drug: Acetaminophen-Codeine PO (300 mg-30 mg) 2 tabs Route: PO; kl 04:57 Follow up: Response: No adverse reaction bp 04:05 Drug: Ondansetron PO 4 mg Route: PO; [place] 04:57 Follow up: Response: No adverse reaction bp Disposition Summary: 07/25/23 04:17 Hospitalization Ordered Hospitalization Status: Observation sp4 Location: Telemetry/MedSurg (observation) sp4 Condition: Stable sp4 Problem: new sp4 Symptoms: have improved sp4 Bed/Room Type: Standard sp4 Room Assignment: [place](07/25/23 04:43) mw Provider: Zhen Borja(07/25/23 04:55) alicia Diagnosis - Dyspnea sp4 - Angina pectoris, unspecified sp4 - Dyspnea on exertion, Near syncope sp4 Forms: - Medication Reconciliation Form sp4 - SBAR form sp4 - Leadership Thank You Letter sp4 Signatures: Dispatcher [employer] EDMS Talita Anderson RN RN kl Webb, Martha RN RN Bola Chino, FACILITIES MAINTENANCE SUPERVISOR-C FACILITIES MAINTENANCE SUPERVISOR-Cla1 Alex Rice RN RN Silvano Beck MD MD sp4 Corrections: (The following items were deleted from the chart) 02:33 02:15 Chest Single View+RAD.RAD.BRZ ordered. EDMS EDMS 03:42 02:15 PROTIME (+INR)+COAG.LAB.BRZ ordered. EDMS EDMS 04:43 04:17 sp4 04:55 04:17 Junaid Latham sp4 la1
--- NOTE | 2023-07-25 04:18 | ER ---
Nurse's Notes [facility] Name: Terra Christianson Age: 57 yrs Sex: Female : 1965 Arrival Date: 07/25/2023 Time: 02:10 Bed 20 Private MD: Jamie Wilson Diagnosis: Dyspnea;Angina pectoris, unspecified;Dyspnea on exertion, Near syncope Presentation: 07/25 02:15 Chief complaint: Patient states: "I WAS NEWLY DIAGNOSED WITH HEART FAILURE, AND FOR A bp WEEK I'VE BEEN SHORT OF BREATH AND MY HANDS HAVE BEEN SWOLLEN. MY HEART'S ALSO BEEN OUT OF WHACK.". Coronavirus screen: At this time, the client does not indicate any symptoms associated with coronavirus-19. Ebola Screen: No symptoms or risks identified at this time. Initial Sepsis Screen: Does the patient meet any 2 criteria? No. Patient's initial sepsis screen is negative. Does the patient have a suspected source of infection? No. Patient's initial sepsis screen is negative. Risk Assessment: Do you want to hurt yourself or someone else? Patient reports no desire to harm self or others. Onset of symptoms is unknown. 02:15 Method Of Arrival: Ambulatory bp 02:15 Acuity: YOSELYN 3 bp Triage Assessment: 02:17 General: Appears distressed, Behavior is cooperative, appropriate for age, anxious. bp Pain: Complains of pain in chest. EENT: No deficits noted. Neuro: No deficits noted. Cardiovascular: Reports palpitations, shortness of breath. Respiratory: Reports shortness of breath Onset: The symptoms/episode began/occurred at an unknown time. the patient has mild shortness of breath. GI: No signs and/or symptoms were reported involving the gastrointestinal system. : No signs and/or symptoms were reported regarding the genitourinary system. Derm: No deficits noted. Musculoskeletal: No deficits noted. Historical: - Allergies: 02:17 Adhesives; bp 02:17 Albuterol; bp 02:17 Azithromycin; bp 02:17 Fentanyl; bp 02:17 FLU VACCINE; bp 02:17 HYDRALAZINE (Headache and does not work to lower BP); bp 02:17 NSAIDS; bp 02:17 pneumonia vaccine; bp 02:17 prednisolone; bp 02:17 Prednisone; bp 02:17 Trazodone; bp 02:17 Wellbutrin; bp 02:17 zoster vaccine live (PF); bp 02:17 z-pack; bp - Home Meds: 02:17 metoprolol tartrate 50 mg oral tablet [Active]; Lunesta 2 mg oral tablet every day at bp bedtime [Active]; amlodipine 10 mg oral tablet 2 times per day [Active]; Lasix 20 mg Oral tab once daily [Active]; allopurinol 100 mg Oral tab 1 tab once daily [Active]; - PMHx: 02:17 Anxiety; depressive disorder; insomnia; diabetes mellitus; Gout; Renal reflux; uterine bp cancer; RENAL FAILURE; Hypertensive disorder; - PSHx: 02:17 hysterectomy; bp - Immunization history:: Adult Immunizations up to date. - Social history:: Smoking status: Patient denies any tobacco usage or history of. - Family history:: not pertinent. Screenin:21 [facility] ED Fall Risk Assessment (Adult) History of falling in the last 3 months, bp including since admission No falls in past 3 months (0 pts). Abuse screen: Denies threats or abuse. Denies injuries from another. Nutritional screening: No deficits noted. Tuberculosis screening: No symptoms or risk factors identified. Assessment: 02:21 General: SEE TRIAGE NOTE. Cardiovascular: Rhythm is sinus rhythm. Respiratory: Airway bp is patent Respiratory effort is even, unlabored, Breath sounds with crackles bilaterally. 03:49 Reassessment: Patient appears in no apparent distress at this time. Patient is alert, bp oriented x 3, equal unlabored respirations, skin warm/dry/pink. 04:56 Reassessment: ADMIT COMPLETED. bp Vital Signs: 02:15 BP 163 / 86; Pulse 68; Resp 14; Temp 98.5; Pulse Ox 98% ; bp 03:47 BP 131 / 80; Pulse 62; Resp 12; Pulse Ox 99% ; Weight 83.9 kg; kl 04:55 BP 147 / 78; Pulse 65; Resp 16; Pulse Ox 96% ; bp ED Course: 02:12 Patient arrived in ED. mr 02:12 Jamie Wilson MD is Private Physician. mr 02:13 Silvano Beck MD is Attending Physician. sp4 02:15 Alex Rice, MESSI is Primary Nurse. bp 02:17 Triage completed. bp 02:17 Arm band placed on. bp 02:21 Patient has correct armband on for positive identification. Bed in low position. Call bp light in reach. Side rails up X2. 02:46 Inserted saline lock: 20 gauge in left forearm, using aseptic technique. Blood bp collected. 03:03 CT Chest Wo Con In Process Unspecified. EDMS 04:15 Junaid Latham MD is Hospitalizing Provider. sp4 04:55 Zhen Borja MD is Hospitalizing Provider. la1 04:55 No provider procedures requiring assistance completed. Patient admitted, IV remains in bp place. Administered Medications: 02:46 Drug: NS 0.9% IV 1000 ml Route: IV; Rate: 125 ml/hr; Site: left forearm; bp 04:57 Follow up: IV Status: Infusion continued upon admission bp 04:05 Drug: Acetaminophen-Codeine PO (300 mg-30 mg) 2 tabs Route: PO; kl 04:57 Follow up: Response: No adverse reaction bp 04:05 Drug: Ondansetron PO 4 mg Route: PO; kl 04:57 Follow up: Response: No adverse reaction bp Medication: 04:57 VIS not applicable for this client. bp Outcome: 04:17 Decision to Hospitalize by Provider. sp4 04:56 Admitted to Med/surg accompanied by tech, via wheelchair, room 201, with chart, Report bp called to KATIE SWENSON 04:56 Condition: stable 04:56 Instructed on the need for admit. 05:32 Patient left the ED. kl Signatures: Dispatcher [employer] EDMS Talita Anderson, RN MESSI avila RodriguezFang estrada mr Bola Chino, GLUE PLANT OPERATOR-C GLUE PLANT OPERATOR-Cla1 Alex Rice RN RN Silvano Watson MD MD sp4 Corrections: (The following items were deleted from the chart) 04:00 03:47 BP 131 / 80; Pulse 62bpm; Resp 12bpm; Pulse Ox 99%; bp kl
--- NOTE | 2023-07-25 04:48 | P.HP ---
Certification for Inpatient Patient admitted to: Observation With expected LOS: <2 Midnights Patient will require the following post-hospital care: None Practitioner: I am a practitioner with admitting privileges, knowledge of patient current condition, hospital course, and medical plan of care. Services: Services provided to patient in accordance with Admission requirements found in Title 42 Section 412.3 of the Code of Federal Regulations <Bola Chino - Last Filed: 07/25/23 04:43> Patient History Date of Service: 07/25/23 Reason for admission: Chest pain History of Present Illness: 57-year-old female with history of chronic, diastolic congestive heart failure, diet-controlled diabetes status, anxiety, gout, HTN presented to the emergency department with chief complaint of dyspnea, chest pain. She reports feeling generally unwell for the last 1 week or so with increasing dyspnea on exertion, general edema as well as some intermittent chest pain described as pressure, nonradiating. She was admitted in November of this year and diagnosed with chronic diastolic congestive heart failure her echocardiogram at that time showed a normal ejection fraction, diastolic dysfunction. At home she takes Lasix 20 mg daily. She was evaluated in the emergency department her labs were significant for initial high-sensitivity troponin 6.6, BNP 1204 CT chest noncontrast negative for acute findings. D-dimer pending. ED provider wishes to admit in observation for ACS rule out. - Past Medical/Surgical History Diabetic: No -: Gout -: HTN -: Depression -: Obesity -: DM 2- diet controlled -: CKD III (Dr. Chawla) -: Right ureter stenosis -: Recurrent UTI -: CHF-D -: Hysterectomy -: I&D Left leg(spider bite) Psychosocial/ Personal History: lives at home - Family History Family History: Reviewed- Non-Contributory - Social History Smoking Status: Never smoker Alcohol use: Yes CD- Drugs: No Caffeine use: Yes Place of Residence: Home <Bola Chino - Last Filed: 07/25/23 04:43> Date of Service: 07/25/23 <Zhen Borja - Last Filed: 07/25/23 16:53> Allergies adhesive Allergy (Verified 07/25/23 06:04) UNK albuterol Allergy (Verified 07/25/23 06:04) UNK azithromycin [From Zithromax] Allergy (Verified 07/25/23 06:04) UNK bupropion [From Wellbutrin] Allergy (Verified 07/25/23 06:04) UNK citalopram [From Celexa] Allergy (Verified 07/25/23 06:15) Itching/Hives/Rash fentanyl Allergy (Verified 07/25/23 06:04) UNK hydralazine Allergy (Verified 07/25/23 06:04) UNK Influenza Virus Vaccines Allergy (Verified 07/25/23 06:04) UNK NSAIDS (Non-Steroidal Anti-Inflamma Allergy (Verified 07/25/23 06:04) UNK pneumococcal vaccine Allergy (Verified 07/25/23 06:04) UNK prednisolone Allergy (Verified 07/25/23 06:04) UNK prednisone Allergy (Verified 07/25/23 06:04) UNK trazodone Allergy (Verified 07/25/23 06:04) UNK zoster vaccine live Allergy (Verified 07/25/23 06:04) UNK Home Medications: Allopurinol 1 tab PO DAILY 12/12/22 Eszopiclone [Lunesta] 1 tab PO BEDTIME 12/12/22 Ferrous Sulfate [Feosol] 1 tab PO DAILY 12/12/22 Mecobalamin [B12 Active] 1,000 mcg IM CONT 12/12/22 Furosemide [Lasix] 1 tab PO DAILY PRN #30 12/14/22 Clotrim/Betameth Cream [Lotrisone Cream*] 1 dose TOP PRN PRN 07/25/23 Losartan Potassium 50 mg PO DAILY 07/25/23 Metoprolol Tartrate [Lopressor] 100 mg PO DAILY 07/25/23 methocarbamoL [Methocarbamol] 750 mg PO DAILY 07/25/23 Review of Systems 10-point ROS is otherwise unremarkable Respiratory: SOB with Excertion Cardiovascular: Chest Pain, Palpitations <Bola Chino - Last Filed: 07/25/23 04:43> Physical Examination - Physical Exam General: Alert, In no apparent distress, Oriented x3 HEENT: Atraumatic, PERRLA, Mucous membr. moist/pink, EOMI, Sclerae nonicteric Neck: Supple, 2+ carotid pulse no bruit, No LAD, Without JVD or thyroid abnormality Respiratory: Diminished Cardiovascular: Regular rate/rhythm, Normal S1 S2, Edema Capillary refill: <2 Seconds Gastrointestinal: Normal bowel sounds, No tenderness Musculoskeletal: No tenderness Integumentary: No rashes Neurological: Normal speech, Normal strength at 5/5 x4 extr, Normal tone, Normal affect - Studies Laboratory Data (last 24 hrs) 07/25/23 07/25/23 07/25/23 02:35 02:35 02:15 WBC 9.80 Hgb 11.7 L Hct 34.3 L Plt Count 218 PT Cancelled INR Cancelled Sodium 135 L Potassium 4.3 BUN 21 H Creatinine 1.05 H Glucose 95 Magnesium 1.6 Total Bilirubin 0.3 AST 12 L ALT 18 Alkaline Phosphatase 81 <Bola Chino - Last Filed: 07/25/23 04:43> - Studies Laboratory Data (last 24 hrs) 07/25/23 07/25/23 07/25/23 02:35 02:35 02:15 WBC 9.80 Hgb 11.7 L Hct 34.3 L Plt Count 218 PT Cancelled INR Cancelled Sodium 135 L Potassium 4.3 BUN 21 H Creatinine 1.05 H Glucose 95 Magnesium 1.6 Total Bilirubin 0.3 AST 12 L ALT 18 Alkaline Phosphatase 81 <Zhen Borja - Last Filed: 07/25/23 16:53> Assessment and Plan - Plan Assessment: Chest pain rule out ACS Acute on chronic diastolic congestive heart failure Hypertension Gout Anxiety/Depression DMII-Diet controlled Plan: Chest pain rule out ACS Trend troponins, monitor on telemetry, cardiology consult. D-dimer pending. Given aspirin. Acute on chronic diastolic congestive heart failure Reports 6 pound weight gain in the past 3 days, generalized edema present, no pulmonary edema/pleural effusions. Will diurese gently. Hypertension Gout Anxiety/Depression DMII-Diet controlled Continue home medications. DVT PPX:Lovenox Code status:Full Discharge Plan: Home Plan to discharge in: 24 Hours - Advance Directives Does patient have a Living Will: No Does patient have a Durable POA for Healthcare: No - Code Status/Comfort Care Code Status Assessed: Yes (Full code) Critical Care: No Time Spent Managing Pts Care (In Minutes): 55 <Bola Chino - Last Filed: 07/25/23 04:43> - Plan Patient seen and examined on rounds today. reports "pain all over" swelling seems to be improving continues with chest pain. Trop negative x2 Cardiology consulted, recommends stress and echo <Zhen Borja - Last Filed: 07/25/23 16:53>
[2023-07-25 06:29] VITALS: BMI 37.0
[2023-07-25] MEDS: FUROSEMIDE 20 MG/ 2ML VIAL IV SCH ×3 (06:38→16:28)
--- NOTE | 2023-07-25 07:12 | P.PN ---
Date of Service: 07/25/23 Subjective: ROS: 10 point ROS as noted above, otherwise negative Physical Exam: GEN: Alert, oriented, NAD HEENT: Normal conjunctiva, sclera anicteric CV: Regular rate and rhythm, no edema Pulm: Nonlabored respirations on room air ABD: Soft, nontender, nondistended MSK: No joint tenderness Integumentary: No rashes Neuro: Normal speech, normal affect vitals reviewed Problem List: Chest pain Acute on chronic diastolic CHF Hypertension Gout Anxiety/Depression NIDDM2 Chest pain troponins negative x3 monitor on telemetry cardiology consult echo ordered Stress test today D-dimer: 1058 continue aspirin, statin. Acute on chronic diastolic CHF Reports 6 pound weight gain in the past 3 days, generalized edema present, no pulmonary edema/pleural effusions. Will diurese gently. lasix DCd Hyperlipidemia continue statin Hypertension Gout Anxiety/Depression NIDDM2 Continue home medications. VTE: Lovenox Code: Full Dispo: Home ~1 day
--- NOTE | 2023-07-25 07:40 | RAD REPORT ---
EXAM DESCRIPTION: CT - Chest For Pe Angio - 07/25/2023 7:27 am CLINICAL HISTORY: Dyspnea, chest pain, elevated DD COMPARISON: Thorax Wo Con dated 07/25/2023 TECHNIQUE: Thin axial CT images of the chest were obtained following administration of 100 mL Isovue 370 IV contrast. Multiplanar reconstructions, and maximum intensity projection reconstructions were generated and reviewed. Exam utilizes a protocol for optimal evaluation of pulmonary arterial tree. All CT scans are performed using dose optimization technique as appropriate and may include automated exposure control or mA/KV adjustment according to patient size. FINDINGS: Pulmonary arteries are normal. No emboli or other suspicious finding. No acute or signific ant aorta findings. No mass or infiltrate in the lung parenchyma. No pleural thickening or pleural effusion. No pneumotho rax. No abnormal mediastinal or hilar masses or lymphadenopathy seen. No chest wall mass or abnormal axill iary lymphadenopathy. Surgical clips seen throughout the included upper abdomen. IMPRESSION: No evidence of acute central pulmonary emboli. No other acute pulmonary process. .
[2023-07-25] MEDS: ASPIRIN EC 81 MG TAB PO SCH (08:19)
[2023-07-25] MEDS: ENOXAPARIN 40 MG/0.4 ML SQ SCH (08:20)
[2023-07-25 09:04] LABS: HDL Cholesterol 53 mg/dL (40-60); Troponin High Sensitivity 6.6 pg/mL (<58.9)
[2023-07-25 09:25] LABS: LDL, Direct 142 mg/dL (100-129)
[2023-07-25] MEDS ORDERED: ONDANSETRON 4 MG/2 ML VIAL IV PRN (10:13)
[2023-07-25] MEDS ORDERED: ACETAMINOPHEN 500 MG TAB PO PRN (11:53)
--- NOTE | 2023-07-25 12:15 | RAD REPORT ---
EXAM DESCRIPTION: CT - Thorax Wo Cain - 07/25/2023 6:33 am CLINICAL HISTORY: Assess for pneumonia TECHNIQUE: Contiguous axial images obtained through the chest without IV contrast. Coronal and sagit elizabeth reformatted images provided. This exam was performed according to our departmental dose-optimization program, which includes autom ated exposure control, adjustment of the mA and/or kV according to patient size and/or use of iterati ve reconstruction technique. COMPARISON: No prior exams provided for comparison. FINDINGS: Lungs: No focal consolidation. Airways are patent. Pleura: No effusion. No pneumothorax. Heart and pericardium: The heart is normal in size. No pericardial effusion. Mediastinum and janneth: No pathologically enlarged lymph nodes. Lower neck and chest wall: Unremarkable Vessels: Unremarkable Upper abdomen: Status post cholecystectomy. Perisplenic surgical changes. Bones: Degenerative changes of the thoracic spine with large anterior osteophytes. IMPRESSION: No acute thoracic pathology. Electronically signed by: Mega Cheng MD 07/25/2023 3:26 AM CDT Due to temporary technical issues with the PACS/Fluency reporting system, reports are being signed by the in house radiologist without review as a courtesy to ensure prompt reporting. The interpreting r adiologist is fully responsible for the content of the report.
--- NOTE | 2023-07-25 13:03 | EKG ---
Test Date: 2023-07-25 Test Time: 02:25:43 Supervisor [employer]: SIGRID MEASUREMENT RESULTS: Intervals: Rate: 65 CO: 188 QRSD: 84 QT: 448 QTc: 465 [place]: P: 48 CO: 188 QRS: 45 T: 51 INTERPRETIVE STATEMENTS: Sinus rhythm with occasional premature ventricular complexes Otherwise normal ECG Compared to ECG 12/12/2022 06:48:08 Ventricular premature complex(es) now present Sinus bradycardia no longer present Electronically Signed On 07-25-23 13:02:58 CDT by Juan Diego Case
[2023-07-25] MEDS ORDERED: CODEINE 30MG/APAP 300MG TAB PO ONE (15:33)
[2023-07-25 17:03] VITALS: O2SAT 95
--- NOTE | 2023-07-25 19:57 | CON ---
Date of Consultation: 07/25/2023 Reason For Consultation: Chest pain. History Of Present Illness: This is a 57-year-old female with the past medical history of diastolic heart failure, hypertension, diabetes, chronic kidney disease, presented to the emergency room with c hest pain for the past week and retrosternal, intermittent, does not radiate and not specifically rel ated to exertion. She is on diuretics at home and takes Lasix 20 mg daily. Past Medical History: As outlined above in the HPI. Medications: Refer consultation sheet for detailed list. Allergies: SHE IS ALLERGIC TO ALBUTEROL, AZITHROMYCIN, BUPROPION, AND CITALOPRAM. Family History: No premature coronary artery disease or cancer. Social History: Does not smoke or drink. Does not use any drugs. Review of Systems: All systems reviewed are negative except as mentioned in HPI. Physical Examination: Vital Signs: Reviewed. Head and Neck: Pupils are equal, reactive to light. Intact eye movements. No JVD. No cervical. Neck: Supple. Thyroid is not enlarged. Lungs to auscultation bilaterally. No rhonchi, wheezing, o r crackles. No accessory muscle use. Heart: Regular rate and rhythm. No extra sounds. Abdomen: Soft, nontender. Bowel sounds positive. No organomegaly. No masses or hernia. No rigidi ty or rebound. Extremities: No edema, clubbing, or cyanosis. Intact pulses. Skin: No rash. Neurologic: Alert, awake, oriented x3. No acute focal deficits appreciated. Investigations: Cardiac enzymes x3 are negative. BUN 21, creatinine 1.0 and hemoglobin 11.7. Assessment/recommendations: 1.Chest pain. Cardiac enzymes are negative, but the pain is persistent over the past week. CTA of the lungs, there is no pulmonary embolism. Recommend excise nuclear stress test and an echo. 2.Dyslipidemia. Start her on Lipitor 40 mg at bedtime. 3.Hypertension. Blood pressure is controlled. Continue home medications. SR/MODL Voice ID: [id number] Report ID: [id number]
[2023-07-25 20:28] LABS: Urine Bacteria <20 /HPF (<20); Urine Mucus Slight /HPF (None Seen); Urine RBC <5 /HPF (None Seen)
[2023-07-25 20:40] LABS: Specific Gravity 1.015 (1.005-1.030); Urine Bilirubin NEGATIVE (Negative); Urine Blood Negative (Negative); Urine Clarity Clear (Clear); Urine Color Colorless (Yellow); Urine Glucose NEGATIVE (Negative); Urine Protein NEGATIVE (Negative); Urine Urobilinogen Normal (Normal)
[2023-07-25] MEDS ORDERED: ATORVASTATIN 40 MG TAB PO SCH (21:00)
[2023-07-25] MEDS ORDERED: MELATONIN 5 MG TABLET PO PRN (21:50)
[2023-07-26 04:17] LABS: Absolute Lymphocytes (CBC) 3.5 K/uL (0.7-4.9); Lymphocytes % 41.7 % (15.3-44.8); MCV 91.5 fL (80-100); MPV 8.8 fL (7.6-11.3); Platelets 229 thou/uL (152-406); RBC Red Blood Cell Count 3.93 M/uL (3.86-4.86)
[2023-07-26] MEDS ORDERED: REGADENOSON 0.4 MG/5 ML SYR IV ONE (07:32)
[2023-07-26] MEDS: ASPIRIN EC 81 MG TAB PO SCH (08:13)
[2023-07-26] MEDS: ENOXAPARIN 40 MG/0.4 ML SQ SCH (08:13)
[2023-07-26] MEDS ORDERED: NA CHLORIDE 0.9% 1,000 ML IV SCH (10:00)
--- NOTE | 2023-07-26 10:46 | P.CNS ---
Date of Consult: 07/26/23 Reason for Consult: REZA/ CKD Requesting Physician: Zhen Borja Chief Complaint: Chest pain History of Present Illness: 57-year-old female with history of chronic, diastolic congestive heart failure, diet-controlled diabetes status, anxiety, gout, HTN presented to the emergency department with chief complaint of dyspnea, chest pain. She reports feeling generally unwell for the last 1 week or so with increasing dyspnea on exertion, general edema as well as some intermittent chest pain described as pressure, nonradiating. She was admitted in November of this year and diagnosed with chronic diastolic congestive heart failure her echocardiogram at that time showed a normal ejection fraction, diastolic dysfunction. At home she takes Lasix 20 mg daily. She was evaluated in the emergency department her labs were significant for initial high-sensitivity troponin 6.6, BNP 1204 CT chest noncontrast negative for acute findings. D-dimer pending. ED provider wishes to admit in observation for ACS rule out. 02:13 This 57 yrs old Female presents to ER via Unassigned with complaints of sp4 Shortness Of Breath, Dizziness. 02:26 57-year-old female with past medical history of anxiety, depressive disorder, insomnia, sp4 diabetes, gout, with multiple allergies as well, presents with acute onset of shortness of breath starting 2 weeks ago. Patient states that 2 weeks ago she developed flulike symptoms associated with fevers, cough, vomiting as well. Since then patient developed worsening shortness of breath with dyspnea on minimal exertion. Associated with epigastric pain with radiation into the back. Patient reported dry cough as well and low-grade temperatures 100.1. Patient is here because she is alarmed by shortness of breath and epigastric pain with radiation into the back. Allergies adhesive Allergy (Verified 07/25/23 06:04) UNK albuterol Allergy (Verified 07/25/23 06:04) UNK azithromycin [From Zithromax] Allergy (Verified 07/25/23 06:04) UNK bupropion [From Wellbutrin] Allergy (Verified 07/25/23 06:04) UNK citalopram [From Celexa] Allergy (Verified 07/25/23 06:15) Itching/Hives/Rash fentanyl Allergy (Verified 07/25/23 06:04) UNK hydralazine Allergy (Verified 07/25/23 06:04) UNK Influenza Virus Vaccines Allergy (Verified 07/25/23 06:04) UNK NSAIDS (Non-Steroidal Anti-Inflamma Allergy (Verified 07/25/23 06:04) UNK pneumococcal vaccine Allergy (Verified 07/25/23 06:04) UNK prednisolone Allergy (Verified 07/25/23 06:04) UNK prednisone Allergy (Verified 07/25/23 06:04) UNK trazodone Allergy (Verified 07/25/23 06:04) UNK zoster vaccine live Allergy (Verified 07/25/23 06:04) UNK Home medications list reviewed: Yes Home Medications: Allopurinol 1 tab PO DAILY 12/12/22 Eszopiclone [Lunesta] 1 tab PO BEDTIME 12/12/22 Ferrous Sulfate [Feosol] 1 tab PO DAILY 12/12/22 Mecobalamin [B12 Active] 1,000 mcg IM CONT 12/12/22 Furosemide [Lasix] 1 tab PO DAILY PRN #30 12/14/22 Clotrim/Betameth Cream [Lotrisone Cream*] 1 dose TOP PRN PRN 07/25/23 Losartan Potassium 50 mg PO DAILY 07/25/23 Metoprolol Tartrate [Lopressor] 100 mg PO DAILY 07/25/23 methocarbamoL [Methocarbamol] 750 mg PO DAILY 07/25/23 - Past Medical/Surgical History Diabetic: Yes -: Gout -: HTN -: Depression -: Obesity -: DM 2- diet controlled -: CKD III (Dr. Chawla) -: Right ureter stenosis -: Recurrent UTI -: CHF-D -: Hysterectomy -: I&D Left leg(spider bite) Psychosocial/ Personal History: lives at home - Social History Smoking Status: Unknown if ever smoked Alcohol use: Yes CD- Drugs: No Caffeine use: Yes Place of Residence: Home Review of Systems 10-point ROS is otherwise unremarkable Respiratory: Shortness of Breath Cardiovascular: Chest Pain Physical Examination Temp Pulse Resp BP Pulse Ox 97.6 F 68 16 113/59 L 94 07/26/23 08:00 07/26/23 08:00 07/26/23 08:00 07/26/23 08:00 07/26/23 08:00 Blood work reviewed in the chart. Imagings Data: EXAM DESCRIPTION: CT - Chest For Pe Angio - 07/25/2023 7:27 am CLINICAL HISTORY: Dyspnea, chest pain, elevated DD COMPARISON: Thorax Wo Con dated 07/25/2023 TECHNIQUE: Thin axial CT images of the chest were obtained following administration of 100 mL Isovue 370 IV contrast. Multiplanar reconstructions, and maximum intensity projection reconstructions were generated and reviewed. Exam utilizes a protocol for optimal evaluation of pulmonary arterial tree. All CT scans are performed using dose optimization technique as appropriate and may include automated exposure control or mA/KV adjustment according to patient size. FINDINGS: Pulmonary arteries are normal. No emboli or other suspicious finding. No acute or significant aorta findings. No mass or infiltrate in the lung parenchyma. No pleural thickening or pleural effusion. No pneumothorax. No abnormal mediastinal or hilar masses or lymphadenopathy seen. No chest wall mass or abnormal axilliary lymphadenopathy. Surgical clips seen throughout the included upper abdomen. IMPRESSION: No evidence of acute central pulmonary emboli. No other acute pulmonary process. Conclusions/Impression: Stage I REZA in the setting of hypotension & IVC exposure CKD III -No NSAIDs -Continue gentle IVF with NS Hyponatremia -Continue IVF with NS HTN with CKD/ CHF -Hold Losartan Diastolic CHF, chronic -Daily weight ER and Hospitalist notes reviewed Thank you kindly for the consultation
--- NOTE | 2023-07-26 12:05 | RAD REPORT ---
EXAM DESCRIPTION: NM - Rest Stress Cardiac Imaging - 07/26/2023 11:55 am CLINICAL HISTORY: Chest pain. COMPARISON: None. TECHNIQUE: The patient was administered 10. 4mCi of Tc 99m Sestamibi prior to resting SPECT imaging of the heart. The patient was then administered 31/3 mCi of Tc 99m Sestamibi following exercise or ph armacologic stress. Multiplanar SPECT images were reviewed. FINDINGS: There is uniformity of radiotracer uptake involving the entire left ventricular myocardiu m on rest and stress images. The left ventricular ejection fraction equals 66% IMPRESSION: Negative for a myocardial perfusion defect
--- NOTE | 2023-07-26 12:16 | ECHO ---
HEIGHT: 5 ft 3 in WEIGHT: 208 lb 12.8 oz DATE OF STUDY: 07/26/[address]: Juan Diego Case 2-DIMENSIONAL: YES M.MODE: YES DOPPLER: YES COLOR FLOW: YES TDS: PORTABLE: YES DEFINITY: BUBBLE STUDY: DIAGNOSIS: CHEST PAIN CARDIAC HISTORY: CATHERIZATION: NO SURGERY: NO PROSTHETIC VALVE: NO PACEMAKER: NO MEASUREMENTS (cm) DIASTOLIC (NORMALS) SYSTOLIC (NORMALS) IVSd 0.8 (0.6-1.2) LA Diam 2.1 (1.9-4.0) LVEF 68% LVIDd 4.7 (3.5-5.7) LVIDs 2.9 (2.0-3.5) %FS 38% LVPWd 1.0 (0.6-1.2) Ao Diam 3.2 (2.0-3.7) 2 DIMENSIONAL ASSESSMENT: RIGHT ATRIUM: NORMAL LEFT ATRIUM: NORMAL RIGHT VENTRICLE: NORMAL LEFT VENTRICLE: NORMAL TRICUSPID VALVE: NORMAL MITRAL VALVE: TRACE MITRAL REGURGITATION PULMONIC VALVE: MILD PULMONIC INSUFFICIENCY AORTIC VALVE: NORMAL PERICARDIAL EFFUSION: NONE AORTIC ROOT: NORMAL LEFT VENTRICULAR WALL MOTION: NORMAL DOPPLER/COLOR FLOW: SEE BELOW COMMENTS: 1. NORMAL LEFT VENTRICULAR EJECTION FRACTION 60-65% 2. NORMAL WALL MOTION 3. GRADE I DIASTOLIC DYSFUNCTION 4. MILD PULMONIC INSUFFICIENCY 5. TRACE MITRAL REGURGITATION TECHNOLOGIST: MARLINE ALEGRIA
--- NOTE | 2023-07-26 12:32 | TREADPHA ---
DX: CHEST PAIN Date of Study: 07/26/2023 Ht: 5' 3 " Wt: 208 lb 12.8 oz Consulting Physician: TEREZA MEDICATIONS: TYLENOL, ASPIRIN, LIPITOR, LOVENOX, MELATONIN, ZOFRAN HISTORY: HYPERTENSION, CONGESTIVE HEART FAILURE, DIABETES MELLITUS TYPE II PHYSICIAL EXAMINATION: RESTING B.P.: 122/55 RESTING H.R.: 76 RESTING EKG: NORMAL SINUS RHYTHM WITH EDILSON LATERAL T WAVE DEPRESSION PROTOCOL: PHARMACOLGIC EXERCISE TIME: 3:30 B.P. AT [place] STRESS: 114/75 IMPRESSION: LEXISCAN STRESS TEST PERFORMED. CARDIOLITE INJECTED PER PROTOCOL. SEE NUCLEAR MEDICINE REPORT. PATIENT COMPLAINED OF CHEST TIGHTNESS OF FOUR ON NUMERICAL SCALE DURING PROCEDURE AND SHORTNESS OF BREATH. SYMPTOMS SUBSIDED POST PROCEDURE. NO VENTRICULAR TACHYCARDIA OR SUPRAVENTRICULAR TACHYCARDIA NOTED. NO ELECTROCARDIOGRAM CHANGES OF ISCHEMIA WITH LEXISCAN.
[2023-07-26 13:26] VITALS: BP 113/59; TEMP 97.6
--- NOTE | 2023-07-26 13:31 | P.DS ---
Admission Date: 07/25/23 Discharge Date: 07/26/23 Reason for Admission: Chest pain Consultations: Cardiology - Dr. Case Nephrology - Dr. Chawla Brief History of Present Illness: 57yo F, PMH: chronic, diastolic congestive heart failure, diet-controlled di abetes status, anxiety, gout, HTN Patient presented to the emergency department with chief complaint of dyspnea, chest pain. She reports feeling generally unwell for the last 1 week or so with increasing dyspnea on exertion, general edema as well as some intermittent chest pain described as pressure, nonradiating. She was admitted in November of this year and diagnosed with chronic diastolic congestive heart failure her echocardiogram at that time showed a normal ejection fraction, diastolic dysfunction. At home she takes Lasix 20 mg daily. She was evaluated in the emergency department her labs were significant for initial high-sensitivity troponin 6.6, BNP 1204 CT chest noncontrast negative for acute findings. D-dimer pending. Hospital Course: Problem List: Chest pain Acute on chronic diastolic CHF Hypertension Gout Anxiety/Depression NIDDM2 Patient presented with chest pain, dyspnea. Troponins were negative x3. D-dimer was elevated. No PE seen on CTA. Echo noted 68% EF, Grade I diastolic dysfunction, mild pulmonic insufficiency, trace MR. Cardiology was consulted. Dr. Case recommended stress test d/t persistent pain with negative troponins. Nuclear stress test was negative. No further inpatient cardiac work up warranted. Dr. Case recommends to follow up in office and was deemed stable for discharge. During hospitalization, patient was noted to have an REZA in the setting of hypotension & IVC exposure. Nephrology was consulted and patient was near baseline function. Recommend to follow up with PCP / Nephrology in a few weeks for repeat blood work for further monitoring. Creatinine: 1.42 hold losartan. Patient was started on statin due to high cholesterol and should continue on discharge to lower overall cardiac risk give this episode. Total cholesterol: 310 (normal range: <200) LDL cholesterol: 142 (normal range: <130) Tryglycerides: 589 (normal range: <150) Medications: New: restart atorvastatin as previously prescribed at bedtime Stop: Stop Losartan - Check blood pressure daily. If systolic blood pressure is consistently > 150, can restart. Follow up with PCP / cardiology for further management / adjustments of medications. continue other home medications as previously prescribed Follow up: PCP 3-5 days Cardiology in 1-2 weeks Physical Exam: GEN: Alert, oriented, NAD HEENT: Normal conjunctiva, sclera anicteric CV: Regular rate and rhythm, no edema Pulm: Nonlabored respirations on room air ABD: Soft, nontender, nondistended MSK: No joint tenderness Integumentary: No rashes Neuro: Normal speech, normal affect Vital Signs/Physical Exam: Temp Pulse Resp BP Pulse Ox 97.6 F 68 16 113/59 L 94 07/26/23 08:00 07/26/23 08:00 07/26/23 08:00 07/26/23 08:00 07/26/23 08:00 Laboratory Data at Discharge: WBC 8.40 thou/uL (4.3-10.9) 07/26/23 03:40 Hgb 12.4 g/dL (12.0-15.0) 07/26/23 03:40 Hct 36.0 % (36.0-45.0) 07/26/23 03:40 Plt Count 229 thou/uL (152-406) 07/26/23 03:40 PT Cancelled 07/25/23 02:15 INR Cancelled 07/25/23 02:15 Sodium 135 mEq/L (136-145) L 07/26/23 03:40 Potassium 4.0 mEq/L (3.5-5.1) 07/26/23 03:40 BUN 31 mg/dL (7-18) H 07/26/23 03:40 Creatinine 1.43 mg/dL (0.55-1.02) H 07/26/23 03:40 Glucose 107 mg/dL (74-106) H 07/26/23 03:40 Magnesium 1.6 mg/dL (1.6-2.4) 07/25/23 02:35 Total Bilirubin 0.3 mg/dL (0.2-1.0) 07/25/23 02:35 AST 12 U/L (15-37) L 07/25/23 02:35 ALT 18 U/L (13-56) 07/25/23 02:35 Alkaline Phosphatase 81 U/L (45-117) 07/25/23 02:35 Triglycerides 589 mg/dL (<150) H 07/25/23 08:37 Cholesterol 310 mg/dL (<200) H 07/25/23 08:37 LDL Cholesterol Direct 142 mg/dL (100-129) H 07/25/23 08:37 HDL Cholesterol 53 mg/dL (40-60) 07/25/23 08:37 Cholesterol/HDL Ratio 5.85 07/25/23 08:37 Home Medications: Allopurinol 1 tab PO DAILY 12/12/22 Eszopiclone [Lunesta] 1 tab PO BEDTIME 12/12/22 Ferrous Sulfate [Feosol] 1 tab PO DAILY 12/12/22 Mecobalamin [B12 Active] 1,000 mcg IM CONT 12/12/22 Furosemide [Lasix] 1 tab PO DAILY PRN #30 12/14/22 Clotrim/Betameth Cream [Lotrisone Cream*] 1 dose TOP PRN PRN 07/25/23 Losartan Potassium 50 mg PO DAILY 07/25/23 Metoprolol Tartrate [Lopressor] 100 mg PO DAILY 07/25/23 methocarbamoL [Methocarbamol] 750 mg PO DAILY 07/25/23 Physician Discharge Instructions: Patient presented with chest pain, dyspnea. Troponins were negative x3. D-dimer was elevated. No PE seen on CTA. Echo noted 68% EF, Grade I diastolic dysfunction, mild pulmonic insufficiency, trace MR. Cardiology was consulted. Dr. Case recommended stress test d/t persistent pain with negative troponins. Nuclear stress test was negative. No further inpatient cardiac work up warranted. Dr. Case recommends to follow up in office and was deemed stable for discharge. During hospitalization, patient was noted to have an REZA in the setting of hypotension & IVC exposure. Nephrology was consulted and patient was near baseline function. Recommend to follow up with PCP / Nephrology in a few weeks for repeat blood work for further monitoring. Creatinine: 1.42 hold losartan. Patient was started on statin due to high cholesterol and should continue on discharge to lower overall cardiac risk give this episode. Total cholesterol: 310 (normal range: <200) LDL cholesterol: 142 (normal range: <130) Tryglycerides: 589 (normal range: <150) Medications: New: restart atorvastatin as previously prescribed at bedtime Stop: Stop Losartan - Check blood pressure daily. If systolic blood pressure is consistently > 150, can restart. Follow up with PCP / cardiology for further management / adjustments of medications. continue other home medications as previously prescribed Follow up: PCP 3-5 days Cardiology in 1-2 weeks Followup: Jamie Wilson MD [Primary Care Provider] - Time spent managing pt's care (in minutes): 45
--- NOTE | 2023-07-26 19:16 | PN ---
Date of Progress Note: 07/26/2023 Subjective: Seen by bedside. No chest pain. No shortness of breath, orthopnea, or cough. No nause a, vomiting, or diarrhea. All other systems were reviewed, they were negative. Objective: Vital Signs: Reviewed. Head and Neck: Pupils are equal, reactive to light. Intact eye movements. No JVD. No cervical lym phadenopathy. Neck is supple. Thyroid is not enlarged. Lungs: Clear to auscultation bilaterally. No rhonchi, wheezing, or crackles. No accessory muscle u se. Heart: Regular rate and rhythm. No extra sounds. Abdomen: Soft, nontender. Bowel sounds positive. No organomegaly. No masses or hernia. No rigidi ty or rebound. Extremities: No edema, clubbing, or cyanosis. Intact pulses. Skin: No rash. No nodule. Neurologic: Alert, awake, oriented x3. No acute focal deficits appreciated. Investigations: Labs were reviewed. Assessment And Recommendations: 1.Chest pain with negative cardiac enzymes, negative stress test, and normal ejection fraction. Thi s is likely noncardiac. Patient can be released to follow up as an outpatient. 2.Dyslipidemia. Agree with atorvastatin 40 mg q.h.s. From Cardiology standpoint, patient can be re leased to follow up as an outpatient. SR/MODL Voice ID: [id number] Report ID: [id number]
== END 2023-07-26 15:25 | disposition home or self-care (01) ==
LOC: ER 02:10 → ERHOLD 04:31 → 2ND 04:57
PROVIDERS: ADMIT Hospitalist; ATTEND Hospitalist
DX: R07.9 Chest pain, unspecified (principal); I50.32 Chronic diastolic (congestive) heart failure; E11.9 Type 2 diabetes mellitus without complications; F41.9 Anxiety disorder, unspecified; I10 Essential (primary) hypertension; M10.9 Gout, unspecified; R06.00 Dyspnea, unspecified; N18.30 Chronic kidney disease, stage 3 unspecified; E87.1 Hypo-osmolality and hyponatremia; E78.5 Hyperlipidemia, unspecified; R60.9 Edema, unspecified; Z88.8 Allergy status to other drugs, medicaments and biological substances; Z88.7 Allergy status to serum and vaccine; Z88.3 Allergy status to other anti-infective agents; Z20.822 Contact with and (suspected) exposure to COVID-19
CPT/HCPCS: 36415; 71250; 71275; 78452; 80048; 80061; 80076; 81001; 83735; 83880; 84484; 85025; 85379; 87040; 87635; 87804; 93005; 93017; 93306; 96360; 96361; 99285; A9500; G0378; J1650; J1940; J2785; J7030; Q0162

== ENCOUNTER 2023-10-12 17:14 | Inpatient (IN) | payer OTHER ==
--- OUTSIDE RECORDS SUMMARY | 2023-10-12 17:25 | XMS REPORT | Continuity of Care Document ---
:1965 Author Organization [facility] t Address [address] [place] [address] [place] [id number] Care Team Providers Name Role Phone Asked, No Pcp Primary Care Physician Unavailable Arnel Toure MD Attending Clinician Leonardo Sears MD Attending Clinician Theresa Wong Attending Clinician THERESA SOTOMAYOR Attending Clinician Unavailable Yoon Drake MA Attending Clinician Unavailable Doctor Unassigned, Wyatt Attending Clinician Unavailable Kole Monique DO Attending Clinician WILLIAM SIERRA Attending Clinician Unavailable Pob, [facility] Attending Clinician Unavailable Xiao Burt RN Attending Clinician DAVID HOFFMAN Attending Clinician Unavailable EMMANUELLE LAKE Attending Clinician Unavailable Vtc-Lab Attending Clinician Unavailable AMY GOMEZ Attending Clinician Unavailable Isabella Wynne RN Attending Clinician Unavailable KEISHA IFSH Attending Clinician Unavailable Christine Britton NP Attending Clinician Keisha Fish MD Attending Clinician Pili Rush Attending Clinician [facility] Attending Clinician Unavailable KAROLYN MERLOS Attending Clinician Unavailable DAVID HOFFMAN Admitting Clinician Unavailable KEISHA FISH Admitting Clinician Unavailable Keisha Fish MD Admitting Clinician KAROLYN MERLOS Admitting Clinician Unavailable Payers Payer Name Policy Type Policy Number Effective Date Expiration Date Linda REYES POS [id number] 2017 00:00:00 II Problems Condition Condition Condition [...] gout 00:00: [place] without without 00 Medical tops tops Branch Benign Benign Disease Active Univers hypertensi [...] [place] 30 or 30 or 00 Medical greater greater Branch Allergies, Adverse Reactions, Alerts Allergy Allergy Status Severity Reaction(s) Onset Inactive Treating Comm ents Source Name Type Date Date Clinician HYDRALAZ DRUG Active Other-Cmnt Univ ers INE INGREDI 1-27 ity of 00:00: [place] 00 Medical Branch Hydralaz Propensi Active Other - See Headache Univers ine ty to comments 12-22 and ity of adverse 00:00: doesn't [place] reaction 00 work on Medical s blood Branch pressure BUPROPIO DRUG Active Swelling 2019- Univer s N HCL INGREDI 2- ity of 00:00: [place] 00 Medical Branch BUPROPIO DRUG Active Swelling 2019- Univer s N INGREDI 2- ity of 00:00: [place] 00 Medical Branch Bupropio Propensi Active Swelling 2019- Univ ers n ty to 2- ity of adverse 00:00: [place] reaction 00 Medical s Branch Bupropio Propensi Active Swelling 2019- Univ ers n Hcl ty to 01-02 ity of adverse 00:00: [place] reaction 00 Medical s Branch AZITHROM DRUG Active Low Rash 2019-0 Univers YCIN INGREDI 1-14 ity of 00:00: [place] 00 Medical Branch PREDNISO DRUG Active Other-Cmnt 2019-0 Univ ers LONE INGREDI 1-14 ity of [...] Start Date Stop Date Quantity Comments Source [facility] Exposure to 2021-10-31 2021-11-30 Not sure [facility] of SARS-CoV-2 (event) 00:00:00 16:02:00 [facility] History of Social 2021-03-14 2021-03-14 Univers ity of function 00:00:00 00:00:00 [facility] Alcohol intake 2020-05-14 2020-05-14 Current University of 00:00:00 00:00:00 non-drinker of [facility] alcohol Branch (finding) Tobacco use and 2018-10-28 2018-10-28 Smokeless Universit y of exposure 00:00:00 00:00:00 tobacco non-user [facility] Sex Assigned At [birth year] [facility] 00:00:00 [facility]:00:00 Hospital Smoking Status Start Date Stop Date Source Tobacco smoking consumption [facility] unknown Never smoked tobacco [facility] Medications Ordered Filled Start Stop Current Ordering Indication Dosage Frequency Signature Comments Components Source Medication Medication Date Date Medication? Clinician (SIG) Name Name FERROUS Yes [id number] TAKE 1 Uni vers SULFATE 325 8-09 TABLET BY ity of mg (65 mg 00:00: MOUTH [place] iron) 00 TWICE A Medical tablet DAY Branch citalopram Yes [id number] TAKE 1 Univers 40 mg 4-27 TABLET BY ity of tablet 00:00: MOUTH [place] 00 EVERY DAY Medical Branch citalopram Yes [id number] TAKE 1 Univers 40 mg 4-27 TABLET BY ity of tablet 00:00: MOUTH [place] 00 EVERY DAY Medical Branch citalopram Yes [id number] TAKE 1 Univers 40 mg 4-27 TABLET BY ity of tablet 00:00: MOUTH [place] 00 EVERY DAY Medical Branch citalopram Yes [id number] TAKE 1 Univers 40 mg 4-27 TABLET BY ity of tablet 00:00: MOUTH [place] 00 EVERY DAY Medical Branch citalopram Yes [id number] TAKE 1 Univers 40 mg 4-27 TABLET BY ity of tablet 00:00: MOUTH [place] 00 EVERY DAY Medical Branch FERROUS Yes [id number] TAKE 1 Uni vers SULFATE 325 2-03 TABLET BY ity of mg (65 mg 00:00: MOUTH [place] iron) 00 TWICE A Medical tablet DAY Branch FERROUS Yes [id number] TAKE 1 Uni vers SULFATE 325 2-03 TABLET BY ity of mg (65 mg 00:00: MOUTH [place] iron) 00 TWICE A Medical tablet DAY Branch FERROUS Yes [id number] TAKE 1 Uni vers SULFATE 325 2-03 TABLET BY ity of mg (65 mg 00:00: MOUTH [place] iron) 00 TWICE A Medical tablet DAY Branch FERROUS Yes [id number] TAKE 1 Uni vers SULFATE 325 2-03 TABLET BY ity of mg (65 mg 00:00: MOUTH [place] iron) 00 TWICE A Medical tablet DAY Branch FERROUS Yes [id number] TAKE 1 Uni vers SULFATE 325 2-03 TABLET BY ity of mg (65 mg 00:00: MOUTH [place] iron) 00 TWICE A Medical tablet DAY Branch FERROUS Yes [id number] TAKE 1 Uni vers SULFATE 325 2-03 TABLET BY ity of mg (65 mg 00:00: MOUTH [place] iron) 00 TWICE A Medical tablet DAY Branch FERROUS 3-0 Yes [id number] TAKE 1 Uni vers SULFATE 325 2-03 TABLET BY ity of mg (65 mg 00:00: MOUTH [place] iron) 00 TWICE A Medical tablet DAY Branch FERROUS 2023-0 2023- No [id number] TAKE 1 Un jose juan SULFATE 325 2-03 08-09 TABLET BY it y of mg (65 mg 00:00: 00:00 MOUTH [place] iron) 00 :00 TWICE A Medical tablet DAY Branch LOSARTAN 2022-0 Yes [id number] TAKE 1 Uni vers 100 mg 1-04 TABLET BY ity of tablet 00:00: MOUTH [place] 00 EVERY DAY Medical Branch LOSARTAN 3-0 Yes [id number] TAKE 1 Uni vers 100 mg 1-04 TABLET BY ity of tablet 00:00: MOUTH [place] 00 EVERY DAY Medical Branch LOSARTAN 2023-0 Yes [id number] TAKE 1 Uni vers 100 mg 1-04 TABLET BY ity of tablet 00:00: MOUTH [place] 00 EVERY DAY Medical Branch LOSARTAN 3-0 Yes [id number] TAKE 1 Uni vers 100 mg 1-04 TABLET BY ity of tablet 00:00: MOUTH [place] 00 EVERY DAY Medical Branch LOSARTAN 2023-0 Yes [id number] TAKE 1 Uni vers 100 mg 1-04 TABLET BY ity of tablet 00:00: MOUTH [place] 00 EVERY DAY Medical Branch LOSARTAN 2023-0 Yes [id number] TAKE 1 Uni vers 100 mg 1-04 TABLET BY ity of tablet 00:00: MOUTH [place] 00 EVERY DAY Medical Branch LOSARTAN 2023-0 Yes [id number] TAKE 1 Uni vers 100 mg 1-04 TABLET BY ity of tablet 00:00: MOUTH [place] 00 EVERY DAY Medical Branch LOSARTAN 2023-0 Yes [id number] TAKE 1 Uni vers 100 mg 1-04 TABLET BY ity of tablet 00:00: MOUTH [place] 00 EVERY DAY Medical Branch LOSARTAN 2023-0 Yes [id number] TAKE 1 Uni vers 100 mg 1-04 TABLET BY ity of tablet 00:00: MOUTH [place] 00 EVERY DAY Medical Branch LOSARTAN 2023-0 Yes [id number] TAKE 1 Uni vers 100 mg 1-04 TABLET BY ity of tablet 00:00: MOUTH [place] 00 EVERY DAY Medical Branch LOSARTAN 2023-0 Yes [id number] TAKE 1 Uni vers 100 mg 1-04 TABLET BY ity of tablet 00:00: MOUTH [place] 00 EVERY DAY Medical Branch LOSARTAN 3-0 Yes [id number] TAKE 1 Uni vers 100 mg 1-04 TABLET BY ity of tablet 00:00: MOUTH [place] 00 EVERY DAY Medical Branch LOSARTAN 2021-11 Yes [id number] TAKE 1 Uni vers 100 mg 2-13 TABLET BY ity of tablet 00:00: MOUTH [place] 00 EVERY DAY Medical Branch LOSARTAN 2021-113- No [id number] TAKE 1 Un jose juan 100 mg 2-13 01-04 TABLET BY ity of tablet 00:00: 00:00 MOUTH [place] 00 :00 EVERY DAY Medical Branch CITALOPRAM 2021-11 Yes [id number] TAKE 1 Univers 40 mg 1-15 TABLET BY ity of tablet 00:00: MOUTH [place] 00 EVERY DAY Medical Branch CITALOPRAM 2021-11 Yes [id number] TAKE 1 Univers 40 mg 1-15 TABLET BY ity of tablet 00:00: MOUTH [place] 00 EVERY DAY Medical Branch CITALOPRAM 2021-11 Yes [id number] TAKE 1 Univers 40 mg 1-15 TABLET BY ity of tablet 00:00: MOUTH [place] 00 EVERY DAY Medical Branch CITALOPRAM 2021-11 Yes [id number] TAKE 1 Univers 40 mg 1-15 TABLET BY ity of tablet 00:00: MOUTH [place] 00 EVERY DAY Medical Branch CITALOPRAM 2021-11 Yes [id number] TAKE 1 Univers 40 mg 1-15 TABLET BY ity of tablet 00:00: MOUTH [place] 00 EVERY DAY Medical Branch CITALOPRAM 2021-11 Yes [id number] TAKE 1 Univers 40 mg 1-15 TABLET BY ity of tablet 00:00: MOUTH [place] 00 EVERY DAY Medical Branch CITALOPRAM 2021-11 Yes [id number] TAKE 1 Univers 40 mg 1-15 TABLET BY ity of tablet 00:00: MOUTH [place] 00 EVERY DAY Medical Branch CITALOPRAM 2021-11 Yes [id number] TAKE 1 Univers 40 mg 1-15 TABLET BY ity of tablet 00:00: MOUTH [place] 00 EVERY DAY Medical Branch CITALOPRAM 2021-11 Yes [id number] TAKE 1 Univers 40 mg 1-15 TABLET BY ity of tablet 00:00: MOUTH [place] 00 EVERY DAY Medical Branch CITALOPRAM 2021-11 Yes [id number] TAKE 1 Univers 40 mg 1-15 TABLET BY ity of tablet 00:00: MOUTH [place] 00 EVERY DAY Medical Branch CITALOPRAM 2021-11 2023- No [id number] TAKE 1 Univers 40 mg 1-15 -27 TABLET BY ity of tablet 00:00: 00:00 MOUTH [place] 00 :00 EVERY DAY Medical Branch CYANOCOBALA 2021-11 Yes [id number] 1000ug INJECT 1 Univers MIN 1,000 1-11 ML UNDER ity of mcg/mL 00:00: THE SKIN [place] injection 00 EVERY 2 Medical (TWO) Branch WEEKS. CYANOCOBALA 2021-11 Yes [id number] 1000ug INJECT 1 Univers MIN 1,000 1-11 ML UNDER ity of mcg/mL 00:00: THE SKIN [place] injection 00 EVERY 2 Medical (TWO) Branch WEEKS. CYANOCOBALA 2021-11 Yes [id number] 1000ug INJECT 1 Univers MIN 1,000 1-11 ML UNDER ity of mcg/mL 00:00: THE SKIN [place] injection 00 EVERY 2 Medical (TWO) Branch WEEKS. CYANOCOBALA 2021-11 Yes [id number] 1000ug INJECT 1 Univers MIN 1,000 1-11 ML UNDER ity of mcg/mL 00:00: THE SKIN [place] injection 00 EVERY 2 Medical (TWO) Branch WEEKS. CYANOCOBALA 2021-11 Yes [id number] 1000ug INJECT 1 Univers MIN 1,000 1-11 ML UNDER ity of mcg/mL 00:00: THE SKIN [place] injection 00 EVERY 2 Medical (TWO) Branch WEEKS. CYANOCOBALA 2021-11 Yes [id number] 1000ug INJECT 1 Univers MIN 1,000 1-11 ML UNDER ity of mcg/mL 00:00: THE SKIN [place] injection 00 EVERY 2 Medical (TWO) Branch WEEKS. CYANOCOBALA 2021-11 Yes [id number] 1000ug INJECT 1 Univers MIN 1,000 1-11 ML UNDER ity of mcg/mL 00:00: THE SKIN [place] injection 00 EVERY 2 Medical (TWO) Branch WEEKS. CYANOCOBALA 2021-11 Yes [id number] 1000ug INJECT 1 Univers MIN 1,000 1-11 ML UNDER ity of mcg/mL 00:00: THE SKIN [place] injection 00 EVERY 2 Medical (TWO) Branch WEEKS. CYANOCOBALA 2021-11 Yes [id number] 1000ug INJECT 1 Univers MIN 1,000 1-11 ML UNDER ity of mcg/mL 00:00: THE SKIN [place] injection 00 EVERY 2 Medical (TWO) Branch WEEKS. CYANOCOBALA 2021-11 Yes [id number] 1000ug INJECT 1 Univers MIN 1,000 1-11 ML UNDER ity of mcg/mL 00:00: THE SKIN [place] injection 00 EVERY 2 Medical (TWO) Branch WEEKS. CYANOCOBALA 1 Yes [id number] 1000ug INJECT 1 Univers MIN 1,000 1-11 ML UNDER ity of mcg/mL 00:00: THE SKIN [place] injection 00 EVERY 2 Medical (TWO) Branch WEEKS. CYANOCOBALA 2021-11 Yes [id number] 1000ug INJECT 1 Univers MIN 1,000 1-11 ML UNDER ity of mcg/mL 00:00: THE SKIN [place] injection 00 EVERY 2 Medical (TWO) Branch WEEKS. CYANOCOBALA 2021-11 Yes [id number] 1000ug INJECT 1 Univers MIN 1,000 1-11 ML UNDER ity of mcg/mL 00:00: THE SKIN [place] injection 00 EVERY 2 Medical (TWO) Branch WEEKS. CYANOCOBALA 2021-11 Yes [id number] 1000ug INJECT 1 Univers MIN 1,000 1-11 ML UNDER ity of mcg/mL 00:00: THE SKIN [place] injection 00 EVERY 2 Medical (TWO) Branch WEEKS. CYANOCOBALA 1 Yes [id number] 1000ug INJECT 1 Univers MIN 1,000 1-11 ML UNDER ity of mcg/mL 00:00: THE SKIN [place] injection 00 EVERY 2 Medical (TWO) Branch WEEKS. CYANOCOBALA 1 Yes [id number] 1000ug INJECT 1 Univers MIN 1,000 1-11 ML UNDER ity of mcg/mL 00:00: THE SKIN [place] injection 00 EVERY 2 Medical (TWO) Branch WEEKS. ESZOPICLONE 2021- Yes [id number] TAKE 1 Univers 3 mg tablet 0-18 TABLET BY ity of 00:00: MOUTH [place] 00 EVERYDAY Medical AT BEDTIME Branch ESZOPICLONE 2021- Yes [id number] TAKE 1 Univers 3 mg tablet 0-18 TABLET BY ity of 00:00: MOUTH [place] 00 EVERYDAY Medical AT BEDTIME Branch ESZOPICLONE 2021- Yes [id number] TAKE 1 Univers 3 mg tablet 0-18 TABLET BY ity of 00:00: MOUTH [place] 00 EVERYDAY Medical AT BEDTIME Branch ESZOPICLONE 2021-11 Yes [id number] TAKE 1 Univers 3 mg tablet 0-18 TABLET BY ity of 00:00: MOUTH [place] 00 EVERYDAY Medical AT BEDTIME [facility] Yes [id number] TAKE 1 Univers 3 mg tablet 0-18 TABLET BY ity of 00:00: MOUTH [place] 00 [facility] [id number] [facility] Univers 3 mg tablet 0-18 TABLET BY ity of 00:00: MOUTH [place] 00 EVERYDAY [facility] [id number] TAKE 1 Univers 3 mg tablet 0-18 TABLET BY ity of 00:00: MOUTH [place] 00 EVERYDAY Medical AT BEDTIME [facility] 2021-11 Yes [id number] TAKE 1 Univers 3 mg tablet 0-18 TABLET BY ity of 00:00: MOUTH 00 EVERYDAY Medical AT [facility] 2021-11 Yes [id number] TAKE 1 Univers 3 mg tablet 0-18 TABLET BY ity of 00:00: MOUTH 00 EVERYDAY Medical AT BEDTIME [facility] 2021- Yes [id number] TAKE 1 Univers 3 mg tablet 0-18 TABLET BY ity of 00:00: MOUTH 00 EVERYDAY Medical AT BEDTIME [facility] 2021-11 Yes [id number] TAKE 1 Univers 3 mg tablet 0-18 TABLET BY ity of 00:00: [facility]OUTH 00 [facility] [id number] 1 Univers 3 mg tablet 0-18 TABLET BY ity of 00:00: MOUTH 00 EVERYDAY Medical [facility]- Yes [id number] TAKE 1 Univers 3 mg tablet 0-18 TABLET BY ity of 00:00: MOUTH 00 EVERYDAY Medical AT BEDTIME [facility] Yes [id number] TAKE 1 Univers 3 mg tablet 0-18 TABLET BY ity of 00:00: MOUTH [place] 00 EVERYDAY Medical AT BEDTIME [facility]-11 Yes [id number] TAKE 1 Univers 3 mg tablet 0-18 TABLET BY ity of 00:00: MOUTH [place] 00 EVERYDAY [facility] [id number] TAKE 1 Univers 3 mg tablet 0-18 TABLET BY ity of 00:00: MOUTH [place] 00 EVERYDAY Medical AT BEDTIME Branch ESZOPICLONE 2021-11 Yes [id number] TAKE 1 Univers 3 mg tablet 0-18 TABLET BY ity of 00:00: MOUTH [place] 00 EVERYDAY Medical AT BEDTIME Branch METOPROLOL 0 Yes [id number] TAKE 1 U nivers TARTRATE 9-06 TABLET BY ity of 100 mg 00:00: MOUTH [place] tablet 00 TWICE A Medical DAY Branch METOPROLOL 2021-0 Yes [id number] TAKE 1 U nivers TARTRATE 9-06 TABLET BY ity of 100 mg 00:00: MOUTH [place] tablet 00 TWICE A Medical DAY Branch METOPROLOL 0 Yes [id number] TAKE 1 U nivers TARTRATE 9-06 TABLET BY ity of 100 mg 00:00: MOUTH [place] tablet 00 TWICE A Medical DAY Branch METOPROLOL 0 Yes [id number] TAKE 1 U nivers TARTRATE 9-06 TABLET BY ity of 100 mg 00:00: MOUTH [place] tablet 00 TWICE A Medical DAY Branch METOPROLOL 0 Yes [id number] TAKE 1 U nivers TARTRATE 9-06 TABLET BY ity of 100 mg 00:00: MOUTH [place] tablet 00 TWICE A Medical DAY Branch METOPROLOL 0 Yes [id number] TAKE 1 U nivers TARTRATE 9-06 TABLET BY ity of 100 mg 00:00: MOUTH [place] tablet 00 TWICE A Medical DAY Branch METOPROLOL 2021-0 Yes [id number] TAKE 1 U nivers TARTRATE 9-06 TABLET BY ity of 100 mg 00:00: MOUTH [place] tablet 00 TWICE A Medical DAY Branch METOPROLOL 2021-0 Yes [id number] TAKE 1 U nivers TARTRATE 9-06 TABLET BY ity of 100 mg 00:00: MOUTH [place] tablet 00 TWICE A Medical DAY Branch METOPROLOL 2021-0 Yes [id number] TAKE 1 U nivers TARTRATE 9-06 TABLET BY ity of 100 mg 00:00: MOUTH [place] tablet 00 TWICE A Medical DAY Branch METOPROLOL 2021-0 Yes [id number] TAKE 1 U nivers TARTRATE 9-06 TABLET BY ity of 100 mg 00:00: MOUTH [place] tablet 00 TWICE A Medical DAY Branch METOPROLOL 2021-0 Yes [id number] TAKE 1 U nivers TARTRATE 9-06 TABLET BY ity of 100 mg 00:00: MOUTH [place] tablet 00 TWICE A Medical DAY Branch METOPROLOL Yes [id number] TAKE 1 U nivers TARTRATE 9-06 TABLET BY ity of 100 mg 00:00: MOUTH [place] tablet 00 TWICE A Medical DAY Branch METOPROLOL Yes [id number] TAKE 1 U nivers TARTRATE 9-06 TABLET BY ity of 100 mg 00:00: MOUTH [place] tablet 00 TWICE A Medical DAY Branch METOPROLOL Yes [id number] TAKE 1 U nivers TARTRATE 9-06 TABLET BY ity of 100 mg 00:00: MOUTH [place] tablet 00 TWICE A Medical DAY Branch METOPROLOL Yes [id number] TAKE 1 U nivers TARTRATE 9-06 TABLET BY ity of 100 mg 00:00: MOUTH [place] tablet 00 TWICE A Medical DAY Branch METOPROLOL Yes [id number] TAKE 1 U nivers TARTRATE 9-06 TABLET BY ity of 100 mg 00:00: MOUTH [place] tablet 00 TWICE A Medical DAY Branch METOPROLOL Yes [id number] TAKE 1 U nivers TARTRATE 9-06 TABLET BY ity of 100 mg 00:00: MOUTH [place] tablet 00 TWICE A Medical DAY Branch METOPROLOL Yes [id number] TAKE 1 U nivers TARTRATE 9-06 TABLET BY ity of 100 mg 00:00: MOUTH [place] tablet 00 TWICE A Medical DAY Branch FUROSEMIDE Yes [id number] 40mg TAKE 2 U nivers 20 mg 8-10 TABLETS BY ity of tablet 00:00: MOUTH [place] 00 DAILY Medical Branch FERROUS 2021-0 Yes [id number] TAKE 1 Uni vers SULFATE 325 8-10 TABLET BY ity of mg (65 mg 00:00: MOUTH [place] iron) 00 TWICE A Medical tablet DAY Branch CYANOCOBALA Yes [id number] 1000ug INJECT 1 Univers MIN 1,000 8-10 ML UNDER ity of mcg/mL 00:00: THE SKIN [place] injection 00 EVERY 2 Medical (TWO) Branch WEEKS. FUROSEMIDE Yes [id number] 40mg TAKE 2 U nivers 20 mg 8-10 TABLETS BY ity of tablet 00:00: MOUTH [place] 00 DAILY Medical Branch FERROUS 2021-0 Yes [id number] TAKE 1 Uni vers SULFATE 325 8-10 TABLET BY ity of mg (65 mg 00:00: MOUTH [place] iron) 00 TWICE A Medical tablet DAY Branch CYANOCOBALA Yes [id number] 1000ug INJECT 1 Univers MIN 1,000 8-10 ML UNDER ity of mcg/mL 00:00: THE SKIN [place] injection 00 EVERY 2 Medical (TWO) Branch WEEKS. FUROSEMIDE 2021-0 Yes [id number] 40mg TAKE 2 U nivers 20 mg 8-10 TABLETS BY ity of tablet 00:00: MOUTH [place] 00 DAILY Medical Branch FERROUS 2021-0 Yes [id number] TAKE 1 Uni vers SULFATE 325 8-10 TABLET BY ity of mg (65 mg 00:00: MOUTH [place] iron) 00 TWICE A Medical tablet DAY Branch CYANOCOBALA Yes [id number] 1000ug INJECT 1 Univers MIN 1,000 8-10 ML UNDER ity of mcg/mL 00:00: THE SKIN [place] injection 00 EVERY 2 Medical (TWO) Branch WEEKS. FUROSEMIDE 2021-0 Yes [id number] 40mg TAKE 2 U nivers 20 mg 8-10 TABLETS BY ity of tablet 00:00: MOUTH [place] 00 DAILY Medical Branch FERROUS 2021-0 Yes [id number] TAKE 1 Uni vers SULFATE 325 8-10 TABLET BY ity of mg (65 mg 00:00: MOUTH [place] iron) 00 TWICE A Medical tablet DAY Branch CYANOCOBALA Yes [id number] 1000ug INJECT 1 Univers MIN 1,000 8-10 ML UNDER ity of mcg/mL 00:00: THE SKIN [place] injection 00 EVERY 2 Medical (TWO) Branch WEEKS. FUROSEMIDE 2021-0 Yes [id number] 40mg TAKE 2 U nivers 20 mg 8-10 TABLETS BY ity of tablet 00:00: MOUTH [place] 00 DAILY Medical Branch FERROUS 2021-0 Yes [id number] TAKE 1 Uni vers SULFATE 325 8-10 TABLET BY ity of mg (65 mg 00:00: MOUTH [place] iron) 00 TWICE A Medical tablet DAY Branch CYANOCOBALA Yes [id number] 1000ug INJECT 1 Univers MIN 1,000 8-10 ML UNDER ity of mcg/mL 00:00: THE SKIN [place] injection 00 EVERY 2 Medical (TWO) Branch WEEKS. FUROSEMIDE 2021-0 Yes [id number] 40mg TAKE 2 U nivers 20 mg 8-10 TABLETS BY ity of tablet 00:00: MOUTH [place] 00 DAILY Medical Branch FERROUS 2022-0 Yes [id number] TAKE 1 Uni vers SULFATE 325 8-10 TABLET BY ity of mg (65 mg 00:00: MOUTH [place] iron) 00 TWICE A Medical tablet DAY Branch FUROSEMIDE 2-0 Yes [id number] 40mg TAKE 2 U nivers 20 mg 8-10 TABLETS BY ity of tablet 00:00: MOUTH [place] 00 DAILY Medical Branch FERROUS 2022-0 Yes [id number] TAKE 1 Uni vers SULFATE 325 8-10 TABLET BY ity of mg (65 mg 00:00: MOUTH [place] iron) 00 TWICE A Medical tablet DAY Branch FUROSEMIDE 2021-0 Yes [id number] 40mg TAKE 2 U nivers 20 mg 8-10 TABLETS BY ity of tablet 00:00: MOUTH [place] 00 DAILY Medical Branch FERROUS 2-0 Yes [id number] TAKE 1 Uni vers SULFATE 325 8-10 TABLET BY ity of mg (65 mg 00:00: MOUTH [place] iron) 00 TWICE A Medical tablet DAY Branch FUROSEMIDE 2021-0 Yes [id number] 40mg TAKE 2 U nivers 20 mg 8-10 TABLETS BY ity of tablet 00:00: MOUTH [place] 00 DAILY Medical Branch FERROUS 2022-0 Yes [id number] TAKE 1 Uni vers SULFATE 325 8-10 TABLET BY ity of mg (65 mg 00:00: MOUTH [place] iron) 00 TWICE A Medical tablet DAY Branch FUROSEMIDE 2021-0 Yes [id number] 40mg TAKE 2 U nivers 20 mg 8-10 TABLETS BY ity of tablet 00:00: MOUTH [place] 00 DAILY Medical Branch FERROUS 2022-0 Yes [id number] TAKE 1 Uni vers SULFATE 325 8-10 TABLET BY ity of mg (65 mg 00:00: MOUTH [place] iron) 00 TWICE A Medical tablet DAY Branch FUROSEMIDE 2-0 Yes [id number] 40mg TAKE 2 U nivers 20 mg 8-10 TABLETS BY ity of tablet 00:00: MOUTH [place] 00 DAILY Medical Branch FERROUS 2022-0 Yes [id number] TAKE 1 Uni vers SULFATE 325 8-10 TABLET BY ity of mg (65 mg 00:00: MOUTH [place] iron) 00 TWICE A Medical tablet DAY Branch FUROSEMIDE 2-0 Yes [id number] 40mg TAKE 2 U nivers 20 mg 8-10 TABLETS BY ity of tablet 00:00: MOUTH [place] 00 DAILY Medical Branch FERROUS 2022-0 Yes [id number] TAKE 1 Uni vers SULFATE 325 8-10 TABLET BY ity of mg (65 mg 00:00: MOUTH [place] iron) 00 TWICE A Medical tablet DAY Branch FUROSEMIDE 2022-0 Yes [id number] 40mg TAKE 2 U nivers 20 mg 8-10 TABLETS BY ity of tablet 00:00: MOUTH [place] 00 DAILY Medical Branch FERROUS 2022-0 Yes [id number] TAKE 1 Uni vers SULFATE 325 8-10 TABLET BY ity of mg (65 mg 00:00: MOUTH [place] iron) 00 TWICE A Medical tablet DAY Branch FUROSEMIDE 2022-0 Yes [id number] 40mg TAKE 2 U nivers 20 mg 8-10 TABLETS BY ity of tablet 00:00: MOUTH 00 DAILY Medical Branch FERROUS 2022-0 Yes [id number] TAKE 1 Uni vers SULFATE 325 8-10 TABLET BY ity of mg (65 mg 00:00: [facility] iron) 00 TWICE A Medical tablet DAY Branch FUROSEMIDE 2022-0 Yes [id number] 40mg TAKE 2 U nivers 20 mg 8-10 TABLETS BY ity of tablet 00:00: MOUTH DAILY Medical Branch FUROSEMIDE 2022-0 Yes [id number] 40mg TAKE 2 U nivers 20 mg 8-10 TABLETS BY ity of tablet 00:00: MOUTH DAILY Medical Branch FUROSEMIDE 2022-0 Yes [id number] 40mg TAKE 2 U nivers 20 mg 8-10 TABLETS BY ity of tablet 00:00: MOUTH DAILY Medical Branch FUROSEMIDE 2022-0 Yes [id number] 40mg TAKE 2 U nivers 20 mg 8-10 TABLETS BY ity of tablet 00:00: MOUTH DAILY Medical Branch FUROSEMIDE 2022-0 Yes [id number] 40mg TAKE 2 U nivers 20 mg 8-10 TABLETS BY ity of tablet 00:00: MOUTH DAILY Medical Branch FUROSEMIDE 2022-0 Yes [id number] 40mg TAKE 2 U nivers 20 mg 8-10 TABLETS BY ity of tablet 00:00: MOUTH DAILY Medical Branch FUROSEMIDE 2022-0 Yes [id number] 40mg TAKE 2 U nivers 20 mg 8-10 TABLETS BY ity of tablet 00:00: MOUTH DAILY Medical Branch FUROSEMIDE 2022-0 Yes [id number] 40mg TAKE 2 U nivers 20 mg 8-10 TABLETS BY ity of tablet 00:00: MOUTH DAILY Medical Branch FERROUS 2022-0 2023- No [id number] TAKE 1 Un jose juan SULFATE 325 8-10 02-03 TABLET BY it y of mg (65 mg 00:00: 00:00 MOUTH [place] iron) 00 :00 TWICE A Medical tablet DAY Branch CYANOCOBALA 2021- No [id number] 1000ug INJECT 1 Univers MIN 1,000 8-10 11-11 ML UNDER ity o f mcg/mL 00:00: 00:00 THE SKIN [place] injection 00 :00 EVERY 2 Medical (TWO) Branch WEEKS. FUROSEMIDE Yes [id number] 40mg TAKE 2 U nivers 20 mg 7-30 TABLETS BY ity of tablet 00:00: MOUTH [place] 00 DAILY Medical Branch FUROSEMIDE 2021- No [id number] 40mg TAKE 2 Univers 20 mg 7-30 08-10 TABLETS BY ity of tablet 00:00: 00:00 MOUTH [place] 00 :00 DAILY Medical Branch PROMETHAZIN 0 Yes [id number] TAKE 1 Univers E 25 mg 7-25 TABLET BY ity of tablet 00:00: MOUTH [place] 00 EVERY 8 Medical HOURS Branch NEEDED FOR NAUSEA AND VOMITING ACETAMINOPH 0 Yes [id number] TAKE 1 Univers EN-CODEINE 7-25 TABLET BY ity of 300-30 mg 00:00: MOUTH [place] tablet 00 EVERY 4 Medical HOURS Branch NEEDED FOR PAIN (SCALE 4-6). INDICATION S: CHRONIC PAIN PROMETHAZIN Yes [id number] TAKE 1 Univers E 25 mg 7-25 TABLET BY ity of tablet 00:00: MOUTH [place] 00 EVERY 8 Medical HOURS Branch NEEDED FOR NAUSEA AND VOMITING ACETAMINOPH 2021-0 Yes [id number] TAKE 1 Univers EN-CODEINE 7-25 TABLET BY ity of 300-30 mg 00:00: MOUTH [place] tablet 00 EVERY 4 Medical HOURS Branch NEEDED FOR PAIN (SCALE 4-6). INDICATION S: CHRONIC PAIN PROMETHAZIN 2021-0 Yes [id number] TAKE 1 Univers E 25 mg 7-25 TABLET BY ity of tablet 00:00: MOUTH [place] 00 EVERY 8 Medical HOURS Branch NEEDED FOR NAUSEA AND VOMITING ACETAMINOPH 2021-0 Yes [id number] TAKE 1 Univers EN-CODEINE 7-25 TABLET BY ity of 300-30 mg 00:00: MOUTH [place] tablet 00 EVERY 4 [facility] HOURS [facility] NEEDED FOR PAIN (SCALE 4-6). INDICATION S: CHRONIC PAIN PROMETHAZIN 2021-0 Yes [id number] TAKE 1 [facility] 25 mg 7-25 TABLET BY [facility] tablet 00:00: MOUTH [place] 00 EVERY 8 Medical HOURS Branch NEEDED FOR NAUSEA AND VOMITING ACETAMINOPH 2022-0 Yes [id number] TAKE 1 [facility] EN-CODEINE 7-25 TABLET BY [facility] 300-30 mg 00:00: MOUTH [place] tablet 00 EVERY 4 Medical HOURS [facility] NEEDED FOR PAIN (SCALE 4-6). INDICATION S: CHRONIC PAIN PROMETHAZIN 2022-0 Yes [id number] TAKE 1 [facility] E 25 mg 7-25 TABLET BY [facility] tablet 00:00: MOUTH [place] 00 EVERY 8 Medical HOURS Branch NEEDED FOR NAUSEA AND VOMITING ACETAMINOPH 2022-0 Yes [id number] TAKE 1 [facility] EN-CODEINE 7-25 TABLET BY [facility] 300-30 mg 00:00: MOUTH [place] tablet 00 EVERY 4 Medical HOURS Branch NEEDED FOR PAIN (SCALE 4-6). INDICATION S: CHRONIC PAIN PROMETHAZIN 2-0 Yes [id number] TAKE 1 [facility] E 25 mg 7-25 TABLET BY [facility] tablet 00:00: MOUTH [place] 00 EVERY 8 Medical HOURS Branch NEEDED FOR NAUSEA AND VOMITING ACETAMINOPH 2022-0 Yes [id number] TAKE 1 [facility] EN-CODEINE 7-25 TABLET BY [facility] 300-30 mg 00:00: MOUTH [place] tablet 00 EVERY 4 Medical HOURS Branch NEEDED FOR PAIN (SCALE 4-6). INDICATION S: CHRONIC PAIN PROMETHAZIN 2-0 Yes [id number] TAKE 1 [facility] E 25 mg 7-25 TABLET BY [facility] tablet 00:00: MOUTH [place] 00 EVERY 8 Medical HOURS Branch NEEDED FOR NAUSEA AND VOMITING ACETAMINOPH 2022-0 Yes [id number] TAKE 1 [facility] EN-CODEINE 7-25 TABLET BY [facility] of 300-30 mg 00:00: MOUTH [place] tablet 00 EVERY 4 Medical HOURS Branch NEEDED FOR PAIN (SCALE 4-6). INDICATION S: CHRONIC PAIN PROMETHAZIN 2022-0 Yes [id number] TAKE 1 [facility] 25 mg 7-25 TABLET BY [facility] tablet 00:00: MOUTH [place] 00 EVERY 8 Medical HOURS Branch NEEDED FOR NAUSEA AND VOMITING ACETAMINOPH 2022-0 Yes [id number] TAKE 1 [facility] EN-CODEINE 7-25 TABLET BY [facility] 300-30 mg 00:00: MOUTH [place] tablet 00 EVERY 4 Medical HOURS [facility] NEEDED FOR PAIN (SCALE 4-6). INDICATION S: CHRONIC PAIN PROMETHAZIN 2022-0 Yes [id number] TAKE 1 [facility] 25 mg 7-25 TABLET BY [facility] tablet 00:00: MOUTH [place] 00 EVERY 8 Medical HOURS Branch NEEDED FOR NAUSEA AND VOMITING ACETAMINOPH 2022-0 Yes [id number] TAKE 1 [facility] EN-CODEINE 7-25 TABLET BY [facility] 300-30 mg 00:00: MOUTH [place] tablet 00 EVERY 4 Medical HOURS [facility] NEEDED FOR PAIN (SCALE 4-6). INDICATION S: CHRONIC PAIN PROMETHAZIN 2022-0 Yes [id number] TAKE 1 [facility] 25 mg 7-25 TABLET BY [facility] tablet 00:00: MOUTH [place] 00 EVERY 8 Medical HOURS Branch NEEDED FOR NAUSEA AND VOMITING ACETAMINOPH 2022-0 Yes [id number] TAKE 1 [facility] EN-CODEINE 7-25 TABLET BY [facility] 300-30 mg 00:00: MOUTH [place] tablet 00 EVERY 4 Medical HOURS [facility] NEEDED FOR PAIN (SCALE 4-6). INDICATION S: CHRONIC PAIN PROMETHAZIN 2022-0 Yes [id number] TAKE 1 [facility] 25 mg 7-25 TABLET BY [facility] tablet 00:00: MOUTH [place] 00 EVERY 8 Medical HOURS [facility] NEEDED FOR NAUSEA AND VOMITING ACETAMINOPH 2022-0 Yes [id number] TAKE 1 [facility] EN-CODEINE 7-25 TABLET BY [facility] 300-30 mg 00:00: MOUTH [place] tablet 00 EVERY 4 Medical HOURS [facility] NEEDED FOR PAIN (SCALE 4-6). INDICATION S: CHRONIC PAIN PROMETHAZIN 2022-0 Yes [id number] TAKE 1 [facility] 25 mg 7-25 TABLET BY [facility] tablet 00:00: MOUTH [place] 00 EVERY 8 Medical HOURS [facility] NEEDED FOR NAUSEA AND VOMITING ACETAMINOPH 2022-0 Yes [id number] TAKE 1 [facility] EN-CODEINE 7-25 TABLET BY [facility] 300-30 mg 00:00: MOUTH [place] tablet 00 EVERY 4 Medical HOURS [facility] NEEDED FOR PAIN (SCALE 4-6). INDICATION S: CHRONIC PAIN PROMETHAZIN 2022-0 Yes [id number] TAKE 1 [facility] 25 mg 7-25 TABLET BY [facility] tablet 00:00: MOUTH [place] 00 EVERY 8 Medical HOURS Branch NEEDED FOR NAUSEA AND VOMITING ACETAMINOPH 2022-0 Yes [id number] TAKE 1 [facility] EN-CODEINE 7-25 TABLET BY [facility] of 300-30 mg 00:00: MOUTH [place] tablet 00 EVERY 4 Medical HOURS [facility] NEEDED FOR PAIN (SCALE 4-6). INDICATION S: CHRONIC PAIN PROMETHAZIN 2022-0 Yes [id number] TAKE 1 [facility] 25 mg 7-25 TABLET BY [facility] tablet 00:00: MOUTH [place] 00 EVERY 8 Medical HOURS Branch NEEDED FOR NAUSEA AND VOMITING ACETAMINOPH 2022-0 Yes [id number] TAKE 1 [facility] EN-CODEINE 7-25 TABLET BY [facility] of 300-30 mg 00:00: MOUTH [place] tablet 00 EVERY 4 Medical HOURS [facility] NEEDED FOR PAIN (SCALE 4-6). INDICATION S: CHRONIC PAIN PROMETHAZIN 2022-0 Yes [id number] TAKE 1 [facility] 25 mg 7-25 TABLET BY [facility] tablet 00:00: MOUTH [place] 00 EVERY 8 Medical HOURS [facility] NEEDED FOR NAUSEA AND VOMITING ACETAMINOPH 2022-0 Yes [id number] TAKE 1 [facility] EN-CODEINE 7-25 TABLET BY [facility] 300-30 mg 00:00: MOUTH [place] tablet 00 EVERY 4 Medical HOURS [facility] NEEDED FOR PAIN (SCALE 4-6). INDICATION S: CHRONIC PAIN PROMETHAZIN 2022-0 Yes [id number] TAKE 1 [facility] 25 mg 7-25 TABLET BY [facility] tablet 00:00: MOUTH [place] 00 EVERY 8 Medical HOURS [facility] NEEDED FOR NAUSEA AND VOMITING ACETAMINOPH 2022-0 Yes [id number] TAKE 1 [facility] EN-CODEINE 7-25 TABLET BY [facility] 300-30 mg 00:00: MOUTH [place] tablet 00 EVERY 4 Medical HOURS [facility] NEEDED FOR PAIN (SCALE 4-6). INDICATION S: CHRONIC PAIN PROMETHAZIN 2022-0 Yes [id number] TAKE 1 [facility] 25 mg 7-25 TABLET BY [facility] tablet 00:00: MOUTH [place] 00 EVERY 8 Medical HOURS [facility] NEEDED FOR NAUSEA AND VOMITING ACETAMINOPH 2022-0 Yes [id number] TAKE 1 [facility] EN-CODEINE 7-25 TABLET BY [facility] of 300-30 mg 00:00: MOUTH [place] tablet 00 EVERY 4 Medical HOURS [facility] NEEDED FOR PAIN (SCALE 4-6). INDICATION S: CHRONIC PAIN PROMETHAZIN 2022-0 Yes [id number] TAKE 1 [facility] 25 mg 7-25 TABLET BY [facility] tablet 00:00: MOUTH [place] 00 EVERY 8 Medical HOURS [facility] NEEDED FOR NAUSEA AND VOMITING ACETAMINOPH 2022-0 Yes [id number] TAKE 1 [facility] EN-CODEINE 7-25 TABLET BY [facility] 300-30 mg 00:00: MOUTH [place] tablet 00 EVERY 4 Medical HOURS [facility] NEEDED FOR PAIN (SCALE 4-6). INDICATION S: CHRONIC PAIN PROMETHAZIN 2022-0 Yes [id number] TAKE 1 [facility] 25 mg 7-25 TABLET BY [facility] tablet 00:00: MOUTH [place] 00 EVERY 8 Medical HOURS [facility] NEEDED FOR NAUSEA AND VOMITING ACETAMINOPH 2022-0 Yes [id number] TAKE 1 [facility] EN-CODEINE 7-25 TABLET BY [facility] of 300-30 mg 00:00: MOUTH [place] tablet 00 EVERY 4 Medical HOURS [facility] NEEDED FOR PAIN (SCALE 4-6). INDICATION S: CHRONIC PAIN PROMETHAZIN 2022-0 Yes [id number] TAKE 1 [facility] 25 mg 7-25 TABLET BY [facility] tablet 00:00: MOUTH [place] 00 EVERY 8 Medical HOURS [facility] NEEDED FOR NAUSEA AND VOMITING ACETAMINOPH 2022-0 Yes [id number] TAKE 1 [facility] EN-CODEINE 7-25 TABLET BY [facility] of 300-30 mg 00:00: MOUTH [place] tablet 00 EVERY 4 Medical HOURS [facility] NEEDED FOR PAIN (SCALE 4-6). INDICATION S: CHRONIC PAIN PROMETHAZIN 2022-0 Yes [id number] TAKE 1 [facility] 25 mg 7-25 TABLET BY [facility] tablet 00:00: MOUTH [place] 00 EVERY 8 Medical HOURS [facility] NEEDED FOR NAUSEA AND VOMITING ACETAMINOPH 2022-0 Yes [id number] TAKE 1 [facility] EN-CODEINE 7-25 TABLET BY [facility] of 300-30 mg 00:00: MOUTH [place] tablet 00 EVERY 4 Medical HOURS [facility] NEEDED FOR PAIN (SCALE 4-6). INDICATION S: CHRONIC PAIN PROMETHAZIN 2022-0 Yes [id number] TAKE 1 [facility] 25 mg 7-25 TABLET BY [facility] tablet 00:00: MOUTH [place] 00 EVERY 8 Medical HOURS [facility] NEEDED FOR NAUSEA AND VOMITING ACETAMINOPH 2022-0 Yes [id number] TAKE 1 [facility] EN-CODEINE 7-25 TABLET BY [facility] 300-30 mg 00:00: MOUTH [place] tablet 00 EVERY 4 Medical HOURS [facility] NEEDED FOR PAIN (SCALE 4-6). INDICATION S: CHRONIC PAIN PROMETHAZIN 2022-0 Yes [id number] TAKE 1 [facility] 25 mg 7-25 TABLET BY [facility] tablet 00:00: MOUTH [place] 00 EVERY 8 Medical HOURS [facility] NEEDED FOR NAUSEA AND VOMITING ACETAMINOPH 2021-0 Yes [id number] TAKE 1 [facility] EN-CODEINE 7-25 TABLET BY [facility] of 300-30 mg 00:00: MOUTH [place] tablet 00 EVERY 4 Medical HOURS [facility] NEEDED FOR PAIN (SCALE 4-6). INDICATION S: CHRONIC PAIN PROMETHAZIN 2021-0 Yes [id number] TAKE 1 [facility] 25 mg 7-25 TABLET BY [facility] tablet 00:00: MOUTH [place] 00 EVERY 8 Medical HOURS Branch NEEDED FOR NAUSEA AND VOMITING ACETAMINOPH 2021-0 Yes [id number] TAKE 1 [facility] EN-CODEINE 7-25 TABLET BY [facility] of 300-30 mg 00:00: MOUTH [place] tablet 00 EVERY 4 Medical HOURS [facility] NEEDED FOR PAIN (SCALE 4-6). INDICATION S: CHRONIC PAIN PROMETHAZIN 2021-0 Yes [id number] TAKE 1 [facility] 25 mg 7-25 TABLET BY [facility] tablet 00:00: MOUTH [place] 00 EVERY 8 Medical HOURS Branch NEEDED FOR NAUSEA AND VOMITING ESZOPICLONE 2021-0 Yes [id number] TAKE 1 [facility] 3 mg tablet 7-14 TABLET BY [facility] of 00:00: MOUTH [place] 00 EVERYDAY Medical AT BEDTIME Branch ESZOPICLONE 2021-0 Yes [id number] TAKE 1 [facility] 3 mg tablet 7-14 TABLET BY [facility] of 00:00: MOUTH [place] 00 EVERYDAY Medical AT BEDTIME Branch ESZOPICLONE 2021-0 Yes [id number] TAKE 1 [facility] 3 mg tablet 7-14 TABLET BY [facility] of 00:00: MOUTH [place] 00 EVERYDAY Medical AT BEDTIME Branch ESZOPICLONE 2021-0 Yes [id number] TAKE 1 [facility] 3 mg tablet 7-14 TABLET BY [facility] of 00:00: MOUTH [place] 00 EVERYDAY Medical AT BEDTIME Branch ESZOPICLONE 2021-0 Yes [id number] TAKE 1 [facility] 3 mg tablet 7-14 TABLET BY [facility] of 00:00: MOUTH [place] 00 EVERYDAY Medical AT BEDTIME Branch ESZOPICLONE 2021-0 Yes [id number] TAKE 1 [facility] 3 mg tablet 7-14 TABLET BY [facility] of 00:00: MOUTH [place] 00 EVERYDAY Medical AT BEDTIME Branch ESZOPICLONE 2021-0 Yes [id number] TAKE 1 [facility] 3 mg tablet 7-14 TABLET BY [facility] of 00:00: MOUTH [place] 00 EVERYDAY Medical AT BEDTIME Branch ESZOPICLONE 2-0 Yes [id number] TAKE 1 [facility] 3 mg tablet 7-14 TABLET BY [facility] of 00:00: MOUTH 00 EVERYDAY Medical AT BEDTIME Branch ESZOPICLONE 2021-0 Yes [id number] TAKE 1 [facility] 3 mg tablet 7-14 TABLET BY [facility] of 00:00: MOUTH 00 EVERYDAY Medical AT BEDTIME Branch ESZOPICLONE 2021-0 2022- No [id number] TAKE 1 [facility] 3 mg tablet 7-14 10-18 TABLET BY it y of 00:00: 00:00 MOUTH [place] 00 :00 EVERYDAY Medical AT BEDTIME Branch FUROSEMIDE 2-0 Yes [id number] 40mg TAKE 2 [facility] 20 mg 7-06 TABLETS BY [facility] tablet 00:00: MOUTH 00 DAILY Medical Branch METFORMIN 2022-0 Yes [id number] TAKE 1 [facility] 500 mg 7-06 TABLET BY [facility] tablet 00:00: MOUTH TWICE A Medical DAY WITH Branch MEALS FUROSEMIDE 2022-0 Yes [id number] 40mg TAKE 2 [facility] 20 mg 7-06 TABLETS BY [facility] tablet 00:00: MOUTH 00 DAILY Medical Branch METFORMIN 2022-0 Yes [id number] TAKE 1 [facility] 500 mg 7-06 TABLET BY [facility] tablet 00:00: MOUTH 00 TWICE A Medical DAY WITH Branch MEALS FUROSEMIDE 2022-0 Yes [id number] 40mg TAKE 2 [facility] 20 mg 7-06 TABLETS BY [facility] tablet 00:00: MOUTH 00 DAILY Medical Branch METFORMIN 2022-0 Yes [id number] TAKE 1 [facility] 500 mg 7-06 TABLET BY [facility] tablet 00:00: MOUTH 00 TWICE A Medical DAY WITH Branch MEALS FUROSEMIDE 2022-0 Yes [id number] 40mg TAKE 2 [facility] 20 mg 7-06 TABLETS BY [facility] tablet 00:00: MOUTH 00 DAILY Medical Branch METFORMIN 2022-0 Yes [id number] TAKE 1 [facility] 500 mg 7-06 TABLET BY [facility] tablet 00:00: MOUTH 00 TWICE A Medical DAY WITH Branch MEALS METFORMIN 2022-0 Yes [id number] TAKE 1 [facility] 500 mg 7-06 TABLET BY [facility] of tablet 00:00: MOUTH TWICE A Medical DAY WITH Branch MEALS METFORMIN 2022-0 Yes [id number] TAKE 1 [facility] 500 mg 7-06 TABLET BY [facility] tablet 00:00: MOUTH 00 TWICE A Medical DAY WITH Branch MEALS METFORMIN 2022-0 Yes [id number] TAKE 1 [facility] 500 mg 7-06 TABLET BY [facility] tablet 00:00: MOUTH 00 TWICE A Medical DAY WITH Branch MEALS METFORMIN 2022-0 Yes [id number] TAKE 1 [facility] 500 mg 7-06 TABLET BY [facility] tablet 00:00: MOUTH 00 TWICE A Medical DAY WITH Branch MEALS METFORMIN 2022-0 Yes [id number] TAKE 1 [facility] 500 mg 7-06 TABLET BY [facility] tablet 00:00: MOUTH 00 TWICE A Medical DAY WITH Branch MEALS METFORMIN 2022-0 Yes [id number] TAKE 1 [facility] 500 mg 7-06 TABLET BY [facility] tablet 00:00: MOUTH 00 TWICE A Medical DAY WITH Branch MEALS METFORMIN 2022-0 Yes [id number] TAKE 1 [facility] 500 mg 7-06 TABLET BY [facility] tablet 00:00: MOUTH 00 TWICE A Medical DAY WITH Branch MEALS METFORMIN 2022-0 Yes [id number] TAKE 1 [facility] 500 mg 7-06 TABLET BY [facility] tablet 00:00: MOUTH 00 TWICE A Medical DAY WITH Branch MEALS METFORMIN 2022-0 Yes [id number] TAKE 1 [facility] 500 mg 7-06 TABLET BY [facility] tablet 00:00: MOUTH 00 TWICE A Medical DAY WITH Branch MEALS METFORMIN 2022-0 Yes [id number] TAKE 1 [facility] 500 mg 7-06 TABLET BY [facility] tablet 00:00: MOUTH 00 TWICE A Medical DAY WITH Branch MEALS METFORMIN 2022-0 Yes [id number] TAKE 1 [facility] 500 mg 7-06 TABLET BY [facility] tablet 00:00: MOUTH 00 TWICE A Medical DAY WITH Branch MEALS METFORMIN 2022-0 Yes [id number] TAKE 1 [facility] 500 mg 7-06 TABLET BY [facility] tablet 00:00: MOUTH 00 TWICE A Medical DAY WITH Branch MEALS METFORMIN 2022-0 Yes [id number] TAKE 1 [facility] 500 mg 7-06 TABLET BY [facility] tablet 00:00: MOUTH 00 TWICE A Medical DAY WITH Branch MEALS METFORMIN 2022-0 Yes [id number] TAKE 1 [facility] 500 mg 7-06 TABLET BY [facility] tablet 00:00: MOUTH [place] 00 TWICE A Medical DAY WITH Branch MEALS METFORMIN 2022-0 Yes [id number] TAKE 1 [facility] 500 mg 7-06 TABLET BY [facility] tablet 00:00: MOUTH 00 TWICE A Medical DAY WITH Branch MEALS METFORMIN 2022-0 Yes [id number] TAKE 1 [facility] 500 mg 7-06 TABLET BY [facility] tablet 00:00: MOUTH 00 TWICE A Medical DAY WITH Branch MEALS METFORMIN 2022-0 Yes [id number] TAKE 1 [facility] 500 mg 7-06 TABLET BY [facility] tablet 00:00: MOUTH 00 TWICE A Medical DAY WITH Branch MEALS METFORMIN 2022-0 Yes [id number] TAKE 1 [facility] 500 mg 7-06 TABLET BY [facility] tablet 00:00: MOUTH 00 TWICE A Medical DAY WITH Branch MEALS METFORMIN 2022-0 Yes [id number] TAKE 1 [facility] 500 mg 7-06 TABLET BY [facility] tablet 00:00: MOUTH 00 TWICE A Medical DAY WITH Branch MEALS METFORMIN 2022-0 Yes [id number] TAKE 1 [facility] 500 mg 7-06 TABLET BY [facility] tablet 00:00: MOUTH 00 TWICE A Medical DAY WITH Branch MEALS METFORMIN 2022-0 Yes [id number] TAKE 1 [facility] 500 mg 7-06 TABLET BY [facility] tablet 00:00: MOUTH 00 TWICE A Medical DAY WITH Branch MEALS METFORMIN 2022-0 Yes [id number] TAKE 1 [facility] 500 mg 7-06 TABLET BY [facility] tablet 00:00: MOUTH 00 TWICE A Medical DAY WITH Branch MEALS METFORMIN 2022-0 Yes [id number] TAKE 1 [facility] 500 mg 7-06 TABLET BY [facility] tablet 00:00: MOUTH 00 TWICE A Medical DAY WITH Branch MEALS FUROSEMIDE 2022-0 2022- No [id number] 40mg TAKE 2 [facility] 20 mg 7-06 07-30 TABLETS BY [facility] tablet 00:00: 00:00 MOUTH [place] 00 :00 DAILY Medical Branch LOSARTAN 2022-0 Yes [id number] TAKE 1 [facility] 100 mg 6-27 TABLET BY [facility] tablet 00:00: MOUTH [place] 00 EVERY DAY Medical Branch LOSARTAN 2022-0 Yes [id number] TAKE 1 [facility] 100 mg 6-27 TABLET BY [facility] tablet 00:00: MOUTH [place] 00 EVERY DAY Medical Branch LOSARTAN 2022-0 Yes [id number] TAKE 1 [facility] 100 mg 6-27 TABLET BY [facility] tablet 00:00: MOUTH [place] 00 EVERY DAY Medical Branch LOSARTAN 2022-0 Yes [id number] TAKE 1 [facility] 100 mg 6-27 TABLET BY [facility] tablet 00:00: MOUTH [place] 00 EVERY DAY Medical Branch LOSARTAN 2022-0 Yes [id number] TAKE 1 [facility] 100 mg 6-27 TABLET BY [facility] tablet 00:00: MOUTH [place] 00 EVERY DAY Medical Branch LOSARTAN 2022-0 Yes [id number] TAKE 1 [facility] 100 mg 6-27 TABLET BY [facility] tablet 00:00: MOUTH [place] 00 EVERY DAY Medical Branch LOSARTAN 2022-0 Yes [id number] TAKE 1 [facility] 100 mg 6-27 TABLET BY [facility] tablet 00:00: MOUTH [place] 00 EVERY DAY Medical Branch LOSARTAN 2022-0 Yes [id number] TAKE 1 [facility] 100 mg 6-27 TABLET BY [facility] tablet 00:00: MOUTH [place] 00 EVERY DAY Medical Branch LOSARTAN 2022-0 Yes [id number] TAKE 1 [facility] 100 mg 6-27 TABLET BY [facility] tablet 00:00: MOUTH [place] 00 EVERY DAY Medical Branch LOSARTAN 2022-0 Yes [id number] TAKE 1 [facility] 100 mg 6-27 TABLET BY [facility] of tablet 00:00: MOUTH [place] 00 EVERY DAY Medical Branch LOSARTAN 2022-0 Yes [id number] TAKE 1 [facility] 100 mg 6-27 TABLET BY [facility] tablet 00:00: MOUTH [place] 00 EVERY DAY Medical Branch LOSARTAN 2022-0 Yes [id number] TAKE 1 [facility] 100 mg 6-27 TABLET BY [facility] tablet 00:00: MOUTH [place] 00 EVERY DAY Medical Branch LOSARTAN 2022-0 Yes [id number] TAKE 1 [facility] 100 mg 6-27 TABLET BY [facility] tablet 00:00: MOUTH [place] 00 EVERY DAY Medical Branch LOSARTAN 2022-0 Yes [id number] TAKE 1 [facility] 100 mg 6-27 TABLET BY [facility] tablet 00:00: MOUTH [place] 00 EVERY DAY Medical Branch LOSARTAN 2022-0 Yes [id number] TAKE 1 [facility] 100 mg 6-27 TABLET BY [facility] tablet 00:00: MOUTH [place] 00 EVERY DAY Medical Branch LOSARTAN 2022-0 2022- No [id number] TAKE 1 [facility] 100 mg 6-27 12-13 TABLET BY [facility] tablet 00:00: 00:00 MOUTH [place] 00 :00 EVERY DAY Medical Branch PROMETHAZIN 2022-0 Yes [id number] TAKE 1 [facility] E 25 mg 6-22 TABLET BY [facility] tablet 00:00: MOUTH [place] 00 EVERY 8 Medical HOURS Branch NEEDED FOR NAUSEA AND VOMITING ACETAMINOPH 2022-0 Yes [id number] TAKE 1 [facility] EN-CODEINE 6-22 TABLET BY [facility] of 300-30 mg 00:00: MOUTH [place] tablet 00 EVERY 4 Medical HOURS Branch NEEDED FOR PAIN (SCALE 4-6). INDICATION S: CHRONIC PAIN PROMETHAZIN 2022-0 Yes [id number] TAKE 1 [facility] 25 mg 6-22 TABLET BY [facility] tablet 00:00: MOUTH [place] 00 EVERY 8 Medical HOURS Branch NEEDED FOR NAUSEA AND VOMITING ACETAMINOPH 2022-0 Yes [id number] TAKE 1 [facility] EN-CODEINE 6-22 TABLET BY [facility] of 300-30 mg 00:00: MOUTH [place] tablet 00 EVERY 4 Medical HOURS Branch NEEDED FOR PAIN (SCALE 4-6). INDICATION S: CHRONIC PAIN PROMETHAZIN 2022-0 Yes [id number] TAKE 1 [facility] 25 mg 6-22 TABLET BY [facility] tablet 00:00: MOUTH [place] 00 EVERY 8 Medical HOURS Branch NEEDED FOR NAUSEA AND VOMITING ACETAMINOPH 2022-0 Yes [id number] TAKE 1 [facility] EN-CODEINE 6-22 TABLET BY [facility] of 300-30 mg 00:00: MOUTH [place] tablet 00 EVERY 4 Medical HOURS Branch NEEDED FOR PAIN (SCALE 4-6). INDICATION S: CHRONIC PAIN PROMETHAZIN 2022-0 Yes [id number] TAKE 1 [facility] E 25 mg 6-22 TABLET BY [facility] tablet 00:00: MOUTH [place] 00 EVERY 8 Medical HOURS Branch NEEDED FOR NAUSEA AND VOMITING ACETAMINOPH 2022-0 Yes [id number] TAKE 1 [facility] EN-CODEINE 6-22 TABLET BY [facility] of 300-30 mg 00:00: MOUTH [place] tablet 00 EVERY 4 Medical HOURS Branch NEEDED FOR PAIN (SCALE 4-6). INDICATION S: CHRONIC PAIN PROMETHAZIN 2022-0 Yes [id number] TAKE 1 [facility] E 25 mg 6-22 TABLET BY [facility] tablet 00:00: MOUTH [place] 00 EVERY 8 Medical HOURS Branch NEEDED FOR NAUSEA AND VOMITING ACETAMINOPH 2022-0 Yes [id number] TAKE 1 [facility] EN-CODEINE 6-22 TABLET BY [facility] of 300-30 mg 00:00: MOUTH [place] tablet 00 EVERY 4 Medical HOURS Branch NEEDED FOR PAIN (SCALE 4-6). INDICATION S: CHRONIC PAIN PROMETHAZIN 2021- No [id number] TAKE 1 [facility] E 25 mg 6-16 06-25 TABLET BY [facility] tablet 00:00: 00:00 MOUTH [place] 00 :00 EVERY 8 Medical HOURS Branch NEEDED FOR NAUSEA AND VOMITING ACETAMINOPH 2021- No [id number] TAKE 1 [facility] EN-CODEINE 6-16 06-25 TABLET BY [facility] of 300-30 mg 00:00: 00:00 MOUTH [place] tablet 00 :00 EVERY 4 Medical HOURS Branch NEEDED FOR PAIN (SCALE 4-6). INDICATION S: CHRONIC PAIN ALLOPURINOL Yes [id number] TAKE 1 [facility] 300 mg 6-15 TABLET BY [facility] tablet 00:00: MOUTH [place] 00 EVERY DAY Medical Branch ALLOPURINOL 0 Yes [id number] TAKE 1 [facility] 300 mg 6-15 TABLET BY [facility] of tablet 00:00: MOUTH [place] 00 EVERY DAY Medical Branch ALLOPURINOL 0 Yes [id number] TAKE 1 [facility] 300 mg 6-15 TABLET BY [facility] of tablet 00:00: MOUTH [place] 00 EVERY DAY Medical Branch ALLOPURINOL 0 Yes [id number] TAKE 1 [facility] 300 mg 6-15 TABLET BY [facility] of tablet 00:00: MOUTH [place] 00 EVERY DAY Medical Branch ALLOPURINOL 0 Yes [id number] TAKE 1 [facility] 300 mg 6-15 TABLET BY [facility] of tablet 00:00: MOUTH [place] 00 EVERY DAY Medical Branch ALLOPURINOL 0 Yes [id number] TAKE 1 [facility] 300 mg 6-15 TABLET BY [facility] of tablet 00:00: MOUTH [place] EVERY DAY Medical Branch ALLOPURINOL 2021-0 Yes [id number] TAKE 1 [facility] 300 mg 6-15 TABLET BY [facility] of tablet 00:00: MOUTH [place] 00 EVERY DAY Medical Branch ALLOPURINOL 0 Yes [id number] TAKE 1 [facility] 300 mg 6-15 TABLET BY [facility] of tablet 00:00: MOUTH [place] EVERY DAY Medical Branch ALLOPURINOL 0 Yes [id number] TAKE 1 [facility] 300 mg 6-15 TABLET BY [facility] of tablet 00:00: MOUTH [place] 00 EVERY DAY Medical Branch ALLOPURINOL 2021-0 Yes [id number] TAKE 1 [facility] 300 mg 6-15 TABLET BY [facility] tablet 00:00: MOUTH [place] 00 EVERY DAY Medical Branch ALLOPURINOL 2022-0 Yes [id number] TAKE 1 [facility] 300 mg 6-15 TABLET BY [facility] of tablet 00:00: MOUTH 00 EVERY DAY Medical Branch ALLOPURINOL 2-0 Yes [id number] TAKE 1 [facility] 300 mg 6-15 TABLET BY [facility] of tablet 00:00: MOUTH EVERY DAY Medical Branch ALLOPURINOL 2022-0 Yes [id number] TAKE 1 [facility] 300 mg 6-15 TABLET BY [facility] of tablet 00:00: MOUTH EVERY DAY Medical Branch ALLOPURINOL 2022-0 Yes [id number] TAKE 1 [facility] 300 mg 6-15 TABLET BY [facility] tablet 00:00: MOUTH 00 EVERY DAY Medical Branch ALLOPURINOL 2021-0 Yes [id number] TAKE 1 [facility] 300 mg 6-15 TABLET BY [facility] of tablet 00:00: MOUTH EVERY DAY Medical Branch ALLOPURINOL 2021-0 Yes [id number] TAKE 1 [facility] 300 mg 6-15 TABLET BY [facility] of tablet 00:00: MOUTH EVERY DAY Medical Branch ALLOPURINOL 2021-0 Yes [id number] TAKE 1 [facility] 300 mg 6-15 TABLET BY [facility] of tablet 00:00: MOUTH EVERY DAY Medical Branch ALLOPURINOL 2021-0 Yes [id number] TAKE 1 [facility] 300 mg 6-15 TABLET BY [facility] tablet 00:00: MOUTH EVERY DAY Medical Branch ALLOPURINOL 2022-0 Yes [id number] TAKE 1 [facility] 300 mg 6-15 TABLET BY [facility] tablet 00:00: MOUTH EVERY DAY Medical Branch ALLOPURINOL 2022-0 Yes [id number] TAKE 1 [facility] 300 mg 6-15 TABLET BY [facility] of tablet 00:00: EVERY DAY Medical Branch ALLOPURINOL 2022-0 Yes [id number] TAKE 1 [facility] 300 mg 6-15 TABLET BY [facility] tablet 00:00: MOUTH 00 EVERY DAY Medical Branch ALLOPURINOL 2022-0 Yes [id number] TAKE 1 [facility] 300 mg 6-15 TABLET BY [facility] of tablet 00:00: MOUTH EVERY DAY Medical Branch ALLOPURINOL 2022-0 Yes [id number] TAKE 1 [facility] 300 mg 6-15 TABLET BY [facility] of tablet 00:00: MOUTH EVERY DAY Medical Branch ALLOPURINOL 2022-0 Yes [id number] TAKE 1 [facility] 300 mg 6-15 TABLET BY [facility] of tablet 00:00: MOUTH 00 EVERY DAY Medical Branch ALLOPURINOL 2022-0 Yes [id number] TAKE 1 [facility] 300 mg 6-15 TABLET BY [facility] of tablet 00:00: MOUTH EVERY DAY Medical Branch ALLOPURINOL 2022-0 Yes [id number] TAKE 1 [facility] 300 mg 6-15 TABLET BY [facility] tablet 00:00: MOUTH EVERY DAY Medical Branch ALLOPURINOL 2022-0 Yes [id number] TAKE 1 [facility] 300 mg 6-15 TABLET BY [facility] of tablet 00:00: MOUTH EVERY DAY Medical Branch ALLOPURINOL 2022-0 Yes [id number] TAKE 1 [facility] 300 mg 6-15 TABLET BY [facility] of tablet 00:00: MOUTH EVERY DAY Medical Branch ALLOPURINOL 2022-0 Yes [id number] TAKE 1 [facility] 300 mg 6-15 TABLET BY [facility] tablet 00:00: MOUTH EVERY DAY Medical Branch ALLOPURINOL 2022-0 Yes [id number] TAKE 1 [facility] 300 mg 6-15 TABLET BY [facility] of tablet 00:00: MOUTH EVERY DAY Medical Branch ALLOPURINOL 2022-0 Yes [id number] TAKE 1 [facility] 300 mg 6-15 TABLET BY [facility] tablet 00:00: MOUTH EVERY DAY Medical Branch CYANOCOBALA 2021-0 Yes [id number] 1000ug INJECT 1 [facility] MIN 1,000 6-09 ML UNDER ity of mcg/mL 00:00: THE SKIN [place] injection 00 EVERY 2 Medical (TWO) Branch WEEKS. CYANOCOBALA 2021-0 Yes [id number] 1000ug INJECT 1 [facility] MIN 1,000 6-09 ML UNDER [facility]y of mcg/mL 00:00: THE SKIN [place] injection 00 EVERY 2 Medical (TWO) Branch WEEKS. CYANOCOBALA 2-0 Yes [id number] 1000ug INJECT 1 [facility] MIN 1,000 6-09 ML UNDER ity of mcg/mL 00:00: THE SKIN [place] injection 00 EVERY 2 Medical (TWO) Branch WEEKS. CYANOCOBALA 2-0 Yes [id number] 1000ug INJECT 1 [facility] MIN 1,000 6-09 ML UNDER ity of mcg/mL 00:00: THE SKIN [place] injection 00 EVERY 2 Medical (TWO) Branch WEEKS. CYANOCOBALA 2-0 Yes [id number] 1000ug INJECT 1 [facility] MIN 1,000 6-09 ML UNDER ity of mcg/mL 00:00: THE SKIN [place] injection 00 EVERY 2 Medical (TWO) Branch WEEKS. CYANOCOBALA 2022-0 Yes [id number] 1000ug INJECT 1 [facility] MIN 1,000 6-09 ML UNDER [facility]y of mcg/mL 00:00: THE SKIN [place] injection 00 EVERY 2 Medical (TWO) Branch WEEKS. CYANOCOBALA 2-0 Yes [id number] 1000ug INJECT 1 [facility] MIN 1,000 6-09 ML UNDER ity of mcg/mL 00:00: THE SKIN [place] injection 00 EVERY 2 Medical (TWO) Branch WEEKS. CYANOCOBALA 2022-0 Yes [id number] 1000ug INJECT 1 [facility] MIN 1,000 6-09 ML UNDER ity of mcg/mL 00:00: THE SKIN [place] injection 00 EVERY 2 Medical (TWO) Branch WEEKS. CYANOCOBALA 2-0 Yes [id number] 1000ug INJECT 1 [facility] MIN 1,000 6-09 ML UNDER ity of mcg/mL 00:00: THE SKIN [place] injection 00 EVERY 2 Medical (TWO) Branch WEEKS. CYANOCOBALA 2-0 Yes [id number] 1000ug INJECT 1 [facility] MIN 1,000 6-09 ML UNDER ity of mcg/mL 00:00: THE SKIN [place] injection 00 EVERY 2 [facility] (TWO) Branch WEEKS. CYANOCOBALA 2-0 Yes [id number] 1000ug INJECT 1 [facility] MIN 1,000 6-09 ML UNDER ity of mcg/mL 00:00: THE SKIN [place] injection 00 EVERY 2 Medical (TWO) Branch WEEKS. CYANOCOBALA 2022-0 2022- No [id number] 1000ug INJECT 1 [facility] MIN 1,000 6-09 08-10 ML UNDER ity o f mcg/mL 00:00: 00:00 THE SKIN [place] injection 00 :00 EVERY 2 Medical (TWO) Branch WEEKS. PROMETHAZIN 2021-0 Yes [id number] TAKE 1 [facility] 25 mg 5-31 TABLET BY [facility] tablet 00:00: MOUTH [place] 00 EVERY 8 Medical HOURS Branch NEEDED FOR NAUSEA AND VOMITING . PROMETHAZIN 2022-0 Yes [id number] TAKE 1 [facility] E 25 mg 5-31 TABLET BY [facility] tablet 00:00: MOUTH [place] 00 EVERY 8 Medical HOURS Branch NEEDED FOR NAUSEA AND VOMITING . PROMETHAZIN 2022-0 Yes [id number] TAKE 1 [facility] E 25 mg 5-31 TABLET BY [facility] tablet 00:00: MOUTH [place] 00 EVERY 8 Medical HOURS Branch NEEDED FOR NAUSEA AND VOMITING . PROMETHAZIN 2021- No [id number] TAKE 1 [facility] E 25 mg 5-31 06-22 TABLET BY [facility] tablet 00:00: 00:00 MOUTH [place] 00 :00 EVERY 8 Medical HOURS Branch NEEDED FOR NAUSEA AND VOMITING . ACETAMINOPH 0 Yes [id number] TAKE 1 [facility] EN-CODEINE 5-17 TABLET BY it[facility] of 300-30 mg 00:00: MOUTH [place] tablet 00 EVERY 4 Medical HOURS Branch NEEDED FOR PAIN (SCALE 4-6). INDICATION S: CHRONIC PAIN ACETAMINOPH 0 Yes [id number] TAKE 1 [facility] EN-CODEINE 5-17 TABLET BY [facility] of 300-30 mg 00:00: MOUTH [place] tablet 00 EVERY 4 Medical HOURS Branch NEEDED FOR PAIN (SCALE 4-6). INDICATION S: CHRONIC PAIN ACETAMINOPH 0 Yes [id number] TAKE 1 [facility] EN-CODEINE 5-17 TABLET BY [facility] of 300-30 mg 00:00: MOUTH [place] tablet 00 EVERY 4 Medical HOURS Branch NEEDED FOR PAIN (SCALE 4-6). INDICATION S: CHRONIC PAIN ACETAMINOPH 0 Yes [id number] TAKE 1 [facility] EN-CODEINE 5-17 TABLET BY it[facility] of 300-30 mg 00:00: MOUTH [place] tablet 00 EVERY 4 Medical HOURS Branch NEEDED FOR PAIN (SCALE 4-6). INDICATION S: CHRONIC PAIN ACETAMINOPH 2021-0 Yes [id number] TAKE 1 [facility] EN-CODEINE 5-17 TABLET BY ity of 300-30 mg 00:00: MOUTH [place] tablet 00 EVERY 4 Medical HOURS Branch NEEDED FOR PAIN (SCALE 4-6). INDICATION S: CHRONIC PAIN ACETAMINOPH 2021- No [id number] TAKE 1 [facility] EN-CODEINE 5-17 06-22 TABLET BY it[facility] of 300-30 mg 00:00: 00:00 MOUTH [place] tablet 00 :00 EVERY 4 Medical HOURS Branch NEEDED FOR PAIN (SCALE 4-6). INDICATION S: CHRONIC PAIN CITALOPRAM 2021-0 Yes [id number] TAKE 1 [facility] 40 mg 3-25 TABLET BY [facility] of tablet 00:00: MOUTH [place] 00 EVERY DAY Medical Branch CITALOPRAM 2021-0 Yes [id number] TAKE 1 [facility] 40 mg 3-25 TABLET BY [facility] of tablet 00:00: MOUTH [place] 00 EVERY DAY Medical Branch CITALOPRAM 2021-0 Yes [id number] TAKE 1 [facility] 40 mg 3-25 TABLET BY [facility] of tablet 00:00: MOUTH [place] EVERY DAY Medical Branch CITALOPRAM 2021-0 Yes [id number] TAKE 1 [facility] 40 mg 3-25 TABLET BY [facility] of tablet 00:00: MOUTH [place] EVERY DAY Medical Branch CITALOPRAM 2021-0 Yes [id number] TAKE 1 [facility] 40 mg 3-25 TABLET BY it[facility] of tablet 00:00: MOUTH [place] EVERY DAY Medical Branch CITALOPRAM 2021-0 Yes [id number] TAKE 1 [facility] 40 mg 3-25 TABLET BY ity of tablet 00:00: [facility] EVERY DAY Medical Branch CITALOPRAM 2021-0 Yes [id number] TAKE 1 [facility] 40 mg 3-25 TABLET BY ity of tablet 00:00: [facility] EVERY DAY Medical Branch CITALOPRAM 2021-0 Yes [id number] TAKE 1 [facility] 40 mg 3-25 TABLET BY ity of tablet 00:00: MOUTH [place] EVERY DAY Medical Branch CITALOPRAM 2021-0 Yes [id number] TAKE 1 [facility] 40 mg 3-25 TABLET BY ity of tablet 00:00: [facility] EVERY DAY Medical Branch CITALOPRAM 2021-0 Yes [id number] TAKE 1 [facility] 40 mg 3-25 TABLET BY ity of tablet 00:00: [facility] EVERY DAY Medical Branch CITALOPRAM 2021-0 Yes [id number] TAKE 1 [facility] 40 mg 3-25 TABLET BY ity of tablet 00:00: [facility] EVERY DAY Medical Branch CITALOPRAM 2021-0 Yes [id number] TAKE 1 [facility] 40 mg 3-25 TABLET BY ity of tablet 00:00: MOUTH [place] EVERY DAY Medical Branch CITALOPRAM 2021-0 Yes [id number] TAKE 1 [facility] 40 mg 3-25 TABLET BY ity of tablet 00:00: [facility] EVERY DAY Medical Branch CITALOPRAM 2021-0 Yes [id number] TAKE 1 [facility] 40 mg 3-25 TABLET BY ity of tablet 00:00: [facility] EVERY DAY Medical Branch CITALOPRAM 2021-0 Yes [id number] TAKE 1 [facility] 40 mg 3-25 TABLET BY ity of tablet 00:00: MOUTH [place] 00 EVERY DAY Medical Branch CITALOPRAM 0 Yes [id number] TAKE 1 [facility] 40 mg 3-25 TABLET BY ity of tablet 00:00: MOUTH [place] 00 EVERY DAY Medical Branch CITALOPRAM 0 Yes [id number] TAKE 1 [facility] 40 mg 3-25 TABLET BY ity of tablet 00:00: MOUTH [place] 00 EVERY DAY Medical Branch CITALOPRAM 0 Yes [id number] TAKE 1 [facility] 40 mg 3-25 TABLET BY ity of tablet 00:00: MOUTH [place] 00 EVERY DAY Medical Branch CITALOPRAM 0 Yes [id number] TAKE 1 [facility] 40 mg 3-25 TABLET BY ity of tablet 00:00: MOUTH [place] 00 EVERY DAY Medical Branch CITALOPRAM 0 Yes [id number] TAKE 1 [facility] 40 mg 3-25 TABLET BY ity of tablet 00:00: MOUTH [place] 00 EVERY DAY Medical Branch CITALOPRAM Yes [id number] TAKE 1 [facility] 40 mg 3-25 TABLET BY ity of tablet 00:00: MOUTH [place] 00 EVERY DAY Medical Branch CITALOPRAM 2021- No [id number] TAKE 1 [facility] 40 mg 3-25 11-15 TABLET BY ity of tablet 00:00: 00:00 MOUTH [place] 00 :00 EVERY DAY Medical Branch FERROUS Yes [id number] TAKE 1 [facility] SULFATE 325 3-23 TABLET BY ity of mg (65 mg 00:00: MOUTH [place] iron) 00 TWICE A Medical tablet DAY Branch FERROUS Yes [id number] TAKE 1 [facility] SULFATE 325 3-23 TABLET BY ity of mg (65 mg 00:00: MOUTH [place] iron) 00 TWICE A Medical tablet DAY Branch FERROUS 2021-0 Yes [id number] TAKE 1 [facility] SULFATE 325 3-23 TABLET BY ity of mg (65 mg 00:00: MOUTH [place] iron) 00 TWICE A Medical tablet DAY Branch FERROUS 2021-0 Yes [id number] TAKE 1 [facility] SULFATE 325 3-23 TABLET BY ity of mg (65 mg 00:00: MOUTH [place] iron) 00 TWICE A Medical tablet DAY Branch FERROUS 2021-0 Yes [id number] TAKE 1 [facility] SULFATE 325 3-23 TABLET BY ity of mg (65 mg 00:00: MOUTH [place] iron) 00 TWICE A Medical tablet DAY Branch FERROUS Yes [id number] TAKE 1 [facility] SULFATE 325 3-23 TABLET BY ity of mg (65 mg 00:00: MOUTH [place] iron) 00 TWICE A Medical tablet DAY Branch FERROUS Yes [id number] TAKE 1 [facility] SULFATE 325 3-23 TABLET BY ity of mg (65 mg 00:00: MOUTH [place] iron) 00 TWICE A Medical tablet DAY Branch FERROUS Yes [id number] TAKE 1 [facility] SULFATE 325 3-23 TABLET BY ity of mg (65 mg 00:00: MOUTH [place] iron) 00 TWICE A Medical tablet DAY Branch FERROUS Yes [id number] TAKE 1 [facility] SULFATE 325 3-23 TABLET BY ity of mg (65 mg 00:00: MOUTH [place] iron) 00 TWICE A Medical tablet DAY Branch FERROUS Yes [id number] TAKE 1 [facility] SULFATE 325 3-23 TABLET BY ity of mg (65 mg 00:00: MOUTH [place] iron) 00 TWICE A Medical tablet DAY Branch FERROUS Yes [id number] TAKE 1 [facility] SULFATE 325 3-23 TABLET BY ity of mg (65 mg 00:00: MOUTH [place] iron) 00 TWICE A Medical tablet DAY Branch FERROUS Yes [id number] TAKE 1 [facility] SULFATE 325 3-23 TABLET BY ity of mg (65 mg 00:00: MOUTH [place] iron) 00 TWICE A Medical tablet DAY Branch FERROUS Yes [id number] TAKE 1 [facility] SULFATE 325 3-23 TABLET BY ity of mg (65 mg 00:00: MOUTH [place] iron) 00 TWICE A Medical tablet DAY Branch FERROUS Yes [id number] TAKE 1 [facility] SULFATE 325 3-23 TABLET BY ity of mg (65 mg 00:00: MOUTH [place] iron) 00 TWICE A Medical tablet DAY Branch FERROUS Yes [id number] TAKE 1 [facility] SULFATE 325 3-23 TABLET BY ity of mg (65 mg 00:00: MOUTH [place] iron) 00 TWICE A Medical tablet DAY Branch FERROUS 2021- No [id number] TAKE 1 [facility] SULFATE 325 3-23 08-10 TABLET BY it y of mg (65 mg 00:00: 00:00 MOUTH [place] iron) 00 :00 TWICE A Medical tablet DAY Branch ACETAMINOPH Yes [id number] TAKE 1 [facility] EN-CODEINE 3-21 TABLET BY ity of 300-30 mg 00:00: MOUTH [place] tablet 00 EVERY 4 Medical HOURS Branch NEEDED FOR PAIN (SCALE 4-6). INDICATION S: CHRONIC PAIN ACETAMINOPH 2021-0 Yes [id number] TAKE 1 [facility] EN-CODEINE 3-21 TABLET BY ity of 300-30 mg 00:00: MOUTH [place] tablet 00 EVERY 4 Medical HOURS Branch NEEDED FOR PAIN (SCALE 4-6). INDICATION S: CHRONIC PAIN ACETAMINOPH 2021-0 Yes [id number] TAKE 1 [facility] EN-CODEINE 3-21 TABLET BY ity of 300-30 mg 00:00: MOUTH [place] tablet 00 EVERY 4 Medical HOURS Branch NEEDED FOR PAIN (SCALE 4-6). INDICATION S: CHRONIC PAIN ACETAMINOPH 2021-0 Yes [id number] TAKE 1 [facility] EN-CODEINE 3-21 TABLET BY ity of 300-30 mg 00:00: MOUTH [place] tablet 00 EVERY 4 Medical HOURS Branch NEEDED FOR PAIN (SCALE 4-6). INDICATION S: CHRONIC PAIN ACETAMINOPH 2021-0 Yes [id number] TAKE 1 [facility] EN-CODEINE 3-21 TABLET BY ity of 300-30 mg 00:00: MOUTH [place] tablet 00 EVERY 4 Medical HOURS Branch NEEDED FOR PAIN (SCALE 4-6). INDICATION S: CHRONIC PAIN ACETAMINOPH 2021-0 2021- No [id number] TAKE 1 [facility] EN-CODEINE 3-21 05-17 TABLET BY ity of 300-30 mg 00:00: 00:00 MOUTH [place] tablet 00 :00 EVERY 4 Medical HOURS Branch NEEDED FOR PAIN (SCALE 4-6). INDICATION S: CHRONIC PAIN PROMETHAZIN 2021-0 Yes [id number] TAKE 1 [facility] E 25 mg 3-11 TABLET BY ity of tablet 00:00: MOUTH [place] 00 EVERY 8 Medical HOURS Branch NEEDED FOR NAUSEA AND VOMITING . PROMETHAZIN 2021-0 Yes [id number] TAKE 1 [facility] E 25 mg 3-11 TABLET BY ity of tablet 00:00: MOUTH [place] 00 EVERY 8 Medical HOURS Branch NEEDED FOR NAUSEA AND VOMITING . PROMETHAZIN 2021-0 Yes [id number] TAKE 1 [facility] E 25 mg 3-11 TABLET BY ity of tablet 00:00: MOUTH [place] 00 EVERY 8 Medical HOURS Branch NEEDED FOR NAUSEA AND VOMITING . PROMETHAZIN 2021-0 Yes [id number] TAKE 1 [facility] E 25 mg 3-11 TABLET BY ity of tablet 00:00: MOUTH [place] 00 EVERY 8 Medical HOURS Branch NEEDED FOR NAUSEA AND VOMITING . PROMETHAZIN 2021-0 Yes [id number] TAKE 1 [facility] E 25 mg 3-11 TABLET BY ity of tablet 00:00: MOUTH [place] 00 EVERY 8 Medical HOURS Branch NEEDED FOR NAUSEA AND VOMITING . PROMETHAZIN 2021-0 Yes [id number] TAKE 1 [facility] E 25 mg 3-11 TABLET BY ity of tablet 00:00: MOUTH [place] 00 EVERY 8 Medical HOURS Branch NEEDED FOR NAUSEA AND VOMITING . PROMETHAZIN 2021-0 Yes [id number] TAKE 1 [facility] E 25 mg 3-11 TABLET BY ity of tablet 00:00: MOUTH [place] 00 EVERY 8 Medical HOURS Branch NEEDED FOR NAUSEA AND VOMITING . PROMETHAZIN 2021-0 2022- No [id number] TAKE 1 [facility] E 25 mg 3-11 05-31 TABLET BY ity of tablet 00:00: 00:00 MOUTH [place] 00 :00 EVERY 8 Medical HOURS Branch NEEDED FOR NAUSEA AND VOMITING . CYANOCOBALA 2021-0 Yes [id number] 1000ug INJECT 1 [facility] MIN 1,000 3-08 ML UNDER ity of mcg/mL 00:00: THE SKIN [place] injection 00 EVERY 2 Medical (TWO) Branch WEEKS. CYANOCOBALA 2021-0 Yes [id number] 1000ug INJECT 1 [facility] MIN 1,000 3-08 ML UNDER ity of mcg/mL 00:00: THE SKIN [place] injection 00 EVERY 2 Medical (TWO) Branch WEEKS. CYANOCOBALA 2021-0 Yes [id number] 1000ug INJECT 1 [facility] MIN 1,000 3-08 ML UNDER ity of mcg/mL 00:00: THE SKIN [place] injection 00 EVERY 2 Medical (TWO) Branch WEEKS. CYANOCOBALA 2021-0 Yes [id number] 1000ug INJECT 1 [facility] MIN 1,000 3-08 ML UNDER ity of mcg/mL 00:00: THE SKIN [place] injection 00 EVERY 2 Medical (TWO) Branch WEEKS. CYANOCOBALA 2021-0 Yes [id number] 1000ug INJECT 1 [facility] MIN 1,000 3-08 ML UNDER ity of mcg/mL 00:00: THE SKIN [place] injection 00 EVERY 2 Medical (TWO) Branch WEEKS. CYANOCOBALA 2021-0 Yes [id number] 1000ug INJECT 1 [facility] MIN 1,000 3-08 ML UNDER ity of mcg/mL 00:00: THE SKIN [place] injection 00 EVERY 2 Medical (TWO) Branch WEEKS. CYANOCOBALA 2021-0 Yes [id number] 1000ug INJECT 1 [facility] MIN 1,000 3-08 ML UNDER ity of mcg/mL 00:00: THE SKIN [place] injection 00 EVERY 2 Medical (TWO) Branch WEEKS. CYANOCOBALA 2021-0 Yes [id number] 1000ug INJECT 1 [facility] MIN 1,000 3-08 ML UNDER ity of mcg/mL 00:00: THE SKIN [place] injection 00 EVERY 2 Medical (TWO) Branch WEEKS. CYANOCOBALA 2021-0 Yes [id number] 1000ug INJECT 1 [facility] MIN 1,000 3-08 ML UNDER ity of mcg/mL 00:00: THE SKIN [place] injection 00 EVERY 2 Medical (TWO) Branch WEEKS. CYANOCOBALA 2021-0 2022- No [id number] 1000ug INJECT 1 [facility] MIN 1,000 3-08 06-09 ML UNDER ity o f mcg/mL 00:00: 00:00 THE SKIN [place] injection 00 :00 EVERY 2 Medical (TWO) Branch WEEKS. ACETAMINOPH 2021-0 Yes [id number] TAKE 1 [facility] EN-CODEINE 2-22 TABLET BY ity of 300-30 mg 00:00: MOUTH [place] tablet 00 EVERY 4 Medical HOURS Branch NEEDED FOR PAIN (SCALE 4-6). INDICATION S: CHRONIC PAIN PROMETHAZIN 2021-0 Yes [id number] TAKE 1 [facility] E 25 mg 2-22 TABLET BY ity of tablet 00:00: MOUTH [place] 00 EVERY 8 Medical HOURS Branch NEEDED FOR NAUSEA AND VOMITING . PROMETHAZIN 2021-0 Yes [id number] TAKE 1 [facility] E 25 mg 2-22 TABLET BY ity of tablet 00:00: MOUTH [place] 00 EVERY 8 Medical HOURS Branch NEEDED FOR NAUSEA AND VOMITING . ACETAMINOPH 2021-0 Yes [id number] TAKE 1 [facility] EN-CODEINE 2-22 TABLET BY ity of 300-30 mg 00:00: MOUTH [place] tablet 00 EVERY 4 Medical HOURS Branch NEEDED FOR PAIN (SCALE 4-6). INDICATION S: CHRONIC PAIN ACETAMINOPH 2-0 Yes [id number] TAKE 1 [facility] EN-CODEINE 2-22 TABLET BY ity of 300-30 mg 00:00: MOUTH [place] tablet 00 EVERY 4 Medical HOURS Branch NEEDED FOR PAIN (SCALE 4-6). INDICATION S: CHRONIC PAIN ACETAMINOPH 2021- No [id number] TAKE 1 [facility] EN-CODEINE 01-17 TABLET BY ity of 300-30 mg 00:00: 00:00 MOUTH [place] tablet 00 :00 EVERY 4 Medical HOURS Branch NEEDED FOR PAIN (SCALE 4-6). INDICATION S: CHRONIC PAIN ACETAMINOPH 2021- No [id number] TAKE 1 [facility] EN-CODEINE 01-17 TABLET BY ity of 300-30 mg 00:00: 00:00 MOUTH [place] tablet 00 :00 EVERY 4 Medical HOURS Branch NEEDED FOR PAIN (SCALE 4-6). INDICATION S: CHRONIC PAIN PROMETHAZIN 2021- No [id number] TAKE 1 [facility] E 25 mg 01-17 TABLET BY ity of tablet 00:00: 00:00 MOUTH [place] 00 :00 EVERY 8 Medical HOURS Branch NEEDED FOR NAUSEA AND VOMITING . CITALOPRAM Yes [id number] TAKE 1 [facility] 40 mg 1-31 TABLET BY ity of tablet 00:00: MOUTH [place] 00 EVERY DAY Medical Branch CITALOPRAM 0 Yes [id number] TAKE 1 [facility] 40 mg 1-31 TABLET BY ity of tablet 00:00: MOUTH [place] 00 EVERY DAY Medical Branch CITALOPRAM 0 Yes [id number] TAKE 1 [facility] 40 mg 1-31 TABLET BY ity of tablet 00:00: MOUTH [place] 00 EVERY DAY Medical Branch CITALOPRAM 2021-0 Yes [id number] TAKE 1 [facility] 40 mg 1-31 TABLET BY ity of tablet 00:00: MOUTH [place] 00 EVERY DAY Medical Branch CITALOPRAM 0 Yes [id number] TAKE 1 [facility] 40 mg 1-31 TABLET BY ity of tablet 00:00: MOUTH [place] 00 EVERY DAY Medical Branch CITALOPRAM 2021-0 Yes [id number] TAKE 1 [facility] 40 mg 1-31 TABLET BY ity of tablet 00:00: MOUTH [place] 00 EVERY DAY Medical Branch CITALOPRAM 2021-0 Yes [id number] TAKE 1 [facility] 40 mg 1-31 TABLET BY ity of tablet 00:00: MOUTH [place] 00 EVERY DAY Medical Branch CITALOPRAM 2021-0 Yes [id number] TAKE 1 [facility] 40 mg 1-31 TABLET BY ity of tablet 00:00: MOUTH [place] 00 EVERY DAY Medical Branch CITALOPRAM 0 Yes [id number] TAKE 1 [facility] 40 mg 1-31 TABLET BY ity of tablet 00:00: MOUTH [place] 00 EVERY DAY Medical Branch CITALOPRAM 0 2021- No [id number] TAKE 1 [facility] 40 mg 1-31 03-25 TABLET BY ity of tablet 00:00: 00:00 MOUTH [place] 00 :00 EVERY DAY Medical Branch sulfamethox 2021- No 1{tbl} Take 1 U nivers azole-trime 1-06 01-06 tablet by it y of thoprim 13:44: 00:00 mouth 2 [place] (BACTRIM 59 :00 (two) Medical DS) 800-160 times Branch mg per daily. tablet Nitrofurant 0 Yes 100mg Take 100 U nivers oin&Nit. 1-06 mg by ity of Macrocryst 13:39: mouth once [place] (MACROBID) 53 now. Medical 100 mg Branch capsule Nitrofurant 0 Yes 100mg Take 100 U nivers oin&Nit. 1-06 mg by ity of Macrocryst 13:39: mouth once [place] (MACROBID) 53 now. Medical 100 mg Branch capsule Nitrofurant 0 Yes 100mg Take 100 U nivers oin&Nit. 1-06 mg by ity of Macrocryst 13:39: mouth once [place] (MACROBID) 53 now. Medical 100 mg Branch capsule Nitrofurant 0 Yes 100mg Take 100 U nivers oin&Nit. 1-06 mg by ity of Macrocryst 13:39: mouth once [place] (MACROBID) 53 now. Medical 100 mg Branch capsule Nitrofurant 0 Yes 100mg Take 100 U nivers oin&Nit. [...] 4-6). Indication s: chronic pain allopurinoL Yes [id number] 300mg Take 1 [facility] 300 mg 1-06 tablet by ity of tablet 00:00: mouth [place] 00 daily. Medical Branch citalopram Yes [id number] 40mg Take 1 [facility] 40 mg 1-06 tablet by ity of tablet 00:00: mouth [place] 00 daily. Medical Branch cyanocobala Yes [id number] 1000ug inject 1 [facility] min 1,000 1-06 mL under ity of mcg/mL 00:00: the skin [place] injection 00 every 2 Medical (two) Branch weeks. eszopiclone Yes [id number] 3mg Take 1 [facility] 3 mg tablet 1-06 tablet by ity of 00:00: mouth at [place] 00 bedtime. Medical Branch furosemide Yes [id number] 40mg Take 2 [facility] (LASIX) 20 1-06 tablets by ity of mg tablet 00:00: mouth [place] 00 daily. Medical Branch losartan 0 Yes [id number] 100mg Take 1 [facility] 100 mg 1-06 tablet by ity of tablet 00:00: mouth [place] 00 daily. Medical Branch metFORMIN Yes [id number] 500mg Take 1 [facility] 500 mg 1-06 tablet by ity of tablet 00:00: mouth 2 [place] 00 (two) Medical times Branch daily with meals. metoprolol Yes [id number] 100mg Take 1 [facility] tartrate 1-06 tablet by ity of 100 mg 00:00: mouth 2 [place] tablet 00 (two) Medical times Branch daily. proMETHazin 0 Yes [id number] 25mg Take 1 [facility] e 25 mg [...] Indication s: chronic pain allopurinoL 0 Yes [id number] 300mg Take 1 [facility] 300 mg 1-06 tablet by ity of tablet 00:00: mouth [place] 00 daily. Medical Branch citalopram 0 Yes [id number] 40mg Take 1 [facility] 40 mg 1-06 tablet by ity of tablet 00:00: mouth [place] 00 daily. Medical Branch cyanocobala Yes [id number] 1000ug inject 1 [facility] min 1,000 1-06 mL under ity of mcg/mL 00:00: the skin [place] injection 00 every 2 Medical (two) Branch weeks. eszopiclone 0 Yes [id number] 3mg Take 1 [facility] 3 mg tablet 1-06 tablet by ity of 00:00: mouth at [place] 00 bedtime. Medical Branch furosemide Yes [id number] 40mg Take 2 [facility] nivers (LASIX) 20 1-06 tablets by ity of mg tablet 00:00: mouth [place] 00 daily. Medical Branch losartan Yes [id number] 100mg Take 1 [facility] 100 mg 1-06 tablet by ity of tablet 00:00: mouth [place] 00 daily. Medical Branch metFORMIN Yes [id number] 500mg Take 1 [facility] 500 mg 1-06 tablet by ity of tablet 00:00: mouth 2 [place] 00 (two) Medical times Branch daily with meals. metoprolol Yes [id number] 100mg Take 1 [facility] tartrate 1-06 tablet by ity of 100 mg 00:00: mouth 2 [place] tablet 00 (two) Medical times Branch daily. proMETHazin 0 Yes [id number] 25mg Take 1 [facility] e 25 mg [...] Indication s: chronic pain allopurinoL 0 Yes [id number] 300mg Take 1 [facility] 300 mg 1-06 tablet by ity of tablet 00:00: mouth [place] 00 daily. Medical Branch citalopram Yes [id number] 40mg Take 1 [facility] 40 mg 1-06 tablet by ity of tablet 00:00: mouth [place] 00 daily. Medical Branch cyanocobala Yes [id number] 1000ug inject 1 [facility] min 1,000 1-06 mL under ity of mcg/mL 00:00: the skin [place] injection 00 every 2 Medical (two) Branch weeks. eszopiclone 0 Yes [id number] 3mg Take 1 [facility] 3 mg tablet 1-06 tablet by ity of 00:00: mouth at [place] 00 bedtime. Medical Branch furosemide 0 Yes [id number] 40mg Take 2 [facility] n[facility] (LASIX) 20 1-06 tablets by ity of mg tablet 00:00: mouth [place] 00 daily. Medical Branch losartan 0 Yes [id number] 100mg Take 1 [facility] 100 mg 1-06 tablet by ity of tablet 00:00: mouth [place] 00 daily. Medical Branch metFORMIN 0 Yes [id number] 500mg Take 1 [facility] 500 mg 1-06 tablet by ity of tablet 00:00: mouth 2 [place] 00 (two) Medical times Branch daily with meals. metoprolol 0 Yes [id number] 100mg Take 1 [facility] tartrate 1-06 tablet by ity of 100 mg 00:00: mouth 2 [place] tablet 00 (two) Medical times Branch daily. proMETHazin 0 Yes [id number] 25mg Take 1 [facility] e 25 mg [...] Indication s: chronic pain allopurinoL 0 Yes [id number] 300mg Take 1 [facility] 300 mg 1-06 tablet by ity of tablet 00:00: mouth [place] 00 daily. Medical Branch cyanocobala Yes [id number] 1000ug inject 1 [facility] min 1,000 1-06 mL under ity of mcg/mL 00:00: the skin [place] injection 00 every 2 Medical (two) Branch weeks. eszopiclone 0 Yes [id number] 3mg Take 1 [facility] 3 mg tablet 1-06 tablet by ity of 00:00: mouth at [place] 00 bedtime. Medical Branch furosemide Yes [id number] 40mg Take 2 [facility] (LASIX) 20 1-06 tablets by ity of mg tablet 00:00: mouth [place] 00 daily. Medical Branch losartan 0 Yes [id number] 100mg Take 1 [facility] 100 mg 1-06 tablet by ity of tablet 00:00: mouth [place] 00 daily. Medical Branch metFORMIN 0 Yes [id number] 500mg Take 1 [facility] 500 mg 1-06 tablet by ity of tablet 00:00: mouth 2 [place] 00 (two) Medical times Branch daily with meals. metoprolol Yes [id number] 100mg Take 1 [facility] tartrate 1-06 tablet by ity of 100 mg 00:00: mouth 2 [place] tablet 00 (two) Medical times Branch daily. proMETHazin 0 Yes [id number] 25mg Take 1 [facility] e 25 mg [...] Indication s: chronic pain allopurinoL 0 Yes [id number] 300mg Take 1 [facility] 300 mg 1-06 tablet by ity of tablet 00:00: mouth [place] 00 daily. Medical Branch cyanocobala Yes [id number] 1000ug inject 1 [facility] min 1,000 1-06 mL under ity of mcg/mL 00:00: the skin [place] injection 00 every 2 Medical (two) Branch weeks. eszopiclone 0 Yes [id number] 3mg Take 1 [facility] 3 mg tablet 1-06 tablet by ity of 00:00: mouth at [place] 00 bedtime. Medical Branch furosemide 0 Yes [id number] 40mg Take 2 [facility] (LASIX) 20 1-06 tablets by ity of mg tablet 00:00: mouth [place] 00 daily. Medical Branch losartan 0 Yes [id number] 100mg Take 1 [facility] 100 mg 1-06 tablet by ity of tablet 00:00: mouth [place] 00 daily. Medical Branch metFORMIN 0 Yes [id number] 500mg Take 1 [facility] 500 mg 1-06 tablet by ity of tablet 00:00: mouth 2 [place] 00 (two) Medical times Branch daily with meals. metoprolol 0 Yes [id number] 100mg Take 1 [facility] tartrate 1-06 tablet by ity of 100 mg 00:00: mouth 2 [place] tablet 00 (two) Medical times Branch daily. proMETHazin 0 Yes [id number] 25mg Take 1 [facility] e 25 mg 1-06 tablet by ity of tablet 00:00: mouth [place] 00 every 8 Medical (eight) Branch hours as needed for Nausea and Vomiting (N/V). allopurinoL 0 Yes [id number] 300mg Take 1 [facility] 300 mg 1-06 tablet by ity of tablet 00:00: mouth [place] 00 daily. Medical Branch cyanocobala Yes [id number] 1000ug inject 1 [facility] min 1,000 1-06 mL under ity of mcg/mL 00:00: the skin [place] injection 00 every 2 Medical (two) Branch weeks. eszopiclone 0 Yes [id number] 3mg Take 1 [facility] 3 mg tablet 1-06 tablet by ity of 00:00: mouth at [place] 00 bedtime. Medical Branch furosemide 0 Yes [id number] 40mg Take 2 [facility] nivers (LASIX) 20 1-06 tablets by ity of mg tablet 00:00: mouth [place] 00 daily. Medical Branch losartan 2021-0 Yes [id number] 100mg Take 1 [facility] 100 mg 1-06 tablet by ity of tablet 00:00: mouth [place] 00 daily. Medical Branch metFORMIN 2021-0 Yes [id number] 500mg Take 1 [facility] 500 mg 1-06 tablet by ity of tablet 00:00: mouth 2 [place] 00 (two) Medical times Branch daily with meals. metoprolol 0 Yes [id number] 100mg Take 1 [facility] tartrate 1-06 tablet by ity of 100 mg 00:00: mouth 2 [place] tablet 00 (two) Medical times Branch daily. proMETHazin 0 Yes [id number] 25mg Take 1 [facility] e 25 mg 1-06 tablet by ity of tablet 00:00: mouth [place] 00 every 8 Medical (eight) Branch hours as needed for Nausea and Vomiting (N/V). allopurinoL 0 Yes [id number] 300mg Take 1 [facility] 300 mg 1-06 tablet by ity of tablet 00:00: mouth [place] 00 daily. Medical Branch cyanocobala 0 Yes [id number] 1000ug inject 1 [facility] min 1,000 1-06 mL under ity of mcg/mL 00:00: the skin [place] injection 00 every 2 Medical (two) Branch weeks. eszopiclone 0 Yes [id number] 3mg Take 1 [facility] 3 mg tablet 1-06 tablet by ity of 00:00: mouth at [place] 00 bedtime. Medical Branch furosemide 2021-0 Yes [id number] 40mg Take 2 [facility]ivers (LASIX) 20 1-06 tablets by ity of mg tablet 00:00: mouth [place] 00 daily. Medical Branch losartan 0 Yes [id number] 100mg Take 1 [facility] 100 mg 1-06 tablet by ity of tablet 00:00: mouth [place] 00 daily. Medical Branch metFORMIN 2021-0 Yes [id number] 500mg Take 1 [facility] 500 mg 1-06 tablet by ity of tablet 00:00: mouth 2 [place] 00 (two) Medical times Branch daily with meals. metoprolol 2021-0 Yes [id number] 100mg Take 1 [facility] tartrate 1-06 tablet by ity of 100 mg 00:00: mouth 2 [place] tablet 00 (two) Medical times Branch daily. allopurinoL 2021-0 Yes [id number] 300mg Take 1 [facility] 300 mg 1-06 tablet by ity of tablet 00:00: mouth [place] 00 daily. Medical Branch eszopiclone 2021-0 Yes [id number] 3mg Take 1 [facility] 3 mg tablet 1-06 tablet by ity of 00:00: mouth at [place] 00 bedtime. Medical Branch furosemide 2021-0 Yes [id number] 40mg Take 2 [facility]ivers (LASIX) 20 1-06 tablets by ity of mg tablet 00:00: mouth [place] 00 daily. Medical Branch losartan 2021-0 Yes [id number] 100mg Take 1 [facility] 100 mg 1-06 tablet by ity of tablet 00:00: mouth [place] 00 daily. Medical Branch metFORMIN 2021-0 Yes [id number] 500mg Take 1 [facility] 500 mg 1-06 tablet by ity of tablet 00:00: mouth 2 [place] 00 (two) Medical times Branch daily with meals. metoprolol 2021-0 Yes [id number] 100mg Take 1 [facility] tartrate 1-06 tablet by ity of 100 mg 00:00: mouth 2 [place] tablet 00 (two) Medical times Branch daily. allopurinoL Yes [id number] 300mg Take 1 [facility] 300 mg 1-06 tablet by [facility] tablet 00:00: mouth [place] 00 daily. [facility] eszopiclone 2021-0 Yes [id number] 3mg Take 1 [facility] 3 mg tablet 1-06 tablet by [facility] of 00:00: mouth at [place] 00 bedtime. [facility] furosemide 2021-0 Yes [id number] 40mg Take 2 [facility] (LASIX) 20 1-06 tablets by [facility] mg tablet 00:00: mouth [place] 00 daily. [facility] losartan 2021-0 Yes [id number] 100mg Take 1 [facility] 100 mg 1-06 tablet by [facility] tablet 00:00: mouth [place] 00 daily. [facility] metFORMIN 2021-0 Yes [id number] 500mg Take 1 [facility] 500 mg 1-06 tablet by [facility] tablet 00:00: mouth 2 [place] 00 (two) Medical times Branch daily with meals. metoprolol 2021-0 Yes [id number] 100mg Take 1 [facility] tartrate 1-06 tablet by [facility] of 100 mg 00:00: mouth 2 [place] tablet 00 (two) Medical times Branch daily. allopurinoL 2021-0 Yes [id number] 300mg Take 1 [facility] 300 mg 1-06 tablet by [facility] tablet 00:00: mouth [place] 00 daily. [facility] eszopiclone 2021-0 Yes [id number] 3mg Take 1 [facility] 3 mg tablet 1-06 tablet by [facility] of 00:00: mouth at [place] 00 bedtime. [facility] furosemide 2021-0 Yes [id number] 40mg Take 2 [facility] (LASIX) 20 1-06 tablets by [facility] mg tablet 00:00: mouth [place] 00 daily. [facility] losartan 2021-0 Yes [id number] 100mg Take 1 [facility] 100 mg 1-06 tablet by [facility] tablet 00:00: mouth [place] 00 daily. [facility] metFORMIN 2021-0 Yes [id number] 500mg Take 1 [facility] 500 mg 1-06 tablet by [facility] tablet 00:00: mouth 2 [place] 00 (two) Medical times Branch daily with meals. metoprolol 2021-0 Yes [id number] 100mg Take 1 [facility] tartrate 1-06 tablet by [facility] of 100 mg 00:00: mouth 2 [place] tablet 00 (two) Medical times Branch daily. allopurinoL Yes [id number] 300mg Take 1 [facility] 300 mg 1-06 tablet by [facility] tablet 00:00: mouth [place] 00 daily. [facility] eszopiclone 2021-0 Yes [id number] 3mg Take 1 [facility] 3 mg tablet 1-06 tablet by [facility] of 00:00: mouth at [place] 00 bedtime. [facility] furosemide 2021-0 Yes [id number] 40mg Take 2 [facility] (LASIX) 20 1-06 tablets by [facility] mg tablet 00:00: mouth [place] 00 daily. [facility] losartan 2021-0 Yes [id number] 100mg Take 1 [facility] 100 mg 1-06 tablet by [facility] tablet 00:00: mouth [place] 00 daily. [facility] metFORMIN 2021-0 Yes [id number] 500mg Take 1 [facility] 500 mg 1-06 tablet by [facility] tablet 00:00: mouth 2 [place] 00 (two) Medical times Branch daily with meals. metoprolol 2021-0 Yes [id number] 100mg Take 1 [facility] tartrate 1-06 tablet by [facility] of 100 mg 00:00: mouth 2 [place] tablet 00 (two) Medical times Branch daily. allopurinoL 2021-0 Yes [id number] 300mg Take 1 [facility] 300 mg 1-06 tablet by [facility] tablet 00:00: mouth [place] 00 daily. [facility] eszopiclone 2021-0 Yes [id number] 3mg Take 1 [facility] 3 mg tablet 1-06 tablet by [facility] of 00:00: mouth at [place] 00 bedtime. [facility] furosemide 2021-0 Yes [id number] 40mg Take 2 [facility] (LASIX) 20 1-06 tablets by [facility] mg tablet 00:00: mouth [place] 00 daily. [facility] losartan 2021-0 Yes [id number] 100mg Take 1 [facility] 100 mg 1-06 tablet by [facility] tablet 00:00: mouth [place] 00 daily. [facility] metFORMIN 2021-0 Yes [id number] 500mg Take 1 [facility] 500 mg 1-06 tablet by [facility] tablet 00:00: mouth 2 [place] 00 (two) Medical times Branch daily with meals. metoprolol 2021-0 Yes [id number] 100mg Take 1 [facility] tartrate 1-06 tablet by [facility] of 100 mg 00:00: mouth 2 [place] tablet 00 (two) Medical times Branch daily. allopurinoL Yes [id number] 300mg Take 1 [facility] 300 mg 1-06 tablet by [facility] of tablet 00:00: mouth [place] 00 daily. [facility] eszopiclone 2021-0 Yes [id number] 3mg Take 1 [facility] 3 mg tablet 1-06 tablet by [facility] of 00:00: mouth at [place] 00 bedtime. [facility] furosemide 2021-0 Yes [id number] 40mg Take 2 [facility] (LASIX) 20 1-06 tablets by [facility] mg tablet 00:00: mouth [place] 00 daily. [facility] losartan 2021-0 Yes [id number] 100mg Take 1 [facility] 100 mg 1-06 tablet by [facility] tablet 00:00: mouth [place] 00 daily. [facility] metFORMIN 2021-0 Yes [id number] 500mg Take 1 [facility] 500 mg 1-06 tablet by [facility] tablet 00:00: mouth 2 [place] 00 (two) Medical times Branch daily with meals. metoprolol 2021-0 Yes [id number] 100mg Take 1 [facility] tartrate 1-06 tablet by [facility] of 100 mg 00:00: mouth 2 [place] tablet 00 (two) Medical times Branch daily. allopurinoL 2021-0 Yes [id number] 300mg Take 1 [facility] 300 mg 1-06 tablet by [facility] tablet 00:00: mouth [place] 00 daily. [facility] eszopiclone 2021-0 Yes [id number] 3mg Take 1 [facility] 3 mg tablet 1-06 tablet by [facility] of 00:00: mouth at [place] 00 bedtime. [facility] furosemide 2021-0 Yes [id number] 40mg Take 2 [facility] (LASIX) 20 1-06 tablets by [facility] mg tablet 00:00: mouth [place] 00 daily. [facility] losartan 2021-0 Yes [id number] 100mg Take 1 [facility] 100 mg 1-06 tablet by [facility] tablet 00:00: mouth [place] 00 daily. [facility] metFORMIN 2021-0 Yes [id number] 500mg Take 1 [facility] 500 mg 1-06 tablet by [facility] tablet 00:00: mouth 2 [place] 00 (two) Medical times Branch daily with meals. metoprolol 2021-0 Yes [id number] 100mg Take 1 [facility] tartrate 1-06 tablet by [facility] of 100 mg 00:00: mouth 2 [place] tablet 00 (two) Medical times Branch daily. allopurinoL Yes [id number] 300mg Take 1 [facility] 300 mg 1-06 tablet by [facility] tablet 00:00: mouth [place] 00 daily. [facility] eszopiclone 2021-0 Yes [id number] 3mg Take 1 [facility] 3 mg tablet 1-06 tablet by [facility] of 00:00: mouth at [place] 00 bedtime. [facility] furosemide 2021-0 Yes [id number] 40mg Take 2 [facility] (LASIX) 20 1-06 tablets by [facility] mg tablet 00:00: mouth [place] 00 daily. [facility] losartan 2021-0 Yes [id number] 100mg Take 1 [facility] 100 mg 1-06 tablet by [facility] tablet 00:00: mouth [place] 00 daily. [facility] metFORMIN 2021-0 Yes [id number] 500mg Take 1 [facility] 500 mg 1-06 tablet by [facility] of tablet 00:00: mouth 2 [place] 00 (two) Medical times Branch daily with meals. metoprolol 2021-0 Yes [id number] 100mg Take 1 [facility] tartrate 1-06 tablet by [facility] of 100 mg 00:00: mouth 2 [place] tablet 00 (two) Medical times Branch daily. allopurinoL 2021-0 Yes [id number] 300mg Take 1 [facility] 300 mg 1-06 tablet by [facility] tablet 00:00: mouth [place] 00 daily. [facility] eszopiclone 2021-0 Yes [id number] 3mg Take 1 [facility] 3 mg tablet 1-06 tablet by [facility] of 00:00: mouth at [place] 00 bedtime. [facility] furosemide 0 Yes [id number] 40mg Take 2 [facility] (LASIX) 20 1-06 tablets by [facility] mg tablet 00:00: mouth [place] 00 daily. [facility] losartan 0 Yes [id number] 100mg Take 1 [facility] 100 mg 1-06 tablet by [facility] tablet 00:00: mouth [place] 00 daily. [facility] metFORMIN 0 Yes [id number] 500mg Take 1 [facility] 500 mg 1-06 tablet by [facility] of tablet 00:00: mouth 2 [place] 00 (two) Medical times Branch daily with meals. metoprolol Yes [id number] 100mg Take 1 [facility] tartrate 1-06 tablet by [facility] of 100 mg 00:00: mouth 2 [place] tablet 00 (two) Medical times Branch daily. allopurinoL Yes [id number] 300mg Take 1 [facility] 300 mg 1-06 tablet by [facility] tablet 00:00: mouth [place] 00 daily. [facility] eszopiclone 0 Yes [id number] 3mg Take 1 [facility] 3 mg tablet 1-06 tablet by [facility] of 00:00: mouth at [place] 00 bedtime. [facility] furosemide Yes [id number] 40mg Take 2 [facility] (LASIX) 20 1-06 tablets by [facility] mg tablet 00:00: mouth [place] 00 daily. [facility] losartan 0 Yes [id number] 100mg Take 1 [facility] 100 mg 1-06 tablet by [facility] tablet 00:00: mouth [place] 00 daily. [facility] metFORMIN 0 Yes [id number] 500mg Take 1 [facility] 500 mg 1-06 tablet by [facility] tablet 00:00: mouth 2 [place] 00 (two) Medical times Branch daily with meals. metoprolol 2021- Yes [id number] 100mg Take 1 [facility] tartrate 1-06 tablet by [facility] of 100 mg 00:00: mouth 2 [place] tablet 00 (two) Medical times Branch daily. eszopiclone 0 Yes [id number] 3mg Take 1 [facility] 3 mg tablet 1-06 tablet by [facility] of 00:00: mouth at [place] 00 bedtime. [facility] furosemide 0 Yes [id number] 40mg Take 2 [facility] (LASIX) 20 1-06 tablets by [facility] mg tablet 00:00: mouth [place] 00 daily. [facility] losartan 2021-0 Yes [id number] 100mg Take 1 [facility] 100 mg 1-06 tablet by [facility] tablet 00:00: mouth [place] 00 daily. [facility] metFORMIN 2021-0 Yes [id number] 500mg Take 1 [facility] 500 mg 1-06 tablet by [facility] tablet 00:00: mouth 2 [place] 00 (two) Medical times Branch daily with meals. metoprolol 2021-0 Yes [id number] 100mg Take 1 [facility] tartrate 1-06 tablet by [facility] of 100 mg 00:00: mouth 2 [place] tablet 00 (two) Medical times Branch daily. eszopiclone 2021-0 Yes [id number] 3mg Take 1 [facility] 3 mg tablet 1-06 tablet by [facility] of 00:00: mouth at [place] 00 bedtime. [facility] furosemide 0 Yes [id number] 40mg Take 2 [facility] (LASIX) 20 1-06 tablets by [facility] of mg tablet 00:00: mouth [place] 00 daily. [facility] losartan 0 Yes [id number] 100mg Take 1 [facility] 100 mg 1-06 tablet by [facility] tablet 00:00: mouth [place] 00 daily. [facility] metFORMIN 0 Yes [id number] 500mg Take 1 [facility] 500 mg 1-06 tablet by [facility] of tablet 00:00: mouth 2 [place] 00 (two) Medical times Branch daily with meals. metoprolol 2021-0 Yes [id number] 100mg Take 1 [facility] tartrate 1-06 tablet by [facility] of 100 mg 00:00: mouth 2 [place] tablet 00 (two) Medical times Branch daily. eszopiclone 2021-0 Yes [id number] 3mg Take 1 [facility] 3 mg tablet 1-06 tablet by [facility] of 00:00: mouth at [place] 00 bedtime. [facility] furosemide 2021-0 Yes [id number] 40mg Take 2 [facility] (LASIX) 20 1-06 tablets by [facility] of mg tablet 00:00: mouth [place] 00 daily. [facility] losartan 2021-0 Yes [id number] 100mg Take 1 [facility] 100 mg 1-06 tablet by [facility] tablet 00:00: mouth [place] 00 daily. [facility] metFORMIN 2021-0 Yes [id number] 500mg Take 1 [facility] 500 mg 1-06 tablet by [facility] of tablet 00:00: mouth 2 [place] 00 (two) Medical times Branch daily with meals. metoprolol 2021-0 Yes [id number] 100mg Take 1 [facility] tartrate 1-06 tablet by [facility] of 100 mg 00:00: mouth 2 [place] tablet 00 (two) Medical times Branch daily. eszopiclone 2021-0 Yes [id number] 3mg Take 1 [facility] 3 mg tablet 1-06 tablet by [facility] of 00:00: mouth at [place] 00 bedtime. [facility] furosemide 2021-0 Yes [id number] 40mg Take 2 [facility] (LASIX) 20 1-06 tablets by [facility] of mg tablet 00:00: mouth [place] 00 daily. [facility] metFORMIN 2021-0 Yes [id number] 500mg Take 1 [facility] 500 mg 1-06 tablet by [facility] of tablet 00:00: mouth 2 [place] 00 (two) Medical times Branch daily with meals. metoprolol 2021-0 Yes [id number] 100mg Take 1 [facility] tartrate 1-06 tablet by [facility] of 100 mg 00:00: mouth 2 [place] tablet 00 (two) Medical times Branch daily. eszopiclone 2021-0 Yes [id number] 3mg Take 1 [facility] 3 mg tablet 1-06 tablet by [facility] of 00:00: mouth at [place] 00 bedtime. [facility] metoprolol 2021-0 Yes [id number] 100mg Take 1 [facility] tartrate 1-06 tablet by [facility] of 100 mg 00:00: mouth 2 [place] tablet 00 (two) Medical times Branch daily. metoprolol 2021-0 Yes [id number] 100mg Take 1 [facility] tartrate 1-06 tablet by [facility] of 100 mg 00:00: mouth 2 [place] tablet 00 (two) Medical times Branch daily. metoprolol 2021-0 Yes [id number] 100mg Take 1 [facility] tartrate 1-06 tablet by [facility] of 100 mg 00:00: mouth 2 [place] tablet 00 (two) Medical times Branch daily. metoprolol 2021-0 Yes [id number] 100mg Take 1 [facility] tartrate 1-06 tablet by [facility] of 100 mg 00:00: mouth 2 [place] tablet 00 (two) Medical times Branch daily. metoprolol 2021-0 Yes [id number] 100mg Take 1 [facility] tartrate 1-06 tablet by [facility] of 100 mg 00:00: mouth 2 [place] tablet 00 (two) Medical times Branch daily. metoprolol 2021-0 Yes [id number] 100mg Take 1 [facility] tartrate 1-06 tablet by [facility] of 100 mg 00:00: mouth 2 [place] tablet 00 (two) Medical times Branch daily. metoprolol 0 Yes [id number] 100mg Take 1 [facility] tartrate 1-06 tablet by [facility] of 100 mg 00:00: mouth 2 [place] tablet 00 (two) Medical times Branch daily. metoprolol 2021-0 Yes [id number] 100mg Take 1 [facility] tartrate 1-06 tablet by [facility] of 100 mg 00:00: mouth 2 [place] tablet 00 (two) Medical times Branch daily. metoprolol 2021- Yes [id number] 100mg Take 1 [facility] tartrate 1-06 tablet by [facility] of 100 mg 00:00: mouth 2 [place] tablet 00 (two) Medical times Branch daily. metoprolol 2021- No [id number] 100mg Take 1 [facility] tartrate 12-01- tablet by ity o f 100 mg 00:00: 00:00 mouth 2 [place] tablet 00 :00 (two) Medical times Branch daily. metoprolol 2021- No [id number] 100mg Take 1 [facility] tartrate 12-01- tablet by ity o f 100 mg 00:00: 00:00 mouth 2 [place] tablet 00 :00 (two) Medical times Branch daily. eszopiclone 2021- No [id number] 3mg Take 1 [facility] 3 mg tablet 12-01 tablet by it y of 00:00: 00:00 mouth at [place] 00 :00 bedtime. Medical [facility] eszopiclone 2021- No [id number] 3mg Take 1 [facility] 3 mg tablet 12-01 tablet by it y of 00:00: 00:00 mouth at [place] 00 :00 bedtime. [facility] furosemide 2021- No [id number] 40mg Take 2 [facility] (LASIX) 20 12-01- tablets by it y of mg tablet 00:00: 00:00 mouth [place] 00 :00 daily. [facility] metFORMIN 2021- No [id number] 500mg Take 1 [facility] 500 mg 12-01 tablet by [facility] of tablet 00:00: 00:00 mouth 2 [place] 00 :00 (two) Medical times Branch daily with meals. furosemide 2021- No [id number] 40mg Take 2 [facility] (LASIX) 20 12-01 tablets by it y of mg tablet 00:00: 00:00 mouth [place] 00 :00 daily. [facility] metFORMIN 2- No [id number] 500mg Take 1 [facility] 500 mg 12-01 tablet by [facility] of tablet 00:00: 00:00 mouth 2 [place] 00 :00 (two) Medical times Branch daily with meals. losartan 2021- No [id number] 100mg Take 1 [facility] 100 mg 12-01 tablet by [facility] of tablet 00:00: 00:00 mouth [place] 00 :00 daily. [facility] losartan 2021- No [id number] 100mg Take 1 [facility] 100 mg 12-01 tablet by [facility] of tablet 00:00: 00:00 mouth [place] 00 :00 daily. [facility] allopurinoL 2- No [id number] 300mg Take 1 [facility] 300 mg 12-01 tablet by [facility] of tablet 00:00: 00:00 mouth [place] 00 :00 daily. [facility] allopurinoL 2- No [id number] 300mg Take 1 [facility] 300 mg 12-01 tablet by [facility] of tablet 00:00: 00:00 mouth [place] 00 :00 daily. [facility] cyanocobala 2021- No [id number] 1000ug inject 1 [facility] min 1,000 1- 03-08 mL under ity o f mcg/mL 00:00: 00:00 the skin [place] injection 00 :00 every 2 Medical (two) Branch weeks. cyanocobala 2021- No [id number] 1000ug inject 1 [facility] min 1,000 1-06 03-08 mL under [facility] o f mcg/mL 00:00: 00:00 the skin [place] injection 00 :00 every 2 Medical (two) Branch weeks. acetaminoph 2- No [id number] 1{tbl} Take 1 [facility] en-codeine 12-01 tablet by [facility] of 300-30 mg 00:00: 00:00 mouth [place] tablet 00 :00 every 4 Medical (four) Branch hours as needed for Pain (scale 4-6). Indication s: chronic pain proMETHazin No [id number] 25mg Take 1 [facility] e 25 mg 12-01 tablet by [facility] of tablet 00:00: 00:00 mouth [place] 00 :00 every 8 Medical (eight) Branch hours as needed for Nausea and Vomiting (N/V). acetaminoph 2021- No [id number] 1{tbl} Take 1 [facility] en-codeine 12-01 tablet by ity of 300-30 mg 00:00: 00:00 mouth [place] tablet 00 :00 every 4 Medical (four) Branch hours as needed for Pain (scale 4-6). Indication s: chronic pain proMETHazin No [id number] 25mg Take 1 [facility] e 25 mg 12-01 tablet by [facility] of tablet 00:00: 00:00 mouth [place] 00 :00 every 8 Medical (eight) Branch hours as needed for Nausea and Vomiting (N/V). citalopram 2021- No [id number] 40mg Take 1 [facility] 40 mg 12-01 tablet by [facility] of tablet 00:00: 00:00 mouth [place] 00 :00 daily. [facility] citalopram 2021- No [id number] 40mg Take 1 [facility] 40 mg 12-01 tablet by [facility] of tablet 00:00: 00:00 mouth [place] 00 :00 daily. Medical [facility] FERROUS 2020-11 Yes [id number] TAKE 1 [facility] vers SULFATE 325 2-29 TABLET BY ity of mg (65 mg 00:00: MOUTH [place] iron) 00 TWICE A Medical tablet DAY Branch FERROUS 2020-11 Yes [id number] TAKE 1 [facility] vers SULFATE 325 2-29 TABLET BY it[facility] of mg (65 mg 00:00: MOUTH [place] iron) 00 TWICE A Medical tablet DAY Branch FERROUS 2020-11 Yes [id number] TAKE 1 [facility] vers SULFATE 325 2-29 TABLET BY ity of mg (65 mg 00:00: MOUTH [place] iron) 00 TWICE A Medical tablet DAY Branch FERROUS 2020-11 Yes [id number] TAKE 1 [facility] SULFATE 325 2-29 TABLET BY [facility] of mg (65 mg 00:00: MOUTH [place] iron) 00 TWICE A Medical tablet DAY Branch FERROUS 2020-11 Yes [id number] TAKE 1 [facility] SULFATE 325 2-29 TABLET BY [facility] of mg (65 mg 00:00: MOUTH [place] iron) 00 TWICE A Medical tablet DAY Branch FERROUS 2020-11 Yes [id number] TAKE 1 [facility] SULFATE 325 2-29 TABLET BY [facility] of mg (65 mg 00:00: MOUTH [place] iron) 00 TWICE A Medical tablet DAY Branch FERROUS 2020-11 Yes [id number] TAKE 1 [facility] SULFATE 325 2-29 TABLET BY it[facility] of mg (65 mg 00:00: MOUTH [place] iron) 00 TWICE A Medical tablet DAY Branch FERROUS 2020-11 Yes [id number] TAKE 1 [facility] SULFATE 325 2-29 TABLET BY it[facility] of mg (65 mg 00:00: MOUTH [place] iron) 00 TWICE A Medical tablet DAY Branch FERROUS 2020-11 Yes [id number] TAKE 1 [facility] SULFATE 325 2-29 TABLET BY ity of mg (65 mg 00:00: MOUTH [place] iron) 00 TWICE A Medical tablet DAY Branch FERROUS 2020-11 Yes [id number] TAKE 1 [facility] SULFATE 325 2-29 TABLET BY ity of mg (65 mg 00:00: MOUTH [place] iron) 00 TWICE A Medical tablet DAY Branch FERROUS 2020-11 Yes [id number] TAKE 1 [facility] SULFATE 325 2-29 TABLET BY [facility] of mg (65 mg 00:00: MOUTH [place] iron) 00 TWICE A Medical tablet DAY Branch FERROUS 2020-11- No [id number] TAKE 1 [facility] SULFATE 325 2-29 03-23 TABLET BY it y of mg (65 mg 00:00: 00:00 MOUTH [place] iron) 00 :00 TWICE A Medical tablet DAY Branch FERROUS 2020-11- No [id number] TAKE 1 [facility] SULFATE 325 2-29 03-23 TABLET BY it y of mg (65 mg 00:00: 00:00 MOUTH [place] iron) 00 :00 TWICE A Medical tablet DAY Branch CITALOPRAM 2020-11- No [id number] TAKE 1 [facility] 40 mg 2-27 12-01 TABLET BY ity of tablet 00:00: 00:00 MOUTH [place] 00 :00 EVERY DAY Medical Branch METFORMIN 2020-11- No [id number] TAKE 1 [facility] 500 mg 2-13 - TABLET BY ity of tablet 00:00: 00:00 MOUTH [place] 00 :00 TWICE A Medical DAY WITH Branch MEALS ESZOPICLONE 2020-11- No [id number] TAKE 1 [facility] 3 mg tablet 11-29 TABLET BY it y of 00:00: 00:00 MOUTH [place] 00 :00 EVERYDAY Medical AT BEDTIME Branch CYANOCOBALA 2020-11- No [id number] INJECTS [facility] MIN 1,000 012-01 ONE ity of mcg/mL 00:00: 00:00 [place]ILITERS [place] injection 00 :00 INTRAMUSCU Medi genesis LARLY Branch EVERY MONTH proMETHazin 2021- No [id number] 25mg Take 1 [facility] e 25 mg 08-01 tablet by [facility] of tablet 00:00: 00:00 mouth [place] 00 :00 every 8 Medical (eight) Branch hours as needed for Nausea and Vomiting (N/V). losartan 2021- No [id number] 100mg Take 1 [facility] 100 mg 06-06 tablet by [facility] of tablet 00:00: 00:00 mouth [place] 00 :00 daily. Medical Branch ALLOPURINOL 2021- No [id number] TAKE 1 [facility] 300 mg 06-02 TABLET BY [facility]y of tablet 00:00: 00:00 MOUTH [place] 00 :00 EVERY DAY Medical Branch ACETAMINOPH 2021- No [id number] TAKE 1 [facility] EN-CODEINE 05-23 TABLET BY ity of 300-30 mg 00:00: 00:00 MOUTH [place] tablet 00 :00 EVERY 4 Medical HOURS Branch NEEDED FOR PAIN (SCALE 4-6) METOPROLOL 2021- No [id number] TAKE 1 [facility] TARTRATE 5-12-01 TABLET BY ity o f 100 mg 00:00: 00:00 MOUTH [place] tablet 00 :00 TWICE A Medical DAY Branch furosemide 2021- No [id number] 20mg Take 1 [facility] (LASIX) 20 4-19 12-01 tablet by ity of mg tablet 00:00: 00:00 mouth [place] 00 :00 daily. [facility] diphenhydrA Yes 25mg Take 25 mg [facility] MINE 11-27 by mouth [facility] of (BENADRYL) 18:07: every 6 [place] 25 mg 58 (six) Medical capsule hours as Branch needed for Allergies. aspirin 81 0 Yes 81mg Take 81 mg [facility] mg EC 1-02 by mouth [facility]y of tablet 18:07: daily. [address] Branch diphenhydrA 0 Yes 25mg Take 25 mg [facility] MINE 1-02 by mouth [facility] of (BENADRYL) 18:07: every 6 [place] 25 mg 58 (six) Medical capsule hours as Branch needed for Allergies. aspirin 81 0 Yes 81mg Take 81 mg [facility] mg EC 1-02 by mouth ity of tablet 18:07: daily. [address] diphenhydrA Yes 25mg Take 25 mg [facility] MINE 1-02 by mouth [facility] of (BENADRYL) 18:07: every 6 [place] 25 mg 58 (six) Medical capsule hours as Branch needed for Allergies. aspirin 81 0 Yes 81mg Take 81 mg [facility] mg EC 1-02 by mouth ity of tablet 18:07: daily. [address] diphenhydrA Yes 25mg Take 25 mg [facility] MINE 1-02 by mouth [facility] of (BENADRYL) 18:07: every 6 [place] 25 mg 58 (six) Medical capsule hours as Branch needed for Allergies. aspirin 81 0 Yes 81mg Take 81 mg [facility] mg EC 1-02 by mouth ity of tablet 18:07: daily. [address] diphenhydrA 0 Yes 25mg Take 25 mg [facility] MINE 1-02 by mouth [facility] of (BENADRYL) 18:07: every 6 [place] 25 mg 58 (six) Medical capsule hours as Branch needed for Allergies. aspirin 81 0 Yes 81mg Take 81 mg [facility] mg EC 1-02 by mouth ity of tablet 18:07: daily. [address] diphenhydrA 0 Yes 25mg Take 25 mg [facility] MINE 1-02 by mouth [facility] of (BENADRYL) 18:07: every 6 [place] 25 mg 58 (six) Medical capsule hours as Branch needed for Allergies. aspirin 81 2020-0 Yes 81mg Take 81 mg [facility] mg EC 1-02 by mouth ity of tablet 18:07: daily. [address] diphenhydrA 0 Yes 25mg Take 25 mg [facility] MINE 1-02 by mouth [facility] of (BENADRYL) 18:07: every 6 [place] 25 mg 58 (six) Medical capsule hours as Branch needed for Allergies. aspirin 81 0 Yes 81mg Take 81 mg [facility] mg EC 1-02 by mouth ity of tablet 18:07: daily. [address] diphenhydrA 0 Yes 25mg Take 25 mg [facility] MINE 1-02 by mouth ity of (BENADRYL) 18:07: every 6 [place] 25 mg 58 (six) Medical capsule hours as Branch needed for Allergies. aspirin 81 0 Yes 81mg Take 81 mg [facility] mg EC 1-02 by mouth ity of tablet 18:07: daily. [address] diphenhydrA 0 Yes 25mg Take 25 mg [facility] MINE 1-02 by mouth [facility]y of (BENADRYL) 18:07: every 6 [place] 25 mg 58 (six) Medical capsule hours as Branch needed for Allergies. aspirin 81 0 Yes 81mg Take 81 mg [facility] mg EC 1-02 by mouth ity of tablet 18:07: daily. [address] diphenhydrA 0 Yes 25mg Take 25 mg [facility] MINE 1-02 by mouth ity of (BENADRYL) 18:07: every 6 [place] 25 mg 58 (six) Medical capsule hours as Branch needed for Allergies. aspirin 81 0 Yes 81mg Take 81 mg [facility] mg EC 1-02 by mouth ity of tablet 18:07: daily. [address] diphenhydrA 0 Yes 25mg Take 25 mg [facility] MINE 1-02 by mouth ity of (BENADRYL) 18:07: every 6 [place] 25 mg 58 (six) Medical capsule hours as Branch needed for Allergies. aspirin 81 2020-0 Yes 81mg Take 81 mg [facility] mg EC 1-02 by mouth ity of tablet 18:07: daily. [address] diphenhydrA 0 Yes 25mg Take 25 mg [facility] MINE 1-02 by mouth ity of (BENADRYL) 18:07: every 6 [place] 25 mg 58 (six) Medical capsule hours as Branch needed for Allergies. aspirin 81 0 Yes 81mg Take 81 mg [facility] mg EC 1-02 by mouth ity of tablet 18:07: daily. [address] diphenhydrA 0 Yes 25mg Take 25 mg [facility] MINE 1-02 by mouth ity of (BENADRYL) 18:07: every 6 [place] 25 mg 58 (six) Medical capsule hours as Branch needed for Allergies. aspirin 81 0 Yes 81mg Take 81 mg [facility] mg EC 1-02 by mouth ity of tablet 18:07: daily. [address] diphenhydrA 0 Yes 25mg Take 25 mg [facility] MINE 1-02 by mouth ity of (BENADRYL) 18:07: every 6 [place] 25 mg 58 (six) Medical capsule hours as Branch needed for Allergies. aspirin 81 2020-0 Yes 81mg Take 81 mg [facility] mg EC 1-02 by mouth ity of tablet 18:07: daily. [address] diphenhydrA 0 Yes 25mg Take 25 mg [facility] MINE 1-02 by mouth ity of (BENADRYL) 18:07: every 6 [place] 25 mg 58 (six) Medical capsule hours as Branch needed for Allergies. aspirin 81 2020-0 Yes 81mg Take 81 mg [facility] mg EC 1-02 by mouth ity of tablet 18:07: daily. [address] diphenhydrA 0 Yes 25mg Take 25 mg [facility] MINE 1-02 by mouth ity of (BENADRYL) 18:07: every 6 [place] 25 mg 58 (six) Medical capsule hours as Branch needed for Allergies. aspirin 81 0 Yes 81mg Take 81 mg [facility] mg EC 1-02 by mouth ity of tablet 18:07: daily. [address] diphenhydrA 0 Yes 25mg Take 25 mg [facility] MINE 1-02 by mouth ity of (BENADRYL) 18:07: every 6 [place] 25 mg 58 (six) Medical capsule hours as Branch needed for Allergies. aspirin 81 2020-0 Yes 81mg Take 81 mg [facility] mg EC 1-02 by mouth ity of tablet 18:07: daily. [address] diphenhydrA Yes 25mg Take 25 mg [facility] MINE 1-02 by mouth ity of (BENADRYL) 18:07: every 6 [place] 25 mg 58 (six) Medical capsule hours as Branch needed for Allergies. aspirin 81 0 Yes 81mg Take 81 mg [facility] mg EC 1-02 by mouth ity of tablet 18:07: daily. [address] diphenhydrA 0 Yes 25mg Take 25 mg [facility] MINE 1-02 by mouth ity of (BENADRYL) 18:07: every 6 [place] 25 mg 58 (six) Medical capsule hours as Branch needed for Allergies. aspirin 81 0 Yes 81mg Take 81 mg U nivers mg EC 1-02 by mouth ity of tablet 18:07: daily. [address] diphenhydrA Yes 25mg Take 25 mg [facility] MINE 1-02 by mouth ity of (BENADRYL) 18:07: [place] 6 [place] 25 [place] 58 (six) Medical capsule hours as Branch needed for Allergies. aspirin 81 0 Yes 81mg Take 81 mg U nivers mg EC 1-02 by mouth ity of tablet 18:07: daily. [address] diphenhydrA 0 Yes 25mg Take 25 mg [facility] MINE 1-02 by mouth ity of (BENADRYL) 18:07: every 6 [place] 25 [place] 58 (six) Medical capsule hours as Branch needed for Allergies. aspirin 81 0 Yes 81mg Take 81 mg U nivers mg EC 1-02 by mouth ity of tablet 18:07: daily. [address] diphenhydrA 0 Yes 25mg Take 25 mg [facility] MINE 1-02 by mouth ity of (BENADRYL) 18:07: every 6 [place] 25 [place] 58 (six) Medical capsule hours as Branch needed for Allergies. aspirin 81 2020-0 Yes 81mg Take 81 mg U nivers mg EC 1-02 by mouth ity of tablet 18:07: daily. [address] diphenhydrA 0 Yes 25mg Take 25 mg [facility] MINE 1-02 by mouth ity of (BENADRYL) 18:07: every 6 [place] 25 mg 58 (six) Medical capsule hours as Branch needed for Allergies. aspirin 81 0 Yes 81mg Take 81 mg U nivers mg EC 1-02 by mouth ity of tablet 18:07: daily. [address] diphenhydrA 0 Yes 25mg Take 25 mg [facility] MINE 1-02 by mouth ity of (BENADRYL) 18:07: every 6 [place] 25 mg 58 (six) Medical capsule hours as Branch needed for Allergies. aspirin 81 0 Yes 81mg Take 81 mg U nivers mg EC 1-02 by mouth ity of tablet 18:07: daily. [address] diphenhydrA 0 Yes 25mg Take 25 mg [facility] MINE 1-02 by mouth ity of (BENADRYL) 18:07: every 6 [place] 25 mg 58 (six) Medical capsule hours as Branch needed for Allergies. aspirin 81 0 Yes 81mg Take 81 mg U nivers mg EC 1-02 by mouth ity of tablet 18:07: daily. [address] diphenhydrA 0 Yes 25mg Take 25 mg [facility] MINE 1-02 by mouth ity of (BENADRYL) 18:07: every 6 [place] 25 mg 58 (six) Medical capsule hours as Branch needed for Allergies. aspirin 81 0 Yes 81mg Take 81 mg U nivers mg EC 1-02 by mouth ity of tablet 18:07: daily. [address] diphenhydrA 0 Yes 25mg Take 25 mg [facility] MINE 1-02 by mouth ity of (BENADRYL) 18:07: every 6 [place] 25 mg 58 (six) Medical capsule hours as Branch needed for Allergies. aspirin 81 0 Yes 81mg Take 81 mg U nivers mg EC 1-02 by mouth ity of tablet 18:07: daily. [address] diphenhydrA 0 Yes 25mg Take 25 mg [facility] MINE 1-02 by mouth ity of (BENADRYL) 18:07: every 6 [place] 25 mg 58 (six) Medical capsule hours as Branch needed for Allergies. aspirin 81 2020-0 Yes 81mg Take 81 mg U nivers mg EC 1-02 by mouth ity of tablet 18:07: daily. [address] diphenhydrA 0 Yes 25mg Take 25 mg [facility] MINE 1-02 by mouth ity of (BENADRYL) 18:07: every 6 [place] 25 mg 58 (six) Medical capsule hours as Branch needed for Allergies. aspirin 81 2020-0 Yes 81mg Take 81 mg U nivers mg EC 1-02 by mouth ity of tablet 18:07: daily. [address] diphenhydrA 0 Yes 25mg Take 25 mg [facility] MINE 1-02 by mouth ity of (BENADRYL) 18:07: every 6 [place] 25 mg 58 (six) Medical capsule hours as Branch needed for Allergies. aspirin 81 0 Yes 81mg Take 81 mg U nivers mg EC 1-02 by mouth ity of tablet 18:07: daily. [address] diphenhydrA 0 Yes 25mg Take 25 mg [facility] MINE 1-02 by mouth ity of (BENADRYL) 18:07: every 6 [place] 25 mg 58 (six) Medical capsule hours as Branch needed for Allergies. aspirin 81 0 Yes 81mg Take 81 mg U nivers mg EC 1-02 by mouth ity of tablet 18:07: daily. [address] diphenhydrA Yes 25mg Take 25 mg [facility] MINE 1-02 by mouth ity of (BENADRYL) 18:07: every 6 [place] 25 mg 58 (six) Medical capsule hours as Branch needed for Allergies. aspirin 81 0 Yes 81mg Take 81 mg U nivers mg EC 1-02 by mouth ity of tablet 18:07: daily. [address] diphenhydrA 0 Yes 25mg Take 25 mg [facility] MINE 1-02 by mouth ity of (BENADRYL) 18:07: every 6 [place] 25 mg 58 (six) Medical capsule hours as Branch needed for Allergies. aspirin 81 2020-0 Yes 81mg Take 81 mg U nivers mg EC 1-02 by mouth ity of tablet 18:07: daily. [address] diphenhydrA 0 Yes 25mg Take 25 mg [facility] MINE 1-02 by mouth ity of (BENADRYL) 18:07: every 6 [place] 25 mg 58 (six) Medical capsule hours as Branch needed for Allergies. aspirin 81 2021-0 Yes 81mg Take 81 mg U nivers mg EC 1-02 by mouth ity of tablet 18:07: daily. [address] Branch diphenhydrA 0 Yes 25mg Take 25 mg [facility] MINE 1-02 by mouth ity of (BENADRYL) 18:07: every 6 [place] 25 mg 58 (six) Medical capsule hours as Branch needed for Allergies. aspirin 81 0 Yes 81mg Take 81 mg U nivers mg EC 1-02 by mouth ity of tablet 18:07: daily. [address] Branch diphenhydrA 0 Yes 25mg Take 25 mg [facility] MINE 1-02 by mouth ity of (BENADRYL) 18:07: every 6 [place] 25 mg 58 (six) Medical capsule hours as Branch needed for Allergies. aspirin 81 0 Yes 81mg Take 81 mg U nivers mg EC 1-02 by mouth ity of tablet 18:07: daily. [address] diphenhydrA Yes 25mg Take 25 mg [facility] MINE 1-02 by mouth ity of (BENADRYL) 18:07: every 6 [place] 25 mg 58 (six) Medical capsule hours as Branch needed for Allergies. aspirin 81 0 Yes 81mg Take 81 mg U nivers mg EC 1-02 by mouth ity of tablet 18:07: daily. [address] diphenhydrA Yes 25mg Take 25 mg [facility] MINE 1-02 by mouth ity of (BENADRYL) 18:07: every 6 [place] 25 mg 58 (six) Medical capsule hours as Branch needed for Allergies. aspirin 81 0 Yes 81mg Take 81 mg U nivers mg EC 1-02 by mouth ity of tablet 18:07: daily. [address] Branch diphenhydrA 0 Yes 25mg Take 25 mg [facility] MINE 1-02 by mouth ity of (BENADRYL) 18:07: every 6 [place] 25 mg 58 (six) Medical capsule hours as Branch needed for Allergies. aspirin 81 0 Yes 81mg Take 81 mg U nivers mg EC 1-02 by mouth ity of tablet 18:07: daily. [address] Branch diphenhydrA 0 Yes 25mg Take 25 mg [facility] MINE 1-02 by mouth ity of (BENADRYL) 18:07: every 6 [place] 25 mg 58 (six) Medical capsule hours as Branch needed for Allergies. aspirin 81 0 Yes 81mg Take 81 mg U nivers mg EC 1-02 by mouth ity of tablet 18:07: daily. [address] diphenhydrA Yes 25mg Take 25 mg [facility] MINE 1-02 by mouth ity of (BENADRYL) 18:07: every 6 [place] 25 mg 58 (six) Medical capsule hours as Branch needed for Allergies. aspirin 81 0 Yes 81mg Take 81 mg U nivers mg EC 1-02 by mouth ity of tablet 18:07: daily. [address] diphenhydrA Yes 25mg Take 25 mg [facility] MINE 1-02 by mouth ity of (BENADRYL) 18:07: every 6 [place] 25 mg 58 (six) Medical capsule hours as Branch needed for Allergies. aspirin 81 Yes 81mg Take 81 mg U nivers mg EC 1-02 by mouth ity of tablet 18:07: daily. [address] diphenhydrA Yes 25mg Take 25 mg [facility] MINE 1-02 by mouth ity of (BENADRYL) 18:07: every 6 [place] 25 mg 58 (six) Medical capsule hours as Branch needed for Allergies. aspirin 81 Yes 81mg Take 81 mg U nivers mg EC 1-02 by mouth ity of tablet 18:07: daily. [address] diphenhydrA Yes 25mg Take 25 mg [facility] MINE 1-02 by mouth ity of (BENADRYL) 18:07: every 6 [place] 25 mg 58 (six) Medical capsule hours as Branch needed for Allergies. aspirin 81 0 Yes 81mg Take 81 mg U nivers mg EC 1-02 by mouth ity of tablet 18:07: daily. [address] diphenhydrA Yes 25mg Take 25 mg [facility] MINE 1-02 by mouth ity of (BENADRYL) 18:07: every 6 [place] 25 mg 58 (six) Medical capsule hours as Branch needed for Allergies. aspirin 81 0 Yes 81mg Take 81 mg U nivers mg EC 1-02 by mouth ity of tablet 18:07: daily. [address] Branch diphenhydrA 0 Yes 25mg Take 25 mg [facility] MINE 1-02 by mouth ity of (BENADRYL) 18:07: every 6 [place] 25 mg 58 (six) Medical capsule hours as Branch needed for Allergies. aspirin 81 2020-0 Yes 81mg Take 81 mg U nivers mg EC 1-02 by mouth ity of tablet 18:07: daily. [address] Branch diphenhydrA 0 Yes 25mg Take 25 mg [facility] MINE 1-02 by mouth ity of (BENADRYL) 18:07: every 6 [place] 25 mg 58 (six) Medical capsule hours as Branch needed for Allergies. aspirin 81 2020-0 Yes 81mg Take 81 mg U nivers mg EC 1-02 by mouth ity of tablet 18:07: daily. [address] diphenhydrA Yes 25mg Take 25 mg [facility] MINE 1-02 by mouth ity of (BENADRYL) 18:07: every 6 [place] 25 mg 58 (six) Medical capsule hours as Branch needed for Allergies. aspirin 81 0 Yes 81mg Take 81 mg U nivers mg EC 1-02 by mouth ity of tablet 18:07: daily. [address] diphenhydrA 0 Yes 25mg Take 25 mg [facility] MINE 1-02 by mouth ity of (BENADRYL) 18:07: every 6 [place] 25 mg 58 (six) Medical capsule hours as Branch needed for Allergies. aspirin 81 0 Yes 81mg Take 81 mg U nivers mg EC 1-02 by mouth ity of tablet 18:07: daily. [address] Branch diphenhydrA 0 Yes 25mg Take 25 mg [facility] MINE 1-02 by mouth ity of (BENADRYL) 18:07: every 6 [place] 25 mg 58 (six) Medical capsule hours as Branch needed for Allergies. aspirin 81 2020-0 Yes 81mg Take 81 mg U nivers mg EC 1-02 by mouth ity of tablet 18:07: daily. [address] diphenhydrA 0 Yes 25mg Take 25 mg [facility] MINE 1-02 by mouth ity of (BENADRYL) 18:07: every 6 [place] 25 mg 58 (six) Medical capsule hours as Branch needed for Allergies. aspirin 81 0 Yes 81mg Take 81 mg U nivers mg EC 1-02 by mouth ity of tablet 18:07: daily. [address] Branch diphenhydrA 0 Yes 25mg Take 25 mg [facility] MINE 1-02 by mouth ity of (BENADRYL) 18:07: every 6 [place] 25 mg 58 (six) Medical capsule hours as Branch needed for Allergies. aspirin 81 0 Yes 81mg Take 81 mg U nivers mg EC 1-02 by mouth ity of tablet 18:07: daily. [address] diphenhydrA Yes 25mg Take 25 mg [facility] MINE 1-02 by mouth ity of (BENADRYL) 18:07: every 6 [place] 25 mg 58 (six) Medical capsule hours as Branch needed for Allergies. aspirin 81 0 Yes 81mg Take 81 mg U nivers mg EC 1-02 by mouth ity of tablet 18:07: daily. [address] diphenhydrA Yes 25mg Take 25 mg [facility] MINE 1-02 by mouth ity of (BENADRYL) 18:07: every 6 [place] 25 mg 58 (six) Medical capsule hours as Branch needed for Allergies. aspirin 81 0 Yes 81mg Take 81 mg U nivers mg EC 1-02 by mouth ity of tablet 18:07: daily. [address] diphenhydrA 0 Yes 25mg Take 25 mg [facility] MINE 1-02 by mouth ity of (BENADRYL) 18:07: every 6 [place] 25 mg 58 (six) Medical capsule hours as Branch needed for Allergies. aspirin 81 0 Yes 81mg Take 81 mg U nivers mg EC 1-02 by mouth ity of tablet 18:07: daily. [address] diphenhydrA 0 Yes 25mg Take 25 mg [facility] MINE 1-02 by mouth ity of (BENADRYL) 18:07: every 6 [place] 25 mg 58 (six) Medical capsule hours as Branch needed for Allergies. aspirin 81 2020-0 Yes 81mg Take 81 mg U nivers mg EC 1-02 by mouth ity of tablet 18:07: daily. [address] diphenhydrA Yes 25mg Take 25 mg [facility] MINE 1-02 by mouth ity of (BENADRYL) 18:07: every 6 [place] 25 mg 58 (six) Medical capsule hours as Branch needed for Allergies. aspirin 81 Yes 81mg Take 81 mg U nivers mg EC 1-02 by mouth ity of tablet 18:07: daily. [address] diphenhydrA Yes 25mg Take 25 mg [facility] MINE 1-02 by mouth ity of (BENADRYL) 18:07: every 6 [place] 25 mg 58 (six) Medical capsule hours as Branch needed for Allergies. aspirin 81 Yes 81mg Take 81 mg U nivers mg EC 1-02 by mouth ity of tablet 18:07: daily. [address] Immunizations Ordered Filled Date Status Comments Source Immunization Name Immunization Name TDAP 2016-05-27 Completed [facility] of 00:00:00 [facility] TDAP 2016-05-27 Completed University of 00:00:00 [facility] TDAP 2016-05-27 Completed [facility] of 00:00:00 [facility] TDAP 2016-05-27 Completed University of 00:00:00 [facility] TDAP 2016-05-27 Completed University of 00:00:00 [facility] TDAP 2016-05-27 Completed University of 00:00:00 [facility] TDAP 2016-05-27 Completed University of 00:00:00 [facility] TDAP 2016-05-27 Completed University of 00:00:00 [facility] TDAP 2016-05-27 Completed University of 00:00:00 [facility] TDAP 2016-05-27 Completed University of 00:00:00 [facility] TDAP 2016-05-27 Completed University of 00:00:00 [facility] TDAP 2016-05-27 Completed University of 00:00:00 [facility] TDAP 2016-05-27 Completed University of 00:00:00 [facility] TDAP 2016-05-27 Completed University of 00:00:00 [facility] TDAP 2016-05-27 Completed University of 00:00:00 [facility] TDAP 2016-05-27 Completed University of 00:00:00 [facility] TDAP 2016-05-27 Completed University of 00:00:00 [facility] TDAP 2016-05-27 Completed University of 00:00:00 [facility] TDAP 2016-05-27 Completed University of 00:00:00 [facility] TDAP 2016-05-27 Completed University of 00:00:00 [facility] TDAP 2016-05-27 Completed University of 00:00:00 [facility] TDAP 2016-05-27 Completed University of 00:00:00 [facility] TDAP 2016-05-27 Completed University of 00:00:00 [facility] TDAP 2016-05-27 Completed University of 00:00:00 [facility] TDAP 2016-05-27 Completed University of 00:00:00 [facility] TDAP 2016-05-27 Completed University of 00:00:00 [facility] TDAP 2016-05-27 Completed University of 00:00:00 [facility] TDAP 2016-05-27 Completed University of 00:00:00 [facility] TDAP 2016-05-27 Completed University of 00:00:00 [facility] TDAP 2016-05-27 Completed University of 00:00:00 [facility] TDAP 2016-05-27 Completed University of 00:00:00 [facility] TDAP 2016-05-27 Completed University of 00:00:00 [facility] TDAP 2016-05-27 Completed University of 00:00:00 [facility] TDAP 2016-05-27 Completed University of 00:00:00 [facility] TDAP 2016-05-27 Completed University of 00:00:00 [facility] TDAP 2016-05-27 Completed University of 00:00:00 [facility] TDAP 2016-05-27 Completed University of 00:00:00 [facility] TDAP 2016-05-27 Completed University of 00:00:00 [facility] TDAP 2016-05-27 Completed University of 00:00:00 [facility] TDAP 2016-05-27 Completed University of 00:00:00 [facility] TDAP 2016-05-27 Completed University of 00:00:00 [facility] TDAP 2016-05-27 Completed University of 00:00:00 [facility] TDAP 2016-05-27 Completed University of 00:00:00 [facility] TDAP 2016-05-27 Completed University of 00:00:00 [facility] TDAP 2016-05-27 Completed University of 00:00:00 [facility] TDAP 2016-05-27 Completed University of 00:00:00 [facility] TDAP 2016-05-27 Completed University of 00:00:00 [facility] TDAP 2016-05-27 Completed University of 00:00:00 [facility] Pneumococcal 2010-02-09 Completed University o f Polysaccharide, [...] [place] [facility] PPSV23 (PNEUMOVAX) Branch Pneumococcal Unknown Completed [place] o [facility] Polysaccharide, [place] [facility] PPSV23 (PNEUMOVAX) Branch TDAP Unknown Completed [facility] Pneumococcal Unknown Completed [place] [facility] Polysaccharide, [place] [facility] PPSV23 (PNEUMOVAX) Branch TDAP Unknown Completed [facility] Pneumococcal Unknown Completed [place] [facility] Polysaccharide, [place] [facility] PPSV23 (PNEUMOVAX) Branch TDAP Unknown Completed [facility] Pneumococcal Unknown Completed [place] [facility] Polysaccharide, [place] [facility] PPSV23 (PNEUMOVAX) Branch TDAP Unknown Completed [facility] Pneumococcal Unknown Completed [place] [facility] [place] Polysaccharide, [place] [facility] PPSV23 (PNEUMOVAX) Branch TDAP Unknown Completed [facility] Pneumococcal Unknown Completed [place] [facility] Polysaccharide, [place] [facility] PPSV23 (PNEUMOVAX) Branch TDAP Unknown Completed [facility] Pneumococcal Unknown Completed [place] [facility] f Polysaccharide, [place] [facility] PPSV23 (PNEUMOVAX) Branch TDAP Unknown Completed [facility] Pneumococcal Unknown Completed [place] o [facility] Polysaccharide, [place] [facility] PPSV23 (PNEUMOVAX) Branch TDAP Unknown Completed [facility] Pneumococcal Unknown Completed [place] o [place] Polysaccharide, [place] [facility] PPSV23 (PNEUMOVAX) Branch TDAP Unknown Completed [facility] Pneumococcal Unknown Completed [place] [facility] Polysaccharide, [place] [facility] PPSV23 (PNEUMOVAX) Branch TDAP Unknown Completed [facility] Vital Signs Vital Name Observation Time Observation Value Comments Source Systolic blood 2021-12-01 19:40:00 130 mm[Hg] Univer sity of pressure [facility] Diastolic blood 2021-12-01 19:40:00 86 mm[facility]Hg] [facility] 2021-12-01 19:40:00 60 /min [facility] Body temperature 2021-12-01 19:40:00 36.44 Amanda [facility] Body height 2021-12-01 19:40:00 160 cm [facility] Body weight 2021-12-01 19:40:00 91.944 kg [facility] BMI 2021-12-01 19:40:00 35.91 kg/m2 [facility] Oxygen saturation in 2021-12-01 19:40:00 96 /min [facility] of Arterial blood by [facility] Pulse oximetry Branch Procedures Procedure Date / Time Performing Clinician Source Performed URIC ACID-Q 2021-12-05 17:51:00 [facility] LIPID PANEL-Q 2021-12-05 17:51:00 [facility] COMPREHENSIVE 2021-12-05 17:51:00 [facility] METABOLIC$PANEL W/EGFR-Q [facility] Plan of Care Planned Activity Planned Date Details Comments Source Future Scheduled 2023-09-20 BREAST CANCER [facility] Test 12:26:27 SCREENING [code = BREAST CANCER SCREENING] Future Scheduled 2023-09-20 Screening for [facility] Test 12:26:27 malignant neoplasm of colon (procedure) [code = 726340352] Future Scheduled 2023-09-20 Screening for [facility] Test 12:26:27 malignant neoplasm of colon (procedure) [code = 326554738] Future Scheduled 2023-09-20 [facility] 12:26:27 (1 of 2) [code = SHINGLES VACCINES (1 of 2)] Future Scheduled 2023-09-20 INFLUENZA VACCINE [facility] 12:26:27 (#1) [code = INFLUENZA VACCINE (#1)] Future Scheduled 2023-09-20 Screening for [facility] Test 12:26:27 malignant neoplasm of colon (procedure) [code = 906049133] Future Scheduled 2023-09-20 Screening for [facility] Test 12:26:27 malignant neoplasm of colon (procedure) [code = 155559569] Future Scheduled 2023-09-20 Screening for [facility] Test 12:26:27 malignant neoplasm of colon (procedure) [code = 115719985] Future Scheduled 2023-09-20 COVID-[address] [facility] Test 12:26:27 (#1) [code = COVID-19 VACCINE (#1)] Future Scheduled 2023-09-20 Screening for [facility] Test 12:26:27 malignant neoplasm of cervix (procedure) [code = 115222126] Future Scheduled 2023-08-21 Screening for [facility] Test 21:44:00 malignant neoplasm of colon (procedure) [code = 559285217] Future Scheduled 2023-08-21 [facility] 21:44:00 (1 of 2) [code = SHINGLES VACCINES (1 of 2)] Future Scheduled 2023-08-21 [facility]ZA [facility]INE [facility] 21:44:00 (#1) [code = INFLUENZA VACCINE (#1)] Future Scheduled 2023-08-21 Screening for [facility] Test 21:44:00 malignant neoplasm of colon (procedure) [code = 575380349] Future Scheduled 2023-08-21 Screening for [facility] Test 21:44:00 malignant neoplasm of colon (procedure) [code = 281935225] Future Scheduled 2023-08-21 Screening for [facility] Test 21:44:00 malignant neoplasm of colon (procedure) [code = 711408205] Future Scheduled 2023-08-21 [facility] 21:44:00 (#1) [code = COVID-19 VACCINE (#1)] Future Scheduled 2023-08-21 Screening for [facility] Test 21:44:00 malignant neoplasm of cervix (procedure) [code = 824473111] Future Scheduled 2023-08-21 BREAST CANCER [facility] Test 21:44:00 SCREENING [code = BREAST CANCER SCREENING] Future Scheduled 2023-08-21 Screening for [facility] Test 21:44:00 malignant neoplasm of colon (procedure) [code = 697505615] Future Scheduled 2023-07-23 BREAST CANCER [facility] Test 23:52:34 SCREENING [code = BREAST CANCER SCREENING] Future Scheduled 2023-07-23 Screening for [facility] Test 23:52:34 malignant neoplasm of colon (procedure) [code = 384982152] Future Scheduled 2023-07-23 Screening for [facility] Test 23:52:34 malignant neoplasm of colon (procedure) [code = 719760678] Future Scheduled 2023-07-23 [facility] 23:52:34 (1 of 2) [code = SHINGLES VACCINES (1 of 2)] Future Scheduled 2023-07-23 IN[facility]UENZA VACCINE [facility] 23:52:34 (#1) [code = INFLUENZA VACCINE (#1)] Future Scheduled 2023-07-23 Screening for [facility] Test 23:52:34 malignant neoplasm of colon (procedure) [code = 644049405] Future Scheduled 2023-07-23 Screening for [facility] Test 23:52:34 malignant neoplasm of colon (procedure) [code = 304384935] Future Scheduled 2023-07-23 Screening for [facility] Test 23:52:34 malignant neoplasm of colon (procedure) [code = 945862417] Future Scheduled 2023-07-23 COVID-19 VACCINE [facility] Test 23:52:34 (#1) [code = COVID-19 VACCINE (#1)] Future Scheduled 2023-07-23 Screening for [facility] Test 23:52:34 malignant neoplasm of cervix (procedure) [code = 091391640] Encounters Start End Encounter Admission Attending Care Care Encounter Source Date/Time Date/Time Type Type Clinicians Facility Department ID 2021-09-24 Emergency [facility] [id number] [facility] 13:14:34 ity of [facility] 2023-07-04 2023-07-04 RefArnel Alexis [facility] 1.2.840.114 [id number] Univers 00:00:00 00:00:00 Cody JEFF [id number] [place] [id number] [address] [facility] 2023-04-08 2023-04-08 Arnel Rebollar [facility] 1.2.840.114 [id number] Univers 00:00:00 00:00:00 Cody JEFF 350.1.13.10 [facility] [place] [id number] [address] [facility] 2023-03-26 2023-03-26 Refzabrina Sears [facility] 1.2.840.114 [id number] Univers 00:00:00 00:00:00 Leonardo JOHNSON 350.1.13.10 i [place] [id number] [address] 2023-03-23 2023-03-23 RefArnel Alexis [facility] 1.2.840.114 [id number] Univers 00:00:00 00:00:00 Vincent MULTISPEC 350.1.13.10 [facility] [place] [id number] [address] [facility] 2023-03-22 2023-03-22 Yelena Sotomayor [facility] 1.2.840.114 [id number] Univers 00:00:00 00:00:00 Theresa MULTISPEC 350.1.13.10 [facility] [id number] [address] [facility] 2023-03-20 2023-03-20 Arnel Rebollar [facility] 1.2.840.114 [id number] Univers 00:00:00 00:00:00 Vincent MULTISPEC 350.1.13.10 [facility] [id number] [address] [facility] 2023-02-14 2023-02-14 Arnel Rebollar [facility] 1.2.840.114 [id number] Univers 00:00:00 00:00:00 [place] MULTISPEC 350.1.13.10 [facility] [place] [id number] [address] [facility] 2022-12-29 2022-12-29 Arnel Rebollar [facility] 1.2.840.114 [id number] Univers 00:00:00 00:00:00 [place] MULTISPEC 350.1.13.10 [facility] [id number] [address] [facility] 2022-12-28 2022-12-28 Arnel Rebollar [facility] 1.2.840.114 [id number] Univers 00:00:00 00:00:00 [place] MULTISPEC 350.1.13.10 [facility] [id number] [address] [facility] 2022-12-03 2022-12-03 [facility] [facility] 1.2.840.114 [id number] Univers 00:00:00 00:00:00 Theresa MULTISPEC 350.1.13.10 [place] [id number] [facility] AND [address] [facility] 2022-11-29 2022-11-29 RefArnel Alexis [facility] 1.2.840.114 99 [id number] Univers 00:00:00 00:00:00 Vincent MULTISPEC 350.1.13.10 [place] [id number] [facility] AND [address] [facility] 2022-11-29 2022-11-29 [facility] 1.2.840.114 [id number] 93 Univers 00:00:00 00:00:00 Theresa MULTISPEC 350.1.13.10 ity of IALTY 4.2.7.2.686 [facility] [id number] [facility] AND [address] [facility] 2022-11-07 2022-11-07 RefArnel Alexis [facility] 1.2.840.114 99 [id number] Univers 00:00:00 00:00:00 Vincent MULTISPEC 350.1.13.10 ity of IALTY 4.2.7.2.686 [facility] [id number] [address] [facility] 2022-11-02 2022-11-02 [facility] 1.2.840.114 [id number] 63 Univers 00:00:00 00:00:00 Theresa MULTISPEC 350.1.13.10 [place] [id number] [facility] AND [address] [facility] 2022-10-08 2022-10-08 [facility] 1.2.840.114 98 [id number] Univers 00:00:00 00:00:00 Vincent MULTISPEC 350.1.13.10 [place] [id number] [address] [facility] 2022-10-06 2022-10-06 Yelena AquinoArnel roberts [facility] 1.2.840.114 98 [id number] Univers 00:00:00 00:00:00 Leilaent MULTISPEC 350.1.13.10 [place] [id number] [address] [facility] 2022-09-12 2022-09-12 [facility] [place] MilesWesley [facility] 1.2.840.114 97 [id number] Univers 00:00:00 00:00:00 Cody MULTISPEC 350.1.13.10 [place] [id number] [address] [facility] 2022-08-08 2022-08-08 Paul [facility] [id number] Univers 14:30:00 14:30:00 THERESA ity of [facility] 2022-07-31 2022-07-31 [facility] 1.2.840.114 [id number] Univers 00:00:00 00:00:00 Theresa GUZMANPEC 350.1.13.10 ity of IALTY 4.2.7.2.686 [facility] [place] [id number] [address] [facility] 2022-07-19 2022-07-19 Pre Visit DEMARCUS Drake 1.2.990.942 [id number] Univers 00:00:00 00:00:00 Outreach Yoon LACKEY 350.1.13.10 i ty [place] [id number] [address] 2022-07-11 2022-07-11 [facility] 1.2.840.114 [id number] 11 Univers 00:00:00 00:00:00 Theresa GUZMANPEC 350.1.13.10 [place] [id number] [address] [facility] 2022-07-05 2022-07-05 [facility] 1.2.840.114 [id number] 08 Univers 00:00:00 00:00:00 Theresa JEFF 350.1.13.10 ity of IALTY 4.2.7.2.686 [facility] [place] [id number] [address] [facility] 2022-07-05 2022-07-05 Arnel Rebollar [facility] 1.2.840.114 95 [id number] Univers 00:00:00 00:00:00 Cody JEFF 350.1.13.10 ity of IALTY 4.2.7.2.686 [facility] [id number] [address] [facility] 2022-06-23 2022-06-23 [facility] 1.2.840.114 [id number] Univers 00:00:00 00:00:00 Theresa JEFF 350.1.13.10 ity of IALTY 4.2.7.2.686 [facility] [place] [id number] [address] [facility] 2022-06-20 2022-06-20 Outpatient Iram [facility] [id number] Univers 16:00:00 16:00:00 THERESA ity [facility] 2022-06-17 2022-06-17 Arnel Rebollar [facility] 1.2.840.114 95 [id number] Univers 00:00:00 00:00:00 Cody JEFF 350.1.13.10 ity of IALTY 4.2.7.2.686 [facility] [place] [id number] [address] [facility] 2022-06-17 2022-06-17 [facility] 1.2.840.114 [id number] Univers 00:00:00 00:00:00 Theresa JEFF 350.1.13.10 ity of IALTY 4.2.7.2.686 [facility] [id number] [address] [facility] 2022-06-07 2022-06-07 [facility] 1.2.840.114 [id number] 22 Univers 00:00:00 00:00:00 Theresa MULTISPEC 350.1.13.10 [place] [id number] [facility] AND [address] [facility] 2022-05-31 2022-05-31 [facility] 1.2.840.114 [id number] 61 Univers 00:00:00 00:00:00 Theresa MULTISPEC 350.1.13.10 [place] [id number] [facility] AND [address] [facility] 2022-05-22 2022-05-22 [facility] 1.2.840.114 [id number] 61 Univers 00:00:00 00:00:00 Theresa MULTISPEC 350.1.13.10 [place] [id number] [address] [facility] 2022-05-17 2022-05-17 Arnel Rebollar [facility] 1.2.840.114 94 [id number] Univers 00:00:00 00:00:00 Cody MULTISPEC 350.1.13.10 [place] [id number] [facility] AND [address] [facility] 2022-05-17 2022-05-17 [facility] 1.2.840.114 [id number] 01 Univers 00:00:00 00:00:00 Theresa MULTISPEC 350.1.13.10 [place] [id number] [facility] AND [address] [facility] 2022-05-10 2022-05-10 [facility] 1.2.840.114 [id number] 59 Univers 00:00:00 00:00:00 Theresa MULTISPEC 350.1.13.10 [place] [id number] [facility] AND [address] [facility] 2022-05-04 2022-05-04 Marlenazabrina TejalArnel [facility] 1.2.840.114 94 [id number] Univers 00:00:00 00:00:00 Cody MULTISPEC 350.1.13.10 [place] [id number] [address] DIABETES [facility] 2022-04-28 2022-04-28 Patient Doctor [facility] 1.2.840.114 [id number] Univers 00:00:00 00:00:00 Secure Msg Unassigned, MULTISPEC 350.1.13.10 ity of [place] IALTY 4.2.7.2.686 [facility] [id number] [address] DIABETES [facility] 2022-04-25 2022-04-25 Refzabrina Sotomayor [facility] 1.2.840.114 [id number] Univers 00:00:00 00:00:00 Theresa MULTISPEC 350.1.13.10 ity of IALTY 4.2.7.2.686 [facility] [id number] [address] DIABETES [facility] 2022-04-11 2022-04-11 Refzabrina Sotomayor [facility] 1.2.840.114 [id number] Univers 00:00:00 00:00:00 Theresa MULTISPEC 350.1.13.10 ity of IALTY 4.2.7.2.686 [facility] [id number] [address] DIABETES [facility] 2022-02-24 2022-02-24 Patient Bran [facility] 1.2.840.114 [id number] Univers 00:00:00 00:00:00 Secure Msg Theresa MULTISPEC 350.1.13.10 ity of IALTY 4.2.7.2.686 [facility] [id number] [address] [facility] 2022-02-22 2022-02-22 Refzabrina Sotomayor [facility] 1.2.840.114 [id number] 70 Univers 00:00:00 00:00:00 Theresa MULTISPEC 350.1.13.10 [place] [id number] [facility] AND [address] [facility]ES [facility] 2022-02-17 2022-02-17 Yelena ToureArnel [facility] 1.2.840.114 92 [id number] Univers 00:00:00 00:00:00 Vincnoemi MULTISPEC 350.1.13.10 [place] [id number] [address] [facility] 2022-02-15 2022-02-15 Yelena ToureWesleyl [facility] 1.2.840.114 92 [id number] Univers 00:00:00 00:00:00 Vincneomi MULTISPEC 350.1.13.10 ity of IALTY 4.2.7.2.686 [facility] [id number] [address] [facility] 2022-02-12 2022-02-12 Yelena Sotomayor WADESIRAE 1.2.840.114 [id number] 24 Univers 00:00:00 00:00:00 Theresa MULTISPEC 350.1.13.10 ity of IALTY 4.2.7.2.686 [facility] [id number] [address] [facility] 2022-02-03 2022-02-03 Yelena Sotomayor [facility] 1.2.840.114 [id number] 46 Univers 00:00:00 00:00:00 Theresa MULTISPEC 350.1.13.10 ity of IALTY 4.2.7.2.686 [facility] [id number] [address] [facility] 2022-02-01 2022-02-01 Patient Bran [facility] 1.2.840.114 [id number] Univers 00:00:00 00:00:00 Secure Msg Theresa MULTISPEC 350.1.13.10 ity of IALTY 4.2.7.2.686 [facility] [id number] [address] [facility] 2022-01-31 2022-01-31 Refzabrina Sotomayor WADESIRAE 1.2.840.114 [id number] 78 Univers 00:00:00 00:00:00 Theresa MULTISPEC 350.1.13.10 [place] [id number] [address] [facility] 2022-01-17 2022-01-17 Refzabrina Sotomayor [facility] 1.2.840.114 [id number] 86 Univers 00:00:00 00:00:00 Theresa MULTISPEC 350.1.13.10 ity of IALTY 4.2.7.2.686 [facility] [id number] [address] [facility] 2022-01-16 2022-01-16 Refzabrina Sotomayor [facility] 1.2.840.114 [id number] 46 Univers 00:00:00 00:00:00 Theresa MULTISPEC 350.1.13.10 ity of IALTY 4.2.7.2.686 [facility] [id number] [address] [facility] 2022-01-10 2022-01-10 Patient Bran [facility] 1.2.840.114 [id number] 94 Univers 00:00:00 00:00:00 Secure Msg Theresa MULTISPEC 350.1.13.10 ity of IALTY 4.2.7.2.686 [facility] [id number] [address] [facility] 2021-12-24 2021-12-24 Refzabrina Sotomayor [facility] 1.2.840.114 [id number] 70 Univers 00:00:00 00:00:00 Theresa MULTISPEC 350.1.13.10 ity of IALTY 4.2.7.2.686 [facility] [id number] [address] [facility] 2021-12-16 2021-12-16 Patient Doctor [facility] 1.2.840.114 [id number] 51 Univers 00:00:00 00:00:00 Secure Msg Unassigned, MULTISPEC 350.1.13.10 ity of [place] IALTY 4.2.7.2.686 [facility] [id number] [address] [facility] 2021-12-07 2021-12-07 Angelique Sotomayor [facility] 1.2.938.225 [id number] Univers 00:00:00 00:00:00 Threesa GUZMANPEC 350.1.13.10 [place].2.[place].2.[place] [id number] [address] [facility] 2021-12-05 2021-12-05 Orders EMMANUELLE Sotomayor 1.2.840.114 [id number] 01 Univers 00:00:00 00:00:00 Only Theresa COLE 350.1.13.10 it y of HOSPITAL 4.2.7.2.686 Dave as [phone] [facility] [address] 2021-12-05 2021-12-05 Patient Doctor EMMANUELLE 1.2.840.114 [id number] Univers 00:00:00 00:00:00 Secure Msg UnassignedCOLE 350.1.13.10 ity of [place] [facility] 4.2.7.2.686 Dave as [id number] [facility] [address] 2021-12-01 2021-12-01 Office Bran [facility] 1.2.840.114 [id number] Univers 13:30:00 14:00:00 Visit Theresa JEFF 350.1.13.10 ity of IALTY 4.2.7.2.686 [facility] [place] [id number] [address] [facility] 2021-12-01 2021-12-01 Outpatient R BRAN [facility] [id number] Univers 13:30:00 13:30:00 THERESA ity of [facility] 2021-11-23 2021-11-23 Arnel Rebollar [facility] 1.2.840.114 [id number] Univers 00:00:00 00:00:00 Cody GUZMANPEC 350.1.13.10 ity of IALTY 4.2.7.2.686 [facility] [place] [id number] [address] [facility] 2021-11-21 2021-11-21 Arnel Rebollar [facility] 1.2.840.114 89 [id number] Univers 00:00:00 00:00:00 Cody MULTISPEC 350.1.13.10 [place] [id number] [address] [facility] 2021-11-06 2021-11-06 Arnel Rebollar [facility] 1.2.840.114 89 [id number] Univers 00:00:00 00:00:00 Vincent MULTISPEC 350.1.13.10 [place]2.7.2.[place] [id number] [address] [facility] 2021-09-29 2021-09-29 Refill Bran [facility] 1.2.840.114 [id number] Univers 00:00:00 00:00:00 Theresa MULTISPEC 350.1.13.10 [place] 4[place]2.7.2.[place] [id number] [address] [facility] 2021-09-02 2021-09-02 [facility] 1.2.840.114 [id number] 83 Univers 00:00:00 00:00:00 Theresa MULTISPEC 350.1.13.10 [place] 4.2.7.2.[place] [id number] [address] [facility] 2021-08-01 2021-08-01 Patient Bran [facility] 1.2.840.114 [id number] Univers 00:00:00 00:00:00 Secure [place] [facility] 350.1.13.10 [place].2.[place] [id number] [place] [address] [address] 2021-07-26 2021-07-26 Arnel Rebollar [facility] 1.2.840.114 87 [id number] Univers 00:00:00 00:00:00 Vincent MULTISPEC 350.1.13.10 [place].2[place].2.[place] [id number] [address] [facility] 2021-06-16 2021-06-16 [facility] 1.2.840.114 85 [id number] Univers 00:00:00 00:00:00 Vincnoemi MULTISPEC 350.1.13.10 ity of IALTY 4.2.7.2.686 [facility] [place] [id number] [address] [facility] 2021-06-13 2021-06-13 Outpatient R BRAN WADESIRAE [facility] [id number] Univers 14:30:00 14:30:00 THERESA ity of [facility] 2021-06-12 2021-06-12 Yelena Sotomayor [facility] 1.2.840.114 [id number] Univers 00:00:00 00:00:00 Theresa MULTISPEC 350.1.13.10 ity of IALTY 4.2.7.2.686 [facility] [place] [id number] [address] [facility] 2021-06-03 2021-06-03 Refill Doctor [facility] 1.2.840.114 [id number] Univers 00:00:00 00:00:00 Unassigned, MULTISPEC 350.1.13.10 ity of [place] IALTY 4.2.7.2.686 [facility] [place] [id number] [address] [facility] 2021-06-02 2021-06-02 Yelena Sotomayor [facility] 1.2.840.114 [id number] 06 Univers 00:00:00 00:00:00 Theresa MULTISPEC 350.1.13.10 ity of IALTY 4.2.7.2.686 [facility] [place] [id number] [address] [facility] 2021-05-25 2021-05-25 Patient Doctor [facility] 1.2.840.114 [id number] Univers 00:00:00 00:00:00 Secure Msg Unassigned, MULTISPEC 350.1.13.10 ity of [place] IALTY 4.2.7.2.686 [facility] [id number] [address] [facility] 2021-05-23 2021-05-23 [facility] 1.2.840.114 [id number] 47 Univers 00:00:00 00:00:00 Theresa MULTISPEC 350.1.13.10 [place] 4.2.7.2.[place] [id number] [address] [facility] 2021-05-21 2021-05-21 Yelena Sotomayor WADESIRAE 1.2.840.114 [id number] 51 Univers 00:00:00 00:00:00 Theresa MULTISPEC 350.1.13.10 [place].2.[place] [id number] [address] [facility] 2021-05-16 2021-05-16 Yelean Sotomayor [facility] 1.2.840.114 [id number] 46 Univers 00:00:00 00:00:00 Theresa MULTISPEC 350.1.13.10 ity of IALTY 4.2.7.2.686 [facility] [id number] [address] [facility] 2021-04-20 2021-04-20 Yelena Sotomayor WADESIRAE 1.2.840.114 [id number] 08 Univers 00:00:00 00:00:00 Theresa MULTISPEC 350.1.13.10 [place] 4[place]2.7.2.[place] [id number] [address] [facility] 2021-04-20 2021-04-20 Yelena Sotomayor WADESIRAE 1.2.840.114 [id number] 19 Univers 00:00:00 00:00:00 Theresa MULTISPEC 350.1.13.10 [place] 4[place]2.7.2.[place] [id number] [address] [facility] 2021-03-28 2021-03-28 Mariaelena Sotomayor WADESIRAE 1.2.840.114 [id number] 79 Univers 00:00:00 00:00:00 Secure Msg Theresa MULTISPEC 350.1.13.10 [place] 4.2.7.2.[place] [id number] [address] [facility] 2021-03-24 2021-03-24 Yelena Sotomayor WADESIRAE 1.2.840.114 [id number] 16 Univers 00:00:00 00:00:00 Theresa MULTISPEC 350.1.13.10 ity of IALTY 4.2.7.2.686 [facility] [place] [id number] [address] [facility]ES [facility] 2021-03-23 2021-03-23 Refill Bran [facility] 1.2.840.114 [id number] Univers 00:00:00 00:00:00 Theresa MULTISPEC 350.1.13.10 ity of IALTY 4.2.7.2.686 [facility] [place] [id number] [address] [facility] 2021-03-22 2021-03-22 Patient Bran [facility] 1.2.840.114 [id number] Univers 00:00:00 00:00:00 Secure Msg Theresa MULTISPEC 350.1.13.10 ity of IALTY 4.2.7.2.686 [facility] [place] [id number] [address] [facility] 2021-03-14 2021-03-14 Office Bran [facility] 1.2.840.114 [id number] 23 Univers 14:24:38 14:48:26 Visit Theresa GUZMANPEC 350.1.13.10 ity of IALTY 4.2.7.2.6 [facility] [place] [id number] [address] [facility]ETES [facility] 2021-03-14 2021-03-14 Outpatient R BRAN [facility] [id number] Univers 14:30:00 14:30:00 THERESA ity of [facility] 2021-02-25 2021-02-25 Refill Doctor [facility] 1.2.840.114 [id number] Univers 00:00:00 00:00:00 Unassigned, MULTISPEC 350.1.13.10 ity of [place] IALTY 4.2.7.2.686 [facility] [place] [id number] [address] [facility] 2021-02-25 2021-02-25 Patient Bran [facility] 1.2.840.114 [id number] Univers 00:00:00 00:00:00 Secure Msg Theresa MULTISPEC 350.1.13.10 [place] [id number] [address] [facility] 2021-02-24 2021-02-24 Refill [facility] 1.2.840.114 [id number] 23 Univers 00:00:00 00:00:00 Unassigned, MULTISPEC 350.1.13.10 ity [place]2.7.2.[place] [id number] [address] [facility] 2021-02-24 2021-02-24 Refill Bran [facility] 1.2.840.114 [id number] Univers 00:00:00 00:00:00 Theresa JEFF 350.1.13.10 ity of IALTY 4.2.7.2.686 [facility] [id number] [address] [facility] 2021-02-05 2021-02-05 Patient Kayden [facility] 1.2.840.114 [id number] Univers 00:00:00 00:00:00 Outreach Kole PRIMARY 350.1.13.10 i ty of [place] [facility] 4.2.7.2.[place] [id number] [address] 2021-02-03 2021-02-03 Telephone Bran [facility] 1.2.865.875 [id number] Univers 00:00:00 00:00:00 Theresa JEFF 350.1.13.10 ity of IALTY 4.2.7.2.686 [facility] [id number] [address] [facility] 2021-02-01 2021-02-01 Office Bran [facility] 1.2.840.114 [id number] Univers 14:13:44 14:43:44 Visit Theresa JEFF 350.1.13.10 ity of IALTY 4.2.7.2.686 [facility] [id number] [address] [facility] 2021-02-01 2021-02-01 Outpatient R BRAN [facility] [id number] Univers 14:30:00 14:30:00 THERESA reese [facility] 2021-01-31 2021-01-31 Outpatient R CAMERON [facility] [id number] Univers 14:00:00 14:00:00 WILLIAM reese [facility] 2021-01-31 2021-01-31 [facility] 1.2.840.114 [id number] Univers 00:00:00 00:00:00 Secure Msg Theresa GUZMANPEC 350.1.13.10 ity of [place].2.7.2.[place] [id number] [facility] [address] [facility] 2021-01-24 2021-01-24 Telephone Bran [facility] 1.2.857.631 [id number] Univers 00:00:00 00:00:00 Theresa GUZMANPEC 350.1.13.10 ity of IALTY 4.2.7.2.686 [facility] [place] [id number] [facility] [address] [facility] 2021-01-18 2021-01-18 Tube Drawer Kai, Adc Lab Main [facility] 1.2.8 40.114 [id number] Univers 15:14:34 15:29:34 Visit Theresa Sotomayor Emili 350.1.13.10 ity of [place] 4.2.7.2.686 [facility] [id number] [address] 2021-01-18 2021-01-18 [facility] [id number] Univers 15:15:00 15:15:00 THERESA reese [facility] 2021-01-14 2021-01-14 [facility] 1.2.840.114 [id number] Univers 00:00:00 00:00:00 Secure Msg Theresa GUZMANPEC 350.1.13.10 ity of [place] 4.2.7.2.686 [facility] [place] [id number] [facility] [address] [facility] 2020-12-28 2020-12-28 Patient Cameron [facility] [id number] Univers 00:00:00 00:00:00 Secure Msg William MULTISPEC 350.1.13.10 [place]2.[place] [facility] [id number] [address] [facility] 2020-12-27 2020-12-27 Telephone [facility] 1.2.840.114 [id number] Univers 00:00:00 00:00:00 William MULTISPEC 350.1.13.10 [place]2.[place] [id number] [address] [facility] 2020-12-22 2020-12-22 Office [facility] 1.2.270.144 [id number] Univers 07:52:22 08:12:22 Visit William JEFF 350.1.13.10 ity of [place] 4.2.7.2.686 [facility] [place] [id number] [address] [facility] 2020-12-22 2020-12-22 Outpatient R [facility] [id number] Univers 08:00:00 08:00:00 WILLIAM ity of [facility] 2020-12-20 2020-12-20 Telephone [facility] 1.2.717.451 [id number] Univers 00:00:00 00:00:00 [facility] 350.1.13.10 [place] [phone] [address] [facility] 2020-12-17 2020-12-17 Orders Doctor EMMANUELLE 1.2.840.114 [id number] Univers 00:00:00 00:00:00 Only Unassigned, COLE 350.1.13.10 ity of [place] [facility] 4.2.7.2.686 Dave as [phone] [address] 2020-12-06 2020-12-06 Office [facility] 1.2.840.114 [id number] Univers 11:01:30 11:31:30 Visit Theresa GUZMANPEC 350.1.13.10 [place]2.[place] [phone] [address] DIAB[facility]ES [facility] 2020-12-06 2020-12-06 Outpatient R BRAN [facility] [id number] Univers 11:00:00 11:00:00 THERESA reese [facility] 2020-12-03 2020-12-03 Patient Doctor [facility] 1.2.840.114 [id number] Univers 00:00:00 00:00:00 Secure Msg Unassigned, MULTISPEC 350.1.13.10 [place] 4[place]2.7.2.686 [place] [id number] [address] [facility] 2020-12-03 2020-12-03 Patient Bran [facility] 1.2.840.114 [id number] Univers 00:00:00 00:00:00 Secure Msg Theresa MULTISPEC 350.1.13.10 [place] 4[place]7.2.[place] [id number] [address] [facility]ES [facility] 2020-11-30 2020-11-30 Transition Demarcus Burt 1.2.840.114 [id number] Univers 00:00:00 00:00:00 of Care Xiao Lackey 350.1.13.10 i [place]2.[place] [id number] [address] 2020-11-22 2020-11-27 Inpatient X [facility] [id number] Univers 17:47:00 17:45:00 DAVID reese [facility] 2020-11-24 2020-11-24 Outpatient Iram [facility] [id number] Univers 16:20:00 16:20:00 WILLIAM reese [facility] 2020-11-22 2020-11-22 [facility] 1.2.277.897 [id number] Univers 16:34:55 16:54:55 Visit William JEFF 350.1.13.10 [place] 4[place]7.2.686 [place] [id number] [address] [facility]AB[facility]ES [facility] 2020-11-22 2020-11-22 Outpatient R [facility] [id number] Univers 16:40:00 16:40:00 WILLIAM ity of [facility] 2020-11-22 2020-11-22 Patient Doctor [facility] 1.2.840.114 [id number] Univers 00:00:00 00:00:00 Secure Msg Unassigned, SPECIALTY 350.1.13.10 ity of [place] CARE 4.2.7.2.686 [facility] AT [id number] Mo kelli PRINCE 053 [facility] 2020-11-21 2020-11-21 Emergency [facility] 1.2.718.834 [id number] Univers 17:53:00 18:00:00 [place] 350.1.13.10 i ty of [place] 4.2.7.2.686 [facility] [id number] [facility] [address] 2020-11-21 2020-11-21 Orders Doctor EMMANUELLE 1.2.840.114 [id number] Univers 00:00:00 00:00:00 Only Unassigned, COLE 350.1.13.10 [place] HOSPITAL 4.2.7.2.686 Dave [phone] [facility] [address] 2020-11-17 2020-11-17 Patient Bran [facility] 1.2.840.114 [id number] Univers 00:00:00 00:00:00 Secure Msg Theresa MULTISPEC 350.1.13.10 ity of [place] 4.2.7.2.686 [facility] [id number] [address] [facility] 2020-11-16 2020-11-16 Patient Bran [facility] 1.2.840.114 [id number] Univers 00:00:00 00:00:00 Secure Msg Theresa MULTISPEC 350.1.13.10 ity of [place] 4.2.7.2.686 [facility] [phone] [address] [facility] 2020-11-01 2020-11-01 Office Bran [facility] 1.2.840.114 [id number] Univers 13:35:54 14:05:54 Visit Theresa MULTISPEC 350.1.13.10 [place] [id number] [address] [facility] 2020-11-01 2020-11-01 Outpatient R BRAN [facility] [id number] Univers 13:30:00 13:30:00 THERESA ity of [facility] 2020-10-29 2020-10-29 Patient Doctor [facility] 1.2.840.114 [id number] Univers 00:00:00 00:00:00 Secure Msg Unassigned, MULTISPEC 350.1.13.10 [place] [phone] [address] [facility] 2020-10-25 2020-10-25 Patient Bran [facility] 1.2.840.114 [id number] Univers 00:00:00 00:00:00 Secure Msg Theresa MULTISPEC 350.1.13.10 [place] [id number] [address] [facility] 2020-08-23 2020-08-23 Refill Doctor [facility] 1.2.840.114 [id number] Univers 00:00:00 00:00:00 Unassigned, MULTISPEC 350.1.13.10 [place] [id number] [address] [facility] 2020-08-23 2020-08-23 Refill Doctor [facility] 1.2.840.114 [id number] Univers 00:00:00 00:00:00 Unassigned, MULTISPEC 350.1.13.10 [place] [id number] [address] [facility] 2020-08-23 2020-08-23 Refill Bran [facility] 1.2.840.114 [id number] Univers 00:00:00 00:00:00 Theresa MULTISPEC 350.1.13.10 [place] [id number] [address] [facility] 2020-07-27 2020-07-27 Refill Doctor [facility] 1.2.840.114 [id number] Univers 00:00:00 00:00:00 Unassigned, MULTISPEC 350.1.13.10 [place] [id number] [address] [facility] 2020-07-18 2020-07-18 Refill Doctor [facility] 1.2.840.114 [id number] [facility] 00:00:00 00:00:00 Unassigned, MULTISPEC 350.1.13.10 ity of [place] 4.2.7.2.686 [facility] [place] [id number] [address] DIABETES [facility] 2020-05-21 2020-05-21 Outpatient JAYA [facility] [id number] [place] 00:00:00 00:00:00 EMMANUELLE [facility] 2020-05-20 2020-05-20 Outpatient Iram S[facility]OM[facility]OR [facility] [id number] [address] [place] [address] 14:30:00 14:30:00 THERESA ity [facility] 2020-05-14 2020-05-14 Telephone Bran [facility] 1.2.452.785 [id number] [facility] 00:00:00 00:00:00 Theresa MEGANPEC 350.1.13.10 ity of [place] 4.2.7.2.686 [facility] [place] [id number] [address] DIABETES [facility] 2020-05-14 2020-05-14 Patient Doctor [facility] 1.2.840.114 [id number] Univers 00:00:00 00:00:00 Secure Msg Unassigned, MULTISPEC 350.1.13.10 ity of [place] 4.2.7.2.686 [facility] [id number] [address] DIABETES [facility] 2020-05-03 2020-05-10 Office Bran [facility] 1.2.840.114 [id number] Univers 13:13:15 14:03:18 Visit Theresa GUZMANPEC 350.1.13.10 ity of [place] 4.2.7.2.686 [facility] [place] [id number] [address] [facility] 2020-05-06 2020-05-06 Telephone [facility] 1.2.762.061 [id number] Univers 00:00:00 00:00:00 Theresa MULTISPEC 350.1.13.10 ity of [place] 4.2.7.2.686 [facility] [place] [id number] [address] DIABETES [facility] 2020-05-04 2020-05-04 [facility] [id number] Univers 16:45:00 16:45:00 THERESA ity [facility] 2020-05-04 2020-05-04 Telephone [facility] 1.2.388.599 [id number] Univers 00:00:00 00:00:00 Theresa MULTISPEC 350.1.13.10 ity of [place] 4.2.7.2.686 [facility] [place] [id number] [address] DIABETES [facility] 2020-05-03 2020-05-03 Tube Drawer Vtc-Lab [facility] 1.2.840.114 [id number] Univers 13:41:45 13:51:45 Visit Arnel Toure MULTISPEC 350.1.13 .10 ity of [place] 4.2.7.2.686 [facility] [place] [id number] [address] DIABETES [facility] 2020-05-03 2020-05-03 [facility]patient [facility] [id number] Univers 13:00:00 13:00:00 THERESA ity [facility] 2020-05-03 2020-05-03 Telephone [facility] 1.2.053.559 [id number] Univers 00:00:00 00:00:00 Theresa MULTISPEC 350.1.13.10 ity of [place] 4.2.7.2.686 [facility] [place] [id number] [address] DIABETES [facility] 2020-05-03 2020-05-03 Orders Doctor HANDLEY 1.2.840.114 [id number] Univers 00:00:00 00:00:00 Only Unassigned, COLE 350.1.13.10 ity of [place] [facility] 4.2.7.2.686 [facility] [id number] [address] 2020-04-23 2020-04-23 Outpatient R JASON [facility] [id number] Univers 10:20:00 10:20:00 AMY ity of [facility] 2020-04-20 2020-04-20 Transition Demarcus Wynne 1.2.840.114 [id number] Univers 00:00:00 00:00:00 of Care Isabella Lackey 350.1.13.10 i ty [place] [id number] [facility] [address] 2020-04-14 2020-04-17 Inpatient X POL[facility] [id number] Univers 14:42:03 12:05:00 KEISHA itmitra [facility] 2020-04-14 2020-04-17 [facility] Christine Britton [facility] 1.2.840. 114 [id number] Univers 14:42:03 12:05:00 Encounter Keisha Fish Emili 350.1.13.10 [place].7.2.[place] [id number] [facility] [address] 2020-04-16 2020-04-16 [facility] 1.2.909.324 [id number] Univers 00:00:00 00:00:00 Pili [facility] 350.1.13.10 i ty of [place] 4.2.7.2.686 Dave as Professio [id number] Mo dical nal [address] Building [facility] 2020-04-14 2020-04-14 Urgent Pob1, Acute Care Clinic [facility] 1. 2.840.114 [id number] Univers 13:52:28 14:54:37 Care Pili Ruggiero [facility] 350.1.13.10 ity of [place] 4.2.7.2.686 Dave as Professio [phone] Mo dical nal [address] Office [facility] 2020-04-14 2020-04-14 Outpatient R [facility] [id number] Univers 13:40:00 13:40:00 ity of [facility] 2020-04-14 2020-04-14 Patient Bran [facility] 1.2.840.114 [id number] Univers 00:00:00 00:00:00 Secure Msg Theresa MULTISPEC 350.1.13.10 [place] [id number] [address] [facility]ES [facility]INIC 2020-04-14 2020-04-14 Telephone Bran [facility] 1.2.190.322 [id number] Univers 00:00:00 00:00:00 Theresa MULTISPEC 350.1.13.10 [place] [id number] [address] [facility]ES [facility]INIC 2020-04-08 2020-04-08 Refill Doctor [facility] 1.2.840.114 [id number] Univers 00:00:00 00:00:00 Unassigned, MULTISPEC 350.1.13.10 ity of [place] 4.2.7.2.686 [facility] [id number] [address] [facility] 2020-02-07 2020-02-07 Refill Bran [facility] 1.2.840.114 [id number] Univers 00:00:00 00:00:00 Theresa MULTISPEC 350.1.13.10 ity of [place] 4.2.7.2.686 [facility] [id number] [address] [facility]ES [facility]INIC 2019-12-25 2019-12-25 Patient Bran [facility] 1.2.840.114 [id number] Univers 00:00:00 00:00:00 Secure Msg Theresa MULTISPEC 350.1.13.10 ity of [place] 4.2.7.2.686 [facility] [id number] [address] [facility]ES [facility] 2019-12-23 2019-12-23 Refill Bran [facility] 1.2.840.114 [id number] Univers 00:00:00 00:00:00 Theresa MULTISPEC 350.1.13.10 ity of [place] 4.2.7.2.686 [facility] [id number] [address] [facility]ES [facility]INIC 2019-12-19 2019-12-19 Patient Bran [facility] 1.2.840.114 [id number] Univers 00:00:00 00:00:00 Secure Msg Theresa GUZMANPEC 350.1.13.10 ity of [place] 4.2.7.2.686 [facility] [id number] [address] [facility]ETES CLINIC 2019-12-11 2019-12-11 Patient Doctor [facility] 1.2.840.114 [id number] Univers 00:00:00 00:00:00 Secure Msg Unassigned, MEGANPEC 350.1.13.10 ity of [place] 4.2.7.2.686 [facility] [id number] [address] DI[facility]ETES CLINIC 2019-12-11 2019-12-11 Telephone Sotomayor [facility] 1.2.263.007 [id number] Univers 00:00:00 00:00:00 Theresa GUZMANPEC 350.1.13.10 ity of [place] 4.2.7.2.686 [facility] [id number] [address] DI[facility]ETES CLINIC 2019-12-09 2019-12-09 Tube Drawer Vtc-Lab [facility] 1.2.840.114 [id number] Univers 14:41:12 14:51:12 Visit Sugey Sotomayorica MEGANRAVI 350.1.13.10 ity of [place] 4.2.7.2.686 [facility] [id number] [address] DIABETES CLINIC 2019-12-09 2019-12-09 Office Bran [facility] 1.2.840.114 [id number] Univers 14:10:09 14:30:09 Visit Theresa JEFF 350.1.13.10 ity of [place] 4.2.7.2.686 [facility] [id number] [address] DIABETES CLINIC 2019-11-19 2019-11-22 Inpatient X KAROLYN MERLOS [facility] KARLEE [id number] Univers 15:28:29 12:50:00 ity of [facility] Results Test Description Test Time Test Comments Results Result Comments Source LIPID PANEL-Q 2021-12-06 07:00:00 Test Item Value Reference Range Interpretation Comme nts CHOLESTEROL, TOTAL-Q 227 mg/dL <200 H (test code = 2093-3) HDL CHOLESTEROL-Q (test 53 mg/dL See_Comment [Au tomated message] The code = 2084-) system which generated this result tra nsmitted [...] et al. J. of Clin. Lipidol. 2015;9:129-169. [id number] (test mg/dL (calc) H Refe rence range: <100 code = 24912-9) Desirable ra nge <100 mg/dL for prima ry prevention; ?<7 0 mg/dL for patients wi th CHD or diabetic patien ts with > or = 2 CHD risk factors. LDL-C is now ca lculated using the Susana Boateng calculation, wh ich is a validated novel method providing narcisa r accuracy than t he Olgaald equa tion in the estimation of LDL-C. Frankie SS et al . HI. 2013;310(15): 2 061-1679 (http://educati on.PlayPhone/ faq/FAQ16 4) CHOL/HDLC RATIO-Q (test See_Comment [Au tomated message] The code = 9830-1) system which generated this result tra nsmitted reference range : <5.0 (calc). The ref erence range was not u sed to interpret this result as normal/abnormal . NON-HDL CHOLESTEROL-Q See_Comment H For anuel weeks with (test code = 22402-9) diabet es plus 1 major ASCVD risk [...] LINDA (test code = LINDA) PERFORMED BY [facility]; [address] [place] [address]; HANSA REYES MD Lab Interpretation (test Abnormal code = 07750-5) [id number] 07:00:00 Test Item Value Reference Range Interpretation Comments URIC ACID-Q 6.2 mg/dL 2.5-7.0 Therapeutic tar get (test code = for gout patien ts: 3084-1) <6.0 mg/dL ? LINDA (test code PERFORMED BY [facility] = LINDA) [facility]; [address] [place] [address]; HANSA REYES MD [facility] METABOL[facility]$PANEL W/EGFR-Q 2021-12-06 07:00:00 Test Item Value [...] as -Beth n. eGFR NON-AFR. See_Comment [Automated me ssage] BRUNEIAN-Q The system [employer] (test code = generated this result 76360-0) transmitted ref erence range: > OR = 6 0 mL/min/1.73m2. The reference range was not used to int erpret this result as normal/abnormal . eGFR See_Comment [Automated mes isma] BRUNEIAN-Q The system [facility] (test code = generated this result 37332-5) transmitted ref erence range: > OR = 6 0 mL/min/1.73m2. The reference range was not used to int erpret this result as normal/abnormal . BUN/CREATININE NOT APPLICABLE See_Comment [Automated message] RATIO-Q (test The system [facility] ch code = 3097-3) generated thi s result transmitted ref erence range: 6 - 22 ( calc). The reference r maricruz was not used to interpret this result as normal/abnor mal. SODIUM-Q (test 139 mmol/L 135-146 code = 2951-2) POTASSIUM-Q 5.2 mmol/L 3.5-5.3 (test code = 2823-3) CHLORIDE-Q 102 mmol/L 98-110 (test code = 5-0) CARBON 28 mmol/L 20-32 DIOXIDE-Q (test code = 2027-9) CALCIUM-Q (test 9.9 mg/dL 8.6-10.4 code = 16963-5) PROTEIN, 6.8 g/dL 6.1-8.1 TOTAL-Q (test code = 2885-2) ALBUMIN-Q (test 4.1 g/dL 3.6-5.1 code = 1751-7) GLOBULIN-Q See_Comment [Automated mes isma] (test code = The system [facility] 47864-3) generated this result transmitted ref erence range: 1.9 - 3. 7 g/dL (calc). The ref erence range was not u sed to interpret this result as normal/abnor mal. ALBUMIN/GLOBULI See_Comment [Automated message] N RATIO-Q (test The system [facility] code = 1759-0) generated thi s result transmitted ref erence range: 1.0 - 2. 5 (calc). The ref erence range was not u sed to interpret this result as normal/abnor mal. BILIRUBIN, 0.5 mg/dL 0.2-1.2 TOTAL-Q (test code = 1974-) ALKALINE 68 U/L 37-153 PHOSPHATASE-Q (test code = 6768-6) AST-Q (test 20 U/L 10-35 code = 1920-8) ALT-Q (test 17 U/L 6-29 code = 1742-6) LINDA (test code PERFORMED BY [facility] = LINDA) [facility]; [address] [facility] [place] [address]; HANSA REYES MD [facility]
[2023-10-12] MEDS ORDERED: NA CHLORIDE 0.9% 500 ML ONE (17:55)
[2023-10-12] MEDS ORDERED: ONDANSETRON 4 MG/2 ML VIAL ONE ×3 (17:55→22:56)
--- NOTE | 2023-10-12 18:02 | RAD REPORT ---
EXAM DESCRIPTION: RAD - Chest Single View - 10/12/2023 5:49 pm CLINICAL HISTORY: COUGH Chest pain. COMPARISON: Chest Single View dated 08/21/2023; Chest Single View dated 12/12/2022; Chest Single View dated 05/18/2022; CHEST SINGLE VIEW dated 06/02/2010 FINDINGS: Portable technique limits examination quality. Interstitial markings are mildly prominent which can be seen in viral infection or mild interstitial pulmonary edema. The heart is upper limit of normal in size. No displaced fractures.
[2023-10-12 18:09] LABS: Absolute Lymphocytes (CBC) 1.9 K/uL (0.7-4.9); Hematocrit 39.3 % (36.0-45.0); Lymphocytes % 15.2 % (15.3-44.8); MCV 93.1 fL (80-100); MPV 9.1 fL (7.6-11.3); Platelets 279 thou/uL (152-406); RBC Red Blood Cell Count 4.22 M/uL (3.86-4.86)
[2023-10-12 18:13] LABS: Protime INR 1.12
[2023-10-12] MEDS ORDERED: FAMOTIDINE 20 MG/2 ML VIAL IV ONE (18:21)
[2023-10-12 18:40] LABS: Bilirubin Direct 0.2 mg/dL (0-0.2); Bilirubin Indirect, Calculated 0.5 mg/dL (0.2-0.8); Bilirubin Total 0.7 mg/dL (0.2-1.0); Protein, Total 8.4 g/dL (6.4-8.2); Troponin High Sensitivity 9.9 pg/mL (<58.9)
[2023-10-12 18:59] LABS: Magnesium 1.6 mg/dL (1.6-2.4); Potassium 3.9 mEq/L (3.5-5.1)
--- NOTE | 2023-10-12 19:12 | RAD REPORT ---
EXAM DESCRIPTION: CT - Chest Abd Pelvis Wo Con - 10/12/2023 7:04 pm CLINICAL HISTORY: Chest and abdomen pain. Abdominal distention;Cough COMPARISON: Chest For Pe Angio dated 07/25/2023 TECHNIQUE: A limited noncontrast study was performed. All CT scans are performed using dose optimization technique as appropriate and may include automated exposure control or mA/KV adjustment according to patient size. FINDINGS: The lungs are clear.No pleural or pericardial effusion.No intrathoracic adenopathy. The liver, spleen, pancreas, adrenal glands and kidneys are within normal limits. Small hiatal hernia . Cholecystectomy. No bowel obstruction, free air, free fluid or abscess. Normal appendix. No pathologic lymphadenopath y in the abdomen or pelvis. Mild lower lumbar degenerative changes. IMPRESSION: No acute abnormality.
[2023-10-12 19:13] LABS: SARS-CoV-2 Antigen Rapid Res Negative (Negative)
[2023-10-12] MEDS ORDERED: ACETAMINOPHEN 650MG/RECT SUPP PR ONE (19:40)
[2023-10-12] MEDS ORDERED: NA CHLORIDE 0.9% 1,000 ML ONE (19:41)
[2023-10-12] MEDS ORDERED: CEFTRIAXONE 1000 MG/VIAL ONE (19:41)
[2023-10-12] MEDS ORDERED: NA CHLORIDE 0.9% 50 ML ONE (19:41)
--- NOTE | 2023-10-12 19:51 | ER ---
Nurse's Notes [facility] Name: Terra Christianson Age: 58 yrs Sex: Female : 1965 Arrival Date: 10/12/2023 Time: 17:14 Bed 4 Private MD: Diagnosis: Fever, unspecified;Unspecified kidney failure-CHRONIC;Weakness;Vomiting;Sepsis, unspecified organism Presentation: 10/12 17:21 Chief complaint: Spouse and/or significant other states: Fever since yesterday, started nj1 vomiting earlier today. Pt actively vomiting. 17:21 Coronavirus screen: Vaccine status: Patient reports being unvaccinated. Ebola Screen: nj1 Patient denies travel to an Ebola-affected area in the 21 days before illness onset. Initial Sepsis Screen: Does the patient meet any 2 criteria? RR > 20 per min. HR > 90 bpm. Yes Does the patient have a suspected source of infection? No. Patient's initial sepsis screen is negative. Risk Assessment: Do you want to hurt yourself or someone else? Patient reports no desire to harm self or others. Onset of symptoms was October 11, 2023. 17:21 Method Of Arrival: Wheelchair nj 17:21 Acuity: YOSELYN 2 nj1 Historical: - Allergies: 17:29 Adhesives; ph 17:29 Albuterol; ph 17:29 Azithromycin; ph 17:29 Fentanyl; ph 17:29 FLU VACCINE; ph 17:29 HYDRALAZINE (Headache and does not work to lower BP); ph 17:29 NSAIDS; ph 17:29 pneumonia vaccine; ph 17:29 prednisolone; ph 17:29 Prednisone; ph 17:29 Trazodone; ph 17:29 Wellbutrin; ph 17:29 zoster vaccine live (PF); ph 17:29 z-pack; ph - Home Meds: 17:29 allopurinol 100 mg Oral tab 1 tab once daily [Active]; atorvastatin 10 mg Oral tablet ph [Active]; cyanocobalamin (vitamin B-12) 1 Oral tablet [Active]; eszopiclone 3 mg Oral tablet [Active]; ferrous sulfate 325 mg (65 mg iron) Oral tablet [Active]; furosemide 20 mg Oral tablet [Active]; methocarbamol 750 mg Oral tablet [Active]; metoprolol tartrate 100 mg Oral tablet [Active]; - PMHx: 17:29 Anxiety; depressive disorder; diabetes mellitus; Gout; Hypertensive disorder; insomnia; ph RENAL FAILURE; Renal reflux; uterine cancer; - PSHx: 17:29 hysterectomy; ph - Immunization history:: Client reports having NOT received the Covid vaccine. - Social history:: Smoking status: Patient denies any tobacco usage or history of. Screenin:36 [facility] ED Fall Risk Assessment (Adult) History of falling in the last 3 months, kc6 including since admission No falls in past 3 months (0 pts) Confusion or Disorientation No (0 pts) Intoxicated or Sedated No (0 pts) Impaired Gait No (0 pts) Mobility Assist Device Used No (0 pt) Altered Elimination No (0 pt) Score/Fall Risk Level 0 - 2 = Low Risk. Abuse screen: Denies threats or abuse. Denies injuries from another. Nutritional screening: No deficits noted. Tuberculosis screening: No symptoms or risk factors identified. Assessment: 17:34 General: Appears distressed, uncomfortable, Behavior is cooperative, anxious, restless, kc6 Reports chills for fever for feeling ill for. Pain: Complains of pain in abdomen. Neuro: Level of Consciousness is awake, alert, obeys commands, Oriented to person, place, time, situation, Appropriate for age Reports dizziness. Cardiovascular: Denies chest pain, Heart tones S1 S2 present Capillary refill is > 3 seconds. Respiratory: Airway is patent Trachea midline Respiratory effort is even, labored, gasping, with nasal flaring, pursed lip, using tripod position, Respiratory pattern is symmetrical, hyperventilation. GI: Pt is actively vomiting bile, Bowel sounds present X 4 quads. Abd is soft X 4 quads Reports nausea, vomiting, Patient currently denies diarrhea. : No signs and/or symptoms were reported regarding the genitourinary system. EENT: No signs and/or symptoms were reported regarding the EENT system. Derm: Skin is intact, is healthy with good turgor, Skin is dry, Skin is dusky, Skin temperature is warm. Musculoskeletal: No signs and/or symptoms reported regarding the musculoskeletal system. Circulation, motion, and sensation intact. Capillary refill < 3 seconds, Range of motion: intact in all extremities. 18:50 Reassessment: Patient appears in no apparent distress at this time. Patient and/or ph family updated on plan of care and expected duration. Pain level reassessed. Patient is alert, oriented x 3, equal unlabored respirations, skin warm/dry/pink. Pt no longer dry heaving and hyperventilating, resting quietly w/ eyes closed. 19:19 General: Appears uncomfortable, ill, Behavior is calm, cooperative, appropriate for la4 age. Pain: Complains of pain in left upper quadrant Pain radiates to left mid back Pain currently is 8 out of 10 on a pain scale. Quality of pain is described as crampy, Is continuous. Neuro: No deficits noted. Pittman Agitation-Sedation Scale (RASS): 0 - Alert and Calm Level of Consciousness is awake, alert, obeys commands, Oriented to person, place, time, situation, Appropriate for age. Cardiovascular: Denies chest pain, Heart tones S1 S2 Capillary refill < 3 seconds Pulses are all present. Respiratory: Airway is compromised Trachea midline Respiratory effort is even, unlabored, Respiratory pattern is symmetrical, tachypnea Breath sounds are clear bilaterally. GI: No deficits noted. Abdomen is round non-distended, Bowel sounds present X 4 quads. Abd is soft and non tender Patient currently denies nausea. 19:51 General: Pt changed from clothing into hospital gown and placed on a PUREWICK to obtain la4 urine. Pt reported dizziness upon standing as well as weakness. Elevated oral temp noted prior to administration of MD tylenol (see vitals). IV fluids began at 125ml/hr and IV Rocephin administered.. 20:06 Reassessment: Visitor at bedside. nw1 20:43 Reassessment: ATTEMPTED TO GIVE REPORT TO MESSI ALBARRAN. WAS NOTIFIED BY RIGHT OF WAY BUYER nw1 THAT [facility] IS UNAVAILABLE TO RECEIVE REPORT AT THIS TIME AND TO CALL BACK IN 5 MIN. 20:57 Reassessment: CALL MADE TO [phone], [facility]'S DIRECT LINE. NO ANSWER WHEN CALLED. nw1 Vital Signs: 17:21 Pulse 117; Resp 24; Temp 98.1(TE); Pulse Ox 97% on R/A; Weight 86.18 kg; Height 5 ft. 3 nj1 in. ; 17:52 BP 149 / 78; Pulse 86; Resp 24; Temp 98.5(O); Pulse Ox 99% on R/A; ph 19:17 BP 122 / 78; Pulse 80; Resp 22 S; Temp 99.8(O); Pulse Ox 96% on R/A; Pain 8/10; la4 19:55 BP 139 / 64; Pulse 83; Resp 16; Temp 100.7(O); Pulse Ox 97% on R/A; Pain 8/10; la4 17:21 Body Mass Index 33.66 (86.18 kg, 160.02 cm) nj1 19:17 Pain Scale: Adult la4 19:55 Pain Scale: Adult la4 19:17 left flank and abdominal paim la4 Warren Coma Score: 19:17 Eye Response: spontaneous(4). Motor Response: obeys commands(6). Verbal Response: la4 oriented(5). Total: 15. ED Course: 17:18 Patient arrived in ED. mr 17:22 Waqar Jeffries MD is Attending Physician. adia 17:34 Inserted saline lock: 18 gauge in left antecubital area, using aseptic technique. Blood kc6 collected. Patient maintains SpO2 saturation greater than 95% on room air. 17:35 Triage completed. nj1 17:35 Arm band placed on. nj1 17:37 Patient has correct armband on for positive identification. Bed in low position. Call kc6 light in reach. Side rails up X2. Adult w/ patient. Client placed on continuous cardiac and pulse oximetry monitoring. NIBP monitoring applied. quality assurance monitor body on. 17:51 XRAY Chest (1 view) In Process Unspecified. EDMS 17:52 Renetta Cannon RN is Primary Nurse. ph 18:48 Lactate w/ 2H reflex if indic. Sent. ph 18:48 Blood Culture Adult (2) Sent. ph 18:48 Strep Sent. ph 18:48 SARS RAPID Sent. ph 18:48 Flu Sent. ph 19:04 CT Chest Abdomen Pelvis W/O Contrast In Process Unspecified. EDMS 19:17 No provider procedures requiring assistance completed. IV is patent, is intact. la4 19:17 Provided Education on: plan of care. la4 19:45 Yohannes Torres is Hospitalizing Provider. [facility] 21:07 Report given to MESSI ALBARRAN. ALL QUESTIONS ASKED, ANSWERED. nw1 23:03 Patient admitted, IV remains in place. la4 Administered Medications: 17:55 Drug: NS 0.9% IV 500 ml IV at bolus once Route: IV; Rate: bolus; Site: left antecubital;ph 17:55 Drug: Ondansetron IVP 4 mg IVP once; over 2 minutes Route: IVP; Site: left antecubital; ph 18:52 Follow up: Response: No adverse reaction ph 18:14 Drug: Famotidine IVP 20 mg IVP once; dilute with 10 mL 0.9% NaCl; give over 2 minutes ph Route: IVP; Site: left antecubital; 18:14 Drug: Ondansetron IVP 4 mg IVP once; over 2 minutes Route: IVP; Site: left antecubital; ph 18:51 Follow up: Response: No adverse reaction ph 19:53 Drug: NS 0.9% IV 1000 ml IV at 125 ml/hr continuous Route: IV; Rate: 125 ml/hr; Site: la4 left antecubital; 19:53 Drug: Acetaminophen MD Suppository 650 mg MD once Route: MD; la4 19:53 Drug: Rocephin IV 1 grams IV at per protocol once; Given slow IV push per pharmacy la4 instructions Route: IV; Rate: per protocol; Site: left antecubital; Medication: 18:51 VIS not applicable for this client. ph Outcome: 19:51 Decision to Hospitalize by Provider. adia 21:08 Admitted to Med/surg accompanied by tech, room 206, with chart, Report called to anila ALBARRAN RN 22:50 Condition: improved la4 22:50 Instructed on the need for admit, 23:03 Patient left the ED. la4 Signatures: Dispatcher [employer] EDMS Waqar Jeffries MD MD cha Rivera Fang, [facility] Renetta Cannon, RN Bernadette Ireland ph, RN RN kc6 Latonya Allen RN RN nj1 Baron Cuellar RN RN la4 Shruthi Matthews RN RN nw1
--- NOTE | 2023-10-12 19:51 | EDPHYS ---
Physician Documentation [facility] Name: Terra Christianson Age: 58 yrs Sex: Female : 1965 Arrival Date: 10/12/2023 Time: 17:14 Bed 4 Private MD: MONICA Physician Waqar Jeffries HPI: 10/12 17:52 This 58 yrs old Female presents to ER via Wheelchair with complaints of adia Fever, Abdominal Pain, Dizziness. 17:52 The patient reports fever, not measured (subjective). Onset: The symptoms/episode adia began/occurred 1 day(s) ago. Modifying factors: there are no obvious modifying factors. Associated signs and symptoms: Pertinent positives: abdominal pain, nausea, vomiting. Severity of symptoms: At their worst the symptoms were moderate in the emergency department the symptoms are unchanged. The patient has experienced similar episodes in the past, a few times. Historical: - Allergies: 17:29 Adhesives; ph 17:29 Albuterol; ph 17:29 Azithromycin; ph 17:29 Fentanyl; ph 17:29 FLU VACCINE; ph 17:29 HYDRALAZINE (Headache and does not work to lower BP); ph 17:29 NSAIDS; ph 17:29 pneumonia vaccine; ph 17:29 prednisolone; ph 17:29 Prednisone; ph 17:29 Trazodone; ph 17:29 Wellbutrin; ph 17:29 zoster vaccine live (PF); ph 17:29 z-pack; ph - Home Meds: 17:29 allopurinol 100 mg Oral tab 1 tab once daily [Active]; atorvastatin 10 mg Oral tablet ph [Active]; cyanocobalamin (vitamin B-12) 1 Oral tablet [Active]; eszopiclone 3 mg Oral tablet [Active]; ferrous sulfate 325 mg (65 mg iron) Oral tablet [Active]; furosemide 20 mg Oral tablet [Active]; methocarbamol 750 mg Oral tablet [Active]; metoprolol tartrate 100 mg Oral tablet [Active]; - PMHx: 17:29 Anxiety; depressive disorder; diabetes mellitus; Gout; Hypertensive disorder; insomnia; ph RENAL FAILURE; Renal reflux; uterine cancer; - PSHx: 17:29 hysterectomy; ph - Immunization history:: Client reports having NOT received the Covid vaccine. - Social history:: Smoking status: Patient denies any tobacco usage or history of. ROS: 17:53 Eyes: Negative for injury, pain, redness, and discharge, ENT: Negative for injury, adia pain, and discharge, Neck: Negative for injury, pain, and swelling, Cardiovascular: Negative for chest pain, palpitations, and edema, Respiratory: Negative for shortness of breath, cough, wheezing, and pleuritic chest pain, Back: Negative for injury and pain, : Negative for injury, bleeding, discharge, and swelling, MS/Extremity: Negative for injury and deformity, Skin: Negative for injury, rash, and discoloration, Psych: Negative for depression, anxiety, suicide ideation, homicidal ideation, and hallucinations, Allergy/Immunology: Negative for hives, rash, and allergies, Endocrine: Negative for neck swelling, polydipsia, polyuria, polyphagia, and marked weight changes, Hematologic/Lymphatic: Negative for swollen nodes, abnormal bleeding, and unusual bruising, 17:53 Constitutional: Positive for body aches, chills, fatigue, fever, malaise, poor PO intake, 17:53 Abdomen/GI: Positive for abdominal pain, nausea and vomiting, Exam: 17:53 Head/Face: Normocephalic, atraumatic. Eyes: Pupils equal round and reactive to light, adia extra-ocular motions intact. Lids and lashes normal. Conjunctiva and sclera are non-icteric and not injected. Cornea within normal limits. Periorbital areas with no swelling, redness, or edema. ENT: Nares patent. No nasal discharge, no septal abnormalities noted. Tympanic membranes are normal and external auditory canals are clear. Oropharynx with no redness, swelling, or masses, exudates, or evidence of obstruction, uvula midline. Mucous membranes moist. Neck: Trachea midline, no thyromegaly or masses palpated, and no cervical lymphadenopathy. Supple, full range of motion without nuchal rigidity, or vertebral point tenderness. No Meningismus. Chest/axilla: Normal chest wall appearance and motion. Nontender with no deformity. No lesions are appreciated. Respiratory: Lungs have equal breath sounds bilaterally, clear to auscultation and percussion. No rales, rhonchi or wheezes noted. No increased work of breathing, no retractions or nasal flaring. Back: No spinal tenderness. No costovertebral tenderness. Full range of motion. Female : Normal external genitalia. Skin: Warm, dry with normal turgor. Normal color with no rashes, no lesions, and no evidence of cellulitis. MS/ Extremity: Pulses equal, no cyanosis. Neurovascular intact. Full, normal range of motion. Neuro: Awake and alert, GCS 15, oriented to person, place, time, and situation. Cranial nerves II-XII grossly intact. Motor strength 5/5 in all extremities. Sensory grossly intact. Cerebellar exam normal. Normal gait. Psych: Awake, alert, with orientation to person, place and time. Behavior, mood, and affect are within normal limits. 17:53 Constitutional: The patient appears febrile, 17:53 Cardiovascular: Rate: tachycardic, actual rate is 117 bpm, Rhythm: regular, Pulses: Pulses are 4+ in bilateral radial, brachial, femoral, popliteal, posterior tibial and and dorsalis pedis arteries.. Heart sounds: normal, Edema: is not appreciated, JVD: is not appreciated, 17:53 Abdomen/GI: Inspection: abdomen appears normal, Bowel sounds: normal, Palpation: mild abdominal tenderness, in all quadrants, Liver: no appreciated palpable abnormalities, Hernia: not appreciated, 17:53 Musculoskeletal/extremity: DVT Exam: No signs of deep vein thrombosis. no pain, no swelling, no tenderness, negative Homans' sign noted on exam, no appreciated bluish discoloration, no erythema, no increased warmth, 19:52 ECG was reviewed by the Attending Physician. adia Vital Signs: 17:21 Pulse 117; Resp 24; Temp 98.1(TE); Pulse Ox 97% on R/A; Weight 86.18 kg; Height 5 ft. 3 nj1 in. ; 17:52 BP 149 / 78; Pulse 86; Resp 24; Temp 98.5(O); Pulse Ox 99% on R/A; ph 19:17 BP 122 / 78; Pulse 80; Resp 22 S; Temp 99.8(O); Pulse Ox 96% on R/A; Pain 8/10; la4 19:55 BP 139 / 64; Pulse 83; Resp 16; Temp 100.7(O); Pulse Ox 97% on R/A; Pain 8/10; la4 17:21 Body Mass Index 33.66 (86.18 kg, 160.02 cm) nj1 19:17 Pain Scale: Adult la4 19:55 Pain Scale: Adult la4 19:17 left flank and abdominal paim la4 Warren Coma Score: 19:17 Eye Response: spontaneous(4). Motor Response: obeys commands(6). Verbal Response: la4 oriented(5). Total: 15. MDM: 17:22 Patient medically screened. adia 17:55 Differential diagnosis: viral Infection, bacterial infection, URI, bronchitis, adia pneumonia gastroenteritis, meningitis. Differential Diagnosis sepsis, flu. Differential diagnosis: cardiac arrhythmia, generalized weakness, hypovolemia, idiopathic dizziness, near-syncope, sepsis, syncope, TIA, vertigo. Data reviewed: vital signs, nurses notes, lab test result(s), EKG, radiologic studies, CT scan, plain films. Consideration of Admission/Observation Patient was admitted/placed on observation. Escalation of care including admission/observation considered. I considered the following discharge prescriptions or medication management in the emergency department Medications were administered in the Emergency Department. See MAR. Independent interpretation of the following test(s) in the Emergency Department EKG: See my EKG interpretation above. Test considered but Not performed: CT: NO CT HEAD. Historians other than the Patient: Spouse/Significant Other: WELL INFORMED. Care significantly affected by the following chronic conditions: Diabetes, Hypertension, Chronic Kidney Disease, ANXIETY. 10/12 17:38 Order name: Basic Metabolic Panel; Complete Time: 19:31 [facility] 10/12 17:38 Order name: CBC with Diff; Complete Time: 19:31 [facility] 10/12 17:38 Order name: LFT's; Complete Time: 19:31 [facility] 10/12 17:38 Order name: Magnesium; Complete Time: 19:31 [facility] 10/12 17:38 Order name: NT PRO-BNP; Complete Time: 19:31 [facility] 10/12 17:38 Order name: PT-INR; Complete Time: 19:31 [facility] 10/12 17:38 Order name: Troponin HS; Complete Time: 19:31 [facility] 10/12 17:38 Order name: Flu; Complete Time: 19:31 [facility] 10/12 17:38 Order name: SARS RAPID; Complete Time: 19:31 [facility] 10/12 17:38 Order name: Strep; Complete Time: 19:31 [facility] 10/12 17:38 Order name: Urinalysis w/ reflexes [facility] 10/12 17:43 Order name: Blood Culture Adult (2) [facility] 10/12 17:43 Order name: Lactate w/ 2H reflex if indic.; Complete Time: 19:31 [facility] 10/12 19:17 Order name: Throat Culture EDMS 10/12 20:37 Order name: T4 Free EDMS 10/12 20:37 Order name: Thyroid Stimulating Hormone EDMS 10/12 20:37 Order name: Urinalysis w/ reflexes EDMS 10/12 20:37 Order name: Basic Metabolic Panel EDMS 10/12 20:37 Order name: Basic Metabolic Panel EDMS 10/12 20:37 Order name: Basic Metabolic Panel EDMS 10/12 20:37 Order name: Basic Metabolic Panel EDMS 10/12 20:37 Order name: CBC with Automated Diff EDMS 10/12 20:37 Order name: CBC with Automated Diff EDMS 10/12 20:37 Order name: CBC with Automated Diff EDMS 10/12 20:37 Order name: CBC with Automated Diff EDMS 10/12 20:37 Order name: Lipid Profile EDMS 10/12 20:37 Order name: Lipid Profile EDMS 10/12 20:37 Order name: Magnesium EDMS 10/12 20:37 Order name: Magnesium EDMS 10/12 20:37 Order name: Magnesium EDMS 10/12 20:37 Order name: Magnesium EDMS 10/12 20:37 Order name: Phosphorus EDMS 10/12 20:37 Order name: Phosphorus EDMS 10/12 20:37 Order name: Phosphorus EDMS 10/12 20:37 Order name: Phosphorus EDMS 10/12 17:38 Order name: XRAY Chest (1 view); Complete Time: 18:09 [facility] 10/12 17:43 Order name: CT Chest Abdomen Pelvis W/O Contrast; Complete Time: 19:31 [facility] 10/12 17:38 Order name: EKG; Complete Time: 17:39 [facility] 10/12 17:38 Order name: Cardiac monitoring; Complete Time: 19:00 [facility] 10/12 17:38 Order name: EKG - Nurse/Tech; Complete Time: 19:00 [facility] 10/12 17:38 Order name: IV Saline Lock; Complete Time: 17:53 [facility] 10/12 17:38 Order name: Labs collected and sent; Complete Time: 18:48 [facility] 10/12 17:38 Order name: O2 Per Protocol; Complete Time: 17:53 [facility] 10/12 17:38 Order name: O2 Sat Monitoring; Complete Time: 17:53 [facility] 10/12 19:44 Order name: Glenys. Order: PLEASE GET UA adia EC:52 Rate is 82 beats/min. Rhythm is regular. QRS Gorin is Normal. AL interval is normal. QT adia interval is prolonged at 469 msec. No Q waves. T waves are Normal. No ST changes noted. Clinical impression: NSR w/ Non-specific ST/T Changes and No evidence of ischemia. Interpreted by me. Reviewed by me. Administered Medications: 17:55 Drug: NS 0.9% IV 500 ml IV at bolus once Route: IV; Rate: bolus; Site: left antecubital;ph 17:55 Drug: Ondansetron IVP 4 mg IVP once; over 2 minutes Route: IVP; Site: left antecubital; ph 18:52 Follow up: Response: No adverse reaction ph 18:14 Drug: Famotidine IVP 20 mg IVP once; dilute with 10 mL 0.9% NaCl; give over 2 minutes ph Route: IVP; Site: left antecubital; 18:14 Drug: Ondansetron IVP 4 mg IVP once; over 2 minutes Route: IVP; Site: left antecubital; ph 18:51 Follow up: Response: No adverse reaction ph 19:53 Drug: NS 0.9% IV 1000 ml IV at 125 ml/hr continuous Route: IV; Rate: 125 ml/hr; Site: la4 left antecubital; 19:53 Drug: Acetaminophen AL Suppository 650 mg AL once Route: AL; la4 19:53 Drug: Rocephin IV 1 grams IV at per protocol once; Given slow IV push per pharmacy la4 instructions Route: IV; Rate: per protocol; Site: left antecubital; Disposition Summary: 10/12/23 19:51 Hospitalization Ordered Notes: Hospitalization Status: Inpatient Admission adia Provider: Yohannes Torres cha Location: Telemetry/MedSurg (Inpatient) adia Condition: Fair adia Problem: new adia Symptoms: have improved adia Bed/Room Type: Standard adia Room Assignment: 206(10/12/23 20:42) rv1 Diagnosis - Fever, unspecified adia - Unspecified kidney failure - CHRONIC adai - Weakness adia - Vomiting adia - Sepsis, unspecified organism adia Forms: - Medication Reconciliation Form adia - SBAR form adia - Leadership Thank You Letter adia Signatures: Dispatcher [employer] Waqar Still MD MD cha Hall, Patricia RN RN ph Waqar Aponte PA PA cp Villegas, Rebecca rv1 Latonya Allen RN RN nj1 Baron Cuellar RN RN la4 Corrections: (The following items were deleted from the chart) 20:42 19:51 adia rv1
[2023-10-12] MEDS ORDERED: ACETAMINOPHEN 500 MG TAB PO PRN (20:30)
[2023-10-12] MEDS ORDERED: MAGNESIUM HYDROXIDE 8% 30 ML PO PRN (20:30)
--- NOTE | 2023-10-12 20:40 | P.HP ---
Certification for Inpatient With expected LOS: <2 Midnights Patient will require the following post-hospital care: None Practitioner: I am a practitioner with admitting privileges, knowledge of patient current condition, hospital course, and medical plan of care. Services: Services provided to patient in accordance with Admission requirements found in Title 42 Section 412.3 of the Code of Federal Regulations Patient History Date of Service: 10/13/23 Reason for admission: Fever, vomiting, weakness History of Present Illness: Ms. Christianson, a 58-year-old female with a history of anxiety depressive disorder, diabetes mellitus, gout, hypertension, congestive heart failure, , insomnia, CKD, renal reflux, uterine cancer presented to the emergency room with complaints of fever, abdominal pain, dizziness. Patient reports fever, not measured started 1 day ago. Associated symptoms include abdominal pain nausea, vomiting. Patient also reports urinary burning and discomfort for last 3 days, Patient denies chest pain, chest discomfort, palpitation, shortness of breath. Patient has experienced similar episodes in the past. ED course vital signs 149/78, pulse 86, respiration 24, temperature 98.5, pulse ox 99% on room air. Laboratory results significant for mild leukocytosis 12.5, elevated lactic acid 2.77, elevated BUN 23, creatinine 1.80, low GFR 32, blood sugar 143, elevated BNP 1154. Chest x-ray showing mild interstitial pulmonary edema. Admitting the patient with a diagnosis of fever unspecified, unspecified kidney failure/chronic, weakness, and vomiting Allergies adhesive Allergy (Verified 07/25/23 06:04) UNK albuterol Allergy (Verified 07/25/23 06:04) UNK azithromycin [From Zithromax] Allergy (Verified 07/25/23 06:04) UNK bupropion [From Wellbutrin] Allergy (Verified 07/25/23 06:04) UNK citalopram [From Celexa] Allergy (Verified 07/25/23 06:15) Itching/Hives/Rash fentanyl Allergy (Verified 07/25/23 06:04) UNK hydralazine Allergy (Verified 07/25/23 06:04) UNK Influenza Virus Vaccines Allergy (Verified 07/25/23 06:04) UNK NSAIDS (Non-Steroidal Anti-Inflamma Allergy (Verified 07/25/23 06:04) UNK pneumococcal vaccine Allergy (Verified 07/25/23 06:04) UNK prednisolone Allergy (Verified 07/25/23 06:04) UNK prednisone Allergy (Verified 07/25/23 06:04) UNK trazodone Allergy (Verified 07/25/23 06:04) UNK zoster vaccine live Allergy (Verified 07/25/23 06:04) UNK Home Medications: Allopurinol 1 tab PO DAILY 12/12/22 Eszopiclone [Lunesta] 1 tab PO BEDTIME 12/12/22 Ferrous Sulfate [Feosol] 1 tab PO DAILY 12/12/22 Mecobalamin [B12 Active] 1,000 mcg IM CONT 12/12/22 Furosemide [Lasix] 1 tab PO DAILY PRN #30 12/14/22 Clotrim/Betameth Cream [Lotrisone Cream*] 1 dose TOP PRN PRN 07/25/23 Losartan Potassium 50 mg PO DAILY 07/25/23 Metoprolol Tartrate [Lopressor] 100 mg PO DAILY 07/25/23 methocarbamoL [Methocarbamol] 750 mg PO DAILY 07/25/23 - Past Medical/Surgical History Diabetic: Yes -: Gout -: HTN -: Depression -: Obesity -: DM 2- diet controlled -: CKD III (Dr. Chawla) -: Right ureter stenosis -: Recurrent UTI -: CHF-D -: Hysterectomy -: I&D Left leg(spider bite) Psychosocial/ Personal History: lives at home - Social History Alcohol use: Yes CD- Drugs: No Caffeine use: Yes Physical Examination - Physical Exam General: Alert, In no apparent distress, Oriented x3, Other (Fever) HEENT: Atraumatic, Normocephalic, PERRLA Neck: Supple, 2+ carotid pulse no bruit Cardiovascular: No edema, Normal pulses, Regular rate/rhythm, Normal S1 S2 Capillary refill: <2 Seconds Gastrointestinal: Normal bowel sounds, Soft and benign, Other (Nausea or vomiting) Musculoskeletal: No clubbing, No swelling, No contractures, No erythema Neurological: Normal gait, Normal speech, Normal tone, Other - Studies Laboratory Data (last 24 hrs) 10/12/23 10/12/23 10/12/23 17:55 17:55 17:55 WBC 12.50 H Hgb 12.9 Hct 39.3 Plt Count 279 PT 12.3 INR 1.12 Sodium 138 Potassium 3.9 BUN 23 H Creatinine 1.80 H Glucose 143 H Magnesium 1.6 Total Bilirubin 0.7 AST 38 H ALT 49 Alkaline Phosphatase 111 Microbiology Data (last 24 hrs): 10/12/23 18:35 Nasopharnyx Influenza Type A Antigen Screen - Final 10/12/23 18:35 Nasopharnyx Influenza Type B Antigen Screen - Final 10/12/23 18:35 Throat Group A Streptococcus Rapid Screen - Final Assessment and Plan - Problems (Diagnosis) (1) Fever, unspecified Current Visit: Yes Status: Acute Plan: Acute, patient reports fever for a day Afebrile right now, we will continue to monitor Admitting the patient as the lactic acid is 2.7 Vital signs stable Continue to monitor repeat the lactic acid in 2 hours Started ceftriaxone antibiotics (2) Unspecified kidney failure Current Visit: Yes Status: Acute Plan: Acute on chronic, worsening CKD GFR 32, BUN 23, creatinine 1.8 Gentle hydration, monitor vital signs closely Consult direct mail coordinator Qualifiers: Renal failure chronicity: acute on chronic Chronic kidney disease stage: stage 3 (moderate) Chronic kidney disease stage 3 subtype: stage 3b (GFR 30- 44) (3) Weakness Current Visit: Yes Status: Acute Plan: Acute, increased weakness over the last 3 days with mild fever At present no fever Admit the patient in the hospital monitor vital signs IV antibiotics IV hydration (4) Vomiting Current Visit: Yes Status: Acute Plan: Acute, vomited x1 Zofran as needed Continue to monitor Qualifiers: Vomiting type: unspecified (5) UTI (urinary tract infection) Current Visit: Yes Status: Acute Plan: Acute, patient came in due to fever and urinary symptoms including dysuria for the last 3 days Patient is afebrile mildly tachycardic normotensive, breathing normal on room air Patient's lactic acid is elevated at 2.7, mild leukocytosis WBCs 12.5 Patient has history of repeated UTIs in the past Admitted the patient in the hospital started on IV antibiotics Pending UA Adequate hydration and fluids prevention of UTI discussed Qualifiers: Urinary tract infection type: acute cystitis Hematuria presence: without hematuria Qualified Code(s): N30.00 - Acute cystitis without hematuria (6) Type 2 diabetes mellitus Current Visit: Yes Status: Chronic Plan: Chronic, controlled on diet alone Labs with elevated blood sugar Diabetic diet Will check the A1c in the morning Qualifiers: Diabetes mellitus nursing home insulin use: without nursing home use Diabetes mellitus complication status: without complication Qualified Code(s): E11.9 - Type 2 diabetes mellitus without complications (7) Hypertension Current Visit: Yes Status: Chronic Plan: Chronic, controlled Will resume the home medication as appropriate Low GFR of 32 Qualifiers: Hypertension type: primary hypertension Qualified Code(s): I10 - Essential (primary) hypertension (8) Diastolic CHF Current Visit: Yes Status: Chronic Plan: Chronic, patient reports that she was recently diagnosed with CHF on home Lasix therapy Patient reports that she did not take her medication for past 24 hours as she was not feeling well Patient denies shortness of breath but feels swollen subjective No edema noted We will continue home medication Chest x-ray showing mild interstitial pulmonary edema, BNP 1154 We will continue to monitor Check labs in the morning Qualifiers: Heart failure chronicity: acute on chronic Qualified Code(s): I50.33 - Acute on chronic diastolic (congestive) heart failure (9) Sepsis Current Visit: Yes Status: Acute Plan: Acute likely secondary to UTI Patient meets SIRS criteria based on temperature HR > 90 bpm, RR > 20 breaths/min , WBC > 12,000 or < 4,000, or and the suspected source is urine. vital signs 149/78, pulse 86, respiration 24, temperature 98.5, pulse ox 99% on room air. Plan: - Sepsis order set was initiated - Initial Lactate was two-point, trend - Blood cultures drawn before antibiotics were given - Broad spectrum antibiotics started: Ceftriaxone in regards to fluids: - 30 mL/kg of IV fluids was not administered given SBP > 90, MAP > 65, lactic acid < 4 Qualifiers: Sepsis type: sepsis due to unspecified organism Sepsis acute organ dysfunction status: unspecified Qualified Code(s): A41.9 - Sepsis, unspecified organism Discharge Plan: Home Plan to discharge in: 48 Hours - Advance Directives Does patient have a Living Will: Yes Does patient have a Durable POA for Healthcare: Yes - Code Status/Comfort Care Code Status Assessed: Yes (full code) Code Status: Full Code Physician Review: Patient Assessed, Agree with Above Assessment and Plan Critical Care: No Time Spent Managing Pts Care (In Minutes): 55 (minutes)
[2023-10-12 22:16] LABS: Thyroid Stimulating Hormone 1.37 uIU/mL (0.358-3.740)
[2023-10-12] MEDS: ONDANSETRON 4 MG/2 ML VIAL IV PRN (22:48)
[2023-10-12] MEDS: MORPHINE 2 MG/ML SYR IV PRN (23:36)
[2023-10-13 01:52] LABS: Urine Bacteria None Seen /HPF (<20); Urine Bilirubin NEGATIVE (Negative); Urine Blood 2+ (Negative); Urine Clarity Extremely Turbid (Clear); Urine Color Yellow (Yellow); Urine Glucose NEGATIVE (Negative); Urine Protein 1+ (Negative); Urine Urobilinogen Normal (Normal); Urine WBC Clump Rare /HPF (None Seen)
[2023-10-13] MEDS: HEPARIN 5000 UNIT/ML 1 ML VIAL SQ SCH ×3 (01:54→18:27)
[2023-10-13] MEDS: MORPHINE 2 MG/ML SYR IV PRN ×3 (03:01→11:30)
[2023-10-13] MEDS: ONDANSETRON 4 MG/2 ML VIAL IV PRN ×3 (03:49→14:09)
[2023-10-13 04:37] LABS: Absolute Lymphocytes (CBC) 1.3 K/uL (0.7-4.9); Hematocrit 33.8 % (36.0-45.0); Lymphocytes % 8.3 % (15.3-44.8); MCV 90.6 fL (80-100); MPV 9.1 fL (7.6-11.3); Platelets 173 thou/uL (152-406); RBC Red Blood Cell Count 3.73 M/uL (3.86-4.86)
[2023-10-13 04:54] LABS: Magnesium 1.5 mg/dL (1.6-2.4); Phosphorus 3.1 mg/dL (2.5-4.9); Potassium 3.9 mEq/L (3.5-5.1)
[2023-10-13] MEDS ORDERED: Magnesium Sulfate 2gm IVPB 2 G/50 ML BAG IV ONE (06:15)
[2023-10-13] MEDS ORDERED: POTASSIUM CL SA 10 MEQ TAB PO ONE (09:00)
--- NOTE | 2023-10-13 14:32 | P.PN ---
Subjective Date of Service: 10/13/23 Chief Complaint: Fever, vomiting, weakness Patient states she feels better today compared to yesterday. No fever. She reports right flank pain. Physical Examination - Vital Signs Temperature: 98.5 F Blood Pressure: 113/56 Pulse: 70 Respirations: 16 Pulse Ox (%): 97 - Studies Laboratory Data (last 24 hrs) 10/12/23 10/12/23 10/12/23 17:55 17:55 17:55 WBC 12.50 H Hgb 12.9 Hct 39.3 Plt Count 279 PT 12.3 INR 1.12 Sodium 138 Potassium 3.9 BUN 23 H Creatinine 1.80 H Glucose 143 H Magnesium 1.6 Total Bilirubin 0.7 AST 38 H ALT 49 Alkaline Phosphatase 111 Microbiology Data (last 24 hrs): 10/12/23 18:35 Nasopharnyx Influenza Type A Antigen Screen - Final 10/12/23 18:35 Nasopharnyx Influenza Type B Antigen Screen - Final 10/12/23 18:35 Throat Group A Streptococcus Rapid Screen - Final Assessment And Plan - Plan Physical Exam General: Alert, In no apparent distress, Oriented x3, Other (Fever) HEENT: Atraumatic, Normocephalic, PERRLA Neck: Supple, 2+ carotid pulse no bruit Cardiovascular: No edema, Normal pulses, Regular rate/rhythm, Normal S1 S2 Capillary refill: <2 Seconds Gastrointestinal: Normal bowel sounds, Soft and benign, Other (Nausea or vomi ting) Musculoskeletal: No clubbing, No swelling, No contractures, No erythema Neurological: Normal gait, Normal speech, Normal tone, Other Diagnosis Sepsis Acute cystitis without hematuria Nausea and vomiting DM type 2 Acute on chronic diastolic heart failure Acute kidney disease. Sepsis Acute cystitis without hematuria Nausea and vomiting Nausea and vomiting resolved. Diet as tolerated Continue IV Rocephin Follow urine culture and blood cultures Analgesics as needed Antiemetics as needed. Acute kidney disease Improved with IV hydration in the ED. Continue to monitor renal function Overall rehydration. Chronic diastolic heart failure Chest x-ray demonstrated mild interstitial edema. Lactic acid now 2.0. Avoid IV fluid for now. Hold Lasix given sepsis. DM type II Insulin sliding scale. Essential hypertension Patient is currently normotensive. Hold home antihypertensives for now. DVT prophylaxis: Heparin subQ Discharge Plan: Home
[2023-10-13] MEDS ORDERED: D10W 250 ML BAG IV PRN (14:42)
[2023-10-13] MEDS ORDERED: GLUCAGON 1 MG/VIAL IM PRN (14:42)
[2023-10-13] MEDS ORDERED: HYDROCODONE/APAP 5/325 MG TAB PO PRN (15:44)
[2023-10-13] MEDS: INSULIN REGULAR (HUMAN) 100 UNIT/ML SQ SCH ×2 (16:30→21:00)
[2023-10-13] MEDS: NA CHLORIDE 0.9% 1,000 ML IV SCH (17:04)
[2023-10-13] MEDS ORDERED: MORPHINE 4 MG/ML SYR IV PRN (17:24)
[2023-10-13] MEDS ORDERED: PHENAZOPYRIDINE 100MG TAB PO PRN (17:24)
[2023-10-13] MEDS ORDERED: CEFTRIAXONE 1,000 MG in NA CHLORIDE 0.9% 50 ML IVPB SCH (18:00)
--- NOTE | 2023-10-13 18:47 | CON ---
Date of Consultation: 10/13/2023 Reason For Consult: Acute renal failure. History Of Present Illness: Ms. 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 The patient was reporting fever and is having some associated flank pain and discomfort with urination. She was admitted for further evaluation t o diagnose her fever and source of infection and to treat her acute on chronic renal insufficiency an d her possible UTI. The patient's lactic acid was elevated to be 2.7 with WBC count of 12.5. She st ates that she is extremely thirsty at this time and is complaining of generalized pain associated wit h some flank tenderness. Past Medical History: Significant for history of depression, anxiety, type 2 diabetes that is diet c ontrolled, history of hyperuricemia, hypertension, congestive heart failure, and chronic kidney disea se stage 3. Past Surgical History: Significant for history of hysterectomy and history of right ureteric stenosi s. Social History: She lives at home. No history of smoking, alcohol, or drug use reported. Family History: Noncontributory. Review of Systems: As per history of present illness. Physical Examination: Vital Signs: At this time are showing temperature of 98.5, pulse rate of 70, respiratory rate of 16, and blood pressure 113/56. General: She appears in no acute distress. HEENT: Atraumatic head. Lungs: Clear to auscultation with diminished breath sounds at bases. Heart: Auscultation of the heart reveals regular rate and rhythm. Abdomen: Obese and nontender. Right side flank tenderness is noted. CVA tenderness is noted. Extremities: No evidence of edema. Neurologic: She is alert, awake, and oriented x3 and has no focal neurological deficits. Laboratory Data: Sodium of 134, potassium 3.9, BUN of 16, and creatinine of 1.19, which is improving from creatinine of 1.8 at the time of admission. WBC count is showing 16,000, hemoglobin of 11.6, h ematocrit of 33.8, and platelet count of 173. Her urinalysis was consistent with UTI and cultures ar e still pending. Blood cultures are also still pending at this time. Current Medications: Include heparin for DVT prophylaxis, morphine p.r.n. for pain, Rocephin. She i s currently not getting any IV fluids at this time. Impression: 1.Acute renal failure. Likely secondary to dehydration with improving renal function. 2.Hyponatremia. The patient is drinking a lot of water. We will continue to monitor at this time a nd see how she does. She may need to get IV fluids started if she continues to be thirsty. 3.Possible urinary tract infection. Urine cultures are pending. Currently on Rocephin. 4.Type 2 diabetes. Continue to monitor her blood sugars closely and put her on insulin regimen per protocol and follow up closely. Plan: Overall the patient's renal function is improving. Continue to monitor. Gentle hydration. M onitor renal function. Continue antibiotics. Await blood and urine culture reports and follow up cl osely. Avoid further hypotension, nephrotoxins. Thank you very much for this consultation. Please do not hesitate to call us with any questions or c oncerns. VV/MODL Voice ID: [id number] Report ID: [id number]
[2023-10-13] MEDS: HYDROMORPHONE HCL 0.5 MG/0.5 ML INJ IV PRN (22:50)
[2023-10-13] MEDS: PROMETHAZINE INJ 25 MG/ML AMP IV PRN (22:51)
[2023-10-14] MEDS ORDERED: ACETAMINOPHEN 500 MG TAB PO PRN (00:39)
[2023-10-14] MEDS: HEPARIN 5000 UNIT/ML 1 ML VIAL SQ SCH ×3 (00:46→17:37)
[2023-10-14] MEDS: HYDROMORPHONE HCL 0.5 MG/0.5 ML INJ IV PRN (03:59)
[2023-10-14] MEDS ORDERED: CLOTRIMAZ/BETAMETH CREAM 15GM TOP PRN (06:02)
[2023-10-14] MEDS ORDERED: FUROSEMIDE 20 MG TABLET PO PRN (06:02)
[2023-10-14] MEDS ORDERED: METOPROLOL TAR 25 MG TAB ONE (06:25)
[2023-10-14] MEDS: METOPROLOL TAR 50 MG TAB PO SCH (07:14)
[2023-10-14 08:29] LABS: Absolute Lymphocytes (CBC) 1.6 K/uL (0.7-4.9); Hematocrit 34.8 % (36.0-45.0); Lymphocytes % 16.2 % (15.3-44.8); MCV 90.8 fL (80-100); MPV 9.7 fL (7.6-11.3); Platelets 185 thou/uL (152-406); RBC Red Blood Cell Count 3.83 M/uL (3.86-4.86)
[2023-10-14 08:39] LABS: Magnesium 1.8 mg/dL (1.6-2.4); Phosphorus 3.2 mg/dL (2.5-4.9); Potassium 4.2 mEq/L (3.5-5.1)
[2023-10-14] MEDS: PROMETHAZINE INJ 25 MG/ML AMP IV PRN ×3 (08:47→21:47)
[2023-10-14] MEDS ORDERED: DULOXETINE 30 MG CAP PO SCH (09:00)
[2023-10-14] MEDS ORDERED: CYANOCOBALAMIN 1000MCG/ML INJ IM SCH (09:00)
[2023-10-14] MEDS ORDERED: DICYCLOMINE HCL 10 MG CAP PO PRN (09:09)
[2023-10-14] MEDS: allopurinoL 100 MG TAB PO SCH (10:28)
[2023-10-14] MEDS: FERROUS SULFATE 325 MG TAB PO SCH (10:28)
[2023-10-14] MEDS: methocarbamoL 750 MG TAB PO SCH (10:31)
[2023-10-14] MEDS: INSULIN REGULAR (HUMAN) 100 UNIT/ML SQ SCH ×4 (10:33→21:00)
[2023-10-14] MEDS: NA CHLORIDE 0.9% 1,000 ML IV SCH ×2 (11:00→17:37)
[2023-10-14] MEDS: CEFEPIME 1 GM in NA CHLORIDE 0.9% 100 ML IV SCH ×2 (11:56→21:46)
[2023-10-14] MEDS ORDERED: CYANOCOBALAMIN 1000MCG/ML INJ IM ONE (14:00)
--- NOTE | 2023-10-14 14:43 | P.PN ---
Subjective Date of Service: 10/14/23 Chief Complaint: Fever, vomiting, weakness Patient reports persistent right flank pain. Fever recorded today. She also reports nausea and vomiting. Physical Examination - Vital Signs Temperature: 101.0 F Blood Pressure: 131/81 Pulse: 145 Respirations: 19 Pulse Ox (%): 95 - Studies Microbiology Data (last 24 hrs): 10/12/23 18:35 Throat Group A Streptococcus Rapid Screen - Final 10/12/23 18:35 Throat Culture & Sensitivity - Final NORMAL UPPER RESPIRATORY DIPAK GROWN. Assessment And Plan - Plan Physical Exam General: Alert, In no apparent distress, Oriented x3, Febrile Neck: Supple, 2+ carotid pulse no bruit Cardiovascular: No edema, Normal pulses, Regular rate/rhythm, Normal S1 S2 Gastrointestinal: Normal bowel sounds, Soft and benign, right flank pain. Musculoskeletal: No clubbing, No swelling, No contractures, No erythema Neurological: Normal gait, Normal speech, Normal tone, Other Diagnosis Sepsis Acute cystitis without hematuria Nausea and vomiting DM type 2 Acute on chronic diastolic heart failure Acute kidney disease. Sepsis Acute cystitis without hematuria Nausea and vomiting Nausea and vomiting persist Diet as tolerated IV rocephine changed to Cefepime Urine culture is negative. Blood culture: GNR. Analgesics as needed Antiemetics as needed. Acute kidney disease Improved with IV hydration in the ED. Continue to monitor renal function Overall rehydration. Chronic diastolic heart failure Chest x-ray demonstrated mild interstitial edema. Lactic acid now 2.0. Avoid IV fluid for now. Hold Lasix given sepsis. DM type II Insulin sliding scale. Essential hypertension Patient is currently normotensive. Hold home antihypertensives for now. DVT prophylaxis: Heparin subQ Discharge Plan: Home
[2023-10-14] MEDS: HYDROMORPHONE HCL 1 MG/ML INJ IV PRN ×2 (17:38→21:47)
[2023-10-14] MEDS: ESZOPICLONE 3 MG PO SCH (21:00)
[2023-10-15] MEDS: HEPARIN 5000 UNIT/ML 1 ML VIAL SQ SCH ×3 (01:00→17:59)
[2023-10-15 02:56] LABS: Hematocrit 32.6 % (36.0-45.0); Lymphocytes % 26.5 % (15.3-44.8); MCV 91.1 fL (80-100); MPV 9.3 fL (7.6-11.3); Platelets 204 thou/uL (152-406); RBC Red Blood Cell Count 3.58 M/uL (3.86-4.86)
[2023-10-15 03:01] LABS: Magnesium 1.7 mg/dL (1.6-2.4); Phosphorus 4.4 mg/dL (2.5-4.9); Potassium 4.3 mEq/L (3.5-5.1)
[2023-10-15] MEDS: PROMETHAZINE INJ 25 MG/ML AMP IV PRN ×3 (03:50→20:34)
[2023-10-15] MEDS: HYDROMORPHONE HCL 1 MG/ML INJ IV PRN ×4 (03:50→20:33)
[2023-10-15 04:02] LABS: Renal Epithelial <5 /HPF (None Seen); Specific Gravity 1.015 (1.005-1.030); Urine Bacteria <20 /HPF (<20); Urine Bilirubin NEGATIVE (Negative); Urine Blood Negative (Negative); Urine Clarity Clear (Clear); Urine Color Light-Yellow (Yellow); Urine Glucose NEGATIVE (Negative); Urine Mucus Slight /HPF (None Seen); Urine Protein TRACE (Negative); Urine RBC <5 /HPF (None Seen); Urine Urobilinogen Normal (Normal); Urine pH 5.5 (5.0-7.0)
[2023-10-15 06:10] LABS: Blood Morphology Comment NOT SEEN (NOT SEEN); Platelet Estimate ADEQ
[2023-10-15 07:08] VITALS: BMI 36.3
[2023-10-15] MEDS: INSULIN REGULAR (HUMAN) 100 UNIT/ML SQ SCH ×4 (07:30→21:00)
[2023-10-15] MEDS ORDERED: MAGNESIUM SULFATE 1 gm IVPB 1 GM/100 ML BAG IV ONE (08:00)
[2023-10-15] MEDS: CEFEPIME 1 GM in NA CHLORIDE 0.9% 100 ML IV SCH (09:19)
[2023-10-15] MEDS: allopurinoL 100 MG TAB PO SCH (09:21)
[2023-10-15] MEDS: FERROUS SULFATE 325 MG TAB PO SCH (09:21)
[2023-10-15] MEDS: methocarbamoL 750 MG TAB PO SCH (09:38)
[2023-10-15] MEDS: METOPROLOL TAR 50 MG TAB PO SCH (10:13)
[2023-10-15] MEDS: NA CHLORIDE 0.9% 1,000 ML IV SCH (12:03)
[2023-10-15] MEDS ORDERED: Levofloxacin 750mg IV 750 MG/150 ML BAG IV SCH ×2 (13:00)
--- NOTE | 2023-10-15 15:05 | P.PN ---
Subjective Date of Service: 10/15/23 Chief Complaint: Fever, vomiting, weakness Patient states she feels better today No fever over the past 24 hours. She also reports nausea and vomiting. Physical Examination - Vital Signs Temperature: 97.3 F Blood Pressure: 138/63 Pulse: 70 Respirations: 18 Pulse Ox (%): 98 - Studies Microbiology Data (last 24 hrs): 10/12/23 18:30 Blood - Blood Aerobic Blood Culture - Final Escherichia Coli 10/12/23 18:30 Blood - Blood Blood Culture Gram Stain - Final 10/12/23 18:30 Blood - Blood Anaerobic Blood Culture - Final Escherichia Coli 10/12/23 18:30 Blood - Blood Gram Stain - Final 10/12/23 18:40 Blood - Blood Aerobic Blood Culture - Final Escherichia Coli 10/12/23 18:40 Blood - Blood Blood Culture Gram Stain - Final 10/12/23 18:40 Blood - Blood Anaerobic Blood Culture - Final Escherichia Coli 10/12/23 18:40 Blood - Blood Gram Stain - Final 10/12/23 18:35 Throat Group A Streptococcus Rapid Screen - Final 10/12/23 18:35 Throat Culture & Sensitivity - Final NORMAL UPPER RESPIRATORY DIPAK GROWN. Assessment And Plan - Plan Physical Exam General: Alert, In no apparent distress, Oriented x3, afebrile. Neck: Supple, 2+ carotid pulse no bruit Cardiovascular: No edema, Normal pulses, Regular rate/rhythm, Normal S1 S2 Gastrointestinal: Normal bowel sounds, Soft and benign, right flank pain improved. Musculoskeletal: No swelling, No erythema Neurological: Normal gait, no focal motor deficit. Diagnosis Sepsis Acute cystitis without hematuria Nausea and vomiting DM type 2 Acute on chronic diastolic heart failure Acute kidney disease. Sepsis Acute cystitis without hematuria Nausea and vomiting Nausea and vomiting resolved. Diet as tolerated Blood cultures growing pansensitive E. coli. Urine culture is negative. Change antibiotics to IV Levaquin. Repeat blood culture shows no growth to date. Analgesics as needed Antiemetics as needed. Acute kidney disease Resolved. Continue to monitor renal function Oral rehydration. Chronic diastolic heart failure Chest x-ray demonstrated mild interstitial edema. Lactic acid now 2.0. Avoid IV fluid for now. Resume oral Lasix. DM type II Insulin sliding scale. Essential hypertension Patient is currently normotensive without her home antihypertensives. Hold home antihypertensives for now. DVT prophylaxis: Heparin subQ Discharge Plan: Home
--- NOTE | 2023-10-15 20:43 | P.PN ---
Date of Service: 10/15/23 Vital Signs Temp Pulse Resp BP Pulse Ox 97.2 F 76 18 160/57 H 98 10/15/23 16:00 10/15/23 16:00 10/15/23 16:00 10/15/23 16:00 10/15/23 16:00 Medications Acetaminophen (Acetaminophen 500 Mg Tab) 500 mg PO Q4HP PRN PRN Reason: Pain scale 2-4 (Mild) Last Admin: 10/14/23 11:56 Dose: 500 mg Acetaminophen (Acetaminophen 500 Mg Tab) 500 mg PO Q4HP PRN PRN Reason: TEMP > 100' F Last Admin: 10/14/23 02:20 Dose: 500 mg Allopurinol (Allopurinol 100 Mg Tab) 100 mg PO DAILY [facility] Last Admin: 10/15/23 09:21 Dose: 100 mg Clotrimazole (Clotrimaz/Betameth Cream 15gm) 0 appl TOP PRN PRN PRN Reason: DRY SKIN Dextrose (D10w 250 Ml Bag) 125 ml IV PRN PRN PRN Reason: HYPOGLYCEMIA Dicyclomine HCl (Dicyclomine Hcl 10 Mg Cap) 10 mg PO TID PRN PRN Reason: Colic Ferrous Sulfate (Ferrous Sulfate 325 Mg Tab) 325 mg PO DAILY [facility] Last Admin: 10/15/23 09:21 Dose: 325 mg Furosemide (Furosemide 20 Mg Tablet) 20 mg PO DAILY PRN PRN Reason: Titrate to SBP (MUST DEFINE) Last Admin: 10/14/23 10:28 Dose: 20 mg Glucagon (Glucagon 1 Mg/Vial) 1 mg IM 1X PRN PRN Reason: HYPOGLYCEMIA Heparin Sodium (Porcine) (Heparin 5000 Unit/Ml 1 Ml Vial) 5,000 unit SQ Q8HR [facility] Last Admin: 10/15/23 17:59 Dose: 5,000 unit Home Med (Eszopiclone [Lunesta]) 1 tab PO BEDTIME [facility] Last Admin: 10/14/23 21:00 Dose: Not Given Hydromorphone HCl (Hydromorphone Hcl 1 Mg/Ml Inj) 1 mg IV Q4H PRN PRN Reason: Pain scale 8-10 (Severe) Last Admin: 10/15/23 15:39 Dose: 1 mg Sodium Chloride (Ns 1000 Ml Ivbag) 1,000 mls @ 50 mls/hr IV .Q20H [facility] Last Admin: 10/15/23 12:03 Dose: 1,000 mls Levofloxacin/Dextrose (Levaquin 750 Mg/150 Ml Ivpb (Premix)) 750 mg in 150 mls @ 100 mls/hr IV Q24H [facility] Last Admin: 10/15/23 14:24 Dose: 150 mls Insulin Human Regular (Insulin Regular (Human) 100 Unit/Ml) 0 unit SQ ACHS [facility]; Protocol Last Admin: 10/15/23 16:30 Dose: Not Given Magnesium Hydroxide (Magnesium Hydroxide 8% 30 Ml) 30 ml PO DAILYPRN PRN PRN Reason: CONSTIPATION Methocarbamol (Methocarbamol 750 Mg Tab) 750 mg PO DAILY [facility] Last Admin: 10/15/23 09:38 Dose: 750 mg Metoprolol Tartrate (Metoprolol Tar 50 Mg Tab) 100 mg PO DAILY [facility] Last Admin: 10/15/23 10:13 Dose: 100 mg Phenazopyridine HCl (Phenazopyridine 100mg Tab) 100 mg PO TID PRN PRN Reason: kidney and bladder pain Stop: 10/16/23 09:00 Promethazine HCl (Promethazine Inj 25 Mg/Ml Amp) 12.5 mg IV Q4H PRN PRN Reason: NAUSEA / VOMITING Last Admin: 10/15/23 09:20 Dose: 12.5 mg Microbiology Results 10/12/23 18:30 Blood - Blood Aerobic Blood Culture - Final Escherichia Coli 10/12/23 18:30 Blood - Blood Blood Culture Gram Stain - Final 10/12/23 18:30 Blood - Blood Anaerobic Blood Culture - Final Escherichia Coli 10/12/23 18:30 Blood - Blood Gram Stain - Final 10/12/23 18:40 Blood - Blood Aerobic Blood Culture - Final Escherichia Coli 10/12/23 18:40 Blood - Blood Blood Culture Gram Stain - Final 10/12/23 18:40 Blood - Blood Anaerobic Blood Culture - Final Escherichia Coli 10/12/23 18:40 Blood - Blood Gram Stain - Final 10/12/23 18:35 Throat Group A Streptococcus Rapid Screen - Final 10/12/23 18:35 Throat Culture & Sensitivity - Final NORMAL UPPER RESPIRATORY DIPAK GROWN. 10/12/23 18:35 Nasopharnyx Influenza Type A Antigen Screen - Final 10/12/23 18:35 Nasopharnyx Influenza Type B Antigen Screen - Final Assessment/ Plan: Nephrology No dyspnea No chest pain No acute events overnight Vitals, medications, blood work and imaging reviewed in the chart. NAD. NCAT. MMM. Neck supple. Normal respiratory effort. RRR. Abd ND. No C/C. LE Edema none. No rash. AAO. Normal speech. Stage I REZA CKD II -No NSAIDs Hyponatremia, resolve HTN with CHF/ CKD, variable -Continue Metoprolol Diastolic CHF, chronic -Continue Metoprolol -Daily weight -Discontinue IVF DM II -RISS Anemia in chronic illness -Monitor H&H -Continue oral iron E.coli Bacteremia -Continue Abx Hospitalist note reviewed
[2023-10-15] MEDS ORDERED: NA CHLORIDE 0.9% 1,000 ML IV SCH (21:00)
[2023-10-15] MEDS: ESZOPICLONE 3 MG PO SCH (21:00)
[2023-10-16] MEDS: HEPARIN 5000 UNIT/ML 1 ML VIAL SQ SCH ×3 (01:16→16:39)
[2023-10-16] MEDS: PROMETHAZINE INJ 25 MG/ML AMP IV PRN (01:25)
[2023-10-16] MEDS: HYDROMORPHONE HCL 1 MG/ML INJ IV PRN (01:26)
[2023-10-16 03:15] LABS: Magnesium 1.4 mg/dL (1.6-2.4); Potassium 4.3 mEq/L (3.5-5.1)
[2023-10-16] MEDS ORDERED: MAGNESIUM SULFATE 1 gm IVPB 1 GM/100 ML BAG IV ONE (06:42)
[2023-10-16] MEDS ORDERED: CODEINE 30MG/APAP 300MG TAB PO PRN (06:56)
[2023-10-16] MEDS: INSULIN REGULAR (HUMAN) 100 UNIT/ML SQ SCH ×4 (07:30→20:31)
--- NOTE | 2023-10-16 08:37 | P.CNS ---
Date of Consult: 10/16/23 Reason for Consult: E.coli Bacteremia Chief Complaint: Fever, vomiting, weakness History of Present Illness: Patient is a 58-year-old female with a past medical history diabetes mellitus type 2, congestive heart failure, hypertension, anxiety, depression, CKD, uterine cancer who presented to the ED with complaints of fever, abdominal pain and dizziness. Patient was found to have E. coli bacteremia, infectious disease was consulted. Allergies adhesive Allergy (Verified 07/25/23 06:04) UNK albuterol Allergy (Verified 07/25/23 06:04) UNK azithromycin [From Zithromax] Allergy (Verified 07/25/23 06:04) UNK bupropion [From Wellbutrin] Allergy (Verified 07/25/23 06:04) UNK citalopram [From Celexa] Allergy (Verified 07/25/23 06:15) Itching/Hives/Rash fentanyl Allergy (Verified 07/25/23 06:04) UNK hydralazine Allergy (Verified 07/25/23 06:04) UNK Influenza Virus Vaccines Allergy (Verified 07/25/23 06:04) UNK NSAIDS (Non-Steroidal Anti-Inflamma Allergy (Verified 07/25/23 06:04) UNK pneumococcal vaccine Allergy (Verified 07/25/23 06:04) UNK prednisolone Allergy (Verified 07/25/23 06:04) UNK prednisone Allergy (Verified 07/25/23 06:04) UNK trazodone Allergy (Verified 07/25/23 06:04) UNK zoster vaccine live Allergy (Verified 07/25/23 06:04) UNK Home medications list reviewed: Yes Home Medications: Allopurinol 1 tab PO DAILY 12/12/22 Eszopiclone [Lunesta] 1 tab PO BEDTIME 12/12/22 Ferrous Sulfate [Feosol] 1 tab PO DAILY 12/12/22 Clotrim/Betameth Cream [Lotrisone Cream*] 1 dose TOP PRN PRN 07/25/23 Metoprolol Tartrate [Lopressor] 100 mg PO DAILY 07/25/23 methocarbamoL [Methocarbamol] 750 mg PO DAILY 07/25/23 Cyanocobalamin (Vitamin B-12) [Cyanocobalamin Injection] 1,000 mcg IM EVERY 7TH DAY 10/13/23 Furosemide [Lasix] 1 tab PO DAILY PRN MDD 80 10/13/23 - Past Medical/Surgical History Diabetic: Yes -: Gout -: HTN -: Depression -: Obesity -: DM 2- diet controlled -: CKD III (Dr. Chawla) -: Right ureter stenosis -: Recurrent UTI -: CHF-D -: Hysterectomy -: I&D Left leg(spider bite) Psychosocial/ Personal History: lives at home - Social History Smoking Status: Unknown if ever smoked Alcohol use: Yes CD- Drugs: No Caffeine use: Yes Place of Residence: Home Review of Systems 10-point ROS is otherwise unremarkable General: Weakness Gastrointestinal: Nausea Physical Examination Temp Pulse Resp BP Pulse Ox 97.7 F 79 16 110/60 97 10/16/23 04:00 10/16/23 04:00 10/16/23 04:00 10/16/23 04:00 10/16/23 04:00 General: Alert, In no apparent distress, Oriented x3 HEENT: Atraumatic, Normocephalic Neck: Supple, JVD not distended Respiratory: Clear to auscultation bilaterally, Normal air movement Cardiovascular: Regular rate/rhythm (trace BLE edema) Gastrointestinal: Normal bowel sounds, Soft and benign Musculoskeletal: No clubbing Integumentary: No rashes Neurological: Normal speech, Normal affect Laboratory data - Reviewed Microbiology data -Reviewed Imagings Data: -Reviewed Conclusions/Impression: Problem list Sepsis Secondary to Acute Cystitis E.coli Bacteremia Chronic diastolic CHF Diabetes Mellitus type II Hypertension Gout Anxiety Hx uterine cancer Sepsis secondary to Acute Cystitis Escherichia coli Bacteremia - CT abdomen pelvis 10/12: no acute abnormality -Blood cultures 10/12: Escherichia coli in 4 of 4 bottles - repeat blood cultures 10/14: no growth to date -Urine culture 10/13: No growth -Patient received dose of ceftriaxone on 10/13 -Previously on cefepime 10/14-10/15 -Currently on levofloxacin IV started 10/15 -Leukocytosis resolved -Afebrile 24 hours Patient developed fevers up to 101.1 F on 10/14. Negative influenza a and B Negative COVID Throat culture: normal upper respiratory roni grown Recommendations -E. coli bacteremia: Due to a history of uterine cancer and diabetes, recommend continuing antibiotic therapy for 14 days. Currently on levofloxacin IV. Switch to PO as tolerated to complete remainder of antibiotic course. -Monitor WBC and fever trends. As needed Tylenol -Strict blood glucose control Case discussed with Sadia Rojo
[2023-10-16] MEDS: methocarbamoL 750 MG TAB PO SCH (09:35)
[2023-10-16] MEDS: FERROUS SULFATE 325 MG TAB PO SCH (09:35)
[2023-10-16] MEDS: allopurinoL 100 MG TAB PO SCH (09:36)
[2023-10-16] MEDS: METOPROLOL TAR 50 MG TAB PO SCH (09:36)
--- NOTE | 2023-10-16 10:52 | P.PN ---
Date of Service: 10/16/23 Subjective: right flank pain slowly/minimally improving - feels cramping pain minimal PO intake d/t ongoing nausea in normal sinus rhythm, no further afib seen on telemetry afebrile ROS: 10 point ROS as noted above, otherwise negative Physical Exam: GEN: Alert, oriented, NAD HEENT: Normal conjunctiva, sclera anicteric CV: Regular rate and rhythm, trace b/l pedal edema Pulm: Nonlabored respirations on room air, clear bilaterally ABD: Soft, mild right flank tenderness, nondistended Neuro: Normal speech, normal affect vitals reviewed Problem List: Sepsis secondary to acute cystitis E. coli bacteremia A-fib, new onset Chronic diastolic CHF REZA, resolved Hypertension Gout Anxiety/Depression NIDDM2 h/o uterine cancer Sepsis secondary to acute cystitis E. coli bacteremia CT abdomen (10/12): no acute abnormalities Blood cx (10/12): E. Coli repeat Blood cx: (10/14): NGTD urine cx: (10/15): no growth ID consulted previously on cefepime (10/14-10/15) and levaquin (10/15); switched to rocephin (10/16-) given new a-fib, QT interval x2 weeks total abx course per ID afebrile, leukocytosis resolved PRN Analgesics/Antiemetics A-fib, new onset Chronic diastolic CHF denies prior history of a-fib noted to be in and out of a-fib 10/14 echo (07/26/23): 68% EF, grade 1 diastolic dysfunction, mild pulmonic insufficiency, trace MR Cardiology consulted Currently in normal sinus rhythm continue home metoprolol Repeat EKG 10/16 to eval QTc patient on multiple medications that can contribute / increase risk of QTc prolongation afib noted within 12-24hrs of starting phenergan IV. switched to PO overnight advised patient to minimized use for now. Received levaquin as well, however this was AFTER afib was noted monitor on tele Continue lasix PO daily REZA, resolved Nephrology consulted Continue to monitor renal function Hypertension Gout Anxiety/Depression NIDDM2 h/o uterine cancer confirm home medications, restart as appropriate VTE: Heparin sq Code: Full Dispo: Home ~1-2 days Pending further improvement, remains in normal sinus rhythm. abx choice
[2023-10-16] MEDS: PROMETHAZINE 25 MG TABLET PO PRN ×2 (11:02→20:25)
[2023-10-16] MEDS: CEFTRIAXONE 1,000 MG in NA CHLORIDE 0.9% 50 ML IVPB SCH (11:02)
[2023-10-16] MEDS: HYDROMORPHONE HCL 0.5 MG/0.5 ML INJ IV PRN ×3 (11:03→20:26)
[2023-10-16] MEDS ORDERED: NA CHLORIDE 0.9% 1,000 ML IV SCH (15:00)
[2023-10-16] MEDS: ESZOPICLONE 3 MG PO SCH (20:30)
--- NOTE | 2023-10-16 21:14 | P.PN ---
Date of Service: 10/16/23 Vital Signs Temp Pulse Resp BP Pulse Ox 98.4 F 74 18 105/51 L 98 10/16/23 16:00 10/16/23 16:00 10/16/23 20:26 10/16/23 16:00 10/16/23 20:26 Medications Acetaminophen (Acetaminophen 500 Mg Tab) 500 mg PO Q4HP PRN PRN Reason: Pain scale 2-4 (Mild) Last Admin: 10/14/23 11:56 Dose: 500 mg Acetaminophen (Acetaminophen 500 Mg Tab) 500 mg PO Q4HP PRN PRN Reason: TEMP > 100' F Last Admin: 10/14/23 02:20 Dose: 500 mg Acetaminophen/Codeine Phosphate (Codeine 30mg/Apap 300mg Tab) 1 tab PO Q6H PRN PRN Reason: Pain scale 5-7 (Moderate) Last Admin: 10/16/23 09:35 Dose: 1 tab Allopurinol (Allopurinol 100 Mg Tab) 100 mg PO DAILY [facility] Last Admin: 10/16/23 09:36 Dose: 100 mg Clotrimazole (Clotrimaz/Betameth Cream 15gm) 0 appl TOP PRN PRN PRN Reason: DRY SKIN Dextrose (D10w 250 Ml Bag) 125 ml IV PRN PRN PRN Reason: HYPOGLYCEMIA Dicyclomine HCl (Dicyclomine Hcl 10 Mg Cap) 10 mg PO TID PRN PRN Reason: Colic Ferrous Sulfate (Ferrous Sulfate 325 Mg Tab) 325 mg PO DAILY [facility] Last Admin: 10/16/23 09:35 Dose: 325 mg Furosemide (Furosemide 20 Mg Tablet) 20 mg PO DAILY PRN PRN Reason: Titrate to SBP (MUST DEFINE) Last Admin: 10/14/23 10:28 Dose: 20 mg Glucagon (Glucagon 1 Mg/Vial) 1 mg IM 1X PRN PRN Reason: HYPOGLYCEMIA Heparin Sodium (Porcine) (Heparin 5000 Unit/Ml 1 Ml Vial) 5,000 unit SQ Q8HR [facility] Last Admin: 10/16/23 16:39 Dose: 5,000 unit Home Med (Eszopiclone [Lunesta]) 1 tab PO BEDTIME [facility] Last Admin: 10/16/23 20:30 Dose: Not Given Hydromorphone HCl (Hydromorphone Hcl 0.5 Mg/0.5 Ml Inj) 0.5 mg IV Q4H PRN PRN Reason: Pain scale 8-10 (Severe) Last Admin: 10/16/23 20:26 Dose: 0.5 mg Ceftriaxone Sodium 1,000 mg/ (Sodium Chloride) 50 mls @ 100 mls/hr IVPB DAILY [facility] Last Admin: 10/16/23 11:02 Dose: 50 mls Sodium Chloride (Ns 1000 Ml Ivbag) 1,000 mls @ 0 mls/hr IV .Q0M [facility] Last Admin: 10/16/23 14:58 Dose: 1,000 mls Insulin Human Regular (Insulin Regular (Human) 100 Unit/Ml) 0 unit SQ ACHS [facility]; Protocol Last Admin: 10/16/23 20:31 Dose: Not Given Magnesium Hydroxide (Magnesium Hydroxide 8% 30 Ml) 30 ml PO DAILYPRN PRN PRN Reason: CONSTIPATION Methocarbamol (Methocarbamol 750 Mg Tab) 750 mg PO DAILY [facility] Last Admin: 10/16/23 09:35 Dose: 750 mg Metoprolol Tartrate (Metoprolol Tar 50 Mg Tab) 100 mg PO DAILY [facility] Last Admin: 10/16/23 09:36 Dose: 100 mg Promethazine HCl (Promethazine 25 Mg Tablet) 12.5 mg PO Q6H PRN PRN Reason: NAUSEA / VOMITING Last Admin: 10/16/23 20:25 Dose: 12.5 mg Microbiology Results 10/12/23 18:30 Blood - Blood Aerobic Blood Culture - Final Escherichia Coli 10/12/23 18:30 Blood - Blood Blood Culture Gram Stain - Final 10/12/23 18:30 Blood - Blood Anaerobic Blood Culture - Final Escherichia Coli 10/12/23 18:30 Blood - Blood Gram Stain - Final 10/12/23 18:40 Blood - Blood Aerobic Blood Culture - Final Escherichia Coli 10/12/23 18:40 Blood - Blood Blood Culture Gram Stain - Final 10/12/23 18:40 Blood - Blood Anaerobic Blood Culture - Final Escherichia Coli 10/12/23 18:40 Blood - Blood Gram Stain - Final 10/12/23 18:35 Throat Group A Streptococcus Rapid Screen - Final 10/12/23 18:35 Throat Culture & Sensitivity - Final NORMAL UPPER RESPIRATORY DIPAK GROWN. 10/12/23 18:35 Nasopharnyx Influenza Type A Antigen Screen - Final 10/12/23 18:35 Nasopharnyx Influenza Type B Antigen Screen - Final Assessment/ Plan: Nephrology No dyspnea No chest pain No acute events overnight Vitals, medications, blood work and imaging reviewed in the chart. NAD. NCAT. MMM. Neck supple. Normal respiratory effort. RRR. Abd ND. No C/C. LE Edema none. No rash. AAO. Normal speech. Stage I REZA CKD II -No NSAIDs Hyponatremia, resolve HTN with CHF/ CKD, variable -Continue Metoprolol Diastolic CHF, chronic -Continue Metoprolol -Daily weight DM II -RISS Anemia in chronic illness -Monitor H&H -Continue oral iron E.coli Bacteremia -Continue Abx Hospitalist note reviewed Case reviewed with Dr. Borja
[2023-10-17] MEDS: HEPARIN 5000 UNIT/ML 1 ML VIAL SQ SCH ×2 (01:31→08:38)
[2023-10-17] MEDS: HYDROMORPHONE HCL 0.5 MG/0.5 ML INJ IV PRN ×5 (01:38→20:51)
[2023-10-17] MEDS: PROMETHAZINE 25 MG TABLET PO PRN ×2 (01:40→20:52)
[2023-10-17 03:06] LABS: Magnesium 1.6 mg/dL (1.6-2.4); Potassium 4.4 mEq/L (3.5-5.1)
[2023-10-17] MEDS ORDERED: MAGNESIUM SULFATE 1 gm IVPB 1 GM/100 ML BAG IV ONE (06:00)
[2023-10-17] MEDS: INSULIN REGULAR (HUMAN) 100 UNIT/ML SQ SCH ×4 (07:30→20:51)
[2023-10-17] MEDS: methocarbamoL 750 MG TAB PO SCH (08:37)
[2023-10-17] MEDS: METOPROLOL TAR 50 MG TAB PO SCH (08:37)
[2023-10-17] MEDS: FERROUS SULFATE 325 MG TAB PO SCH (08:37)
[2023-10-17] MEDS: allopurinoL 100 MG TAB PO SCH (08:37)
--- NOTE | 2023-10-17 08:40 | P.PN ---
Date of Service: 10/17/23 Chief Complaint: Fever, vomiting, weakness Subjective: Patient in bed. In no apparent distress. Improving. (+) mild nausea and decreased appetite Physical Examination Temp Pulse Resp BP Pulse Ox 97.8 F 79 18 140/70 94 10/17/23 04:00 10/17/23 04:00 10/17/23 04:00 10/17/23 04:00 10/17/23 04:00 General: Alert, In no apparent distress, Oriented x3 HEENT: Atraumatic, Normocephalic Neck: Supple, JVD not distended Respiratory: Clear to auscultation bilaterally, Normal air movement Cardiovascular: Regular rate/rhythm. BLE edema 1+ Gastrointestinal: Normal bowel sounds, Soft and benign Musculoskeletal: No clubbing Integumentary: No rashes Neurological: Normal speech, Normal affect Laboratory data - Reviewed Microbiology data -Reviewed Imagings Data: -Reviewed Medications List: Reviewed Assessment and Plan Problem list Sepsis Secondary to Acute Cystitis E.coli Bacteremia Chronic diastolic CHF Diabetes Mellitus type II Hypertension Gout Anxiety Hx uterine cancer Sepsis secondary to Acute Cystitis Escherichia coli Bacteremia - CT abdomen pelvis 10/12: no acute abnormality -Blood cultures 10/12: Escherichia coli in 4 of 4 bottles - repeat blood cultures 10/14: no growth to date -Urine culture 10/13: No growth -Patient received dose of ceftriaxone on 10/13 -Previously on cefepime 10/14-10/15 -Currently on levofloxacin IV started 10/15 -Leukocytosis resolved -Afebrile 48 hours Patient developed fevers up to 101.1 F on 10/14. Negative influenza a and B Negative COVID Throat culture: normal upper respiratory roni grown Recommendations -E. coli bacteremia: Due to a history of uterine cancer and diabetes, recommend continuing antibiotic therapy for 14 days. Currently on levofloxacin IV. Switch to PO as tolerated to complete remainder of antibiotic course. -Monitor WBC and fever trends. As needed Tylenol -Strict blood glucose control - Follow up with PCP as outpatient in 1-2 weeks. Case discussed with Sadia Rojo
[2023-10-17] MEDS: CEFTRIAXONE 1,000 MG in NA CHLORIDE 0.9% 50 ML IVPB SCH (10:00)
[2023-10-17] MEDS ORDERED: DIPHENHYDRAMINE 25 MG TAB/CAP PO ONE (14:30)
--- NOTE | 2023-10-17 14:57 | P.PN ---
Date of Service: 10/17/23 Subjective: improving continues with nausea, but slightly improved afebrile no further afib noted does report HR up to 120-140s at home intermittently ROS: 10 point ROS as noted above, otherwise negative Physical Exam: GEN: Alert, oriented, NAD HEENT: Normal conjunctiva, sclera anicteric CV: Regular rate and rhythm, trace b/l pedal edema Pulm: Nonlabored respirations on room air, clear bilaterally ABD: Soft, mild right flank tenderness, nondistended Neuro: Normal speech, normal affect vitals reviewed Problem List: Sepsis secondary to acute cystitis E. coli bacteremia A-fib, new onset Chronic diastolic CHF REZA, resolved Hypertension Gout Anxiety/Depression NIDDM2 h/o uterine cancer Sepsis secondary to acute cystitis E. coli bacteremia CT abdomen (10/12): no acute abnormalities Blood cx (10/12): E. Coli repeat Blood cx: (10/14): NGTD urine cx: (10/15): no growth ID consulted previously on cefepime (10/14-10/15) and levaquin (10/15); switched to rocephin (10/16-) given new a-fib x2 weeks total abx course per ID QTC borderline on levaquin. restarted levaquin 10/17, will monitor afebrile, leukocytosis resolved PRN Analgesics/Antiemetics A-fib, new onset; paroxysmal Chronic diastolic CHF denies prior history of a-fib, but statess he does recall intermittent episodes of HR up to 130-140s, self resolving suspect has some degree of undiagnosed / paroxysmal afib noted to be in and out of a-fib 10/14 echo (07/26/23): 68% EF, grade 1 diastolic dysfunction, mild pulmonic insufficiency, trace MR Cardiology consulted CHADSVASc: 4; start eliquis Currently in normal sinus rhythm continue home metoprolol Repeat EKG 10/16 to eval QTc patient on multiple medications that can contribute / increase risk of QTc prolongation afib noted within 12-24hrs of starting phenergan IV. switched to PO overnight advised patient to minimized use for now. Received levaquin as well, however this was AFTER afib was noted monitor on tele Continue lasix PO daily REZA, resolved Nephrology consulted Continue to monitor renal function Hypertension Gout Anxiety/Depression NIDDM2 h/o uterine cancer confirm home medications, restart as appropriate VTE: eliquis Code: Full Dispo: Home ~1 day Pending further improvement, remains in normal sinus rhythm. abx choice
--- NOTE | 2023-10-17 16:51 | EKG ---
Test Date: 2023-10-16 Test Time: 13:55:12 Hot [place]ale Man: SALEEM MEASUREMENT RESULTS: Intervals: Rate: 66 MA: 210 QRSD: 80 QT: 438 QTc: 459 [place]: P: 32 MA: 210 QRS: 33 T: 63 INTERPRETIVE STATEMENTS: Sinus rhythm with 1st degree AV block Otherwise normal ECG Compared to ECG 10/14/2023 07:14:17 First degree AV block now present Atrial fibrillation no longer present Right-axis deviation no longer present ST (T wave) deviation no longer present Electronically Signed On 10-17-23 16:49:39 MERCHANDISE WORKER by Juan Diego Case
--- NOTE | 2023-10-17 17:03 | EKG ---
Test Date: 2023-10-14 Test Time: 07:14:17 Automatic Lump Making Machine Tender: DENNIS MEASUREMENT RESULTS: Intervals: Rate: 149 [place]: QRSD: 78 QT: 306 QTc: 481 [place]: P: NC: QRS: 97 T: 86 INTERPRETIVE STATEMENTS: Atrial fibrillation with rapid ventricular response Rightward axis Nonspecific ST abnormality, probably digitalis effect Abnormal ECG Compared to ECG 10/12/2023 18:56:48 Right-axis deviation now present ST (T wave) deviation now present Sinus rhythm no longer present T-wave abnormality no longer present Prolonged QT interval no longer present Electronically Signed On 10-17-23 16:54:32 [employer]ARD/[employer]ARD[employer] RO[employer] by Juan Diego Case
--- NOTE | 2023-10-17 17:08 | EKG ---
Test Date: 2023-10-12 Test Time: 18:56:48 Setup Technician: DEISY MEASUREMENT RESULTS: Intervals: Rate: 82 AR: 182 QRSD: 82 QT: 402 QTc: 469 [place]: P: 52 AR: 182 QRS: 58 T: 73 INTERPRETIVE STATEMENTS: Normal sinus rhythm Nonspecific T wave abnormality Prolonged QT Abnormal ECG Compared to ECG 08/21/2023 21:53:48 T-wave abnormality now present Prolonged QT interval now present ST (T wave) deviation no longer present Electronically Signed On 10-17-23 16:55:49 GRAIN SHIPPER by Juan Diego Case
[2023-10-17] MEDS: APIXABAN 5 MG TABLET PO SCH (20:50)
[2023-10-17] MEDS: ESZOPICLONE 3 MG PO SCH (20:54)
[2023-10-17 21:32] VITALS: O2SAT 97
[2023-10-18] MEDS: HYDROMORPHONE HCL 0.5 MG/0.5 ML INJ IV PRN ×2 (02:05→06:20)
[2023-10-18 04:13] LABS: Magnesium 1.5 mg/dL (1.6-2.4); Potassium 4.6 mEq/L (3.5-5.1)
[2023-10-18] MEDS: PROMETHAZINE 25 MG TABLET PO PRN (06:23)
[2023-10-18] MEDS ORDERED: Magnesium Sulfate 2gm IVPB 2 G/50 ML BAG IV ONE (07:00)
[2023-10-18] MEDS: INSULIN REGULAR (HUMAN) 100 UNIT/ML SQ SCH (07:30)
--- NOTE | 2023-10-18 07:32 | P.PN ---
Date of Service: 10/18/23 Chief Complaint: Fever, vomiting, weakness Subjective: Improving. No new complaints. Improvement in appetite. Plan for discharge home today. Physical Examination Temp Pulse Resp BP Pulse Ox 98.8 F 76 16 102/49 L 96 10/18/23 04:00 10/18/23 04:00 10/18/23 06:50 10/18/23 04:00 10/18/23 06:50 General: Alert, In no apparent distress, Oriented x3 HEENT: Atraumatic, Normocephalic Neck: Supple, JVD not distended Respiratory: Clear to auscultation bilaterally, Normal air movement Cardiovascular: Regular rate/rhythm. BLE edema 1+ Gastrointestinal: Normal bowel sounds, Soft and benign Musculoskeletal: No clubbing Integumentary: No rashes Neurological: Normal speech, Normal affect Laboratory data - Reviewed Microbiology data -Reviewed Imagings Data: -Reviewed Medications List: Reviewed Assessment and Plan Problem list Sepsis Secondary to Acute Cystitis E.coli Bacteremia Chronic diastolic CHF Diabetes Mellitus type II Hypertension Gout Anxiety Hx uterine cancer Sepsis secondary to Acute Cystitis Escherichia coli Bacteremia - CT abdomen pelvis 10/12: no acute abnormality -Blood cultures 10/12: Escherichia coli in 4 of 4 bottles - repeat blood cultures 10/14: no growth to date -Urine culture 10/13: No growth -Patient received dose of ceftriaxone on 10/13 -Previously on cefepime 10/14-10/15 -Currently on levofloxacin IV started 10/15 -Leukocytosis resolved -Afebrile 72 hours Patient developed fevers up to 101.1 F on 10/14. Negative influenza a and B Negative COVID Throat culture: normal upper respiratory roni grown Recommendations -E. coli bacteremia: Due to a history of uterine cancer and diabetes, recommend continuing antibiotic therapy for 14 days (10/14 to 10/28) Currently on levofloxacin IV. Switch to PO as tolerated to complete remainder of antibiotic course. -Monitor WBC and fever trends. As needed Tylenol -Strict blood glucose control - Follow up with PCP as outpatient in 1-2 weeks. Case discussed with Sadia Rojo
[2023-10-18] MEDS ORDERED: levoFLOXacin 750 MG TAB PO ONE (07:52)
--- NOTE | 2023-10-18 07:56 | P.DS ---
Admission Date: 10/12/23 Discharge Date: 10/18/23 Disposition: ROUTINE DISCHARGE Reason for Admission: Fever, vomiting, weakness Consultations: Cardiology - Dr. Case Nephrology - Dr. Chawla Infectious Disease - Dr. Noriega Brief History of Present Illness: 58yo F, PMH: anxiety depressive disorder, diabetes mellitus, gout, hypertension, congestive heart failure, , insomnia, CKD, renal reflux, uterine cancer Patient presented to the emergency room with complaints of fever, abdominal pain, dizziness. Patient reports fever, not measured started 1 day ago. Associated symptoms include abdominal pain nausea, vomiting. Patient also reports urinary burning and discomfort for last 3 days, Patient denies chest pain, chest discomfort, palpitation, shortness of breath. Patient has experienced similar episodes in the past. Laboratory results significant for mild leukocytosis 12.5, elevated lactic acid 2.77, elevated BUN 23, creatinine 1.80, low GFR 32, blood sugar 143, elevated BNP 1154. Chest x-ray showing mild interstitial pulmonary edema. Admitting the patient with a diagnosis of fever unspecified, unspecified kidney failure/chronic, weakness, and vomiting Hospital Course: Problem List: Sepsis secondary to acute cystitis E. coli bacteremia A-fib, new onset Chronic diastolic CHF REZA, resolved Hypertension Gout Anxiety/Depression NIDDM2 h/o uterine cancer Patient presented with abdominal pain, fever. Patient was found have acute cystitis complicated by E. coli Bacteremia. ID was consulted. Patient was given cefepime/levaquin and had improvement of her symptoms. Blood cultures noted to grow nava-sensitive E.coli. Repeat blood cultures without growth. During her hospitalization, patient was noted to be in new onset a-fib. Patient denies prior history of a-fib, but states she does recall intermittent episodes of HR up to 130-140s, self resolving. Suspect has some degree of undiagnosed / paroxysmal afib. Patient on multiple medications that can contribute / increase risk of QTc prolongation. Afib noted within 12-24hrs of starting phenergan IV. subsequently switched to PO. Advised patient to minimized use for now. Received levaquin as well, however this was AFTER afib was noted. Discussed with ID, and was okay with continuing levaquin. Patient converted into normal sinus rhythm within 24 hours of initial a-fib and had no further episodes for the rest of her hospitalization. Recommend follow up with cardiology for further discussion / adjustments. Continue home metoprolol, and she was started on eliquis for anticoagulation / stroke risk prevention in settng of afib and her comorbidities. Patient was feeling better, abdominal pain improved, afebrile for > 48 hours, leukocytosis resolved and deemed stable for discharge home. Patient is to complete 7 more days of PO levaquin for a total of 14 days of antibiotic therapy. Medications: Levaquin x7 days Eliquis Phenergen Tylenol #3 Follow up: PCP 3-5 days Cardiology in a few weeks Physical Exam: GEN: Alert, oriented, NAD HEENT: Normal conjunctiva, sclera anicteric CV: Regular rate and rhythm, trace b/l pedal edema Pulm: Nonlabored respirations on room air, clear bilaterally ABD: Soft, minimal right flank tenderness, nondistended Neuro: Normal speech, normal affect Vital Signs/Physical Exam: Temp Pulse Resp BP Pulse Ox 98.8 F 76 16 102/49 L 96 10/18/23 04:00 10/18/23 04:00 10/18/23 06:50 10/18/23 04:00 10/18/23 06:50 Laboratory Data at Discharge: WBC 7.60 thou/uL (4.3-10.9) 10/15/23 01:53 Hgb 11.0 g/dL (12.0-15.0) L 10/15/23 01:53 Hct 32.6 % (36.0-45.0) L 10/15/23 01:53 Plt Count 204 thou/uL (152-406) 10/15/23 01:53 PT 12.3 SECONDS (9.5-12.5) 10/12/23 17:55 INR 1.12 10/12/23 17:55 Sodium 138 mEq/L (136-145) 10/18/23 03:01 Potassium 4.6 mEq/L (3.5-5.1) 10/18/23 03:01 BUN 14 mg/dL (7-18) 10/18/23 03:01 Creatinine 0.92 mg/dL (0.55-1.02) 10/18/23 03:01 Glucose 139 mg/dL (74-106) H 10/18/23 03:01 Phosphorus 4.4 mg/dL (2.5-4.9) 10/15/23 01:53 Magnesium 1.5 mg/dL (1.6-2.4) L 10/18/23 03:01 Total Bilirubin 0.7 mg/dL (0.2-1.0) 10/12/23 17:55 AST 38 U/L (15-37) H 10/12/23 17:55 ALT 49 U/L (13-56) 10/12/23 17:55 Alkaline Phosphatase 111 U/L (45-117) 10/12/23 17:55 Triglycerides 178 mg/dL (<150) H 10/13/23 04:00 Cholesterol 130 mg/dL (<200) 10/13/23 04:00 HDL Cholesterol 63 mg/dL (40-60) H 10/13/23 04:00 Cholesterol/HDL Ratio 2.06 10/13/23 04:00 Home Medications: Allopurinol 1 tab PO DAILY 12/12/22 Eszopiclone [Lunesta] 1 tab PO BEDTIME 12/12/22 Ferrous Sulfate [Feosol] 1 tab PO DAILY 12/12/22 Clotrim/Betameth Cream [Lotrisone Cream*] 1 dose TOP PRN PRN 07/25/23 Metoprolol Tartrate [Lopressor] 100 mg PO DAILY 07/25/23 methocarbamoL [Methocarbamol] 750 mg PO DAILY 07/25/23 Cyanocobalamin (Vitamin B-12) [Cyanocobalamin Injection] 1,000 mcg IM EVERY 7TH DAY 10/13/23 Furosemide [Lasix] 1 tab PO DAILY PRN MDD 80 10/13/23 Apixaban [Eliquis] 5 mg PO BID 30 Days #60 tablet 10/18/23 Codeine/APAP [Tylenol W/Codeine #3 tab] 1 tab PO Q6HP PRN #15 tab 10/18/23 Promethazine HCl 12.5 mg PO Q8H PRN #10 tab 10/18/23 levoFLOXacin [Levaquin] 750 mg PO DAILY 7 Days #7 tab 10/18/23 New Medications: Codeine/APAP [Tylenol W/Codeine #3 tab] 1 tab PO Q6HP PRN #15 tab PRN Reason: Pain Apixaban [Eliquis] 5 mg PO BID 30 Days #60 tablet levoFLOXacin [Levaquin] 750 mg PO DAILY 7 Days #7 tab Promethazine HCl 12.5 mg PO Q8H PRN #10 tab PRN Reason: Nausea / Vomiting Physician Discharge Instructions: Patient presented with abdominal pain, fever. Patient was found have acute cystitis complicated by E. coli Bacteremia. ID was consulted. Patient was given cefepime/levaquin and had improvement of her symptoms. Blood cultures noted to grow nava-sensitive E.coli. Repeat blood cultures without growth. During her hospitalization, patient was noted to be in new onset a-fib. Patient denies prior history of a-fib, but states she does recall intermittent episodes of HR up to 130-140s, self resolving. Suspect has some degree of undiagnosed / paroxysmal afib. Patient on multiple medications that can contribute / increase risk of QTc prolongation. Afib noted within 12-24hrs of starting phenergan IV. subsequently switched to PO. Advised patient to minimized use for now. Received levaquin as well, however this was AFTER afib was noted. Discussed with ID, and was okay with continuing levaquin. Patient converted into normal sinus rhythm within 24 hours of initial a-fib and had no further episodes for the rest of her hospitalization. Recommend follow up with cardiology for further discussion / adjustments. Continue home metoprolol, and she was started on eliquis for anticoagulation / stroke risk prevention in settng of afib and her comorbidities. Patient was feeling better, abdominal pain improved, afebrile for > 48 hours, leukocytosis resolved and deemed stable for discharge home. Patient is to complete 7 more days of PO levaquin for a total of 14 days of antibiotic therapy. Medications: Levaquin x7 days Eliquis Phenergen Tylenol #3 Follow up: PCP 3-5 days Cardiology in a few weeks Followup: Jamie Wilson MD [Primary Care Provider] - 1 Week (Call for appointment.) Time spent managing pt's care (in minutes): 45
[2023-10-18] MEDS: FERROUS SULFATE 325 MG TAB PO SCH (08:16)
[2023-10-18] MEDS: methocarbamoL 750 MG TAB PO SCH (08:16)
[2023-10-18] MEDS: METOPROLOL TAR 50 MG TAB PO SCH (08:16)
[2023-10-18] MEDS: APIXABAN 5 MG TABLET PO SCH (08:16)
[2023-10-18] MEDS: allopurinoL 100 MG TAB PO SCH (08:16)
[2023-10-18 08:35] VITALS: BP 128/67; TEMP 96.2
[2023-10-18] MEDS ORDERED: Levofloxacin 750mg IV 750 MG/150 ML BAG IV SCH (09:00)
== END 2023-10-18 10:30 | disposition home or self-care (01) | DRG 872 ==
LOC: ER 17:14 → 2ND 20:26
PROVIDERS: ADMIT Internal Medicine; ATTEND Hospitalist
DX: A41.51 Sepsis due to Escherichia coli [E. coli] (principal); I13.0 Hypertensive heart and chronic kidney disease with heart failure and stage 1 through stage 4 chronic kidney disease, or unspecified chronic kidney disease; N17.9 Acute kidney failure, unspecified; N30.00 Acute cystitis without hematuria; E87.1 Hypo-osmolality and hyponatremia; I50.32 Chronic diastolic (congestive) heart failure; N18.32 Chronic kidney disease, stage 3b; E11.22 Type 2 diabetes mellitus with diabetic chronic kidney disease; D63.1 Anemia in chronic kidney disease; M10.9 Gout, unspecified; F32.A Depression, unspecified; I48.0 Paroxysmal atrial fibrillation; F41.9 Anxiety disorder, unspecified; K21.9 Gastro-esophageal reflux disease without esophagitis; Z88.1 Allergy status to other antibiotic agents; Z88.8 Allergy status to other drugs, medicaments and biological substances; Z88.5 Allergy status to narcotic agent; Z88.7 Allergy status to serum and vaccine; Z11.52 Encounter for screening for COVID-19; Z85.42 Personal history of malignant neoplasm of other parts of uterus; Z79.899 Other long term (current) drug therapy; Z90.710 Acquired absence of both cervix and uterus; Z28.310 Unvaccinated for COVID-19
CPT/HCPCS: 36415; 71045; 71250; 74176; 80048; 80061; 80076; 81001; 82947; 83605; 83735; 83880; 84100; 84439; 84443; 84484; 85025; 85610; 87040; 87070; 87077; 87081; 87086; 87088; 87186; 87205; 87804; 87811; 93005; 96374; 96375; 99285; J0692; J0696; J1170; J1644; J1815; J2270; J2405; J2550; J3420; J3475; J7030; J7040; Q0169

== ENCOUNTER → 2024-01-16 | Emergency (ER) | payer OTHER ==
--- NOTE | 2024-01-16 11:29 | RAD REPORT ---
EXAM DESCRIPTION: Richard Single View01/16/2024 11:23 am CLINICAL HISTORY: Chest pain COMPARISON: 2022 FINDINGS: The lungs appear clear of acute infiltrate. The heart is normal size IMPRESSION: No acute abnormalities displayed
[2024-01-16 11:46] LABS: Absolute Lymphocytes (CBC) 3.2 K/uL (0.7-4.9); Hematocrit 33.3 % (36.0-45.0); Lymphocytes % 39.1 % (15.3-44.8); MCV 90.5 fL (80-100); MPV 7.9 fL (7.6-11.3); Platelets 276 thou/uL (152-406); RBC Red Blood Cell Count 3.67 M/uL (3.86-4.86)
--- NOTE | 2024-01-16 11:53 | RAD REPORT ---
EXAM DESCRIPTION: CT - Head Brain Wo Cont - 01/16/2024 11:47 am CLINICAL HISTORY: Dizziness COMPARISON: 2021 TECHNIQUE: Computed axial tomography of the head was obtained. IV contrast was not requested. All CT scans are performed using dose optimization technique as appropriate and may include automated exposure control or mA/KV adjustment according to patient size. FINDINGS: An intracranial bleed is not seen The ventricles are normal in caliber No significant hypodense areas within the brain visualized No extra-axial fluid collection is noted. Fluid within the sinuses/ mastoids is not seen IMPRESSION: No acute intracranial abnormality is seen If patient's symptoms persist MRI of the brain would be recommended
--- NOTE | 2024-01-16 11:58 | RAD REPORT ---
EXAM DESCRIPTION: Kulwinderjohn Angio01/16/2024 11:47 am CLINICAL HISTORY: Dizziness COMPARISON: None TECHNIQUE: 100 cc Isovue [address] angiogram of the neck was obtained. 3D MIPS reconstruction performed. All CT scans are performed using dose optimization technique as appropriate and may include automated exposure control or mA/KV adjustment according to patient size. FINDINGS: Mild plaque is present within common carotid, internal carotid and external carotid arteri es bilaterally Mild plaque vertebral arteries. No dissection is seen. No high-grade stenosis IMPRESSION: No significant abnormality is displayed Nascet crieria Mild stenosis 0 to 49 % Moderate stenosis 50-69% Severe stenosis 70-99%
--- NOTE | 2024-01-16 11:58 | RAD REPORT ---
EXAM DESCRIPTION: CTHead angio01/16/2024 11:47 am CLINICAL HISTORY: Dizziness COMPARISON: none TECHNIQUE: 100 cc Isovue [address] angiogram of the head was obtained. 3D MIPS reconstruction performed. All CT scans are performed using dose optimization technique as appropriate and may include automated exposure control or mA/KV adjustment according to patient size. FINDINGS: The common internal carotid basilar, anterior cerebral, middle cerebral and posterior cere bral arteries do not demonstrate a significant stenosis An aneurysm is not seen No large vessel occlusion IMPRESSION: No significant abnormality is displayed
[2024-01-16 12:07] LABS: Potassium 3.8 mEq/L (3.5-5.1); Troponin High Sensitivity 4.8 pg/mL (<58.9)
[2024-01-16 12:25] LABS: Specific Gravity 1.014 (1.005-1.030); Urine Bacteria None Seen /HPF (<20); Urine Bilirubin NEGATIVE (Negative); Urine Blood Negative (Negative); Urine Clarity Clear (Clear); Urine Color Colorless (Yellow); Urine Glucose NEGATIVE (Negative); Urine Mucus Slight /HPF (None Seen); Urine Protein NEGATIVE (Negative); Urine RBC <5 /HPF (None Seen); Urine Urobilinogen Normal (Normal)
--- NOTE | 2024-01-16 14:53 | EDPHYS ---
Physician Documentation [facility] Name: Terra Christianson Age: 58 yrs Sex: Female : 1965 Arrival Date: 01/16/2024 Time: 10:45 Bed 2 Private MD: ED Physician Ollie Cruz HPI: 01/16 11:04 This 58 yrs old Female presents to ER via Unassigned with complaints of Chest ec2 Pain. 11:04 Patient arrives today for evaluation of chest pain and dizziness. Patient reports that ec2 she been having chest pain for approximately 3 hours and has since resolved. Patient reports some shortness of breath as well. Reports history of CHF, A-fib, hypertension, hyperlipidemia. Patient reports also bouts of dizziness where she feels she is unstable on her feet. Patient with no previous stroke history, states that she is on Eliquis.. Historical: - Allergies: 11:09 Adhesives; iw 11:09 Albuterol; iw 11:09 Azithromycin; iw 11:09 Fentanyl; iw 11:09 FLU VACCINE; iw 11:09 HYDRALAZINE (Headache and does not work to lower BP); iw 11:09 NSAIDS; iw 11:09 pneumonia vaccine; iw 11:09 prednisolone; iw 11:09 Prednisone; iw 11:09 Trazodone; iw 11:09 Wellbutrin; iw 11:09 zoster vaccine live (PF); iw 11:09 z-pack; iw - Home Meds: 11:09 allopurinol 100 mg Oral tab 1 tab once daily [Active]; atorvastatin 10 mg Oral tablet iw [Active]; cyanocobalamin (vitamin B-12) 1 Oral tablet [Active]; eszopiclone 3 mg Oral tablet [Active]; ferrous sulfate 325 mg (65 mg iron) Oral tablet [Active]; furosemide 20 mg Oral tablet [Active]; methocarbamol 750 mg Oral tablet [Active]; metoprolol tartrate 100 mg Oral tablet [Active]; - PMHx: 11:09 Anxiety; depressive disorder; diabetes mellitus; Gout; Hypertensive disorder; insomnia; iw RENAL FAILURE; Renal reflux; uterine cancer; - PSHx: 11:09 hysterectomy; iw - Immunization history:: Adult Immunizations unknown. - Social history:: Smoking status: unknown. ROS: 11:04 Constitutional: as per hpi ec2 Exam: 11:04 Constitutional: GEN: NAD Head: atraumatic Eyes: EOMI Ears: External ears are ec2 normal. CV: regular rate LUNGS: no respiratory distress ABD: non-distended SKIN: no evidence of rashes MSK: no evidence of trauma NEURO: moves all extremities equally, cranial nerves II through XII intact, strength intact all 4 extremities, no pronator drift, normal [id number]. Vital Signs: 11:04 BP 133 / 76; Pulse 77; Resp 16; Pulse Ox 98% on R/A; Weight 86.18 kg; Height 5 ft. 3 iw in. ; Pain 7/10; 12:14 BP 136 / 77; Pulse 81; Resp 20; Pulse Ox 96% on R/A; Pain 6/10; nj1 13:35 BP 139 / 93; Pulse 77; Resp 20; Pulse Ox 97% ; nj1 11:04 Body Mass Index 33.66 (86.18 kg, 160.02 cm) iw 11:04 Pain Scale: Adult iw 12:14 Pain Scale: Adult nj1 MDM: 10:55 Patient medically screened. ec2 11:05 ED course: Patient arrives today for evaluation of chest pain and dizziness. ec2 Examination remarkable for well-appearing nontoxic individual who is neuro intact and otherwise in no acute distress. Will obtain a cardiac workup, obtain CT imaging as well. Evaluate for process such as intracranial stenosis, ACS, low suspicion for dissection given the patient's general well appearance.. 11:05 ED course: EKG independently reviewed and interpreted by me, shows normal sinus rhythm, ec2 rate 78, no acute ST segment elevations, nonconcerning intervals.. 12:17 Data reviewed: vital signs. ED course: Metabolic profile shows renal dysfunction with a ec2 creatinine of 1.18, CBC is reassuring, BNP and troponin within normal ranges. Chest x-ray shows no acute thoracic process. CT scan of the head, CT angio head and neck show no actionable processes. . ED course: I will obtain repeat EKG and troponin.. 14:32 ED course: Repeat EKG independently reviewed and interpreted by me, shows normal sinus ec2 rhythm, rate of 79, no acute ST segment elevations, nonconcerning intervals.. 14:52 ED course: Repeat troponin is static. Will discharge home. Return precautions given.. ec2 01/16 11:00 Order name: Basic Metabolic Panel; Complete Time: 12:16 ec2 01/16 11:00 Order name: CBC with Diff; Complete Time: 12:16 ec2 01/16 11:00 Order name: NT PRO-BNP; Complete Time: 12:16 ec2 01/16 11:00 Order name: Troponin HS; Complete Time: 12:16 ec2 01/16 11:00 Order name: UAM; Complete Time: 12:30 ec2 01/16 12:03 Order name: CREATININE WHOLE BLOOD; Complete Time: 12:16 EDMS 01/16 12:54 Order name: Troponin High Sensitivity; Complete Time: 14:50 ec2 01/16 11:00 Order name: XRAY Chest (1 view); Complete Time: 12:16 ec2 01/16 11:00 Order name: CT Head Brain wo Cont; Complete Time: 12:16 ec2 01/16 11:00 Order name: CT Head Angio; Complete Time: 12:16 ec2 01/16 11:00 Order name: CT Neck Angio; Complete Time: 12:16 ec2 01/16 11:00 Order name: EKG; Complete Time: 11:01 ec2 01/16 11:00 Order name: Cardiac monitoring; Complete Time: 12:11 ec2 01/16 11:00 Order name: EKG - Nurse/Tech; Complete Time: 11:44 ec2 01/16 11:00 Order name: IV Saline Lock; Complete Time: 11:39 ec2 01/16 11:00 Order name: Labs collected and sent; Complete Time: 11:39 ec2 01/16 11:00 Order name: O2 Per Protocol; Complete Time: 12:11 ec2 01/16 11:00 Order name: O2 Sat Monitoring; Complete Time: 12:11 ec2 01/16 12:54 Order name: EKG - Nurse/Tech; Complete Time: 13:01 ec2 Administered Medications: No medications were administered Disposition Summary: 01/16/24 14:52 Discharge Ordered Notes: Location: Home ec2 Condition: Stable ec2 Diagnosis - Chest pain, unspecified ec2 - Dizziness and giddiness ec2 Followup: ec2 - With: Private Physician - When: - Reason: Re-evaluation by your physician Discharge Instructions: - Discharge Summary Sheet ec2 - Nonspecific Chest Pain, Adult ec2 Forms: - Medication Reconciliation Form ec2 - Thank You Letter ec2 - Antibiotic Education ec2 - Prescription Opioid Use ec2 - Patient Portal Instructions ec2 - Leadership Thank You Letter ec2 Signatures: Dispatcher [employer] Aileen Gardner RN RN iw Latonya Allen RN RN nj1 Ollie Cruz MD MD ec2 Corrections: (The following items were deleted from the chart) 11:04 11:04 Patient medically screened. ec2 ec2
--- NOTE | 2024-01-16 14:53 | ER ---
Nurse's Notes [facility] Name: Terra Christianson Age: 58 yrs Sex: Female : 1965 Arrival Date: 01/16/2024 Time: 10:45 Bed 2 Private MD: Diagnosis: Chest pain, unspecified;Dizziness and giddiness Presentation: 01/16 11:04 Chief complaint: Patient states: was moving furniture around at home and started having iw chest pain and dizziness, she almost fell over, tried to eat something and still wasn't feeling any better ,also reports UTI symptoms , she finished a round of antibiotics recently. Coronavirus screen: At this time, the client does not indicate any symptoms associated with coronavirus-19. Ebola Screen: Patient negative for fever greater than or equal to 101.5 degrees Fahrenheit, and additional compatible Ebola Virus Disease symptoms Patient denies exposure to infectious person. Patient denies travel to an Ebola-affected area in the 21 days before illness onset. No symptoms or risks identified at this time. Initial Sepsis Screen: Does the patient meet any 2 criteria? No. Patient's initial sepsis screen is negative. Does the patient have a suspected source of infection? No. Patient's initial sepsis screen is negative. Risk Assessment: Do you want to hurt yourself or someone else? Patient reports no desire to harm self or others. Onset of symptoms was January 16, 2024. 11:04 Method Of Arrival: Wheelchair iw 11:04 Acuity: YOSELYN 3 iw Historical: - Allergies: 11:09 Adhesives; iw 11:09 Albuterol; iw 11:09 Azithromycin; iw 11:09 Fentanyl; iw 11:09 FLU VACCINE; iw 11:09 HYDRALAZINE (Headache and does not work to lower BP); iw 11:09 NSAIDS; iw 11:09 pneumonia vaccine; iw 11:09 prednisolone; iw 11:09 Prednisone; iw 11:09 Trazodone; iw 11:09 Wellbutrin; iw 11:09 zoster vaccine live (PF); iw 11:09 z-pack; iw - Home Meds: 11:09 allopurinol 100 mg Oral tab 1 tab once daily [Active]; atorvastatin 10 mg Oral tablet iw [Active]; cyanocobalamin (vitamin B-12) 1 Oral tablet [Active]; eszopiclone 3 mg Oral tablet [Active]; ferrous sulfate 325 mg (65 mg iron) Oral tablet [Active]; furosemide 20 mg Oral tablet [Active]; methocarbamol 750 mg Oral tablet [Active]; metoprolol tartrate 100 mg Oral tablet [Active]; - PMHx: 11:09 Anxiety; depressive disorder; diabetes mellitus; Gout; Hypertensive disorder; insomnia; iw RENAL FAILURE; Renal reflux; uterine cancer; - PSHx: 11:09 hysterectomy; iw - Immunization history:: Adult Immunizations unknown. - Social history:: Smoking status: unknown. Screenin:13 [facility] ED Fall Risk Assessment (Adult) Score/Fall Risk Level 0 - 2 = Low Risk nj1 Oriented to surroundings, Maintained a safe environment, Hourly rounding (assess needs \T\ fall precautionary measures) done. Abuse screen: Denies threats or abuse. Denies injuries from another. Nutritional screening: No deficits noted. Tuberculosis screening: No symptoms or risk factors identified. Assessment: 11:42 Reassessment: Not in room at this time. nj1 12:11 General: Appears in no apparent distress. comfortable, Behavior is calm, cooperative, nj1 appropriate for age. Pain: Complains of pain in right low back Pain currently is 66 out of 10 on a pain scale. Neuro: Level of Consciousness is awake, alert, obeys commands, Oriented to person, place, time, situation. Cardiovascular: Denies chest pain, Patient's skin is warm and dry. Respiratory: Airway is patent Respiratory effort is even, unlabored. 13:36 Reassessment: Patient appears in no apparent distress at this time. Patient and/or nj1 family updated on plan of care and expected duration. Pain level reassessed. Patient is alert, oriented x 3, equal unlabored respirations, skin warm/dry/pink. Vital Signs: 11:04 BP 133 / 76; Pulse 77; Resp 16; Pulse Ox 98% on R/A; Weight 86.18 kg; Height 5 ft. 3 iw in. ; Pain 7/10; 12:14 BP 136 / 77; Pulse 81; Resp 20; Pulse Ox 96% on R/A; Pain 6/10; nj1 13:35 BP 139 / 93; Pulse 77; Resp 20; Pulse Ox 97% ; nj1 11:04 Body Mass Index 33.66 (86.18 kg, 160.02 cm) iw 11:04 Pain Scale: Adult iw 12:14 Pain Scale: Adult nj1 ED Course: 10:48 Patient arrived in ED. ra3 10:49 Ollie Cruz MD is Attending Physician. ec2 11:09 Triage completed. iw 11:25 XRAY Chest (1 view) In Process Unspecified. EDMS 11:39 Inserted saline lock: 22 gauge in left forearm, using aseptic technique. Blood ds4 collected. 11:41 Latonya Allen, RN is Primary Nurse. nj1 11:48 CT Head Brain wo Cont In Process Unspecified. EDMS 11:48 CT Head Angio In Process Unspecified. EDMS 11:48 CT Neck Angio In Process Unspecified. EDMS 12:11 Arm band placed on. nj1 12:12 Patient has correct armband on for positive identification. Bed in low position. Call nj1 light in reach. Side rails up X 1. Provided Education on: call light, fall precautions. Client placed on continuous cardiac and pulse oximetry monitoring. NIBP monitoring applied. 12:14 Patient maintains SpO2 saturation greater than 95% on room air. nj1 15:07 No provider procedures requiring assistance completed. IV discontinued, intact, iw bleeding controlled, No redness/swelling at site. Pressure dressing applied. Administered Medications: No medications were administered Medication: 15:07 VIS not applicable for this client. iw Outcome: 14:52 Discharge ordered by MD. ec2 15:07 Discharged to home ambulatory, iw 15:07 Condition: good 15:07 Discharge instructions given to patient, Instructed on discharge instructions, follow up and referral plans. Demonstrated understanding of instructions, follow-up care, 15:08 Patient left the ED. iw Signatures: Dispatcher [employer] Aileen Gardner, RN RN iw Ryan Kay ds4 Latonya Allen, RN RN nj1 Ollie Cruz MD MD ec2 Alva, Ruby ra3 Corrections: (The following items were deleted from the chart) 14:10 13:35 Pulse 77bpm; Resp 20bpm; Pulse Ox 97%; nj1 nj1
[2024-01-16 15:28] VITALS: BP 139/93; O2SAT 97
--- NOTE | 2024-01-17 16:07 | EKG ---
Test Date: 2024-01-16 Test Time: 14:26:52 Radar Systems Engineer: CO MEASUREMENT RESULTS: Intervals: Rate: 79 OR: 210 QRSD: 86 QT: 414 QTc: 474 [place]: P: 41 OR: 210 QRS: 32 T: 55 INTERPRETIVE STATEMENTS: Sinus rhythm with 1st degree AV block Otherwise normal ECG Compared to ECG 10/16/2023 13:55:12 No significant changes Electronically Signed On 01-17-24 16:04:50 SENIOR BILLING CONSULTANT by Juan Diego Case
--- NOTE | 2024-01-17 16:09 | EKG ---
Test Date: 2024-01-16 Test Time: 10:58:53 Automated Teller Manager: KWASI MEASUREMENT RESULTS: Intervals: Rate: 78 OK: 204 QRSD: 82 QT: 408 QTc: 465 [place]: P: 36 OK: 204 QRS: 21 T: 47 INTERPRETIVE STATEMENTS: Normal sinus rhythm Normal ECG Compared to ECG 10/16/2023 13:55:12 First degree AV block no longer present Electronically Signed On 01-17-24 16:05:10 FOLDER TAPER OPERATOR by Juan Diego Case
== END ==
LOC: ER 10:45
DX: R07.9 Chest pain, unspecified (principal); R42 Dizziness and giddiness; I10 Essential (primary) hypertension; I50.9 Heart failure, unspecified; E11.9 Type 2 diabetes mellitus without complications; E78.5 Hyperlipidemia, unspecified; Z88.1 Allergy status to other antibiotic agents; Z88.3 Allergy status to other anti-infective agents; Z88.5 Allergy status to narcotic agent; Z88.6 Allergy status to analgesic agent; Z88.7 Allergy status to serum and vaccine; Z88.8 Allergy status to other drugs, medicaments and biological substances
CPT/HCPCS: 85025; 81001; 80048; 36415; 82565; 84484 ×2; 83880; 70450; 70496; 70498; 71045; Q9967; 93005

== ENCOUNTER 2024-05-07 00:07 | Emergency (ER) | payer OTHER ==
[2024-05-07 01:14] LABS: Absolute Basophils 0.1 K/uL (0-0.5); Absolute Eosinophils 0.3 K/uL (0-0.5); Absolute Lymphocytes (CBC) 4.3 K/uL (0.7-4.9); Absolute Monocytes 0.8 K/uL (0.1-1.3); Absolute Neutrophil 4.3 K/uL (1.8-8.0); Basophils % 0.5 % (0-1.3); Eosinophils % 2.8 % (0-4.4); Hemoglobin 11.3 g/dL (12.0-15.0); MCH 30.9 pg (27.0-35.0); MCHC 34.1 g/dL (32.0-36.0); MCV 90.7 fL (80-100); MPV 8.6 fL (7.6-11.3); Monocytes % 8.1 % (3.3-12.3); Neutrophils % 44.6 % (41.7-73.7); Platelets 312 thou/uL (152-406); RBC Red Blood Cell Count 3.64 M/uL (3.86-4.86); Red Cell Distribution Width 13.6 % (12.1-15.2); Specific Gravity 1.015 (1.005-1.030); Urine Bilirubin NEGATIVE (Negative); Urine Blood Negative (Negative); Urine Clarity Clear (Clear); Urine Color Light-Yellow (Yellow); Urine Glucose NEGATIVE (Negative); Urine Ketones NEGATIVE (Negative); Urine Microscopic Reflex YN NO UMIC; Urine Nitrite NEGATIVE (Negative); Urine Protein NEGATIVE (Negative); Urine Urobilinogen Normal (Normal); Urine pH 5.5 (5.0-7.0)
[2024-05-07] MEDS ORDERED: ONDANSETRON 4 MG/2 ML VIAL ONE (01:19)
[2024-05-07] MEDS ORDERED: NA CHLORIDE 0.9% 1,000 ML ONE (01:19)
[2024-05-07] MEDS ORDERED: MORPHINE 4 MG/ML SYR ONE (01:19)
[2024-05-07 01:38] LABS: Albumin 3.7 g/dL (3.4-5.0); Anion Gap 12.1 mEq/L (5.0-15.0); Bilirubin Total 0.2 mg/dL (0.2-1.0); Globulin 3.6 g/dL (2.3-3.5); Protein, Total 7.3 g/dL (6.4-8.2)
[2024-05-07 01:40] LABS: Potassium 4.1 mEq/L (3.5-5.1)
[2024-05-07] MEDS ORDERED: PROMETHAZINE INJ 25 MG/ML AMP ONE (01:40)
--- NOTE | 2024-05-07 02:41 | EDPHYS ---
Physician Documentation [facility] Name: Terra Christianson Age: 58 yrs Sex: Female : 1965 Arrival Date: 05/07/2024 Time: 00:07 Bed 18 Private MD: ED Physician Silvano Beck HPI: 05/07 00:22 This 58 yrs old Female presents to ER via Ambulatory with complaints of sp4 Urinary Problem, Dizziness, Flank Pain. 02:36 58-year-old female with past medical history of anxiety depression diabetes gout sp4 hypertension insomnia chronic kidney disease presents with right lower back pain concerned about UTI or pyelonephritis. Associated with vomiting.. Historical: - Allergies: 00:21 Adhesives; vc1 00:21 Albuterol; vc1 00:21 Azithromycin; vc1 00:21 Fentanyl; vc1 00:21 FLU VACCINE; vc1 00:21 HYDRALAZINE (Headache and does not work to lower BP); vc1 00:21 NSAIDS; vc1 00:21 pneumonia vaccine; vc1 00:21 prednisolone; vc1 00:21 Prednisone; vc1 00:21 Trazodone; vc1 00:21 Wellbutrin; vc1 00:21 zoster vaccine live (PF); vc1 00:21 z-pack; vc1 - PMHx: 00:21 Anxiety; depressive disorder; diabetes mellitus; Gout; Hypertensive disorder; insomnia; vc1 RENAL FAILURE; Renal reflux; uterine cancer; Atrial fibrillation; Uterine cancer; - PSHx: 00:21 hysterectomy; vc1 - Immunization history:: Client reports having NOT received the Covid vaccine. Flu vaccine is not up to date. - Infectious Disease History:: Denies. - Social history:: Smoking status: Patient denies any tobacco usage or history of. - Family history:: not pertinent. ROS: 02:36 Constitutional: Negative for fever, chills, and weight loss, positive for right lower sp4 back pain and dizziness. 02:36 All other systems are negative, Exam: 02:36 Constitutional: This is a well developed, well nourished patient who is awake, alert, sp4 and in no acute distress. Head/Face: Normocephalic, atraumatic. Eyes: Pupils equal round and reactive to light, extra-ocular motions intact. Lids and lashes normal. Conjunctiva and sclera are not injected. Cornea within normal limits. Periorbital areas with no swelling, redness, or edema. ENT: Nares patent. No nasal discharge, no septal abnormalities noted. Tympanic membranes are normal and external auditory canals are clear. Oropharynx with no redness, swelling, or masses, exudates, or evidence of obstruction, uvula midline. Mucous membranes moist. Neck: Trachea midline, no thyromegaly or masses palpated, and no cervical lymphadenopathy. Supple, full range of motion without nuchal rigidity, or vertebral point tenderness. Chest/axilla: Normal chest wall appearance and motion. Nontender with no deformity. No lesions are appreciated. Cardiovascular: Regular rate and rhythm with a normal S1 and S2. No gallops, murmurs, or rubs. Normal PMI, no JVD. No pulse deficits. Respiratory: Lungs have equal breath sounds bilaterally, clear to auscultation and percussion. No rales, rhonchi or wheezes noted. No increased work of breathing, no retractions or nasal flaring. Abdomen/GI: Soft, with normal bowel sounds. No distension or tympany. No guarding or rebound. No evidence of tenderness throughout. Back: No spinal tenderness. No costovertebral tenderness. Skin: Warm, dry with normal turgor. Normal color with no rashes, no lesions, and no evidence of cellulitis. MS/ Extremity: Pulses equal, no cyanosis. Neurovascular intact. Full, normal range of motion. Neuro: Awake and alert, GCS 15, oriented to person, place, time, and situation. Cranial nerves II-XII grossly intact. Motor strength 5/5 in all extremities. Sensory grossly intact. Psych: Awake, alert, with orientation to person, place and time. Behavior, mood, and affect are within normal limits Vital Signs: 00:19 BP 132 / 79; Pulse 67; Resp 18; Temp 98; Pulse Ox 98% ; Weight 90.72 kg; Height 5 ft. 3 vc1 in. ; Pain 8/10; 01:37 BP 113 / 55; Pulse 67; Pulse Ox 96% on R/A; Pain 6/10; tm6 02:30 BP 110 / 66; Pulse 67; Pulse Ox 97% on R/A; Pain 4/10; tm6 02:51 BP 99 / 54; Pulse 61; Resp 19; Temp 97.5(TE); Pulse Ox 96% on R/A; MAP 67 mmHg; Pain tm6 0/10; 00:19 Body Mass Index 35.43 (90.72 kg, 160.02 cm) vc1 00:19 Pain Scale: Adult vc1 01:37 Pain Scale: Adult tm6 02:30 Pain Scale: Adult tm6 02:51 Pain Scale: Adult tm6 Warren Coma Score: 02:36 Eye Response: spontaneous(4). Motor Response: obeys commands(6). Verbal Response: sp4 oriented(5). Total: 15. MDM: 00:46 Patient medically screened. sp4 02:27 ED course: EXAM: CTAbdomen and Pelvis Without Intravenous Contrast CLINICAL HISTORY: sp4 ABD PAIN TECHNIQUE: Axial computed tomography images of the abdomen and pelvis without intravenous contrast. Sagittal and coronal reformatted images were created and reviewed. This CT exam was performed using one or more of the following dose reduction techniques: automated exposure control, adjustment of the mA and/or kV according to patient size, and/or use of iterative reconstruction technique. COMPARISON: CTAbdomen Pelvis dated 10/12/2023 FINDINGS: Lung bases: Unremarkable. No mass. No consolidation. Heart: Mitral annular calcification. ABDOMEN: Liver: Unremarkable. Gallbladder and bile ducts: There has been a cholecystectomy. No ductal dilation. Pancreas: Mild to moderate pancreatic parenchymal atrophy. No ductal dilation. Spleen: Unremarkable. No splenomegaly. Adrenals: Unremarkable. No mass. Kidneys and ureters: Lobulated renal contour bilaterally with areas of cortical thinning/scar. No calculi. No hydronephrosis. 1.8 cm exophytic cyst at the anteromedial upper pole on the right similar to the prior. No follow-up imaging is recommended. JACR 2018 Dec; 264-273, Management of the Incidental Renal Mass on CT, [employer] 2020; 814-848, Bosniak Classification of Cystic Renal Masses, Version 2019. Stomach and bowel: Moderate stool in the proximal to mid large bowel. No obstruction. No appreciable mucosal thickening. PELVIS: Appendix: Normal caliber appendix. No findings to suggest acute appendicitis. Bladder: Unremarkable. No stones. Reproductive: There has been a hysterectomy. No adnexal cysts or masses are identified. ABDOMEN and PELVIS: Intraperitoneal space: Unremarkable. No free air. No significant fluid collection. Bones/joints: Multilevel spondylosis. No acute fracture. No dislocation. Soft tissues: Small fat-containing periumbilical hernia. Vasculature: Mild atherosclerotic disease. No abdominal aortic aneurysm. Lymph nodes: Unremarkable. No enlarged lymph nodes. IMPRESSION: 1. Moderate stool. No bowel obstruction. 2. Other findings as above. Electronically signed by: Rajan Campbell MD 05/07/2024 01:53. 02:38 Differential diagnosis: hyperventilation, hypovolemia, near-syncope, sepsis. Data sp4 reviewed: vital signs, nurses notes, lab test result(s), radiologic studies, CT scan. Consideration of Admission/Observation Escalation of care including admission/observation considered. ED course: Pain seems to be musculoskeletal in origin as right lower back pain associated with spinal musculature. Will prescribe Robaxin, Tylenol 3 and also Phenergan. Will advise follow-up with cardiac catheterization technologist for monitoring of kidney function.. 05/07 00:23 Order name: CBC with Diff; Complete Time: 02:26 4 05/07 00:23 Order name: CMP; Complete Time: 02: sp4 05/07 00:23 Order name: Lipase; Complete Time: 02:26 sp4 05/07 00:23 Order name: Urinalysis w/ reflexes; Complete Time: 02:26 4 05/07 00:30 Order name: Blood Culture Adult (2) sp4 05/07 00:30 Order name: Lactate w/ 2H reflex if indic.; Complete Time: 02:26 sp4 05/07 00:30 Order name: CT Abd/Pelvis - Without Contrast sp4 05/07 00:23 Order name: IV Saline Lock; Complete Time: 00:55 sp4 05/07 00:23 Order name: Labs collected and sent; Complete Time: 00:55 sp4 Administered Medications: 01:39 Not Given (Patient Refused): ondansetron 4 mg IVP once; over 2 minutes tm6 01:39 Drug: NS 0.9% IV 1000 ml IV at 125 ml/hr continuous Route: IV; Rate: 125 ml/hr; Site: tm6 right forearm; 01:48 Drug: morphine IVP or IV 4 mg IVP once over 4 mins Route: IVP; Infused Over: 4 mins; tm6 Site: right forearm; 01:48 Drug: Promethazine IM 25 mg IM once Route: IM; Site: left gluteus; tm6 Disposition Summary: 05/07/24 02:41 Discharge Ordered Notes: Location: Home sp4 Problem: new sp4 Symptoms: have improved sp4 Condition: Stable sp4 Diagnosis - Low back pain sp4 - Acute right lower back pain, musculoskeletal pain, chronic kidney disease stage III sp4 Followup: sp4 - With: Harvey Chawla DO - When: 7 - 10 days - Reason: Recheck today's complaints Discharge Instructions: - Discharge Summary Sheet sp4 - Acute Back Pain, Adult sp4 Forms: - Patient Portal Instructions sp4 Prescriptions: - Acetaminophen - take 1 tablet ORAL route every 6 hours PRN pain; 20 tablet; Refills: 0, Product sp4 Selection Permitted - promethazine 25 mg Oral tablet - take 1 tablet ORAL route every 6 hours As needed; 30 tablet; Refills: 0, sp4 Product Selection Permitted - methocarbamol 750 mg Oral tablet - take 2 tablets ORAL route every 8 hours for 3 days PRN muscle soreness; 30 sp4 tablet; Refills: 0, Product Selection Permitted Signatures: Dispatcher [employer] Michelle Nuno RN RN vc1 Silvano Beck MD MD sp4 Severino Hurley RN RN tm6
--- NOTE | 2024-05-07 02:41 | ER ---
Nurse's Notes [facility] Name: Terra Christianson Age: 58 yrs Sex: Female : 1965 Arrival Date: 05/07/2024 Time: 00:07 Bed 18 Private MD: Diagnosis: Low back pain;Acute right lower back pain, musculoskeletal pain, chronic kidney disease stage III Presentation: 05/07 00:19 Chief complaint: Patient states: right lower back pain, fever, painful urination, dizzy vc1 and nauseated. Coronavirus screen: Client denies travel out of the [place] in the last 14 days. At this time, the client does not indicate any symptoms associated with coronavirus-19. Ebola Screen: Patient negative for fever greater than or equal to 101.5 degrees Fahrenheit, and additional compatible Ebola Virus Disease symptoms Patient denies exposure to infectious person. Patient denies travel to an Ebola-affected area in the 21 days before illness onset. No symptoms or risks identified at this time. Initial Sepsis Screen: Does the patient meet any 2 criteria? No. Patient's initial sepsis screen is negative. Does the patient have a suspected source of infection? No. Patient's initial sepsis screen is negative. Risk Assessment: Do you want to hurt yourself or someone else? Patient reports no desire to harm self or others. Onset of symptoms was May 04, 2024. 00:19 Method Of Arrival: Ambulatory vc1 00:19 Acuity: YOSELYN 3 vc1 Triage Assessment: 00:23 General: Appears in no apparent distress. uncomfortable, Behavior is calm, cooperative, vc1 appropriate for age. Pain: Complains of pain in right low back Pain does not radiate. Pain currently is 8 out of 10 on a pain scale. Quality of pain is described as sharp, Pain began 2-3 days ago. EENT: No deficits noted. No signs and/or symptoms were reported regarding the EENT system. Neuro: Level of Consciousness is awake, alert, obeys commands, Oriented to person, place, time, situation, Appropriate for age. Respiratory: Airway is patent Respiratory effort is even, unlabored, Respiratory pattern is regular, symmetrical. : Reports burning with urination, urinary frequency. Derm: Skin is intact, is healthy with good turgor, Skin is dry, Skin is normal, Skin temperature is cool. Historical: - Allergies: 00:21 Adhesives; vc1 00:21 Albuterol; vc1 00:21 Azithromycin; vc1 00:21 Fentanyl; vc1 00:21 FLU VACCINE; vc1 00:21 HYDRALAZINE (Headache and does not work to lower BP); vc1 00:21 NSAIDS; vc1 00:21 pneumonia vaccine; vc1 00:21 prednisolone; vc1 00:21 Prednisone; vc1 00:21 Trazodone; vc1 00:21 Wellbutrin; vc1 00:21 zoster vaccine live (PF); vc1 00:21 z-pack; vc1 - PMHx: 00:21 Anxiety; depressive disorder; diabetes mellitus; Gout; Hypertensive disorder; insomnia; vc1 RENAL FAILURE; Renal reflux; uterine cancer; Atrial fibrillation; Uterine cancer; - PSHx: 00:21 hysterectomy; vc1 - Immunization history:: Client reports having NOT received the Covid vaccine. Flu vaccine is not up to date. - Infectious Disease History:: Denies. - Social history:: Smoking status: Patient denies any tobacco usage or history of. - Family history:: not pertinent. Screenin:35 [facility] ED Fall Risk Assessment (Adult) History of falling in the last 3 months, tm6 including since admission No falls in past 3 months (0 pts) Confusion or Disorientation No (0 pts) Intoxicated or Sedated No (0 pts) Impaired Gait No (0 pts) Mobility Assist Device Used No (0 pt) Altered Elimination No (0 pt) Score/Fall Risk Level 0 - 2 = Low Risk Oriented to surroundings, Maintained a safe environment, Educated pt \T\ family on fall prevention, incl call for assistance when getting out of bed. Abuse screen: Denies threats or abuse. Denies injuries from another. Nutritional screening: No deficits noted. Tuberculosis screening: No symptoms or risk factors identified. Assessment: 01:35 General: Appears in no apparent distress. Behavior is calm, cooperative. Pain: tm6 Complains of pain in back and right low back Pain currently is 5 out of 10 on a pain scale. Quality of pain is described as aching. Neuro: Level of Consciousness is awake, alert, obeys commands, Oriented to person, place, time, situation. Cardiovascular: Patient's skin is warm and dry. Respiratory: Airway is patent Respiratory effort is even, unlabored, Respiratory pattern is regular, symmetrical. GI: Abdomen is round non-distended. : Reports pain in right flank(s). EENT: No signs and/or symptoms were reported regarding the EENT system. Derm: No signs and/or symptoms reported regarding the dermatologic system. Musculoskeletal: No signs and/or symptoms reported regarding the musculoskeletal system. 02:31 Reassessment: Patient appears in no apparent distress at this time. Patient and/or tm6 family updated on plan of care and expected duration. Pain level reassessed. Patient is alert, oriented x 3, equal unlabored respirations, skin warm/dry/pink. 02:51 Reassessment: Patient appears in no apparent distress at this time. tm6 Vital Signs: 00:19 BP 132 / 79; Pulse 67; Resp 18; Temp 98; Pulse Ox 98% ; Weight 90.72 kg; Height 5 ft. 3 vc1 in. ; Pain 8/10; 01:37 BP 113 / 55; Pulse 67; Pulse Ox 96% on R/A; Pain 6/10; tm6 02:30 BP 110 / 66; Pulse 67; Pulse Ox 97% on R/A; Pain 4/10; tm6 02:51 BP 99 / 54; Pulse 61; Resp 19; Temp 97.5(TE); Pulse Ox 96% on R/A; MAP 67 mmHg; Pain tm6 0/10; 00:19 Body Mass Index 35.43 (90.72 kg, 160.02 cm) vc1 00:19 Pain Scale: Adult vc1 01:37 Pain Scale: Adult tm6 02:30 Pain Scale: Adult tm6 02:51 Pain Scale: Adult tm6 Warren Coma Score: 02:36 Eye Response: spontaneous(4). Motor Response: obeys commands(6). Verbal Response: sp4 oriented(5). Total: 15. ED Course: 00:10 Patient arrived in ED. ra3 00:21 Triage completed. vc1 00:22 Silvano Beck MD is Attending Physician. sp4 00:23 Arm band placed on right wrist. vc1 00:26 Severino Hurley RN is Primary Nurse. tm6 00:54 Urinalysis w/ reflexes Sent. tm6 00:54 Lipase Sent. tm6 00:55 CMP Sent. tm6 00:55 CBC with Diff Sent. tm6 00:55 Blood Culture Adult (2) Sent. tm6 00:55 Lactate w/ 2H reflex if indic. Sent. tm6 00:55 Inserted saline lock: 22 gauge in right forearm, using aseptic technique. tm6 01:02 CT Abd/Pelvis - Without Contrast In Process Unspecified. EDMS 01:35 Patient has correct armband on for positive identification. Placed in gown. Bed in low tm6 position. Call light in reach. Side rails up X2. Provided Education on: use of call eddy. Client placed on continuous cardiac and pulse oximetry monitoring. NIBP monitoring applied. Pulse ox on. NIBP on. Door closed. Noise minimized. 02:40 Harvey Chawla DO is Referral Physician. sp4 02:51 No provider procedures requiring assistance completed. IV discontinued, intact, tm6 bleeding controlled, No redness/swelling at site. Pressure dressing applied. Administered Medications: 01:39 Not Given (Patient Refused): ondansetron 4 mg IVP once; over 2 minutes tm6 01:39 Drug: NS 0.9% IV 1000 ml IV at 125 ml/hr continuous Route: IV; Rate: 125 ml/hr; Site: tm6 right forearm; 01:48 Drug: morphine IVP or IV 4 mg IVP once over 4 mins Route: IVP; Infused Over: 4 mins; tm6 Site: right forearm; 01:48 Drug: Promethazine IM 25 mg IM once Route: IM; Site: left gluteus; tm6 Medication: 01:35 VIS not applicable for this client. tm6 Outcome: 02:41 Discharge ordered by . sp4 02:51 Discharged to home ambulatory, with family, tm6 02:51 Condition: stable 02:51 Discharge instructions given to patient, family, Instructed on discharge instructions, follow up and referral plans. medication usage, Demonstrated understanding of instructions, follow-up care, medications, Prescriptions given X 3, 02:52 Patient left the ED. tm6 Signatures: Dispatcher [employer] EDMS Michelle Hart RN RN vc1 Silvano Beck MD MD sp4 Severino Hurley RN RN tm6 Yuli Alva ra3
[2024-05-07 03:20] VITALS: BP 99/54; TEMP 97.5; O2SAT 96
--- NOTE | 2024-05-07 13:46 | RAD REPORT ---
EXAM DESCRIPTION: CT Abdomen and Pelvis Without Intravenous Contrast CLINICAL HISTORY: ABD PAIN TECHNIQUE: Axial computed tomography images of the abdomen and pelvis without intravenous contrast. Sagittal and coronal reformatted images were created and reviewed. This CT exam was performed usi ng one or more of the following dose reduction techniques: automated exposure control, adjustment o f the mA and/or kV according to patient size, and/or use of iterative reconstruction technique. COMPARISON: CT Abdomen Pelvis dated 10/12/2023 FINDINGS: Lung bases: Unremarkable. No mass. No consolidation. Heart: Mitral annular calcification. ABDOMEN: Liver: Unremarkable. Gallbladder and bile ducts: There has been a cholecystectomy. No ductal dilation. Pancreas: Mild to moderate pancreatic parenchymal atrophy. No ductal dilation. Spleen: Unremarkable. No splenomegaly. Adrenals: Unremarkable. No mass. Kidneys and ureters: Lobulated renal contour bilaterally with areas of cortical thinning/scar. No c alculi. No hydronephrosis. 1.8 cm exophytic cyst at the anteromedial upper pole on the right similar to the prior. No follow-up imaging is recommended. JACR 2018 Dec; 264-273, Management of the Incident al Renal Mass on CT, [employer] 2020; 814-848, Bosniak Classification of Cystic Renal Masses, Vers ion 2019. Stomach and bowel: Moderate stool in the proximal to mid large bowel. No obstruction. No appreciabl e mucosal thickening. PELVIS: Appendix: Normal caliber appendix. No findings to suggest acute appendicitis. Bladder: Unremarkable. No stones. Reproductive: There has been a hysterectomy. No adnexal cysts or masses are identified. ABDOMEN and PELVIS: Intraperitoneal space: Unremarkable. No free air. No significant fluid collection. Bones/joints: Multilevel spondylosis. No acute fracture. No dislocation. Soft tissues: Small fat-containing periumbilical hernia. Vasculature: Mild atherosclerotic disease. No abdominal aortic aneurysm. Lymph nodes: Unremarkable. No enlarged lymph nodes. IMPRESSION: 1. Moderate stool. No bowel obstruction. 2. Other findings as above. Electronically signed by: Rajan Campbell MD 05/07/2024 01:53 AM CDT RP Due to temporary technical issues with the PACS/Fluency reporting system, reports are being signed by the in house radiologist without review as a courtesy to ensure prompt reporting. The interpreting r adiologist is fully responsible for the content of the report.
== END 2024-05-07 02:52 | disposition home or self-care (01) ==
LOC: ER 00:07
DX: M54.50 Low back pain, unspecified (principal); M79.18 Myalgia, other site; E11.22 Type 2 diabetes mellitus with diabetic chronic kidney disease; I12.9 Hypertensive chronic kidney disease with stage 1 through stage 4 chronic kidney disease, or unspecified chronic kidney disease; N18.30 Chronic kidney disease, stage 3 unspecified
CPT/HCPCS: 87040 ×2; 85025; 36415; 83605; 81003; 83690; 80053; 74176; 96372; 96374; 99284; J2550; J7030; J2405

== ENCOUNTER 2024-06-30 08:33 | Emergency (ER) | payer OTHER ==
--- NOTE | 2024-06-30 09:06 | RAD REPORT ---
EXAM DESCRIPTION: RADChest Single View06/30/2024 8:58 am CLINICAL HISTORY: CHEST PAIN COMPARISON: Chest Single View dated 01/16/2024; Chest Single View dated 10/12/2023; Chest Single View dated 08/21/2023; Chest Single View dated 12/12/2022 TECHNIQUE: Portable AP view of the chest. FINDINGS: The lungs are clear. No pneumothorax or effusion. The cardiomediastinal contours are unre markable. IMPRESSION: No acute cardiopulmonary process.
[2024-06-30 10:11] LABS: Absolute Eosinophils 0.2 K/uL (0-0.5); Absolute Lymphocytes (CBC) 3.6 K/uL (0.7-4.9); Absolute Monocytes 0.7 K/uL (0.1-1.3); Absolute Neutrophil 3.6 K/uL (1.8-8.0); Basophils % 0.5 % (0-1.3); Hemoglobin 13.3 g/dL (12.0-15.0); Lymphocytes % 44.7 % (15.3-44.8); MCH 30.6 pg (27.0-35.0); MCHC 33.1 g/dL (32.0-36.0); MCV 92.5 fL (80-100); Monocytes % 8.7 % (3.3-12.3); Neutrophils % 44.1 % (41.7-73.7); Platelets 219 thou/uL (152-406); RBC Red Blood Cell Count 4.33 M/uL (3.86-4.86); Red Cell Distribution Width 14.2 % (12.1-15.2)
[2024-06-30 10:38] LABS: Anion Gap 6.9 mEq/L (5.0-15.0); Potassium 3.9 mEq/L (3.5-5.1); Troponin High Sensitivity 5.3 pg/mL (<58.9)
[2024-06-30 11:08] LABS: Specific Gravity 1.015 (1.005-1.030); Sqamous Epithelial <5 /HPF (None Seen); Transitional Epithelial <5 /HPF (None Seen); Urine Bacteria <20 /HPF (<20); Urine Bilirubin NEGATIVE (Negative); Urine Blood Negative (Negative); Urine Clarity Clear (Clear); Urine Color Colorless (Yellow); Urine Culture Reflex Order NOT NEEDED; Urine Glucose 1+ (Negative); Urine Ketones NEGATIVE (Negative); Urine Micro Reflex YN NO BILL MICROSCOPIC; Urine Mucus Slight /HPF (None Seen); Urine Nitrite NEGATIVE (Negative); Urine Protein NEGATIVE (Negative); Urine RBC <5 /HPF (None Seen); Urine Urobilinogen Normal (Normal); Urine WBC <5 /HPF (<5)
--- NOTE | 2024-06-30 12:45 | EDPHYS ---
Physician Documentation [facility] Name: Terra Christianson Age: 58 yrs Sex: Female : 1965 Arrival Date: 06/30/2024 Time: 08:33 Bed 3 Private MD: ED Physician Ollie Cruz HPI: 06/30 08:42 This 58 yrs old Female presents to ER via Unassigned with complaints of cp, ec2 sob. 08:42 Patient arrives for chest pain and shortness of breath. Patient reports that she has ec2 been having symptoms onset since 3:00 this morning. Patient reports an exertional component. Patient reports that she has some swelling in her bilateral lower extremities well. Reports history of CHF. . Historical: - Allergies: 08:42 Adhesives; ll1 08:42 Albuterol; ll1 08:42 Azithromycin; ll1 08:42 Fentanyl; ll1 08:42 FLU VACCINE; ll1 08:42 HYDRALAZINE (Headache and does not work to lower BP); ll1 08:42 NSAIDS; ll1 08:42 pneumonia vaccine; ll1 08:42 prednisolone; ll1 08:42 Prednisone; ll1 08:42 Trazodone; ll1 08:42 Wellbutrin; ll1 08:42 zoster vaccine live (PF); ll1 08:42 z-pack; ll1 - PMHx: 08:42 diabetes mellitus; Hypertensive disorder; depressive disorder; Gout; insomnia; Anxiety; ll1 Renal reflux; RENAL FAILURE; Atrial fibrillation; uterine cancer; - PSHx: 08:42 hysterectomy; ll1 - Immunization history:: Adult Immunizations up to date. - Infectious Disease History:: Denies. - Social history:: Smoking status: Patient denies any tobacco usage or history of. ROS: 08:42 Constitutional: as per hpi ec2 Exam: 08:42 Constitutional: GEN: NAD Head: atraumatic Eyes: EOMI Ears: External ears are ec2 normal. CV: regular rate LUNGS: no respiratory distress ABD: non-distended SKIN: no evidence of rashes MSK: no evidence of trauma NEURO: moves all extremities equally Vital Signs: 08:43 BP 145 / 59; Pulse 67; Resp 18; Temp 98.7(O); Pulse Ox 97% on R/A; Weight 82.55 kg; ll1 Height 5 ft. 2 in. ; 11:05 BP 144 / 85; Pulse 63; Resp 16; Pulse Ox 100% ; bp 12:44 BP 122 / 68; Pulse 71; Resp 16; Pulse Ox 93% ; bp 08:43 Body Mass Index 33.29 (82.55 kg, 157.48 cm) ll1 MDM: 08:36 Patient medically screened. ec2 08:42 Data reviewed: vital signs. ED course: Patient arrives today for chest pain or ec2 shortness of breath. Examination markable for well-appearing nontoxic individuals otherwise in no acute distress with a reassuring examination. Obtain labs, EKG, chest x-ray. Differential clues volume overload, ACS, doubt PE or dissection. . 09:15 ED course: Chest x-ray shows no acute thoracic process.. ec2 09:25 ED course: EKG independently reviewed and interpreted by me, shows normal sinus rhythm, ec2 rate of 61, no acute ST segment elevations, PVC noted.. 10:47 ED course: Metabolic profile shows appropriate electrolytes, some diminished renal ec2 function with a creatinine of 1.24 and a GFR 50. Troponin within normal ranges, BNP within normal ranges. Chest x-ray shows no acute intrathoracic process with no significant volume overload. Pending urine studies as well as repeat EKG and troponin. . 11:01 ED course: Repeat EKG independently reviewed and interpreted by me, shows normal sinus ec2 rhythm, rate 61, no acute ST segment elevations, intervals are nonconcerning.. 12:44 ED course: Repeat troponin is static. Will discharge home have the patient follow-up ec2 with cardiology. Return precautions given.. 06/30 08:36 Order name: Basic Metabolic Panel; Complete Time: 10:47 ec2 06/30 08:36 Order name: CBC with Diff; Complete Time: 10:20 ec2 06/30 08:36 Order name: Troponin HS; Complete Time: 10:47 ec2 06/30 08:41 Order name: NT PRO-BNP; Complete Time: 10:47 ec2 06/30 09:59 Order name: UAM; Complete Time: 11:58 ec2 06/30 10:54 Order name: Troponin High Sensitivity; Complete Time: 12:44 ec2 06/30 08:36 Order name: XRAY Chest (1 view); Complete Time: 09:15 ec2 06/30 08:36 Order name: Cardiac monitoring; Complete Time: 09:08 ec2 06/30 08:36 Order name: EKG - Nurse/Tech; Complete Time: 09:08 ec2 06/30 08:36 Order name: IV Saline Lock; Complete Time: 09:08 ec2 06/30 08:36 Order name: Labs collected and sent; Complete Time: 09:08 ec2 06/30 08:36 Order name: O2 Per Protocol; Complete Time: 09:08 ec2 06/30 08:36 Order name: O2 Sat Monitoring; Complete Time: 09:08 ec2 06/30 09:50 Order name: Misc. Order: repeat ekg/trop at 1100; Complete Time: 11:01 ec2 06/30 10:54 Order name: EKG - Nurse/Tech; Complete Time: 11:01 ec2 Administered Medications: No medications were administered Disposition Summary: 06/30/24 12:44 Discharge Ordered Notes: Location: Home ec2 Condition: Stable ec2 Diagnosis - Chest pain, unspecified ec2 - Dyspnea, unspecified ec2 Followup: ec2 - With: Private Physician - When: - Reason: Re-evaluation by your physician Discharge Instructions: - Discharge Summary Sheet ec2 - Nonspecific Chest Pain, Adult ec2 Forms: - Medication Reconciliation Form ec2 - Antibiotic Education ec2 - Prescription Opioid Use ec2 - Patient Portal Instructions ec2 - Leadership Thank You Letter ec2 Signatures: Dispatcher [employer] Alex Garay RN RN bp Lewis, Lynsay, RN RN 1 Ollie Cruz MD MD ec2 Corrections: (The following items were deleted from the chart) 08:36 08:36 BASIC METABOLIC PANEL+C.LAB.BRZ ordered. EDMS EDMS 08:36 08:36 CBC+H.LAB.BRZ ordered. EDMS EDMS 08:36 08:36 Troponin High Sensitivity+C.LAB.BRZ ordered. EDMS EDMS 08:36 08:36 Chest Single View+RAD.RAD.BRZ ordered. EDMS EDMS 10:02 10:02 Urinalysis W/Microscopic+U.LAB.BRZ ordered. EDMS EDMS
--- NOTE | 2024-06-30 12:45 | ER ---
Nurse's Notes [facility] Name: Terra Christianson Age: 58 yrs Sex: Female : 1965 Arrival Date: 06/30/2024 Time: 08:33 Bed 3 Private MD: Diagnosis: Chest pain, unspecified;Dyspnea, unspecified Presentation: 06/30 08:43 Chief complaint: Patient states: SOB and chest/back tightness started at 3 AM. Slight ll1 cough, fever off/on at home. Coronavirus screen: Client denies travel out of the [place] in the last 14 days. cough unrelated to allergies, difficulty breathing, fatigue, fever, shortness of breath, Client presents with at least one sign or symptom that may indicate coronavirus-19. Standard/surgical mask placed on the client. Ebola Screen: Patient denies travel to an Ebola-affected area in the 21 days before illness onset. Initial Sepsis Screen: Does the patient meet any 2 criteria? No. Patient's initial sepsis screen is negative. Does the patient have a suspected source of infection? No. Patient's initial sepsis screen is negative. Risk Assessment: Do you want to hurt yourself or someone else? Patient reports no desire to harm self or others. Onset of symptoms was June 30, 2024. 08:43 Method Of Arrival: Ambulatory ll1 08:43 Acuity: YOSELYN 3 ll1 Triage Assessment: 08:44 General: Appears uncomfortable, Behavior is calm, cooperative, appropriate for age. ll1 Pain: Complains of pain in chest Pain radiates to back. Cardiovascular: Reports chest pain, shortness of breath. Respiratory: Reports shortness of breath cough that is. Historical: - Allergies: 08:42 Adhesives; ll1 08:42 Albuterol; ll1 08:42 Azithromycin; ll1 08:42 Fentanyl; ll1 08:42 FLU VACCINE; ll1 08:42 HYDRALAZINE (Headache and does not work to lower BP); ll1 08:42 NSAIDS; ll1 08:42 pneumonia vaccine; ll1 08:42 prednisolone; ll1 08:42 Prednisone; ll1 08:42 Trazodone; ll1 08:42 Wellbutrin; ll1 08:42 zoster vaccine live (PF); ll1 08:42 z-pack; ll1 - PMHx: 08:42 diabetes mellitus; Hypertensive disorder; depressive disorder; Gout; insomnia; Anxiety; ll1 Renal reflux; RENAL FAILURE; Atrial fibrillation; uterine cancer; - PSHx: 08:42 hysterectomy; ll1 - Immunization history:: Adult Immunizations up to date. - Infectious Disease History:: Denies. - Social history:: Smoking status: Patient denies any tobacco usage or history of. Screenin:45 [facility] ED Fall Risk Assessment (Adult) History of falling in the last 3 months, bp including since admission No falls in past 3 months (0 pts) Confusion or Disorientation No (0 pts) Intoxicated or Sedated No (0 pts) Impaired Gait No (0 pts) Mobility Assist Device Used No (0 pt) Altered Elimination No (0 pt) Score/Fall Risk Level 0 - 2 = Low Risk Oriented to surroundings. Abuse screen: Denies threats or abuse. Denies injuries from another. Nutritional screening: No deficits noted. Tuberculosis screening: No symptoms or risk factors identified. Assessment: 08:45 General: Appears in no apparent distress. obese, Behavior is calm, cooperative, bp appropriate for age. Pain: Denies pain. Neuro: No deficits noted. Cardiovascular: Rhythm is sinus rhythm. Respiratory: Reports shortness of breath Airway is patent Respiratory effort is even, unlabored. GI: No signs and/or symptoms were reported involving the gastrointestinal system. : No signs and/or symptoms were reported regarding the genitourinary system. EENT: No deficits noted. Derm: No deficits noted. Musculoskeletal: No deficits noted. 11:00 Reassessment: Patient appears in no apparent distress at this time. Patient is alert, bp oriented x 3, equal unlabored respirations, skin warm/dry/pink. 12:44 Reassessment: Patient appears in no apparent distress at this time. Patient is alert, bp oriented x 3, equal unlabored respirations, skin warm/dry/pink. Vital Signs: 08:43 BP 145 / 59; Pulse 67; Resp 18; Temp 98.7(O); Pulse Ox 97% on R/A; Weight 82.55 kg; ll1 Height 5 ft. 2 in. ; 11:05 BP 144 / 85; Pulse 63; Resp 16; Pulse Ox 100% ; bp 12:44 BP 122 / 68; Pulse 71; Resp 16; Pulse Ox 93% ; bp 08:43 Body Mass Index 33.29 (82.55 kg, 157.48 cm) ll1 ED Course: 08:35 Patient arrived in ED. ec2 08:36 Ollie Cruz MD is Attending Physician. ec2 08:42 Arm band placed on Patient placed in an exam room, on a stretcher. ll1 08:44 Triage completed. ll1 08:45 Patient has correct armband on for positive identification. bp 08:50 Alex Rice, RN is Primary Nurse. bp 09:00 XRAY Chest (1 view) In Process Unspecified. EDMS 10:47 UAM Sent. bp 11:01 Troponin High Sensitivity Sent. bp 11:01 Repeat lab(s) drawn. by me, sent to lab. bp 11:03 EKG done, by ED staff, reviewed by Ollie Cruz MD. zm 13:03 No provider procedures requiring assistance completed. Patient did not have IV access bp during this emergency room visit. Administered Medications: No medications were administered Medication: 08:45 VIS not applicable for this client. bp Outcome: 12:44 Discharge ordered by . ec2 13:03 Discharged to home ambulatory, with family, bp 13:03 Condition: stable 13:03 Discharge instructions given to patient, Instructed on discharge instructions, follow up and referral plans. Demonstrated understanding of instructions, follow-up care, 13:04 Patient left the ED. bp Signatures: Dispatcher [employer] Alex Garay, RN Roberth Mcgarry RN RN ll1 Fay Hester Edwin, MD MD ec2
[2024-06-30 15:18] VITALS: TEMP 98.7
[2024-06-30 15:20] VITALS: BP 122/68; O2SAT 93
--- NOTE | 2024-07-01 17:08 | EKG ---
Test Date: 2024-06-30 Test Time: 09:21:16 Acupressure Therapist: DEISY MEASUREMENT RESULTS: Intervals: Rate: 61 NH: 196 QRSD: 76 QT: 470 QTc: 473 [place]: P: 70 NH: 196 QRS: 53 T: 48 INTERPRETIVE STATEMENTS: Sinus rhythm with PVCs Normal ECG Compared to ECG 01/16/2024 14:26:52 First degree AV block no longer present Electronically Signed On 07-01-24 17:05:27 CDT by Juan Diego Case
== END 2024-06-30 13:04 | disposition home or self-care (01) ==
LOC: ER 08:33
DX: R07.9 Chest pain, unspecified (principal); R06.00 Dyspnea, unspecified; I10 Essential (primary) hypertension
CPT/HCPCS: 36415; 71045; 80048; 81001; 83880; 84484; 85025; 93005; 99283

== ENCOUNTER 2024-11-18 12:54 | Emergency (ER) | payer OTHER ==
--- NOTE | 2024-11-18 15:04 | RAD REPORT ---
Procedure: Chest Pa And Lat (2 Views) HISTORY: Cough COMPARISON: June 2024 FINDINGS: The lungs appear clear of acute infiltrate. No significant pleural effusion noted. The heart is normal size. IMPRESSION: No acute abnormality is displayed.
[2024-11-18 17:07] LABS: SARS-CoV-2 Antigen CONTROL BLUE LINE VIS/BG OK; SARS-CoV-2 Antigen Rapid Res Negative (Negative)
[2024-11-18] MEDS ORDERED: FUROSEMIDE 40 MG/4 ML VIAL ONE (17:09)
[2024-11-18 17:16] LABS: Absolute Eosinophils 0.1 K/uL (0-0.5); Absolute Monocytes 0.7 K/uL (0.1-1.3); Absolute Neutrophil 3.9 K/uL (1.8-8.0); Basophils % 0.6 % (0-1.3); Eosinophils % 2.2 % (0-4.4); Hematocrit 33.4 % (36.0-45.0); Hemoglobin 11.5 g/dL (12.0-15.0); Lymphocytes % 30.2 % (15.3-44.8); MCH 31.3 pg (27.0-35.0); MCHC 34.5 g/dL (32.0-36.0); MCV 90.7 fL (80-100); MPV 8.5 fL (7.6-11.3); Monocytes % 9.7 % (3.3-12.3); Neutrophils % 57.3 % (41.7-73.7); Nucleated Red Blood Cells % 0.1 % (0-0); Platelets 200 thou/uL (152-406); RBC Red Blood Cell Count 3.69 M/uL (3.86-4.86); Red Cell Distribution Width 14.5 % (12.1-15.2)
[2024-11-18 17:33] LABS: Anion Gap 9.1 mEq/L (5.0-15.0); Potassium 4.1 mEq/L (3.5-5.1)
--- NOTE | 2024-11-18 19:00 | ER ---
Nurse's Notes [facility] Name: Terra Christianson Age: 59 yrs Sex: Female : 1965 Arrival Date: 11/18/2024 Time: 12:54 Bed 24 Private MD: Diagnosis: Acute on chronic diastolic (congestive) heart failure Presentation: 11/18 13:40 Chief complaint: Patient states: SOB, cough, x 1 day, hx of CHF. Coronavirus screen: At [facility] this time, the client does not indicate any symptoms associated with coronavirus-19. Ebola Screen: No symptoms or risks identified at this time. Initial Sepsis Screen: Does the patient meet any 2 criteria? No. Patient's initial sepsis screen is negative. Does the patient have a suspected source of infection? No. Patient's initial sepsis screen is negative. Risk Assessment: Do you want to hurt yourself or someone else? Patient reports no desire to harm self or others. Onset of symptoms was November 17, 2024. 13:40 Method Of Arrival: Ambulatory [facility] 13:40 Acuity: YOSELYN 2 jl7 Triage Assessment: 13:40 General: Appears in no apparent distress. uncomfortable, Behavior is calm, cooperative, jl7 appropriate for age. Pain: Complains of pain in joints Pain currently is 5 out of 10 on a pain scale. Respiratory: Reports shortness of breath at rest Airway is patent Respiratory effort is even, labored, Respiratory pattern is regular, symmetrical, Onset: The symptoms/episode began/occurred yesterday, the patient has moderate shortness of breath. Historical: - Allergies: 13:40 Adhesives; jl7 13:40 Albuterol; jl7 13:40 Azithromycin; jl7 13:40 Fentanyl; jl7 13:40 FLU VACCINE; jl7 13:40 HYDRALAZINE (Headache and does not work to lower BP); jl7 13:40 NSAIDS; jl7 13:40 pneumonia vaccine; jl7 13:40 prednisolone; jl7 13:40 Prednisone; jl7 13:40 Trazodone; jl7 13:40 Wellbutrin; jl7 13:40 zoster vaccine live (PF); jl7 13:40 z-pack; jl7 - PMHx: 13:40 Anxiety; Atrial fibrillation; depressive disorder; diabetes mellitus; Gout; jl7 Hypertensive disorder; insomnia; RENAL FAILURE; Renal reflux; uterine cancer; uterine cancer; - Immunization history:: Adult Immunizations unknown. - Infectious Disease History:: Denies. - Social history:: Smoking status: Patient denies any tobacco usage or history of. Screenin:18 [facility] ED Fall Risk Assessment (Adult) History of falling in the last 3 months, me1 including since admission No falls in past 3 months (0 pts) Confusion or Disorientation No (0 pts) Intoxicated or Sedated No (0 pts) Impaired Gait No (0 pts) Mobility Assist Device Used No (0 pt) Altered Elimination No (0 pt) Score/Fall Risk Level 0 - 2 = Low Risk Maintained a safe environment, Provided non-skid footwear, Hourly rounding (assess needs \T\ fall precautionary measures) done. Abuse screen: Denies threats or abuse. Nutritional screening: No deficits noted. Tuberculosis screening: No symptoms or risk factors identified. Assessment: 17:18 General: Appears uncomfortable, obese, well groomed, well developed, Behavior is calm, me1 cooperative, appropriate for age, Reports SOB, cough, x 1 day, hx of CHF. Pain: Denies pain. Neuro: Level of Consciousness is awake, alert, obeys commands, Oriented to person, place, time, situation, Appropriate for age. Cardiovascular: Patient's skin is warm and dry. Rhythm is regular. Respiratory: Reports shortness of breath on exertion Airway is patent Respiratory effort is even, unlabored, Respiratory pattern is regular, symmetrical, Breath sounds are clear bilaterally. GI: No signs and/or symptoms were reported involving the gastrointestinal system. : No signs and/or symptoms were reported regarding the genitourinary system. EENT: No signs and/or symptoms were reported regarding the EENT system. Derm: Skin is intact, is healthy with good turgor, Skin is pink, warm \T\ dry. Musculoskeletal: No signs and/or symptoms reported regarding the musculoskeletal system. 18:39 Reassessment: Ambulated on room air. O2 stayed above 97%. SOB with exertion is much me1 improved since arrival. Vital Signs: 13:40 BP 159 / 107; Pulse 69; Resp 17; Temp 97.2; Pulse Ox 100% ; Weight 90.72 kg; Height 5 jl7 ft. 3 in. ; Pain 5/10; 17:00 BP 179 / 83; Pulse 66; Resp 16; Pulse Ox 99% ; me1 18:00 BP 163 / 87; Pulse 57; Resp 17; Pulse Ox 99% ; me1 19:23 BP 152 / 81; Pulse 61; Resp 15; Temp 97.9; Pulse Ox 98% ; jj7 13:40 Body Mass Index 35.43 (90.72 kg, 160.02 cm) jl7 13:40 Pain Scale: Adult 7 ED Course: 12:56 Patient arrived in ED. mr 13:03 Moni Ma PA-C is PHCP. sb4 13:03 Ollie Cruz MD is Attending Physician. sb4 13:40 Arm band placed on right wrist. jl7 13:42 Triage completed. jl7 14:26 Chest Pa And Lat (2 Views) XRAY In Process Unspecified. EDMS 16:14 Leah Juarez, RN is Primary Nurse. me1 16:34 COVID swab sent to lab. Flu and/or RSV swab sent to lab. tm3 17:07 BMP Sent. me1 17:07 CBC with Diff Sent. me1 17:07 NT PRO-BNP Sent. me1 17:07 Troponin High Sensitivity Sent. me1 17:07 Initial lab(s) drawn, by mn, sent to lab. Inserted saline lock: 22 gauge in left me1 antecubital area, using aseptic technique. 17:18 Patient has correct armband on for positive identification. Call light in reach. Side me1 rails up X 1. Provided Education on: POC. Verbalized understanding.. Client placed on continuous cardiac and pulse oximetry monitoring. NIBP monitoring applied. Pulse ox on. NIBP on. 17:18 No provider procedures requiring assistance completed. me1 19:21 IV discontinued, intact, bleeding controlled, No redness/swelling at site. Pressure jj7 dressing applied. Administered Medications: 17:14 Drug: Furosemide IVP 40 mg IVP once; give over 2 minutes Route: IVP; Site: left me1 antecubital; 17:20 Follow up: Response: No adverse reaction me1 18:31 Follow up: Response: No adverse reaction me1 Medication: 17:18 VIS not applicable for this client. me1 Outcome: 18:59 Discharge ordered by . sb4 19:21 Discharged to home ambulatory, with significant other, jj7 19:21 Condition: improved 19:21 Discharge instructions given to patient, Instructed on discharge instructions, follow up and referral plans. medication usage, Demonstrated understanding of instructions, follow-up care, medications, 19:23 Patient left the ED. jj7 Signatures: Dispatcher [employer] EDMS Burton Jimenez tm3 Rodriguez, Fang, Reg Reg mr Terence Juana, RN RN jl7 Maikel Mcdonald RN RN [email or web address] Moni Ma, PA-C PA-C sb4 Leah Juarez RN RN me1 Corrections: (The following items were deleted from the chart) 17:16 13:40 Chief complaint: Patient states: SOB, cough, x 1 day, hx of CHF karina me1
--- NOTE | 2024-11-18 19:00 | EDPHYS ---
Physician Documentation [facility] Name: Terra Christianson Age: 59 yrs Sex: Female : 1965 Arrival Date: 11/18/2024 Time: 12:54 Bed 24 Private MD: ED Physician Ollie Cruz HPI: 11/18 15:41 This 59 yrs old Female presents to ER via Ambulatory with complaints of Shortness Of sb4 Breath. 16:25 woke up with sob, calix, feet, leg, and hand swelling. states she has gained 8 pounds sb4 since yesterday. history of CHF, takes 40 mg lasix PO daily. denies any changes in dosage, missed doses, or increase in fluid intake. denies any chest pain. Historical: - Allergies: 13:40 Adhesives; jl7 13:40 Albuterol; jl7 13:40 Azithromycin; jl7 13:40 Fentanyl; jl7 13:40 FLU VACCINE; jl7 13:40 HYDRALAZINE (Headache and does not work to lower BP); jl7 13:40 NSAIDS; jl7 13:40 pneumonia vaccine; jl7 13:40 prednisolone; jl7 13:40 Prednisone; jl7 13:40 Trazodone; jl7 13:40 Wellbutrin; jl7 13:40 zoster vaccine live (PF); jl7 13:40 z-pack; jl7 - PMHx: 13:40 Anxiety; Atrial fibrillation; depressive disorder; diabetes mellitus; Gout; jl7 Hypertensive disorder; insomnia; RENAL FAILURE; Renal reflux; uterine cancer; uterine cancer; - Immunization history:: Adult Immunizations unknown. - Infectious Disease History:: Denies. - Social history:: Smoking status: Patient denies any tobacco usage or history of. ROS: 16:25 Constitutional: Negative for fever, chills, and weight loss, sb4 16:25 Cardiovascular: Positive for edema, 16:25 Respiratory: Positive for cough, dyspnea on exertion, orthopnea, shortness of breath, 16:25 All other systems are negative, Exam: 16:25 Constitutional: This is a well developed, well nourished patient who is awake, alert, sb4 and in no acute distress. Head/Face: Normocephalic, atraumatic. Eyes: Extra-ocular motions intact. Periorbital areas with no swelling, redness, or edema. ENT: Mucous membranes moist. Cardiovascular: Regular rate and rhythm with a normal S1 and S2. Respiratory: No increased work of breathing, no retractions or nasal flaring. Abdomen/GI: Soft, non-tender, no distension. Skin: Warm, dry with normal turgor. Normal color with no rashes, no lesions, and no evidence of cellulitis. 16:25 Cardiovascular: Edema: pedal edema, that is moderate, Vital Signs: 13:40 BP 159 / 107; Pulse 69; Resp 17; Temp 97.2; Pulse Ox 100% ; Weight 90.72 kg; Height 5 jl7 ft. 3 in. ; Pain 5/10; 17:00 BP 179 / 83; Pulse 66; Resp 16; Pulse Ox 99% ; me1 18:00 BP 163 / 87; Pulse 57; Resp 17; Pulse Ox 99% ; me1 19:23 BP 152 / 81; Pulse 61; Resp 15; Temp 97.9; Pulse Ox 98% ; jj7 13:40 Body Mass Index 35.43 (90.72 kg, 160.02 cm) jl7 13:40 Pain Scale: Adult jl7 MDM: 13:43 Medical Screening Exam initiated sb4 19:21 Antibiotic administration: Not indicated. Data reviewed: vital signs, nurses notes, lab sb4 test result(s), radiologic studies, and as a result, I will discharge patient. 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 11/18 13:45 Order name: SARS RAPID; Complete Time: 17:08 sb4 11/18 13:45 Order name: Flu; Complete Time: 17:10 sb4 11/18 13:45 Order name: RSV; Complete Time: 17:09 sb4 11/18 14:09 Order name: BMP; Complete Time: 17:45 sb4 11/18 14:09 Order name: CBC with Diff; Complete Time: 17:25 sb4 11/18 14:09 Order name: NT PRO-BNP; Complete Time: 17:45 sb4 11/18 13:45 Order name: Chest Pa And Lat (2 Views) XRAY; Complete Time: 15:11 sb4 11/18 17:54 Order name: Misc. Order: ambulate with o2 monitor; Complete Time: 18:39 sb4 Administered Medications: 17:14 Drug: Furosemide IVP 40 mg IVP once; give over 2 minutes Route: IVP; Site: left me1 antecubital; 17:20 Follow up: Response: No adverse reaction me1 18:31 Follow up: Response: No adverse reaction me1 Disposition Summary: 11/18/24 18:59 Discharge Ordered Problem: new sb4 Symptoms: have improved sb4 Condition: Stable sb4 Diagnosis - Acute on chronic diastolic (congestive) heart failure sb4 Followup: sb4 - With: Emergency Department - When: As needed - Reason: Trouble breathing, Worsening of condition Discharge Instructions: - Discharge Summary Sheet sb4 - Heart Failure, Diagnosis sb4 - Form - Daily Weight Record sb4 Forms: - Patient Portal Instructions sb4 - Leadership Thank You Letter sb4 Addendum: 11/19/2024 19:49 I was immediately available for consultation during this patient's visit. I did not e c2 personally see the patient or discuss the patient with the LYNN. . Signatures: Dispatcher [employer] Juana Roberson RN RN jl7 Moni Ma PA-C PA-C sb4 Leah Juarez RN RN me1 Ollie Cruz MD MD ec2 Corrections: (The following items were deleted from the chart) 11/18 13:45 13:45 SARS-COV-2 Antigen Rapid+I.LAB.BRZ ordered. EDMS EDMS 13:45 13:45 Influenza Screen (A \T\ B)+BA.LAB.BRZ ordered. EDMS EDMS 13:45 13:45 Respiratory Syncytial Virus Ag+BA.LAB.BRZ ordered. EDMS EDMS
[2024-11-18 19:50] VITALS: BP 152/81; TEMP 97.9; O2SAT 98
== END 2024-11-18 19:23 | disposition home or self-care (01) ==
LOC: ER 12:54
DX: I11.0 Hypertensive heart disease with heart failure (principal); I50.33 Acute on chronic diastolic (congestive) heart failure; I48.91 Unspecified atrial fibrillation; E11.9 Type 2 diabetes mellitus without complications; Z11.52 Encounter for screening for COVID-19
CPT/HCPCS: 85025; 80048; 36415; 83880; 87807; 87804 ×2; 71046; 96374; 99284; 87811; J1940

== ENCOUNTER 2025-08-26 14:02 | Emergency (ER) | payer OTHER ==
[2025-08-26 14:54] LABS: PT Prothrombin Time 15.6 SECONDS (10-13.0); Protime INR 1.39
[2025-08-26 15:00] LABS: Absolute Lymphocytes (CBC) 3.3 K/uL (0.7-4.9); Hematocrit 34.8 % (36.0-45.0); Hemoglobin 12.1 g/dL (12.0-15.0); MCH 30.6 pg (27.0-35.0); MCHC 34.7 g/dL (32.0-36.0); MCV 88.3 fL (80-100); MPV 8.2 fL (7.6-11.3); Nucleated RBC Absolute Count 0.0 (0-0); Nucleated Red Blood Cells % 0.1 % (0-0); RBC Red Blood Cell Count 3.94 M/uL (3.86-4.86); White Blood Count 8.80 thou/uL (4.3-10.9)
[2025-08-26 15:09] LABS: ALT/SGPT 23.0 U/L (13-56); AST/SGOT 18.0 U/L (15-37); Albumin 3.4 g/dL (3.4-5.0); Albumin/Globulin Ratio 1.1 (1.1-1.8); Alkaline Phosphatase 97.0 U/L (45-117); Anion Gap 12.6 mEq/L (5.0-15.0); BUN Blood Urea Nitrogen 14.0 mg/dL (7-18); Bilirubin Indirect, Calculated 0.3 mg/dL (0.2-0.8); Globulin 3.2 g/dL (2.3-3.5); Glucose Level 113.0 mg/dL (74-106); Magnesium 1.6 mg/dL (1.6-2.4); NT PRO-BNP 116.0 pg/mL (<125); Potassium 3.6 mEq/L (3.5-5.1); Troponin High Sensitivity 5.1 pg/mL (<58.9)
[2025-08-26 15:22] LABS: Sqamous Epithelial <5 /HPF (None Seen); Urine Culture Reflex Order NOT NEEDED; Urine Microscopic Reflex YN ORDER UMIC
--- NOTE | 2025-08-26 16:13 | RAD REPORT ---
EXAMINATION: ONE VIEW CHEST XR CLINICAL INDICATION: Female, 60 years old.,CHEST PAIN TECHNIQUE: Frontal chest projection is submitted. Examination is limited by patient positioning and t echnique. COMPARISON: 11/18/2024 FINDINGS: The lungs are well inflated and clear. No pneumothorax or sizable effusion. The heart is normal in s ize. Mediastinal contours are unremarkable. IMPRESSION: No acute intrathoracic abnormalities.
[2025-08-26] MEDS ORDERED: MORPHINE 4 MG/ML SYR ONE (17:09)
--- NOTE | 2025-08-26 18:01 | RAD REPORT ---
EXAMINATION: CT Abdomen Pelvis Wo Contrast CLINICAL INDICATION: Female, 60 years old. back pain TECHNIQUE: CT abdomen and pelvis was performed, without IV contrast, as per department protocol. Axia l, sagittal and coronal reconstructions were obtained. One or more of the following dose reduction techniques were used: Automated exposure control, adjustment of the mA and kV according to the patien t size, and iterative reconstruction. Unless otherwise specified, incidental findings do not require dedicated imaging follow-up. COMPARISON: 05/07/2024 FINDINGS: The lack of intravenous contrast limits the sensitivity of this exam for evaluation of solid visceral organs, vascular structures, and retroperitoneum. LOWER CHEST: The visualized lung bases are clear. LIVER: Normal in size and contour. No focal lesion. BILIARY SYSTEM: Status post cholecystectomy. SPLEEN: Normal size. No focal lesion. Stable surgical clips in the left subdiaphragmatic region and along the anterior margin of the spleen. PANCREAS: No mass, ductal dilation, or thien-pancreatic fluid. ADRENALS: Normal; no mass. KIDNEYS AND URETERS: Normal size and contour. No hydronephrosis. URINARY BLADDER: Normal contour. GASTROINTESTINAL TRACT: No evidence of bowel obstruction, significant free fluid, free air or abscess . APPENDIX: Normal appendix. LYMPH NODES: No lymphadenopathy. MUSCULOSKELETAL: No acute or suspicious osseous abnormality. ADDITIONAL FINDINGS: Small umbilical hernia. Diastasis recti. IMPRESSION: No acute or concerning abnormalities in the abdomen or pelvis, with evaluation limited by lack of IV contrast. Incidental findings as above.
--- NOTE | 2025-08-26 18:16 | EDPHYS ---
Physician Documentation [facility] Name: Terra Christianson Age: 60 yrs Sex: Female : 1965 Arrival Date: 08/26/2025 Time: 14:02 Bed 18 Private MD: ED Physician Terell Maldonado HPI: 08/26 14:38 This 60 yrs old Female presents to ER via Wheelchair with complaints of Chest Pain, ms3 Back Pain, Shoulder Pain, Confusion. 14:38 60-year-old female with past medical history of anxiety, atrial fibrillation, ms3 depression, diabetes, gout, hypertension, ureteral reflux, sepsis presents to the emergency department for chest pain, back pain, shoulder pain, confusion that began at 11:45 AM after she awoke from a nap. Patient's notes patient was having fatigue this morning that then became confusion after waking up. Patient states her overall discomfort is 7/10. She denies any alleviating or inciting factors.. Historical: - Allergies: 14:17 Adhesives; dd2 14:17 Albuterol; dd2 14:17 Azithromycin; dd2 14:17 Fentanyl; dd2 14:17 FLU VACCINE; dd2 14:17 HYDRALAZINE (Headache and does not work to lower BP); dd2 14:17 NSAIDS; dd2 14:17 pneumonia vaccine; dd2 14:17 prednisolone; dd2 14:17 Prednisone; dd2 14:17 Trazodone; dd2 14:17 Wellbutrin; dd2 14:17 zoster vaccine live (PF); dd2 14:17 z-pack; dd2 - PMHx: 14:17 Anxiety; Atrial fibrillation; depressive disorder; diabetes mellitus; Gout; dd2 Hypertensive disorder; insomnia; RENAL FAILURE; Renal reflux; uterine cancer; uterine cancer; - PSHx: 14:17 hysterectomy; dd2 - Immunization history:: Adult Immunizations up to date. - Infectious Disease History:: Denies. - Social history:: Smoking status: Patient denies any tobacco usage or history of. ROS: 14:38 Constitutional: Negative for fever, and chills. Abdomen/GI: Negative for abdominal ms3 pain, nausea, vomiting, diarrhea, and constipation, 14:38 Cardiovascular: Positive for chest pain, 14:38 Respiratory: Positive for shortness of breath, 14:38 MS/extremity: Positive for Left shoulder pain, Exam: 14:38 Constitutional: This is a well developed, well nourished patient who is awake, alert, ms3 and in no acute distress. Cardiovascular: Regular rate and rhythm with a normal S1 and S2. No gallops, murmurs, or rubs. Normal PMI, no JVD. No pulse deficits. Respiratory: Lungs have equal breath sounds bilaterally, clear to auscultation and percussion. No rales, rhonchi or wheezes noted. No increased work of breathing, no retractions or nasal flaring. Abdomen/GI: Soft, non-tender, with normal bowel sounds. No distension or tympany. No guarding or rebound. No evidence of tenderness throughout. Skin: Warm, dry with normal turgor. Normal color with no rashes, no lesions, and no evidence of cellulitis. MS/ Extremity: Pulses equal, no cyanosis. Neurovascular intact. Full, normal range of motion. Neuro: Awake and alert, GCS 15, oriented to person, place, time, and situation. Cranial nerves II-XII grossly intact. Motor strength 5/5 in all extremities. Sensory grossly intact. Cerebellar exam normal. Normal gait. 14:38 ECG was reviewed by the Attending Physician. Vital Signs: 14:13 BP 107 / 68; Pulse 82; Resp 17; Temp 98.4; Pulse Ox 98% on R/A; Weight 76.2 kg (R); dd2 Pain 7/10; 15:19 BP 115 / 56; Pulse 74; Resp 2; Pulse Ox 100% ; go2 16:50 BP 115 / 54; Pulse 79; Resp 16; Pulse Ox 98% ; go2 17:50 BP 125 / 75; Pulse 72; Resp 16; Temp 98.7; Pulse Ox 98% ; go2 18:27 BP 142 / 66; Pulse 74; Resp 20; Pulse Ox 98% ; go2 14:13 Pain Scale: Adult dd2 MDM: 14:12 Medical Screening Exam initiated ms3 16:59 ED course: Updated patient on her chest x-ray, EKG, labs. Patient is convinced she has ms3 sepsis. Discussed with patient that she does not currently meet parameters for sepsis. Patient was unhappy when this was discussed. Patient states she is currently having back pain. Will order CT abdomen pelvis without IV contrast as patient could possibly have left kidney stone. Will give patient morphine for pain medication.. 19:27 Differential diagnosis: abnormal EKG, acute myocardial infarction, chest wall pain, ms3 Musculoskeletal pain. HEART Score: History: Slightly Suspicious (0), ECG: Normal (0), Age: > 45 and < 65 years (1), Risk Factors: 1 or 2 risk factors (1), [Hypertension] [DM] Troponin: < or = 1 x Normal Limit (0), Total Score = 2. Data reviewed: vital signs, nurses notes, lab test result(s), EKG, radiologic studies, and as a result, I will discharge patient. I considered the following discharge prescriptions or medication management in the emergency department Medications were administered in the Emergency Department. See MAR. Independent interpretation of the following test(s) in the Emergency Department X-Ray: My interpretation is Chest x-ray image reviewed by me does not reveal consolidation. Counseling: I had a detailed discussion with the patient and/or guardian regarding the historical points, exam findings, and any diagnostic results supporting the discharge/admit diagnosis, lab results, radiology results, the need for outpatient follow up, to return to the emergency department if symptoms worsen or persist or if there are any questions or concerns that arise at home. ED course: Patient concerned about sepsis. Discussed CT results without contrast with the patient and her in detail. Patient is without source. White count is normal, heart rate less than 90, afebrile, respiratory rate is not greater than 20. Patient to follow-up with her primary care physician 2 to 3 days. Patient understands agrees with plan. All questions were answered. Return precautions were discussed include fevers, worsening symptoms, or any other concerns.. 08/26 14:23 Order name: Basic Metabolic Panel; Complete Time: 15:11 ms3 08/26 14:23 Order name: CBC with Diff; Complete Time: 15:11 ms3 08/26 14:23 Order name: LFT's; Complete Time: 15:11 ms3 08/26 14:23 Order name: Magnesium; Complete Time: 15:11 ms3 08/26 14:23 Order name: NT PRO-BNP; Complete Time: 15:11 ms3 08/26 14:23 Order name: PT-INR; Complete Time: 15:11 ms3 08/26 14:23 Order name: Troponin HS; Complete Time: 15:11 ms3 08/26 14:23 Order name: UA Rfx Charbel Cult if indicated; Complete Time: 15:35 ms3 08/26 16:59 Order name: Troponin High Sensitivity; Complete Time: 17:49 ms3 08/26 14:23 Order name: XRAY Chest (1 view); Complete Time: 16:27 ms3 08/26 16:58 Order name: CT Abd/Pelvis - Without Contrast; Complete Time: 18:06 ms3 08/26 14:23 Order name: EKG; Complete Time: 14:23 ms3 08/26 14:23 Order name: Cardiac monitoring; Complete Time: 14:41 ms3 08/26 14:23 Order name: EKG - Nurse/Tech; Complete Time: 14:41 ms3 08/26 14:23 Order name: IV Saline Lock; Complete Time: 14:41 ms3 08/26 14:23 Order name: Labs collected and sent; Complete Time: 14:41 ms3 08/26 14:23 Order name: O2 Per Protocol; Complete Time: 14:41 ms3 08/26 14:23 Order name: O2 Sat Monitoring; Complete Time: 14:41 ms3 EC:38 Rate is 79 beats/min. Rhythm is regular. QRS [place] is Normal. IN interval is normal. QRS ms3 interval is normal. Clinical impression: NSR w/ Non-specific ST/T Changes. Interpreted by me. Reviewed by me. Administered Medications: 17:09 Drug: morphine IVP or IV 4 mg IVP once over 4 mins Route: IVP; Infused Over: 4 mins; go2 Site: left forearm; 18:28 Follow up: Response: Pain is decreased go2 Disposition Summary: 08/26/25 18:15 Discharge Ordered Notes: Location: Home ms3 Condition: Stable ms3 Diagnosis - Flank pain ms3 - Chest pain, unspecified ms3 - Pain in left shoulder ms3 - Other fatigue ms3 Followup: ms3 - With: Armen Peraza, DO - When: 2 - 3 days - Reason: Recheck today's complaints Discharge Instructions: - Discharge Summary Sheet ms3 - Flank Pain, Adult ms3 - Musculoskeletal Pain ms3 - Nonspecific Chest Pain, Adult, [id number] ms3 Forms: - Medication Reconciliation Form ms3 - Antibiotic Education ms3 - Prescription Opioid Use ms3 - Patient Portal Instructions ms3 - Leadership Thank You Letter ms3 Signatures: Dispatcher Terell Walls, DO ms3 CLAUDIA SCHMITZ, RN RN dd2 Joyce Bruno RN RN go2
--- NOTE | 2025-08-26 18:16 | ER ---
Nurse's Notes [facility] Name: Terra Christianson Age: 60 yrs Sex: Female : 1965 Arrival Date: 08/26/2025 Time: 14:02 Bed 18 Private MD: Diagnosis: Flank pain;Chest pain, unspecified;Pain in left shoulder;Other fatigue Presentation: 08/26 14:13 Chief complaint: Patient states: SHE WOKE UP FROM A NAP WITH UPPER BACK PAIN, LT dd2 SHOULDER PAIN, AND CONFUSION, HAND SWELLING AND CHEST PAIN. Coronavirus screen: At this time, the client does not indicate any symptoms associated with coronavirus-19. Ebola Screen: No symptoms or risks identified at this time. Initial Sepsis Screen: Does the patient meet any 2 criteria? No. Patient's initial sepsis screen is negative. Does the patient have a suspected source of infection? No. Patient's initial sepsis screen is negative. Risk Assessment: Do you want to hurt yourself or someone else? Patient reports no desire to harm self or others. Onset of symptoms was August 26, 2025 at 09:00. 14:13 Method Of Arrival: Wheelchair dd2 14:13 Acuity: YOSELYN 3 dd2 Triage Assessment: 14:17 General: Appears uncomfortable, Behavior is cooperative, appropriate for age, anxious. dd2 Pain: Complains of pain in left scapular area, thoracic area, chest and anterior aspect of left shoulder. Cardiovascular: Reports chest pain, shortness of breath. Historical: - Allergies: 14:17 Adhesives; dd2 14:17 Albuterol; dd2 14:17 Azithromycin; dd2 14:17 Fentanyl; dd2 14:17 FLU VACCINE; dd2 14:17 HYDRALAZINE (Headache and does not work to lower BP); dd2 14:17 NSAIDS; dd2 14:17 pneumonia vaccine; dd2 14:17 prednisolone; dd2 14:17 Prednisone; dd2 14:17 Trazodone; dd2 14:17 Wellbutrin; dd2 14:17 zoster vaccine live (PF); dd2 14:17 z-pack; dd2 - PMHx: 14:17 Anxiety; Atrial fibrillation; depressive disorder; diabetes mellitus; Gout; dd2 Hypertensive disorder; insomnia; RENAL FAILURE; Renal reflux; uterine cancer; uterine cancer; - PSHx: 14:17 hysterectomy; dd2 - Immunization history:: Adult Immunizations up to date. - Infectious Disease History:: Denies. - Social history:: Smoking status: Patient denies any tobacco usage or history of. Screenin:20 [facility] ED Fall Risk Assessment (Adult) History of falling in the last 3 months, go2 including since admission No falls in past 3 months (0 pts) Confusion or Disorientation No (0 pts) Intoxicated or Sedated No (0 pts) Impaired Gait No (0 pts) Mobility Assist Device Used No (0 pt) Altered Elimination No (0 pt) Score/Fall Risk Level 0 - 2 = Low Risk. Abuse screen: Denies threats or abuse. Denies injuries from another. Nutritional screening: No deficits noted. Tuberculosis screening: No symptoms or risk factors identified. Assessment: 15:16 Pain:. go2 15:17 Reassessment: Patient appears in no apparent distress at this time. No changes from go2 previously documented assessment. Patient is alert, oriented x 3, equal unlabored respirations, skin warm/dry/pink. General: Appears in no apparent distress. comfortable, well groomed, Behavior is calm, cooperative, appropriate for age, Denies fever, fatigue, chills. Pain: Complains of pain in back and chest Pain radiates to back Pain currently is 8 out of 10 on a pain scale. Quality of pain is described as aching, sharp, Pain began suddenly. Neuro: No deficits noted. Cardiovascular: No deficits noted. Reports chest pain, Denies diaphoresis, fatigue, lightheadedness, nausea, palpitations, shortness of breath, syncope, vomiting, Chest pain is described as mild, quality is sharp, began suddenly. Respiratory: No deficits noted. GI: No deficits noted. No signs and/or symptoms were reported involving the gastrointestinal system. : No deficits noted. No signs and/or symptoms were reported regarding the genitourinary system. EENT: No deficits noted. No signs and/or symptoms were reported regarding the EENT system. Derm: No deficits noted. No signs and/or symptoms reported regarding the dermatologic system. Musculoskeletal: No deficits noted. No signs and/or symptoms reported regarding the musculoskeletal system. Vital Signs: 14:13 BP 107 / 68; Pulse 82; Resp 17; Temp 98.4; Pulse Ox 98% on R/A; Weight 76.2 kg (R); dd2 Pain 7/10; 15:19 BP 115 / 56; Pulse 74; Resp 2; Pulse Ox 100% ; go2 16:50 BP 115 / 54; Pulse 79; Resp 16; Pulse Ox 98% ; go2 17:50 BP 125 / 75; Pulse 72; Resp 16; Temp 98.7; Pulse Ox 98% ; go2 18:27 BP 142 / 66; Pulse 74; Resp 20; Pulse Ox 98% ; go2 14:13 Pain Scale: Adult dd2 Vitals: 15:19 Cardiac Rhythm Assessment Regular Sinus rhythm. go2 ED Course: 14:07 Patient arrived in ED. cj3 14:11 Terell Maldonado DO is Attending Physician. ms3 14:17 Triage completed. dd2 14:17 Arm band placed on right wrist. dd2 14:21 Joyce Bruno, MESSI is Primary Nurse. go2 14:41 EKG done, by biotechnician. reviewed by Terell Maldonado DO. ts3 14:41 Initial lab(s) drawn, by mi, sent to lab. Inserted saline lock: 20 gauge in left mb9 forearm, using aseptic technique. Blood collected. Flushed with 10 mL NS. 15:10 Urine collected: clean catch specimen, sent to lab. ts3 15:20 XRAY Chest (1 view) In Process Unspecified. EDMS 15:21 Patient has correct armband on for positive identification. Bed in low position. Call go2 light in reach. Side rails up X2. Provided Education on: . Client placed on continuous cardiac and pulse oximetry monitoring. NIBP monitoring applied. groundwater monitoring technician on. Pulse ox on. NIBP on. 15:22 No provider procedures requiring assistance completed. Patient maintains SpO2 go2 saturation greater than 95% on room air. 17:25 CT Abd/Pelvis - Without Contrast In Process Unspecified. EDMS 17:55 IV discontinued, intact, bleeding controlled, No redness/swelling at site. go2 18:14 Armen Peraza DO is Referral Physician. ms3 Administered Medications: 17:09 Drug: morphine IVP or IV 4 mg IVP once over 4 mins Route: IVP; Infused Over: 4 mins; go2 Site: left forearm; 18:28 Follow up: Response: Pain is decreased go2 Medication: 15:20 VIS not applicable for this client. go2 Outcome: 17:54 Discharged to home ambulatory, go2 17:54 Condition: good 17:54 Discharge instructions given to patient, Instructed on discharge instructions, follow up and referral plans. Demonstrated understanding of instructions, follow-up care, 18:15 Discharge ordered by ms3 18:28 Patient left the ED. go2 Signatures: Dispatcher [employer] EDMS Terell Maldonado DO DO ms3 Fang Duong RN RN mb9 CLAUDIA SCHMITZ RN RN dd2 Joyce Bruno RN RN go2 Adelaida Mcdonald 3 Emely Mojica ts3 Corrections: (The following items were deleted from the chart) 15:21 15:16 Pain: go2 go2
[2025-08-26 19:08] VITALS: O2SAT 98
[2025-08-26 19:10] VITALS: TEMP 98.7
[2025-08-26 19:12] VITALS: BP 142/66
== END 2025-08-26 18:28 | disposition home or self-care (01) ==
LOC: ER 14:02
DX: R07.9 Chest pain, unspecified (principal); R41.0 Disorientation, unspecified; R10.9 Unspecified abdominal pain; M54.9 Dorsalgia, unspecified; M25.519 Pain in unspecified shoulder; I10 Essential (primary) hypertension; R53.83 Other fatigue; Z85.42 Personal history of malignant neoplasm of other parts of uterus; Z88.8 Allergy status to other drugs, medicaments and biological substances; Z88.1 Allergy status to other antibiotic agents; Z88.7 Allergy status to serum and vaccine
CPT/HCPCS: 36415; 71045; 74176; 80048; 80076; 81001; 83735; 83880; 84484; 85025; 85610; 93005; 96374; 99285